=== PATIENT | female | born 1955 | race Two or more races ===

== ENCOUNTER 2020-04-24 11:12 | Outpatient (REF) | payer MEDICARE, SELFPAY | END 2020-04-24 11:13 | disposition home or self-care (01) | LOC: HO.LAB 11:12 | PROVIDERS: PCP Family Medicine; Visit Provider Internal Medicine | DX: Z20.828 Contact with and (suspected) exposure to other viral communicable diseases (principal) | CPT/HCPCS: C9803; U0003 ==

== ENCOUNTER 2020-07-29 07:20 | Outpatient (REF) | payer MEDICARE, SELFPAY ==
--- NOTE | ~2020-07-29 | MM_ITS ---
EXAMINATION: MM SCREENING DIGITAL BREAST TOMOSYNTHESIS, BILATERAL CLINICAL INFORMATION: Screening. Asymptomatic. Right breast cancer 2012. COMPARISON: Mammography: 05/08/2019, 05/05/2018, 11/03/2017, 04/26/2017, 04/09/2016 TECHNIQUE: Digital breast tomosynthesis is performed in both the craniocaudal and mediolateral oblique views along with computer-aided detection (CAD). Synthesized 2D images are generated from the tomosynthesis. FINDINGS: There are scattered areas of fibroglandular density (ACR BI-RADS breast composition Category b). There are post therapy changes on the right with stable scarring upper outer quadrant there is a benign coarse calcification at superior aspect of the scar. Some other loosely grouped calcifications posterior 12:30 o'clock are stable. The remainder of the breast is unremarkable. Left breast CC view has increased attenuation asymmetric density anteriorly just lateral to midline more prominent when compared with prior studies. There is no correlate on MLO view and this is likely to represent incompletely compressed glandular tissue and/or summation artifact. Patient will be recalled for additional imaging. MM/MM tomosynthesis screening BI IMPRESSION: 1. Left: Increased attenuation asymmetric density anterior breast on CC view, likely combination of incompletely compressed glandular tissue and summation artifact. 2. Right: No significant change from prior studies. Post therapy changes. ASSESSMENT: BI-RADS 0: Incomplete - Need Additional Imaging Evaluation RECOMMENDATION: 1. Additional views of the left (3-D rolled CC x2). 2. Targeted ultrasound if warranted after review of the additional views. 3. Radiology department staff will contact the patient for additional imaging. This patient's information was entered into a reminder system with a target due date for their next mammogram.
== END 2020-07-29 07:21 | disposition home or self-care (01) ==
LOC: HO.MAMMO 07:20
PROVIDERS: PCP Family Medicine; Visit Provider Family Medicine
DX: Z12.31 Encounter for screening mammogram for malignant neoplasm of breast (principal)
CPT/HCPCS: 77063; 77067

== ENCOUNTER 2020-08-07 07:22 | Outpatient (REF) | payer MEDICARE, SELFPAY ==
--- NOTE | ~2020-08-07 | MM_ITS ---
EXAMINATION: MM DIAGNOSTIC DIGITAL BREAST TOMOSYNTHESIS, LEFT US LEFT BREAST ULTRASOUND CLINICAL INFORMATION: Asymmetric density anterior lateral aspect of the left breast. COMPARISON: Mammography: 07/29/2020 and studies dating back to 03/23/2012. TECHNIQUE: Digital breast tomosynthesis is performed. 2D images are generated from the tomosynthesis. The following views are obtained: Left breast rolled craniocaudal views. FINDINGS: There are scattered areas of fibroglandular density (ACR BI-RADS breast composition Category b). There is some effacement of dense breast tissue. Multiple circumscribed densities appear present with no region of abnormal distal sound shadowing. Targeted ultrasound evaluation of the lateral aspect of the left breast demonstrated multiple simple cysts with no abnormal solid mass or region of abnormal distal sound shadowing. Results are provided to the patient at time of visit by the technologist. MM/MM tomosynthesis added views L IMPRESSION: No mammographic or ultrasound evidence of malignancy. ASSESSMENT: BI-RADS 2: Benign. RECOMMENDATION: Routine annual mammography screening due in 12 months. This patient's information was entered into a reminder system with a target due date for their next mammogram.
--- NOTE | ~2020-08-07 | US_ITS ---
EXAMINATION: US DIAGNOSTIC ULTRASOUND BREAST, LEFT CLINICAL INFORMATION: Dense breast parenchyma with circumscribed densities.. COMPARISON: Mammogram of same day and studies dating back to January 22, 2014. TECHNIQUE: Ultrasound of the breast is performed with real-time alfaro scale imaging and color Doppler. FINDINGS: Targeted ultrasound evaluation of the lateral aspect of the left breast demonstrated multiple simple cysts with no abnormal solid mass or region of abnormal distal sound shadowing. Results are provided to the patient at time of visit by the technologist. US/US breast LT limited IMPRESSION: No mammographic or ultrasound evidence of malignancy. ASSESSMENT: BI-RADS 2: Benign RECOMMENDATION: Routine annual mammography screening due in 12 months.
== END 2020-08-07 07:23 | disposition home or self-care (01) ==
LOC: HO.MAMMO 07:22
PROVIDERS: PCP Family Medicine; Visit Provider Family Medicine
DX: N64.89 Other specified disorders of breast (principal)
CPT/HCPCS: 76642; 77061; 77065

== ENCOUNTER 2020-09-19 12:06 | Outpatient (REF) | payer MEDICARE, SELFPAY ==
[2020-09-19 12:28] LABS: COVID-19 Test Negative (Negative)
== END 2020-09-19 12:07 | disposition home or self-care (01) ==
LOC: HO.LAB 12:06
PROVIDERS: Visit Provider Internal Medicine
DX: Z20.822 Contact with and (suspected) exposure to COVID-19 (principal)
CPT/HCPCS: 36415; 87635; C9803

== ENCOUNTER 2022-02-21 10:00 | Outpatient (REF) | payer MEDICARE, SELFPAY ==
[2022-02-21 10:19] LABS: MANUAL DIFF FLAG NO
[2022-02-21 11:16] LABS: Estimated Average Glucose 272 mg/dL; Hemoglobin A1c % 11.1 %
[2022-02-21 11:25] LABS: Basophils Absolute Auto 0.1 X10*3/uL (0.0-0.2); Basophils Percent Auto 0.6 % (0-2); Eosinophils Absolute Auto 0.1 X10*3/uL (0.0-0.4); Eosinophils Percent Auto 1.2 % (0-4); Hematocrit 43.3 % (37.0-47.0); Hemoglobin 14.6 g/dl (12.0-16.0); Imm Gran Abs Auto 0.04 X10*3/uL (0.00-0.03); Imm Gran Pct Auto 0.4 % (0.0-0.4); Lymphocytes Absolute Auto 1.7 X10*3/uL (1.2-4.9); Mean Corpuscular HGB Conc 33.7 g/dl (31.0-35.0); Mean Corpuscular Hemoglobin 29.3 pg (27.0-33.0); Mean Corpuscular Volume 86.9 fL (80.0-98.0); Mean Platelet Volume 10.6 fL (9.4-12.3); Monocytes Absolute Auto 0.6 X10*3/uL (0.1-1.2); Monocytes Percent Auto 6.9 % (2-11); Neutrophils Absolute Auto 6.5 x10*3/uL (2.0-8.3); Neutrophils Percent Auto 71.9 % (45-73); Platelet Count 225 X10*3/uL (160-400); Red Blood Count 4.98 X10*6/uL (4.20-5.50); Red Cell Distribution Width 11.8 % (11.0-16.0)
[2022-02-21 11:39] LABS: Alanine Aminotransferase 27 U/L (0-31); Albumin Level 4.3 g/dL (3.5-5.0); Alkaline Phosphatase 72 U/L (39-117); Anion Gap 18 (12-20); Aspartate Amino Transferase 22 U/L (5-31); Bilirubin Total 0.4 mg/dL (0.0-1.0); Blood Urea Nitrogen 15 mg/dL (9-16); Calcium 9.5 mg/dL (8.4-10.2); Carbon Dioxide 25 mmol/L (22-29); Chloride 97 mmol/L (96-108); Cholesterol 203 mg/dL; Estimated Glomerular Filt Rate > 60; Glucose Random 331 mg/dL (60-115); HDL Cholesterol 45 mg/dL; LDL Cholesterol Calculated 110 mg/dl; Potassium 4.6 mmol/L (3.3-5.1); Sodium 135 mmol/L (135-145); Total Protein 7.3 g/dL (6.5-8.0); Triglycerides 240 mg/dL
[2022-02-21 12:01] LABS: TSH reflex Free T4 1.21 uIU/mL (0.32-4.0); Vitamin D 25-OH Total 30.9 ng/mL (>30)
[2022-02-21 12:23] LABS: Creatinine Urine 121.92 mg/dL; Microalbum/Creatinine Ratio Ur 42.6 ug/mg cr
[2022-02-23 09:22] LABS: Vitamin B12 261 pg/mL (200-900)
== END 2022-02-21 10:01 | disposition home or self-care (01) ==
LOC: HO.LAB 10:00
PROVIDERS: PCP Family Medicine; Visit Provider Family Medicine
DX: D05.10 Intraductal carcinoma in situ of unspecified breast (principal); E11.9 Type 2 diabetes mellitus without complications; E78.5 Hyperlipidemia, unspecified; F33.0 Major depressive disorder, recurrent, mild; I10 Essential (primary) hypertension; Z95.0 Presence of cardiac pacemaker
CPT/HCPCS: 36415; 80053; 80061; 82043; 82306; 82607; 83036; 84443; 85025

== ENCOUNTER → 2022-04-13 13:47 | Outpatient (BNVA) | payer MEDICARE, SELFPAY | PROVIDERS: PCP Family Medicine; Referring Provider Family Medicine; Visit Provider Internal Medicine Cardiovascular Disease | DX: Z45.018 Encounter for adjustment and management of other part of cardiac pacemaker (principal); I10 Essential (primary) hypertension; I47.29 Other ventricular tachycardia; E78.5 Hyperlipidemia, unspecified | CPT/HCPCS: 93005; 99202 ==

== ENCOUNTER → 2022-04-27 07:29 | Outpatient (REF) | payer MEDICARE, SELFPAY | LOC: HO.CARD 07:29 | PROVIDERS: Visit Provider Internal Medicine Cardiovascular Disease | DX: I10 Essential (primary) hypertension (principal) | CPT/HCPCS: 93306 ==

== ENCOUNTER → 2022-07-30 15:29 | Outpatient (BNVA) | payer MEDICARE, SELFPAY | PROVIDERS: PCP Family Medicine; Referring Provider Family Medicine; Visit Provider Internal Medicine Cardiovascular Disease | DX: I47.29 Other ventricular tachycardia (principal); I10 Essential (primary) hypertension; E78.5 Hyperlipidemia, unspecified; G47.30 Sleep apnea, unspecified; Z95.0 Presence of cardiac pacemaker | CPT/HCPCS: 93005; 99212 ==

== ENCOUNTER 2023-01-20 15:37 | Outpatient (AMB) | payer MEDICARE, SELFPAY ==
--- NOTE | 2023-01-20 15:51 | A.OFFVIS_ITS ---
Intake Vital Signs 01/20/23 15:52 Height 5 ft 1 in Weight 238 lb 1.588 oz BMI 45.0 BP 130/72 Blood Pressure Location Lt brachial Position Sitting Pulse 64 Intake Visit Reasons: 6 month follow up Intake Note: 6 month f/u Color Sprayer Required: No Allergies No Known Allergies Allergy (Verified 01/20/23 15:55) Medication List - Last Reconciled 01/20/23 by Moisés Spence MD aspirin 81 mg PO QAM atenolol 25 mg PO DAILY atorvastatin 40 mg PO DAILY 90 days fluoxetine 40 mg PO DAILY latanoprost 0.005% 1 drp ophthalmic (eye) BEDTIME metformin ER 500 mg PO BID zolpidem 10 mg PO BEDTIME PRN HPI HPI Comments History of Present Illness Details Pleasant 67-year-old female who is here for 1st office visit. 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 She said she had syncope and had pacemaker placed after that. Denying any chest pain or shortness of breath. She was following with Dr. Whyte but has not seen him in the recent past. He wishes to change her care to our practice. Pacemaker was interrogated and it showed battery life of 5.1 year and the fact that she is V paced 99% of time. She also had 1 run of nonsustained ventricular tachycardia lasting for 4 seconds. She is saying in February she had diarrhea and was sick with viral illness and 1 episode of nonsustained VT was also in February. In any case he does not have any recurrent runs and she has not felt any palpitations or symptoms in general. She is depressed and quite tearful during the interview because her son 3 years ago. He was a [employer] and unfortunately committed suicide. Blood pressure control is good. On follow up she is denying chest pain or SOB. Blood pressure control is good. Echo showed mildly dilated RV but LV function was normal. 01/20/23: She returns for follow-up. Sh e is denying any chest discomfort shortness of breath. Taking medications regularly. EKGs showing paced rhythm as before. [facility] Surgical History History of cardiac pacemaker Family History Father Hx of coronary artery bypass graft Mother No problems noted. Social History Alcohol intake: current Alcohol intake frequency: holidays/special occasions only Patient Tobacco Use Status: Never used Tobacco Review of Systems ENT Reports dizziness Card Denies chest pain, Denies chest pain at rest, Denies chest pain with activity, Denies rapid heart rate, Denies pedal edema, Denies edema, Denies leg edema, Denies lightheadedness, Denies palpitations, Denies dyspnea, Denies dyspnea on exertion and Denies orthopnea Resp Denies cough, Denies dyspnea and Denies dyspnea on exertion GI Denies hematochezia and Denies change in stool character Musc Denies abnormal gait, Reports limited range of motion, Reports muscle cramps, Denies muscle weakness, Denies numbness, Denies radiating pain into limb, Denies stiffness and Denies tingling Neuro Denies abnormal gait, Reports dizziness, Denies numbness and Denies tingling Endo Denies palpitations Physical Exam Vital Signs: Last Vital Signs Pulse 64 01/20/23 15:52 BP 130/72 01/20/23 15:52 BMI result Body Mass Index 45.0 GENERAL APPEARANCE: in no acute distress, pleasant. NECK: no carotid bruit, no jugular venous distention. SKIN: no suspicious lesions, warm and dry. HEART: no murmurs, regular rate and rhythm. LUNGS: clear to auscultation bilaterally. ABDOMEN: soft, nontender. EXTREMITIES: no edema. PERIPHERAL PULSES: equal. NEUROLOGIC: No gross deficits, AAO X 3 Office Procedures EKG Details: Atrial sensed V paced rhythm 64 beats per minute QTC 472 milliseconds. [id number], Complete Assessment & Plan Assessment & Plan (1) Essential hypertension: Code(s): I10 - Essential (primary) hypertension Plan Pleasant 67-year-old female who is here for follow-up. She has been doing well. She has permanent pacemaker placement previously for heart block and is ventricular paced 99% time which means she is pacemaker dependent. Blood pressure control is good. Same medications for now. Follow-up with us in 6 months. Thank you for allowing me to participate in the care of your patient. Please feel free to contact me if you have any questions. Coding Level of Care Code Est Pt Level 3 (74287) Diagnoses Essential hypertension I10 CPT Codes EKG - CPT: 85233-[id number], Complete ([id number])
[2023-01-20 15:52] VITALS: BP 130/72; PULSE 64; BMI 45.0
== END 2023-01-20 16:17 | disposition home or self-care (01) ==
PROVIDERS: Visit Provider Internal Medicine Cardiovascular Disease
DX: I10 Essential (primary) hypertension (principal)
CPT/HCPCS: 93010; 99213

== ENCOUNTER → 2023-01-20 15:37 | Outpatient (BNVA) | payer MEDICARE, SELFPAY | PROVIDERS: Visit Provider Internal Medicine Cardiovascular Disease | DX: I10 Essential (primary) hypertension (principal) | CPT/HCPCS: 93005; 99212 ==

== ENCOUNTER 2023-02-25 12:53 | Outpatient (REF) | payer MEDICARE, SELFPAY ==
--- NOTE | ~2023-02-25 | XR_ITS ---
EXAMINATION: XR RIBS, LEFT CLINICAL INFORMATION: Left-sided rib pain. COMPARISON: Chest radiograph 05/22/2018. TECHNIQUE: 3 views of the left ribs were obtained. FINDINGS: Stable appearance of the cardiomediastinal silhouette. Left-sided pacer with leads projecting over the right atrium and right ventricle. No focal airspace opacity, pleural effusion or pneumothorax. No evidence of displaced rib fractures. The visualized upper abdomen is within normal limits. XR/XR ribs LT min 3V w CXR1V IMPRESSION: 1. No acute cardiopulmonary findings. 2. No evidence of displaced rib fractures.
--- NOTE | ~2023-02-25 | XR_ITS ---
EXAMINATION: XR THORACOLUMBAR SPINE CLINICAL INFORMATION: Mid back pain radiating to left posterior ribs COMPARISON: Chest x-ray of 05/22/2018 TECHNIQUE: Frontal and lateral radiographs were acquired of the dorsal spine. FINDINGS: The vertebral alignment is normal. No intrinsic bony abnormality. The disc heights and neural foramina are well maintained. The endplates and posterior elements are normal. No fracture or subluxation. The surrounding prevertebral soft tissues are unremarkable. [id number] spondylotic proliferative changes are evident in the mid and lower dorsal spine. Left subclavian pacemaker leads are incidentally noted. XR/XR thoracic spine 2V IMPRESSION: Mild spondylotic hypertrophic changes in the mid and lower dorsal spine.
--- NOTE | ~2023-02-25 | XR_ITS ---
EXAMINATION: XR LUMBOSACRAL SPINE CLINICAL INFORMATION: Pain radiating to left posterior ribs, low back pain COMPARISON: None available. TECHNIQUE: Three views of the lumbosacral spine. FINDINGS: The vertebral bodies and posterior elements are normal. The disc spaces are preserved and the vertebral alignment is normal. The paraspinal soft tissues are normal. XR/XR lumbar spine 2-3V IMPRESSION: Unremarkable plain radiographs of the lumbar spine.
== END 2023-02-25 12:54 | disposition home or self-care (01) ==
LOC: HO.HHCX 12:53
PROVIDERS: Visit Provider Family Medicine
DX: M54.9 Dorsalgia, unspecified (principal); R07.81 Pleurodynia
CPT/HCPCS: 71101; 72070; 72100

== ENCOUNTER 2023-05-06 05:14 | Emergency (ER) | payer MEDICARE, SELFPAY ==
--- NOTE | 2023-05-06 | ECG_ITS ---
Test Reason : CHEST PAIN Blood Pressure : / mmHG Vent. Rate : 070 BPM Atrial Rate : 070 BPM P-R Int : 164 ms QRS Dur : 140 ms QT Int : 482 ms P-R-T Axes : 076 102 053 degrees QTc Int : 520 ms Atrial-sensed ventricular-paced rhythm Abnormal ECG When compared with ECG of 22-MAY-2018 06:30, Vent. rate has decreased BY 9 BPM Referred By: Generic ED Physician Electronically Signed By:KEVIN LEVINE
--- NOTE | ~2023-05-06 | CT_ITS ---
EXAMINATION: CT HEAD WITHOUT CONTRAST CT CERVICAL SPINE WITHOUT CONTRAST CLINICAL INFORMATION: Fall. Pain. COMPARISON: None available. TECHNIQUE: Contiguous axial imaging was performed through the head and cervical spine without intravenous administration of contrast. This CT examination was performed using dose optimization techniques as appropriate, variously including the following: *Automated exposure control *Adjustment of mA and/or kV according to patient size (this includes techniques or standardized protocols for targeted exams where dose is matched to indication/reason for exam; i.e. extremities or head) *Use of iterative reconstruction technique DLP: 1200 mGy-cm FINDINGS: The lateral, third and fourth ventricles are normally outlined. The cortical sulci and basal cisterns are normally outlined as well. There is no acute territorial defect, hemorrhage or midline shift. The extra-axial spaces are unremarkable. Calvarium: Intact. Maxillofacial sinuses and mastoids: Clear as visualized. Cervical spine: The alignment is within normal limits. There is mild diffuse cervical disc degenerative change with mild loss of disc space, endplate change and mild osteophyte formation associated with diffuse cwui-up-qofsbjmj facet osteoarthritic degenerative change with multilevel minimal spinal canal and L2 level mild neuroforaminal narrowing. There is no fracture. The soft tissues are unremarkable. The visualized upper lung alex are clear. CT/CT cervical spine wo IV con IMPRESSION: 1. No acute intracranial process seen. 2. No acute cervical spine fracture or traumatic subluxation seen.
--- NOTE | ~2023-05-06 | CT_ITS ---
EXAMINATION: CT HEAD WITHOUT CONTRAST CT CERVICAL SPINE WITHOUT CONTRAST CLINICAL INFORMATION: Fall. Pain. COMPARISON: None available. TECHNIQUE: Contiguous axial imaging was performed through the head and cervical spine without intravenous administration of contrast. This CT examination was performed using dose optimization techniques as appropriate, variously including the following: *Automated exposure control *Adjustment of mA and/or kV according to patient size (this includes techniques or standardized protocols for targeted exams where dose is matched to indication/reason for exam; i.e. extremities or head) *Use of iterative reconstruction technique DLP: 1200 mGy-cm FINDINGS: The lateral, third and fourth ventricles are normally outlined. The cortical sulci and basal cisterns are normally outlined as well. There is no acute territorial defect, hemorrhage or midline shift. The extra-axial spaces are unremarkable. Calvarium: Intact. Maxillofacial sinuses and mastoids: Clear as visualized. Cervical spine: The alignment is within normal limits. There is mild diffuse cervical disc degenerative change with mild loss of disc space, endplate change and mild osteophyte formation associated with diffuse zcmn-sj-rsqaazlq facet osteoarthritic degenerative change with multilevel minimal spinal canal and L2 level mild neuroforaminal narrowing. There is no fracture. The soft tissues are unremarkable. The visualized upper lung alex are clear. CT/CT head/brain wo IV con IMPRESSION: 1. No acute intracranial process seen. 2. No acute cervical spine fracture or traumatic subluxation seen.
--- NOTE | ~2023-05-06 | XR_ITS ---
EXAMINATION: XR CHEST CLINICAL INFORMATION: Chest pain COMPARISON: None available. TECHNIQUE: Frontal view of the chest was obtained. FINDINGS: Rotated positioning. Left-sided pacer with leads projecting over the right atrium and right ventricle. Stable cardiomediastinal silhouette. Multiple cardiac leads overlie the chest. No focal consolidation, effusion, pulmonary edema or pneumothorax is seen. No acute osseous abnormality. XR/XR chest 1V IMPRESSION: No acute cardiopulmonary findings.
[2023-05-06 05:21] VITALS: BP 119/56; PULSE 73; O2SAT 100
[2023-05-06 05:36] VITALS: BP 120/70; PULSE 70; RESP 14; O2SAT 94; BMI 43.9
[2023-05-06 05:48] VITALS: PULSE 71
[2023-05-06 06:15] LABS: MANUAL DIFF FLAG NO
[2023-05-06 06:17] LABS: Basophils Percent Auto 0.3 % (0-2); Eosinophils Absolute Auto 0.1 X10*3/uL (0.0-0.4); Eosinophils Percent Auto 0.5 % (0-4); Hematocrit 43.3 % (37.0-47.0); Hemoglobin 14.5 g/dl (12.0-16.0); Imm Gran Abs Auto 0.04 X10*3/uL (0.00-0.03); Imm Gran Pct Auto 0.3 % (0.0-0.4); Lymphocytes Absolute Auto 1.3 X10*3/uL (1.2-4.9); Lymphocytes Percent Auto 10.3 % (20-40); Mean Corpuscular HGB Conc 33.5 g/dl (31.0-35.0); Mean Corpuscular Hemoglobin 29.4 pg (27.0-33.0); Mean Corpuscular Volume 87.8 fL (80.0-98.0); Mean Platelet Volume 10.2 fL (9.4-12.3); Monocytes Absolute Auto 0.7 X10*3/uL (0.1-1.2); Neutrophils Absolute Auto 10.1 x10*3/uL (2.0-8.3); Neutrophils Percent Auto 82.6 % (45-73); Platelet Count 199 X10*3/uL (160-400); Red Blood Count 4.93 X10*6/uL (4.20-5.50); Red Cell Distribution Width 11.9 % (11.0-16.0); White Blood Count 12.2 X10*3/uL (4.8-10.8)
[2023-05-06 06:22] LABS: INTERNATIONAL NORM RATIO 0.9 (0.9-1.1); Prothrombin Time 10.9 SEC (11.1-13.3)
[2023-05-06 06:30] LABS: Alanine Aminotransferase 24 U/L (0-31); Albumin Level 4.2 g/dL (3.5-5.0); Alkaline Phosphatase 78 U/L (39-117); Anion Gap 18 (12-20); Aspartate Amino Transferase 23 U/L (5-31); Bilirubin Total 0.6 mg/dL (0.0-1.0); Blood Urea Nitrogen 12 mg/dL (9-16); Calcium 9.2 mg/dL (8.4-10.2); Carbon Dioxide 21 mmol/L (22-29); Chloride 94 mmol/L (96-108); Creatinine Clr Calc Pharmacy 61.4; Estimated Glomerular Filt Rate 55; Glucose Random 348 mg/dL (60-115); Potassium 4.2 mmol/L (3.3-5.1); Sodium 129 mmol/L (135-145); Total Protein 7.6 g/dL (6.5-8.0)
[2023-05-06 06:36] LABS: Troponin-I High Sensitivity < 2.7 ng/L (<3.5-17.0)
--- NOTE | 2023-05-06 06:50 | ED.CHESTPAIN ---
HPI - Chest Pain General Chief Complaint: Chest Pain Stated Complaint: unwitnessed fall Time Seen by Provider: 05/06/23 06:41 Source: patient Mode of arrival: ambulatory Limitations: other (Poor historian) History of Present Illness HPI narrative: This is a 68-year-old female presenting to the emergency department status post unwitnessed fall, details of fall very unclear as patient poor historian she reports she got out of bed and she thinks her legs gave out, she fell, since then has been having some chest discomfort. No head strike, loss of consciousness, not on blood thinners. Reports substernal nonradiating chest pain at this time. Patient denies preceding symptoms of fall such as chest pain, shortness of breath, dizziness, weakness. She tells me she has fallen before. Patient also reports overall fatigue, malaise, myalgias. Denies nausea, vomiting, abdominal pain, shortness of breath, headache, vision changes, dizziness and weakness Related Data Home Medications Medication Instructions Recorded Confirmed aspirin 81 mg tablet,delayed 81 mg PO QAM 04/13/22 01/20/23 release atenolol 25 mg tablet 25 mg PO DAILY 04/13/22 01/20/23 fluoxetine 40 mg capsule 40 mg PO DAILY 04/13/22 01/20/23 latanoprost 0.005 % eye drops 1 drp ophthalmic (eye) BEDTIME 04/13/22 01/20/23 metformin 500 mg tablet,extended 500 mg PO BID 04/13/22 01/20/23 release 24 hr zolpidem 10 mg tablet 10 mg PO BEDTIME PRN 04/13/22 01/20/23 Previous Rx's Medication Instructions Recorded atorvastatin 40 mg tablet 40 mg PO DAILY 90 days #90 tabs 11/24/22 cefuroxime axetil 250 mg tablet 250 mg PO BID 7 days #14 tabs 05/06/23 Allergies Allergy/AdvReac Type Severity Reaction Status Date / Time No Known Allergies Allergy Verified 01/20/23 15:55 Review of Systems Review of Systems: Constitutional : No Weight loss, No Fever, No Chills, + Fatigue, + Malaise ENT/Mouth : No sore throat, No Rhinorrhea Eyes: No Eye Pain, No Swelling, No Redness Cardiovascular : + Chest Pain, No SOB, No Dyspnea on Exertion, No Orthopnea, No Edema, No Palpitations Respiratory : No Cough, No Sputum, No Wheezing Gastrointestinal : No Nausea, No Vomiting, No Diarrhea, No Constipation, No abdominal Pain, No Hematochezia, No Melena Genitourinary : No Dysuria, No Urinary Frequency, No Hematuria, Musculoskeletal : No joint pain, + Myalgias, No Joint Swelling Skin : No Skin Lesions, No rash Neuro : No Weakness, No Numbness, No Dizziness, No Headache Psych : No Anxiety/Panic, No Depression All other systems reviewed and are negative Yes all other systems are reviewed and are negative [facility] Past Medical History Attestation statement: The following information was validated with the patient. Source: old records reviewed and nursing notes reviewed Surgical History History of cardiac pacemaker Family History Family History Father Hx of coronary artery bypass graft Mother No problems noted. Social History Social History Alcohol intake: current Alcohol intake frequency: a few times a month Patient Tobacco Use Status: Never used Tobacco Smoked in Last 30 Days: No Use of substances other than those prescribed or required for medical reasons: No Advance Directives: No Advance Directives Information Provided: No Physical Exam Vital Signs: Vital Signs: Last Vital Signs Pulse 78 05/06/23 10:37 Resp 15 05/06/23 10:37 BP 132/65 05/06/23 10:37 Pulse Ox 97 05/06/23 10:37 O2 Del Method Room Air 05/06/23 10:37 BMI result Body Mass Index 43.9 Vital signs stable Appearance: Alert.? Oriented X3.? No acute distress.? Head: Normocephalic, atraumatic, no step-offs or deformities Eyes: Pupils equal, round and reactive to light.? ENT: Pharynx normal.? Neck: Normal inspection.? Neck supple.? CVS: Normal heart rate and rhythm.? Pulses normal.? Respiratory: No respiratory distress.? Breath sounds normal.? Abdomen: Soft and nontender.? Skin: Skin warm and dry.? Normal skin color.? Normal skin turgor.? Extremities: No lower extremity edema.? No calf ttp. Global weakness Neuro: Oriented X 3.? No motor deficit.? No sensory deficit. CN 2-12 intact Course Reevaluation(s) Reevaluation #1: No longer having chest pain. CBC with leukocytosis and left shift, chemistry with low sodium will give IV fluids, troponin negative, EKG nonischemic unlikely ACS. Urine is still pending. CT head and neck no acute findings no intracranial hemorrhage, traumatic subluxations or fractures. Due to left shift, increasing fatigue, weakness at this time infection suspected blood cultures, lactic acid an empiric antibiotics ordered. Time: 06:55 Reevaluation #2: + urine for infection patient does endore increasing weakness, faitgue and malaise. Ok to be dc w/ PO meds. CXR pending. Time: 07:24 Reevaluation #3: Initial lactic acid 4.0, patient is on metformin I suspect metformin lactic acidosis. Repeat lactic improved. Patient without systemic symptoms, not tachycardic, febrile, tachypneic. She does have a urinary tract infection however I do not suspect sepsis. Time: 10:50 Additional Reevaluation(s): Patient feeling much better, did not have chest pain, shortness of breath. Educated on finding of UTI. Patient to be discharged home with Ceftin. Patient feels well to go home vital signs stable peer Educated patient on diagnosis and treatment plan, answered all question, patient verbalizes understanding. At this time patient will be discharged home, advised to return with new or worsening symptoms. Educated on worrisome signs and symptoms and when to return. At this time I feel comfortable discharge home. Medications Administered Discontinued Medications Generic Name Dose Route Start Last Admin Trade Name Freq PRN Reason Stop Dose Admin Sodium Chloride 1,000 mls @ 999 mls/hr 05/06/23 07:00 05/06/23 09:31 Ns IV 05/06/23 08:00 999 mls/hr .Q1H1M EDMOND Administration Ceftriaxone Sodium 1 gm/ 50 mls @ 100 mls/hr 05/06/23 06:50 05/06/23 09:34 Sodium Chloride IV 05/06/23 07:19 100 mls/hr ONCE ONE Administration Sodium Chloride 1,000 mls @ 999 mls/hr 05/06/23 08:45 05/06/23 09:32 Ns IV 05/06/23 09:45 999 mls/hr .Q1H1M EDMOND Administration Insulin Human Lispro 5 unit 05/06/23 09:32 05/06/23 10:38 Insulin Lispro 100 Unit/Ml 3 Ml Vial SUBCUT 05/06/23 09:33 5 unit ONCE ONE Administration Morphine Sulfate 4 mg 05/06/23 06:50 05/06/23 09:29 Morphine Sulfate 4 Mg/Ml Cartridge IVPUSH 05/06/23 06:51 Not Given ONCE ONE Protocol Medical Decision Making Medical Decision Making [facility] Narrative: [address]50 68-year-old female presents with fatigue, malaise, myalgias, status post unwitnessed fall at home, now reporting chest pain. Physical examination benign. No evidence of trauma to head, neck, chest, abdomen or pelvis or extremities. No preceding symptoms to fall unlikely ACS, pulmonary embolism. Chest pain likely secondary to anxiety however ACS will be ruled out. All likely mechanical. Will rule out metabolic derangements, urinary tract infection. Will rule out dysrythmia Plan at this time labs, imaging, urine Differential Diagnosis Differential Diagnoses: The differential diagnosis associated with the presentation includes No evidence of trauma to head, neck, chest, abdomen or pelvis or extremities. No preceding symptoms to fall unlikely ACS, pulmonary embolism. Chest pain likely secondary to anxiety however ACS will be ruled out. All likely mechanical. Will rule out metabolic derangements, urinary tract infection. Will rule out dysrythmia Admission/Observation Consideration of admission/observation: Escalation of care including admission/observation considered unlikely Lab Data [facility] Lab Attestation statement: I reviewed the patient's lab results. 05/06/23 06:06 05/06/23 06:06 Labs: Lab Results 05/06/23 05/06/23 05/06/23 Range/Units 06:06 06:42 07:47 WBC 12.2 H (4.8-10.8) X10*3/uL RBC 4.93 (4.20-5.50) X10*6/uL Hgb 14.5 (12.0-16.0) g/dl Hct 43.3 (37.0-47.0) % MCV 87.8 (80.0-98.0) fL MCH 29.4 (27.0-33.0) pg MCHC 33.5 (31.0-35.0) g/dl RDW 11.9 (11.0-16.0) % Plt Count 199 (160-400) X10*3/uL MPV 10.2 (9.4-12.3) fL Immature Gran % (Auto) 0.3 (0.0-0.4) % Neut % (Auto) 82.6 H (45-73) % Lymph % (Auto) 10.3 L (20-40) % Turner % (Auto) 6.0 (2-11) % Eos % (Auto) 0.5 (0-4) % Baso % (Auto) 0.3 (0-2) % Lymph # (Auto) 1.3 (1.2-4.9) X10*3/uL Turner # (Auto) 0.7 (0.1-1.2) X10*3/uL Eos # (Auto) 0.1 (0.0-0.4) X10*3/uL Baso # (Auto) 0.0 (0.0-0.2) X10*3/uL Abs Immat Gran (auto) 0.04 H (0.00-0.03) X10*3/uL Absolute Neuts (auto) 10.1 H (2.0-8.3) x10*3/uL Absolute Nucleated RBC 0.000 (0.0-0.012) X10*3/uL Nucleated RBC % (auto) 0.0 (0.0-0.2) /100WBC PT 10.9 L (11.1-13.3) SEC INR 0.9 (0.9-1.1) Sodium 129 L (135-145) mmol/L Potassium 4.2 (3.3-5.1) mmol/L Chloride 94 L (96-108) mmol/L Carbon Dioxide 21 L (22-29) mmol/L Anion Gap 18 (12-20) BUN 12 (9-16) mg/dL Creatinine 0.99 (0.5-1.4) mg/dL Estim Creat Clear Calc 61.4 Estimated GFR 55 POC Glucose (60-115) mg/dL Random Glucose 348 H (60-115) mg/dL Lactic Acid (0.5-2.0) mmol/L Calcium 9.2 (8.4-10.2) mg/dL Total Bilirubin 0.6 (0.0-1.0) mg/dL AST 23 (5-31) U/L ALT 24 (0-31) U/L Alkaline Phosphatase 78 (39-117) U/L Troponin I High Sens < 2.7 < 2.7 (<3.5-17.0) ng/L Total Protein 7.6 (6.5-8.0) g/dL Albumin 4.2 (3.5-5.0) g/dL Urine Color Yellow Urine Appearance Clear Urine pH 5.5 (5.0-9.0) Ur Specific Harrison 1.010 (1.005-1.025) Urine Protein Negative (Neg-Trace) mg/dL Urine Glucose (UA) >=1000 H (Negative) mg/dL Urine Ketones Negative (Negative) mg/dL Urine Blood Trace H (Negative) Urine Nitrite Negative (Negative) Ur Leukocyte Esterase Trace H (Negative) Urine RBC 0-2 (0-2) /HPF Urine WBC 0-5 (0-5) /HPF Ur Squamous Epith Cells 0-2 (0-2) /HPF Urine Bacteria 1+ (None Seen) Hyaline Casts 0-2 (0-2) /LPF 05/06/23 05/06/23 Range/Units 08:05 10:18 WBC (4.8-10.8) X10*3/uL RBC (4.20-5.50) X10*6/uL Hgb (12.0-16.0) g/dl Hct (37.0-47.0) % MCV (80.0-98.0) fL MCH (27.0-33.0) pg MCHC (31.0-35.0) g/dl RDW (11.0-16.0) % Plt Count (160-400) X10*3/uL MPV (9.4-12.3) fL Immature Gran % (Auto) (0.0-0.4) % Neut % (Auto) (45-73) % Lymph % (Auto) (20-40) % Turner % (Auto) (2-11) % Eos % (Auto) (0-4) % Baso % (Auto) (0-2) % Lymph # (Auto) (1.2-4.9) X10*3/uL Turner # (Auto) (0.1-1.2) X10*3/uL Eos # (Auto) (0.0-0.4) X10*3/uL Baso # (Auto) (0.0-0.2) X10*3/uL Abs Immat Gran (auto) (0.00-0.03) X10*3/uL Absolute Neuts (auto) (2.0-8.3) x10*3/uL Absolute Nucleated RBC (0.0-0.012) X10*3/uL Nucleated RBC % (auto) (0.0-0.2) /100WBC PT (11.1-13.3) SEC INR (0.9-1.1) Sodium (135-145) mmol/L Potassium (3.3-5.1) mmol/L Chloride (96-108) mmol/L Carbon Dioxide (22-29) mmol/L Anion Gap (12-20) BUN (9-16) mg/dL Creatinine (0.5-1.4) mg/dL Estim Creat Clear Calc Estimated GFR POC Glucose 287 H (60-115) mg/dL Random Glucose (60-115) mg/dL Lactic Acid 4.0 H* (0.5-2.0) mmol/L Calcium (8.4-10.2) mg/dL Total Bilirubin (0.0-1.0) mg/dL AST (5-31) U/L ALT (0-31) U/L Alkaline Phosphatase (39-117) U/L Troponin I High Sens (<3.5-17.0) ng/L Total Protein (6.5-8.0) g/dL Albumin (3.5-5.0) g/dL Urine Color Urine Appearance Urine pH (5.0-9.0) Ur Specific Harrison (1.005-1.025) Urine Protein (Neg-Trace) mg/dL Urine Glucose (UA) (Negative) mg/dL Urine Ketones (Negative) mg/dL Urine Blood (Negative) Urine Nitrite (Negative) Ur Leukocyte Esterase (Negative) Urine RBC (0-2) /HPF Urine WBC (0-5) /HPF Ur Squamous Epith Cells (0-2) /HPF Urine Bacteria (None Seen) Hyaline Casts (0-2) /LPF Independent Interpretation I performed an independent interpretation of an: EKG (Ventricular rate 70, VA normal, QRS normal, QT/QTC of. Atrial sensed ventricularly paced rate rhythm abnormal ECG no ST elevations or inversions concerning for ischemia.), Plain X-Ray and CT Scan (CT/CT head/brain wo IV con IMPRESSION: 1. No acute intracranial process seen. 2. No acute cervical spine fracture or traumatic subluxation seen.) Radiology Impression Discussion of test interpretation with radiology: I have reviewed the radiologist's reading. Critical Care Time Critical Care Time Critical Care Time: No Discharge Plan Discharge Clinical Impression: Fall, Chest pain, Acute UTI Patient Disposition: Home, Self-Care Instructions: Chest Pain (ED), Urinary Tract Infection in Women (DC), Fall Prevention (ED) Additional Instructions: Take your medications as prescribed. If you were prescribed antibiotics today, it is important that you take your medication to their entirety, do not skip any doses, do not finish them early. Follow-up with your primary care provider this week. Return to the emergency department with new or worsening symptoms. Such as fevers, chills, chest pain, shortness of breath, nausea, vomiting, dizziness, headache, vision changes, lethargy In case of emergency call 911 XR/XR chest 1V IMPRESSION: No acute cardiopulmonary findings. Prescriptions: New cefuroxime axetil 250 mg tablet 250 mg PO BID 7 Days Qty: 14 0RF No Action atorvastatin 40 mg tablet 40 mg PO DAILY 90 Days Qty: 90 3RF metformin 500 mg tablet extended release 24 hr 500 mg PO BID zolpidem 10 mg tablet 10 mg PO BEDTIME PRN aspirin 81 mg tablet,delayed release (DR/EC) 81 mg PO QAM fluoxetine 40 mg capsule 40 mg PO DAILY atenolol 25 mg tablet 25 mg PO DAILY latanoprost 0.005 % drops 1 drp ophthalmic (eye) BEDTIME Referrals: Rahcel Shine MD [Primary Care Provider] - 2 days Stand Alone Forms: Work/School Release
[2023-05-06 07:16] LABS: Appearance Urine Clear; Color Urine Yellow; Glucose Urine UA >=1000 mg/dL (Negative); Leukocyte Esterase Urine Trace (Negative); Nitrite Urine Negative (Negative); PH 5.5 (5.0-9.0); UMIC TRIGGER UACC YES; Urine Blood Trace (Negative); Urine Ketones Negative (Negative); Urine Protein Negative (Neg-Trace)
[2023-05-06 07:21] LABS: Bacteria Urine 1+ (None Seen); Hyaline Casts Urine 0-2 /LPF (0-2); RBC Urine 0-2 /HPF (0-2); Squamous Epithelial Cell Urine 0-2 /HPF (0-2); WBC Urine 0-5 /HPF (0-5)
[2023-05-06 08:16] LABS: Troponin-I High Sensitivity < 2.7 ng/L (<3.5-17.0)
[2023-05-06] MEDS: 0.9 % Sodium Chloride 1,000 ML 999 ML IV ×2 (09:31→09:32)
[2023-05-06] MEDS: cefTRIAXone sodium 1 GM in 0.9 % Sodium Chloride 50 ML IV (09:34)
[2023-05-06 09:47] VITALS: BP 118/67; PULSE 78; RESP 17; O2SAT 97
[2023-05-06 10:10] LABS: Reflex Lactate? Lactic Acid Added
[2023-05-06 10:23] LABS: Glucose, Whole Blood 287 mg/dL (60-115)
[2023-05-06 10:37] VITALS: BP 132/65; PULSE 78; RESP 15; O2SAT 97
[2023-05-06] MEDS: Insulin Lispro 100 UNIT/ML 3 ML VIAL SUBCUT (10:38)
[2023-05-06 10:50] LABS: ~Lactic Acid-LAB USE ONLY 2.1 mmol/L (0.5-2.0)
[2023-05-06 11:05] LABS: Troponin-I High Sensitivity < 2.7 ng/L (<3.5-17.0)
[2023-05-06 12:22] LABS: Reflex Lactate? 2 Y
== END 2023-05-06 11:33 | disposition home or self-care (01) ==
PROVIDERS: Physician Assistant; Emergency Provider Emergency Medicine; PCP Family Medicine
DX: R07.89 Other chest pain (principal); N39.0 Urinary tract infection, site not specified; M54.2 Cervicalgia; R51.9 Headache, unspecified; Z79.899 Other long term (current) drug therapy
CPT/HCPCS: 36415; 70450; 71045; 72125; 80053; 81001; 82947; 83605; 84484; 85025; 85610; 87040; 93005; 96361; 96374; 99284; 99285; J0696

== ENCOUNTER → 2023-05-06 05:49 | Outpatient (BNV) | payer MEDICARE, SELFPAY | PROVIDERS: Emergency Provider Emergency Medicine; PCP Family Medicine; Visit Provider Internal Medicine | DX: R07.9 Chest pain, unspecified (principal) | CPT/HCPCS: 93010 ==

== ENCOUNTER 2023-08-02 09:49 | Outpatient (REF) | payer SELFPAY ==
[2023-08-02 12:44] LABS: Estimated Average Glucose 286 mg/dL; Hemoglobin A1c % 11.6 % (<6.0)
[2023-08-02 13:26] LABS: Creatinine Urine 170.45 mg/dL; Microalbum/Creatinine Ratio Ur 19.3 ug/mg cr (<30)
[2023-08-02 13:38] LABS: Alanine Aminotransferase 26 U/L (0-31); Alkaline Phosphatase 79 U/L (39-117); Anion Gap 11 (12-20); Aspartate Amino Transferase 22 U/L (5-31); Bilirubin Direct 0.2 mg/dL (0.0-0.5); Bilirubin Total 0.6 mg/dL (0.0-1.0); Blood Urea Nitrogen 12 mg/dL (9-16); Calcium 9.8 mg/dL (8.4-10.2); Carbon Dioxide 30 mmol/L (22-29); Chloride 98 mmol/L (96-108); Cholesterol 213 mg/dL (<200); Estimated Glomerular Filt Rate 57; Glucose Random 361 mg/dL (60-115); HDL Cholesterol 53 mg/dL (>40); LDL Cholesterol Calculated 131 mg/dL (<100); Sodium 135 mmol/L (135-145); Total Protein 7.4 g/dL (6.5-8.0); Triglycerides 149 mg/dL (<150)
[2023-08-03 04:31] LABS: ~HepC Num1 0.09 S/CO (0.00-0.79); ~Hepatitis C Antibody Nonreactive (Nonreactive)
== END 2023-08-02 09:50 | disposition home or self-care (01) ==
LOC: HO.HHCL 09:49
PROVIDERS: Visit Provider Family Medicine
DX: Z11.59 Encounter for screening for other viral diseases (principal); E11.65 Type 2 diabetes mellitus with hyperglycemia; E78.5 Hyperlipidemia, unspecified
CPT/HCPCS: 36415; 80048; 80061; 80076; 82043; 82570; 83036; 86803

== ENCOUNTER 2023-08-25 07:23 | Outpatient (REF) | payer MEDICARE, SELFPAY ==
--- NOTE | ~2023-08-25 | MM_ITS ---
EXAMINATION: MM SCREENING DIGITAL BREAST TOMOSYNTHESIS, BILATERAL CLINICAL INFORMATION: Screening. Asymptomatic. The patient is status post right breast cancer surgery from 2011. COMPARISON: Mammography: This study is compared with prior exams dating back to 2018. TECHNIQUE: Digital breast tomosynthesis is performed in both the craniocaudal and mediolateral oblique views along with computer-aided detection (CAD). Synthesized 2D images are generated from the tomosynthesis. FINDINGS: There are scattered areas of fibroglandular density (ACR BI-RADS breast composition Category b). There are no significant masses, abnormal calcifications, or other abnormalities. There are architectural changes in the upper outer quadrant of the right breast from prior breast cancer surgery. There a few, unchanged, benign calcifications in the right breast. There is a pacemaker in the superior aspect of the left breast. MM/MM tomosynthesis screening BI IMPRESSION: No mammographic evidence of malignancy. ASSESSMENT: BI-RADS BI-RADS 2 - Benign Findings RECOMMENDATION: Routine annual mammography screening. 1 year F/U This examination should not preclude the clinical evaluation of a suspicious palpable abnormality. This patient's information was entered into a reminder system with a target due date for their next mammogram.
== END 2023-08-25 07:24 | disposition home or self-care (01) ==
LOC: HO.MAMMO 07:23
PROVIDERS: PCP Family Medicine; Visit Provider Family Medicine
DX: Z12.31 Encounter for screening mammogram for malignant neoplasm of breast (principal)
CPT/HCPCS: 77063; 77067

== ENCOUNTER → 2023-08-25 07:30 | Outpatient (BNV) | payer MEDICARE, SELFPAY | PROVIDERS: PCP Family Medicine; Visit Provider Radiology Diagnostic Radiology | DX: Z12.31 Encounter for screening mammogram for malignant neoplasm of breast (principal) | CPT/HCPCS: 77063; 77067 ==

== ENCOUNTER 2023-11-08 10:20 | Outpatient (AMB) | payer MEDICARE, SELFPAY ==
[2023-11-08 10:35] VITALS: BP 120/64; PULSE 89; BMI 42.4
--- NOTE | 2023-11-08 10:35 | MHC.OFFVIS ---
Vital Signs 11/08/23 10:35 Height 5 ft 2 in Weight 231 lb 14.821 oz BMI 42.4 BP 120/64 Blood Pressure Location Lt brachial Position Sitting Pulse 89 Pulse Source Pulse Oximeter Intake Visit Reasons: f/up Intake Note: pt is her for her regular f/up pt state that she is doing fine. Product Safety Associate Required: No Accompanied by: Self / Same As Patient Allergies No Known Allergies Allergy (Verified 08/04/23 12:11) Medication List - Last Reconciled 11/08/23 by Moisés Spence MD aspirin 81 mg PO QAM atenolol 25 mg PO DAILY atorvastatin 40 mg PO DAILY 90 days cefuroxime axetil 250 mg PO BID 7 days dulaglutide (Trulicity) 3 mg subcut QWEEK fluoxetine 40 mg PO DAILY insulin glargine 10 units subcut DAILY latanoprost 0.005% 1 drp ophthalmic (eye) BEDTIME metformin ER 500 mg PO BID zolpidem 10 mg PO BEDTIME PRN HPI Comments Details: Pleasant 68-year-old female who is here for 1st office visit. 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 She said she had syncope and had pacemaker placed after that. Denying any chest pain or shortness of breath. She was following with Dr. Whyte but has not seen him in the recent past. He wishes to change her care to our practice. Pacemaker was interrogated and it showed battery life of 5.1 year and the fact that she is V paced 99% of time. She also had 1 run of nonsustained ventricular tachycardia lasting for 4 seconds. She is saying in February she had diarrhea and was sick with viral illness and 1 episode of nonsustained VT was also in February. In any case he does not have any recurrent runs and she has not felt any palpitations or symptoms in general. She is depressed and quite tearful during the interview because her son 3 years ago. He was a [employer] and unfortunately committed suicide. Blood pressure control is good. On follow up she is denying chest pain or SOB. Blood pressure control is good. Echo showed mildly dilated RV but LV function was normal. 01/20/23: She returns for follow-up. She is denying any chest discomfort shortness of breath. Taking medications regularly. EKGs showing paced rhythm as before. 11/08/23: She is here for follow-up. She has no complaints. She had previous permanent pacemaker and was V paced 99% of time. We have not been receiving any remote downloads for her. She is denying any symptoms in particular no chest pain, shortness of breath or dizziness. Blood pressure is well controlled. Last echocardiogram was 2 years ago when she had normal ejection fraction. [facility] Surgical History History of cardiac pacemaker Family History Father Hx of coronary artery bypass graft Mother No problems noted. Social History Alcohol intake: current Alcohol intake frequency: a few times a month Patient Tobacco Use Status: Never used Tobacco Review of Systems Const Denies chills, Denies fatigue, Denies fever(s), Denies frequent falls, Denies weakness, Denies weight gain and Denies weight loss ENT Denies dizziness Card Denies chest pain, Denies leg edema, Denies lightheadedness, Denies palpitations, Denies dyspnea and Denies dyspnea on exertion Resp Denies cough, Denies dyspnea and Denies dyspnea on exertion GI Denies hematochezia Musc Denies abnormal gait, Denies muscle weakness, Denies numbness, Denies radiating pain into limb and Denies tingling Neuro Denies abnormal gait, Denies dizziness, Denies frequent falls, Denies numbness, Denies tingling and Denies weakness Endo Denies fatigue and Denies palpitations Physical Exam Vital Signs: Last Vital Signs Pulse 89 11/08/23 10:35 BP 120/64 11/08/23 10:35 BMI result Body Mass Index 42.4 GENERAL APPEARANCE: in no acute distress, pleasant. NECK: no carotid bruit, no jugular venous distention. SKIN: no suspicious lesions, warm and dry. HEART: no murmurs, regular rate and rhythm. LUNGS: clear to auscultation bilaterally. ABDOMEN: soft, nontender. EXTREMITIES: no edema. PERIPHERAL PULSES: equal. NEUROLOGIC: No gross deficits, AAO X 3 Assessment & Plan Assessment & Plan (1) Essential hypertension: Code(s): I10 - Essential (primary) hypertension Category: Medical (2) Pacemaker: Code(s): Z95.0 - Presence of cardiac pacemaker Category: Medical Plan Pleasant 68 year female who is here for follow-up. She has background history of permanent pacemaker and hypertension. Blood pressure is well controlled. Based on previous interrogation in the office she is V paced 99% of time. We will repeat echocardiogram to assess ejection fraction because RV pacing can lead to cardiomyopathy. Clinically she has no symptoms/signs of heart failure currently. We have not been receiving any remote downloads from her pacemaker. We will look into this. She will see us back in a year. Thank you for allowing me to participate in the care of your patient. Please feel free to contact me if you have any questions. Orders: Orders CA echo transthoracic complete Today Z95.0 - Presence of cardiac pacemaker Coding Level of Care Code Est Pt Level 4 (58060) Diagnoses Essential hypertension I10 Pacemaker Z95.0
== END 2023-11-08 11:08 | disposition home or self-care (01) ==
PROVIDERS: PCP Family Medicine; Visit Provider Internal Medicine Cardiovascular Disease
DX: I10 Essential (primary) hypertension (principal); Z95.0 Presence of cardiac pacemaker
CPT/HCPCS: 99214

== ENCOUNTER → 2023-11-08 10:20 | Outpatient (BNVA) | payer MEDICARE, SELFPAY | PROVIDERS: PCP Family Medicine; Visit Provider Internal Medicine Cardiovascular Disease | DX: I10 Essential (primary) hypertension (principal); Z95.0 Presence of cardiac pacemaker | CPT/HCPCS: 99212 ==

== ENCOUNTER → 2023-11-23 14:41 | Outpatient (REF) | payer MEDICARE, SELFPAY ==
--- NOTE | 2023-11-23 14:43 | CA_ITS ---
Transthoracic Echocardiogram Patient (Last, First, Middle): Daniela Thapa, Gender: Female Date of : 1955 Age: 68 Procedure Date: 11/23/2023 Procedure Type: Transthoracic Echocardiogram Location: OP Height: 157.48 cm Weight: 104.78 kg BSA: 2.03 m2 Heart Rate: 83 bpm BP: 128 / 68 mmHg Rpg Programmer Analyst: JEROME Referring MD: Moisés Spence MD Backbreaker: Moisés Spence MD Symptoms: Z95.0 - Presence of cardiac pacemaker Study Quality: Technically Difficult ECG Rhythm: Paced Conclusions: - Normal left ventricular size and systolic function. There is mildly increased left ventricular wall thickness. The visually estimated ejection fraction is between 60-65%. - E/E prime ratio is between 8 and 15 consistent with indeterminate filling pressures. - Normal right ventricular cavity size and systolic function. There is a pacemaker wire seen in the right ventricle. - There is mild dilatation of the ascending aorta measuring 3.50 cm. Findings Procedure Information The quality of the study was technically difficult. The study quality is limited by patients body habitus. Left Ventricle Normal left ventricular size and systolic function. There is mildly increased left ventricular wall thickness. The visually estimated ejection fraction is between 60-65%. There is no evidence of regional wall motion abnormalities. Abnormal diastolic function is noted. Spectral Doppler is indicative of an impaired relaxation filling pattern. E/E prime ratio is between 8 and 15 consistent with indeterminate filling pressures. Right Ventricle Normal right ventricular cavity size and systolic function. There is a pacemaker wire seen in the right ventricle. Atria The left atrium is normal in size. The right atrium is normal in size. Aortic Valve There is a normal trileaflet aortic valve. There is no aortic valve stenosis. There is no aortic valve regurgitation. Mitral Valve The mitral valve appears normal. There is no mitral valve regurgitation. There is no mitral valve stenosis. Pulmonic Valve The pulmonic valve is normal. There is no pulmonic valve regurgitation. Tricuspid Valve Normal tricuspid valve structure. There is trace tricuspid valve regurgitation. Normal right atrial pressure. There is no evidence of pulmonary hypertension. Great Vessels There is mild dilatation of the ascending aorta measuring 3.50 cm. The visualized portions of the pulmonary artery and branches are normal. Venous The inferior vena cava is normal in size and collapses greater than 50% with inspiration. Pericardium/Pleural There is no evidence of pericardial effusion. Prior Study Comparison Changes noted compared to prior study dated: 04/27/2022. RV function appears normal. Measurements 2D Linear Measurements IVSd: 0.97 0.6-0.9/0.6-1.0 cm LVIDd: 4.23 3.9-5.3/4.2-5.9 cm LVIDd Index: 2.08 2.4-3.2/2.2-3.1 cm/m2 LVIDs: 2.47 2.0-3.6 cm LVPWd: 0.89 0.7-1.1 cm LA Diam: 3.20 2.7-3.8/3.0-4.0 cm LAIDs Index: 1.58 1.5-2.3 cm/m2 LV Mass: 155.61 67-162/88-224 g LV Mass Index: 76.65 43-95/49-115 g/m2 LVOT Diam: 1.80 3.0+(-)1.3 cm 2D Systolic Function EF 4C: 62.00 >55% EF 2C: 65.30 >55% EF BiP: 64.30 >55% Mitral Valve MV Pk E: 0.74 MV PK A: 0.75 MV Decel Time: 189.00 E/A: 1.00 E'Lateral: 7.51 E'Medial: 4.13 E/E' Med: 17.90 E/E' Lat: 9.90 PHT: 55.00 MVA PHT: 4.00 Decel [place]: 3.93 Aortic Valve AoV Pk Caesar: 1.92 AoV Mn Caesar: 1.30 AoV VTI: 0.35 AoV Pk Grad: 15.00 Aov Mn Grad: 8.00 DEEPA Cont.VTI: 1.64 LVOT LVOT Pk Caesar: 1.16 LVOT Mn Caesar: 0.86 LVOT VTI: 0.23 LVOT Pk Grad: 5.00 LVOT Mn Grad: 3.00 LVOT Diam: 1.80 LVOT Area: 2.54 Diastolic Function MV Pk E: 0.74 MV Pk A: 0.75 E/A: 1.00 E'Medial: 4.13 E/E' Med: 17.90 E' Laterial: 7.51 E/E' Lat: 9.90 Right Ventricle TAPSE (mm): 18.00 TVS' Caesar: 12.70 Tricuspid Valve TR Pk Caesar: 2.40 TR Pk Grad: 23.00 RA Press: 3.00 RVSP: 26.00 Great Vessels Aorta Sinus of Valsalva: 3.30 2.0-3.5 cm Ao Asc: 3.50 2.1-3.4 cm Pulmonary Valve PV Pk Caesar: 0.99 Peak PV Grad: 4.00 Updated in Other Vendor System with Status of Final Moisés Spence MD electronically signed on 11/23/2023 5:07:56 PM with status of Final
== END ==
LOC: HO.CARD 14:41
PROVIDERS: PCP Family Medicine; Visit Provider Internal Medicine Cardiovascular Disease
DX: Z95.0 Presence of cardiac pacemaker (principal)
CPT/HCPCS: 93306

== ENCOUNTER → 2023-11-23 14:43 | Outpatient (BNV) | payer MEDICARE, SELFPAY | PROVIDERS: PCP Family Medicine; Visit Provider Internal Medicine Cardiovascular Disease | DX: I51.89 Other ill-defined heart diseases (principal); Z95.0 Presence of cardiac pacemaker | CPT/HCPCS: 93306 ==

== ENCOUNTER 2023-12-20 10:42 | Outpatient (REF) | payer MEDICARE, SELFPAY ==
[2023-12-20 13:24] LABS: Alanine Aminotransferase 22 U/L (0-31); Albumin Level 3.9 g/dL (3.5-5.0); Alkaline Phosphatase 70 U/L (39-117); Aspartate Amino Transferase 19 U/L (5-31); Bilirubin Direct 0.2 mg/dL (0.0-0.5); Bilirubin Total 0.7 mg/dL (0.0-1.0); Cholesterol 194 mg/dL (<200); HDL Cholesterol 44 mg/dL (>40); LDL Cholesterol Calculated 125 mg/dL (<100); Total Protein 7.1 g/dL (6.5-8.0); Triglycerides 127 mg/dL (<150)
[2023-12-20 13:51] LABS: Vitamin B12 290 pg/mL (200-900)
== END 2023-12-20 10:43 | disposition home or self-care (01) ==
LOC: HO.HHCL 10:42
PROVIDERS: Visit Provider Family Medicine
DX: E11.65 Type 2 diabetes mellitus with hyperglycemia (principal)
CPT/HCPCS: 36415; 80061; 80076; 82607

== ENCOUNTER 2023-12-29 11:21 | Outpatient (AMB) | payer MEDICARE, SELFPAY ==
--- NOTE | 2023-12-29 11:45 | A.OFFVIS_ITS ---
Vital Signs 12/29/23 11:50 Height 5 ft 2 in Weight 233 lb 3.985 oz BMI 42.7 BP 130/76 Blood Pressure Location Rt brachial Position Sitting Pulse 72 Pulse Source Pulse Oximeter Pulse Oximetry (%) 99 Oxygen Delivery Method Room Air Intake Visit Reasons: Colonoscopy Screening Intake Note: Daniela presents in office today for a scheduled colo consult. CC; Pt reports that they are here for recall colo [place] [facility] [place] Pt denies any new concerns or sx at this time that would otherwise warrant a colo s/p. Service Delivery Manager Required: No Allergies No Known Allergies Allergy (Verified 12/29/23 11:46) HPI HPI Colonoscopy Screening: Details: 68 year old? female with past medical history of diabetes, hypertension, hyperlipidemia, history of breast CA status post lumpectomy in 2011, diabetes is here today for pre colonoscopy screening.? Patient was sent to us by her PCP.? Last colonoscopy in February of 2011. One hyperplastic polyp found in rectum. ? Patient denies any gastrointestinal symptoms in the past or at present.? Denies any personal or family history of gastrointestinal disease, colon polyps, or CRC.? Denies history of difficulty with sedation or anesthesia in the past.? Negative for history of sleep apnea.? Denies any history of renal, pulmonary, or hepatic disease.?? No history of infectious? diseases like hepatitis A, B, C, HIV or tuberculosis.? Patient is on low-dose aspirin. Patient is following up with Cardiology, just recently had appointment with Dr. Spence. Next visit in November of 2024 [facility] Medical History (Updated 12/29/23 @ 12:10 by Arleen Worthington, [facility]) Diabetes mellitus Hyperlipidemia HTN (hypertension) Surgical History History of cardiac pacemaker Family History Father Hx of coronary artery bypass graft Mother No problems noted. Social History Alcohol intake: current Alcohol intake frequency: a few times a month Patient Tobacco Use Status: Never used Tobacco Review of Systems Const Denies weight gain and Denies weight loss ENT Reports no additional complaints, Denies dysphagia and Denies odynophagia Card Reports no additional complaints Resp Reports no additional complaints GI Denies abdominal pain, Denies belching, Denies melena, Denies bloating, Denies change in bowel habits, Denies dysphagia, Denies excessive flatus, Denies dyspepsia, Denies heartburn, Denies diarrhea, Denies loose stools, Denies nausea, Denies odynophagia and Denies vomiting Reports no additional complaints Musc Reports no additional complaints Neuro Reports no additional complaints Psych Reports no additional complaints Endo Reports no additional complaints Physical Exam Vital Signs: Last Vital Signs Pulse 72 12/29/23 11:50 BP 130/76 12/29/23 11:50 Pulse Ox 99 12/29/23 11:50 Oxygen Delivery Method Room Air 12/29/23 11:50 BMI result Body Mass Index 42.7 Const General: healthy appearing and no acute distress Nutritional Appearance: obese Orientation/consciousness: patient oriented x3 Resp Effort & Inspection: normal respiratory effort, able to speak in complete sentences, no tracheal deviation and symmetric chest movement Auscultation: clear to auscultation bilaterally Cardio Rate: regular rate GI Inspection: Yes normal to inspection, No distended and Yes obesity Palpation (GI): Soft to palpation, not firm, nontender and No hepatosplenomegaly present Auscultation: normal bowel sounds General: Yes no CVA tenderness Back/Spine/Pelvis Back: no CVA tenderness Skin General skin exam: elasticity normal, turgor normal and dry skin Neuro General: patient oriented x3 Psych Appearance: grossly normal Mental Status: mental status grossly normal Assessment & Plan Assessment & Plan (1) Screen for colon cancer: Code(s): Z12.11 - Encounter for screening for malignant neoplasm of colon Plan Patient denies any GI, cardiac or respiratory symptoms.? Denies any issues with anesthesia in the past.? Denies any history of sleep apnea.? No history infec tious diseases in the past or present.? Patient is on low-dose aspirin. History of pacemaker. Patient sees Dr. Spence. Will ask for risk stratification before sending her for procedure. No family or personal history of colon cancer or polyps.? Patient denies melena, hematochezia, unintentional weight loss or ribbon like stools.? Discussed at length the pre-procedure,? prep, diet & medications as well as what to expect prior, during and after the procedure.?? Stressed the importance of good bowel prep.? Recommended the use of Vaseline or Calmoseptine OTC & baby wipes with bowel movements to promote comfort.? ?Patient verbalizes understanding and agrees to plan of care.? She was given the opportunity to ask questions and all questions answered.? We will see her after the procedure.? Medications: New polyethylene glycol 3350 (Miralax) As directed by gastroenterology department at [facility] 238 grams PO ONCE 238 grams 0RF Z12.11 - Encounter for screening for malignant neoplasm of colon docusate sodium 100 mg PO BEDTIME 90 caps 3RF K59.00 - Constipation, unspecified bisacodyl (Dulcolax (bisacodyl)) take 4 tabs at noon the day before your colonoscopy 20 mg (4 x 5 mg) PO ONCE 4 tabs 0RF 1 day Z12.11 - Encounter for screening for malignant neoplasm of colon Coding Level of Care Code New Pt Level 3 (38578) Diagnoses Screen for colon cancer Z12.11 Time Spent (min) 40 Comment 30 minutes spent with patient and additional 10 minutes spent reviewing her records
[2023-12-29 11:50] VITALS: BP 130/76; PULSE 72; O2SAT 99; BMI 42.7
== END 2023-12-29 13:33 | disposition home or self-care (01) ==
PROVIDERS: PCP Family Medicine; Visit Provider Nurse Practitioner Family
DX: Z12.11 Encounter for screening for malignant neoplasm of colon (principal)
CPT/HCPCS: 99024

== ENCOUNTER → 2023-12-29 11:21 | Outpatient (BNVA) | payer MEDICARE, SELFPAY | PROVIDERS: PCP Family Medicine; Visit Provider Nurse Practitioner Family | DX: Z12.11 Encounter for screening for malignant neoplasm of colon (principal) | CPT/HCPCS: 99212 ==

== ENCOUNTER 2024-05-02 11:58 | Outpatient (REF) | payer MEDICARE, SELFPAY ==
[2024-05-02 18:02] LABS: Alanine Aminotransferase 35 U/L (0-31); Albumin Level 3.9 g/dL (3.5-5.0); Alkaline Phosphatase 72 U/L (39-117); Aspartate Amino Transferase 29 U/L (5-31); Bilirubin Direct 0.3 mg/dL (0.0-0.5); Bilirubin Total 0.9 mg/dL (0.0-1.0); Cholesterol 181 mg/dL (<200); HDL Cholesterol 48 mg/dL (>40); LDL Cholesterol Calculated 108 mg/dL (<100); Total Protein 7.1 g/dL (6.5-8.0); Triglycerides 129 mg/dL (<150)
== END 2024-05-02 11:59 | disposition home or self-care (01) ==
LOC: HO.HHCL 11:58
PROVIDERS: Visit Provider Family Medicine
DX: E78.5 Hyperlipidemia, unspecified (principal)
CPT/HCPCS: 36415; 80061; 80076

== ENCOUNTER → 2024-05-09 23:59 | Outpatient (BNV) | payer MEDICARE, SELFPAY ==
--- NOTE | 2024-05-28 17:10 | MHC.OFFVIS ---
Intake Visit Reasons: Remote ICD Device Ck Allergies No Known Allergies Allergy (Verified 05/16/24 06:57) [facility] Medical History Diabetes mellitus HTN (hypertension) Hyperlipidemia Surgical History (Updated 05/16/24 @ 06:57 by Maegan Cooper, RN) Hx of colonoscopy History of cardiac pacemaker Family History Father Hx of coronary artery bypass graft Mother No problems noted. Social History Household Members Other:: son and grandson Are you a primary professional healthcare representative to a significant other at home: No Do you presently have visiting nurse or other home services: No Alcohol intake: current Alcohol intake frequency: a few times a month Patient Tobacco Use Status: Never used Tobacco Office Procedures Cardiac Device Check Cardiac Device Check Details: PPM Good battery PLUG OVERWRAP MACHINE TENDER>99% No new alerts Episodes of AMS and PMT in Mar 2024. [id number] Cardiac Device Check, pacemaker dual lead Procedure code (CPT) selection complete Assessment & Plan Assessment & Plan (1) Pacemaker: Code(s): Z95.0 - Presence of cardiac pacemaker Category: Medical Plan Coding Level of Care Code Procedure Only Diagnoses Pacemaker Z95.0 CPT Codes Cardiac Device Check - Cardiac Device 2: 99095-[id number] Cardiac Device Check, pacemaker dual lead ([id number])
== END ==
PROVIDERS: PCP Family Medicine; Visit Provider Internal Medicine Cardiovascular Disease
DX: Z45.018 Encounter for adjustment and management of other part of cardiac pacemaker (principal)
CPT/HCPCS: 93294

== ENCOUNTER 2024-05-16 06:20 | Day surgery (SDC) | payer MEDICARE, SELFPAY ==
[2024-05-12 15:33] VITALS: BMI 42.6
--- OUTSIDE RECORDS SUMMARY | 2024-05-16 06:22 | XMS_ITS | Continuity of Care Document ---
Author Organization [facility] Address [address] [facility] [address] [place] [address] Phone Care Team Providers Care Drill Press Hand Name Role Phone Savage JACINTO, JANET, Patrick [...] Providers Copied on Encounter [facility], [address] [place] [address] Dr [address], [place], [id number], [place] tel:[phone] CVR - [facility] No Information Savage JACINTO, JANET, SANDER Nguyen. [address] [facility] 302, [place], [place], [id number] , [place]. tel:[phone] [facility] MD STAUFFER, [address] [place] [address] Dr [address] [place]ak Scott [place], [id number], [place] tel:[phone] CVR - [place] [facility] [place] Varicose veins of right lower extremity with other complications 4 Maia Pavon . [address] [facility], Suite [facility], [place], [place], [id number] , [place]. tel:[phone] Referring Provider: Rachel Yanez, [address] [place] [address], [place], [address]. tel:[phone] [facility] MD STAUFFER, [address] [place] [address] Dr [address] Zak Scott [place], [id number], [place] tel:[phone] CVR - [place] Encounter for follow-up examination after completed treatment for conditions other than malignant neoplasmVarico se veins of right lower extremity with pain 4 Savage JACINTO RVT, SANDER Nguyen. [facility] [address], [place], [place], [id number] , [place]. tel:[phone] Referring Provider: Rachel Yanez, [address] [facility], [place], [address]. tel:[phone] [facility] MD STAUFFER, [address] [place] [address] [address] [place]ak Scott [place], [id number], [place] tel:[phone] CV[place] - [place] Varicose veins of right lower extremity with other complications 4 Savage JACINTO RVT, SANDER Nguyen. [address] [place] [address], [facility] 302, [place], [place], [id number] , [place]. tel:[phone] Referring Provider: Rachel Yanez, [address] [facility], [place], [address]. tel:[phone] [facility] MD STAUFFER, [address] [place] [address] [address] [place]ak [place], [id number], [place] tel:[phone] [facility] Varicose veins of right lower extremity with other complications Mar- 4 Savage JACINTO RVT, SANDER Nguyen. [address] [address], [place], [place], [id number] , [place]. tel:[phone] Referring Provider: Rachel Yanez, [address] [place] [address], [place], [address]. tel:[phone] Offic/outpt E&m Estab 5 Min Trial- Telemedicine CT & [place] [facility], [address] [place] [address] [address], [place], [id number], [place] tel:[phone] [facility] Chronic venous hypertension (idiopathic) without complications of bilateral lower extremity Oct- 4 Savage JACINTO RVT, SANDER Nguyen. [address] [place] [address], [place], [place], [id number] , [place]. [phone] Referring Provider: Rachel Yanez, [address] [place] [address], [place], [address]. tel:[phone] Office/Oupt E&M New Pt 45 Mins- CT & [place] [facility], [address] [place] [address] [address], [place], [id number], [place] tel:[phone] [facility] Chronic venous hypertension (idiopathic) with other complications of bilateral lower extremityPain in right legPain in left legType 2 diabetes mellitus without complicationsR estless legs syndromeEssent ial (primary) hypertensionVe nous insufficiency (chronic) (peripheral)Ly mphedema, not elsewhere classifiedHere ditary lymphedemaCram p and spasmLocalized edema Sep-0 4 Savage JACINTO RVT, SANDER Nguyen. [address] [facility], Suite [facility], [place], [place], [id number] , [place]. [phone] Referring Provider: Rachel Yanez, [address] [place] [address], [place], [address]. tel:[phone] [facility], [address] [facility] [address], [place], [id number], [place] tel:[phone] CVR [facility] [place] Chronic venous hypertension (idiopathic) with other complications of bilateral lower extremity Sep-0 4 Savage JACINTO, RVT, RPVI Patrick. [address] [facility], [address], [place], [place], [id number] , [place]. tel:[phone] Referring Provider: Rachel Yanez, [address] [facility], [place], [address]. tel:[phone] Family History Family Member Type Diagnosis Age At Onset No Information Payers Payer name Insurance type Covered republican ID Authoriza tion(s) [facility] AAR Medic are Complete CI [id number] Social History Type Description Quantity Date Captured Comments Sex Female Smoking Status No Information Chief Complaint And Reason For Visit No Information Reason For Referral Reason For Referral No Information Plan Of Treatment Date Type Action Status Goal Diet education completed Referral Ordered: Weight management: Referral to physician timeframe: 3 Months (related to Body mass index (BMI) 40.0-44.9, adult) ordered Appointment Daniela Thapa BOOKED Appointment Daneila Thapa BOOKED History Of Present Illness Encounter Date Complaint [...]
[2024-05-16 06:40] VITALS: BMI 44.4
--- NOTE | 2024-05-16 07:05 | HO.ANESPROP2 ---
[facility] Active Problems Active Problems: All Active Problems Sleep disorder breathing (Acute) Essential hypertension (Acute) NSVT (nonsustained ventricular tachycardia) (Acute) Pacemaker (Acute) Past Medical History Medical History Diabetes mellitus HTN (hypertension) Hyperlipidemia Family History Family History Father Hx of coronary artery bypass graft Mother No problems noted. Family history of problems with anesthesia: No Surgical History Surgical History (Updated 05/16/24 @ 06:57 by Maegan Cooper RN) Hx of colonoscopy History of cardiac pacemaker History of Problems with Anesthesia: No Social History Social History Household Members Other:: son and grandson Are you a primary elderly caregiver to a significant other at home: No Do you presently have visiting nurse or other home services: No Alcohol intake: current Alcohol intake frequency: a few times a month Patient Tobacco Use Status: Never used Tobacco Have you been hit, kicked, punched, or otherwise hurt by someone within the past year? If so, by whom?: No Are you DNR?: No Advance Directives: No Advance Directives Information Provided: Yes Recently lost weight without trying: No Nutrition Risks: No Nutritional Risk Meds Allergies Allergy/AdvReac Type Severity Reaction Status Date / Time No Known Allergies Allergy Verified 05/16/24 06:57 Home Medications ?Medication ?Instructions ?Recorded ?Confirmed ?Last Taken ?Type aspirin 81 mg tablet,delayed 81 mg PO QAM 04/13/22 11/08/23 Unknown History release atenolol 25 mg tablet 25 mg PO DAILY 04/13/22 11/08/23 Unknown History fluoxetine 40 mg capsule 40 mg PO DAILY 04/13/22 11/08/23 Unknown History latanoprost 0.005 % eye drops 1 drp ophthalmic (eye) BEDTIME 04/13/22 11/08/23 Unknown History metformin 500 mg tablet,extended 500 mg PO BID 04/13/22 11/08/23 Unknown History release 24 hr zolpidem 10 mg tablet 10 mg PO BEDTIME PRN Insomnia 04/13/22 11/08/23 Unknown History dulaglutide 3 mg/0.5 mL 3 mg subcut QWEEK 11/08/23 11/08/23 Unknown History subcutaneous pen injector (Trulicity) insulin glargine 100 unit/mL 10 unit subcut DAILY 11/08/23 11/08/23 Unknown History subcutaneous cartridge blood pressure kit-extra large #1 ea 12/29/23 Unknown History blood sugar diagnostic (FreeStyle #10 ea 12/29/23 Unknown History Precision Emilio Strips) dextrose 40 % oral gel (Glutose-15) PO DIRECTED diabetes mellitus 12/29/23 Unknown History flash glucose sensor (FreeStyle #1 ea 12/29/23 Unknown History Ronny 2 Sensor kit) pen needle, diabetic 32 gauge x #1,200 ea 12/29/23 Unknown History (Pentips Pen Needle) timolol maleate 0.5 % eye drops drp ophthalmic (eye) 12/29/23 Unknown History Exam Height,Weight and Vital Signs: Height 5 ft 2 in Weight 110.223 kg Airway Mallampati Class: III TM Dist: >3cm Neck ROM: Full Assessment and Plan Assessment Anesthesia Assessment: Anesthesia Plan Discussed and Chart Reviewed Final Anesthetic Review Family History of Problems with Anesthesia: No History of Problems with Anesthesia: No NPO: Yes ASA Class: III Final Preanesthetic Review: No Changes in Pt Med Stat, Meds/Allgs Chart Reviewed, Consent Obtained/Reviewed, Anes Risks/Benef Reviewed and DNR Form (If Appl.) Patient Risk: Intermediate Procedure Risk: Low Anesthetic Plan Anesthetic Plan: TIVA Disposition: Standard PACU
[2024-05-16] MEDS: Lactated Ringers 1,000 ML 80 ML IVCONT (07:11)
[2024-05-16 07:18] VITALS: BP 146/78; PULSE 81; RESP 18; TEMP 36.6; O2SAT 96
--- NOTE | 2024-05-16 07:25 | P.HPSUR_ITS ---
Pre-Procedural Eval Section A - 24 Hr Update-Section A only Date of Service: 05/16/24 The patient is an INPATIENT: No The patient has been examined within 24 hours of the surgical procedure. The History & Physical has been completed within 30 days and I have reviewed it.: No Section B - Complete if H&P > 30 days Chief Complaint: screening Relevant Family History (Specify if Yes): No Relevant Social History: None Present Medications: see Short Stay Collaborative assessment Medical History: Significant History (Diabetes mellitus Hyperlipidemia HTN (hype rtension)) History of Previous Operations: Relevant previous surgery/procedure and date(s) (History of cardiac pacemaker) Allergies: Allergies Allergy/AdvReac Type Severity Reaction Status Date / Time No Known Allergies Allergy Verified 05/16/24 06:57 Review of Systems Sugical H&P ROS: Negative: Constitution, Cardiovascular, Respiratory and Gastrointestinal Exam Surgical H&P Exam: Normal: Heart, Normal: Lungs, Normal: Extremities and Normal: Abdomen Plan Diagnosis/Plan: Unchanged I have reviewed the history and physical and performed a pertinent physical examination on my patient. No changes have occurred unless specified. Time Spent With Patient Time: Total time managing care of this patient today ____ minutes.
--- NOTE | 2024-05-16 07:50 | PC.NURSE ---
dr. monge updated that there was a question of bbb on 3 lead. stated ok to proceed can be due to pacemaker.
[2024-05-16 07:51] LABS: Glucose, Whole Blood 174 mg/dL (60-115)
--- NOTE | 2024-05-16 08:10 | P.OPN-COLO_ITS ---
Colonoscopy Operative Note Operative Note Date of Service: 05/16/24 Narrative: COLONOSCOPY TILL CECUM WITH SNARE POLYPECTOMY Pre-op diagnosis: Colon cancer screening. Post-op diagnosis:? Colon polyp, Diverticulosis, hemorrhoids Endoscopist:? Rose Jose MD Anesthesia:?MAC Consent: Indications for the procedure and potential complications of bleeding, perforation, reaction to medications and missed diagnosis were discussed with the patient and informed consent was obtained. Instrument: Olympus PCF H 190 L variable stiffness pediatric colonoscope Monitoring: Vital signs and clinical assessment, intermittent blood pressure monitoring, continuous EKG monitoring, Pulse oximetry and Carbon Dioxide monitoring were done throughout the procedure. Please see anesthesia flowsheet. Colon withdrawl time was 15 minutes. Procedure: The patient was placed in the left lateral decubitis position and pre-procedure medications were administered. After a digital rectal examination of the ano-rectum, the video colonoscope was inserted into the rectum and advanced through the colon to the cecum. The colonoscope was slowly withdrawn in a retrograde panoramic fashion and the colon mucosa was carefully examined including a retroflexed view of the rectum. Findings and interventions are described below. Procedure Difficulty: without difficulty Findings: Terminal Ileum: Not evaluated Cecum: Partially evaluated due to undigested vegetable matter which could not be suctioned Ascending Colon: Moderate diverticulosis scattered throughout the entire colon Transverse Colon: A 10 mm sessile polyp - removed with a cold snare Moderate diverticulosis scattered throughout the entire colon Descending Colon: Moderate diverticulosis scattered throughout the entire colon Sigmoid Colon: Severe diverticulosis with luminal narrowing Rectum: Normal Ano-rectum: Moderate internal hemorrhoids Colon preparation: Good after copious irrigation and fair in the cecum. Atkinson Bowel Preparation Scale Right colon; 1 Transverse colon: 2 Left colon; 2 (0 = Unprepared colon segment with mucosa not seen due to solid stool that cannot be cleared. 1 = Portion of mucosa of the colon segment seen, but other areas of the colon segment not well seen due to staining, residual stool and/or opaque liquid. 2 = Minor amount of residual staining, small fragments of stool and/or opaque liquid, but mucosa of colon segment seen well. 3 = Entire mucosa of colon segment seen well with no residual staining, small fragments of stool or opaque liquid) Impression and Post Procedure Diagnosis: Colonoscopy Findings: One medium sized polyp was removed Moderate diverticulosis seen in the entire colon Moderate hemorrhoids on retroflexed exam. Plan: Pt has a FU appointment on 05/31/24 with Desiree Worthington NP Repeat Colonoscopy in 3-5 years if polyps are adenomatous and 10 year if polyps are hyperplastic. (Dulcolax 10 mg daily starting 3 days prior to next colonoscopy appointment) Above findings were reviewed with the patient and relevant handouts were given and the discharge area.
[2024-05-16 08:15] VITALS: BP 119/71; PULSE 86; RESP 18; TEMP 36.1; O2SAT 96
[2024-05-16 08:30] VITALS: BP 127/73; PULSE 79; RESP 18; TEMP 36.3; O2SAT 97
== END 2024-05-16 09:01 | disposition home or self-care (01) ==
PROVIDERS: PCP Family Medicine; Visit Provider Internal Medicine Gastroenterology
PROC: 0DJD8ZZ Inspection of Lower Intestinal Tract, Via Natural or Artificial Opening Endoscopic (ICD-10-PCS; CPT 45378; principal; 2024-05-16 07:30)
DX: Z12.11 Encounter for screening for malignant neoplasm of colon (principal); D12.3 Benign neoplasm of transverse colon; K57.30 Diverticulosis of large intestine without perforation or abscess without bleeding; K64.8 Other hemorrhoids; I10 Essential (primary) hypertension; E78.5 Hyperlipidemia, unspecified; E11.9 Type 2 diabetes mellitus without complications; I47.29 Other ventricular tachycardia; Z95.0 Presence of cardiac pacemaker; Z85.3 Personal history of malignant neoplasm of breast; G47.8 Other sleep disorders; Z79.4 Long term (current) use of insulin; Z79.85 Long-term (current) use of injectable non-insulin antidiabetic drugs; Z79.84 Long term (current) use of oral hypoglycemic drugs; Z79.82 Long term (current) use of aspirin; Z79.899 Other long term (current) drug therapy
CPT/HCPCS: 45385; 82947; 88305; J2003; J2704

== ENCOUNTER → 2024-05-16 06:20 | Outpatient (BNV) | payer MEDICARE, SELFPAY | PROVIDERS: PCP Family Medicine; Visit Provider Internal Medicine Gastroenterology | DX: Z12.11 Encounter for screening for malignant neoplasm of colon (principal); Z86.0100 Personal history of colon polyps, unspecified; D12.3 Benign neoplasm of transverse colon; K57.90 Diverticulosis of intestine, part unspecified, without perforation or abscess without bleeding | CPT/HCPCS: 45385 ==

== ENCOUNTER 2024-05-25 10:53 | Outpatient (REF) | payer MEDICARE, SELFPAY ==
--- NOTE | ~2024-05-25 | XR_ITS ---
EXAMINATION: XR HIP, RIGHT CLINICAL INFORMATION: right leg and hip pain COMPARISON: 05/18/2019. TECHNIQUE: Two views of the right hip. FINDINGS: Normal bone mineralization. No fracture, dislocation, malalignment, or suspicious bone lesion. There are mild to moderate osteoarthritic changes in the right hip joint. There is only minimal joint space narrowing. Femoral head maintains normal contour without evidence of AVN. Arthritic changes noted in the right SI joint. No discrete soft tissue abnormalities. XR/XR hip RT min 2V IMPRESSION: 1. No acute findings right hip. 2. Mild to moderate osteoarthrosis. Electronically signed by: Eber Taylor MD 05/25/2024 11:30 AM ESTELITA
--- NOTE | ~2024-05-25 | XR_ITS ---
EXAMINATION: XR KNEE, RIGHT CLINICAL INFORMATION: right leg pain/hip pain COMPARISON: 08/26/2013. TECHNIQUE: Three views of the right knee. FINDINGS: Normal bone mineralization. No fracture, dislocation, malalignment, or suspicious bone lesion. Mild to moderate tricompartmental osteoarthrosis is present with mild tricompartment joint space narrowing and marginal osteophyte production. Mild spurring of the tibial spines. There is mild enthesopathy of the tibial tubercle. There appears to be a moderate suprapatellar effusion on the lateral projection. No discrete soft tissue abnormalities. XR/XR knee RT 3V IMPRESSION: 1. No acute bony abnormalities. 2. Mild to moderate tricompartmental osteoarthrosis. 3. Moderate size joint effusion in the suprapatellar bursa suspected. Electronically signed by: Eber Taylor MD 05/25/2024 11:28 AM ESTELITA
--- OUTSIDE RECORDS SUMMARY | 2024-05-25 13:40 | XMS_ITS | Continuity of Care Document ---
Author Organization [facility] Address [address] [facility] [address] [place] [address] Phone Care Team Providers Care Retail Pos Specialist Name Role Phone Savage JACINTO, JANET, Patrick [...] Providers Copied on Encounter [facility], [address] [place] [address] [address], [place], [id number], [place] tel:[phone] CVR - [facility] No Information Savage JACINTO, JANET, SANDER Nguyen. [address] [facility] [address], [place], [place], [id number] , [place]. tel:[phone] [facility] [place] ST[place], [address] [place] [address] [address] [place], [id number], [place] tel:[phone] CV[facility] - [place] Varicose veins of right lower extremity with other complications 4 Maia Pavon . [address] [facility], Suite [facility], [place], [place], [id number] , [place]. tel:[phone] Referring Provider: Rachel Yanez, [address] [place] [address], [place], [address]. tel:[phone] [facility] [place], [address] [place] [address] [address] [place], [id number], [place] tel:[phone] [facility] [place] Encounter for follow-up examination after completed treatment for conditions other than malignant neoplasmVarico se veins of right lower extremity with pain 4 Savage JACINTO RVT, SANDER Nguyen. [facility] [address], [place], [place], [id number] , [place]. tel:[phone] Referring Provider: Rachel Yanez, [address] [facility], [place], [address]. tel:[phone] [facility] [place], [address] [place] [address] [address] [place], [id number], [place] tel:[phone] [facility] [place] Varicose veins of right lower extremity with other complications 4 Savage JACINTO RVT, SANDER Nguyen. [address] [place] [address], [facility] [address], [place], [place], [id number] , [place]. tel:[phone] Referring Provider: Rachel Yanez, [address] [facility], [place], [address]. tel:[phone] [facility] [place], [address] [place] [address] [address] [place], [id number], [place] tel:[phone] [facility]icose veins of right lower extremity with other complications Mar- 4 Savage JACINTO RVT, SANDER Nguyen. [address] [address], [place], [place], [id number] , [place]. tel:[phone] Referring Provider: Rachel Yanez, [address] [place] [address], [place], [address]. tel:[phone] Offic/outpt E&m Estab 5 Min Trial- Telemedicine [place] & [place] [facility], [address] [place] [address] [address], [place], [id number], [place] tel:[phone] [facility] Chronic venous hypertension (idiopathic) without complications of bilateral lower extremity Oct- 4 Savage JACINTO RVT, SANDER Nguyen. [address] [place] [address], [place], [place], [id number] , [place]. [phone] Referring Provider: Rachel Yanez, [address] [place] [address], [place], [address]. tel:[phone] Office/Oupt E&M New Pt 45 Mins- CT & [place] [facility], [address] [place] [address] [address], [place], [id number], [place] tel:[phone] [facility] venous hypertension (idiopathic) with other complications of bilateral lower extremityPain in right legPain in left legType 2 diabetes mellitus without complicationsR estless legs syndromeEssent ial (primary) hypertensionVe nous insufficiency (chronic) (peripheral)Ly mphedema, not elsewhere classifiedHere ditary lymphedemaCram p and spasmLocalized edema Sep-0 4 Savage JACINTO RVT, SANDER Nguyen. [address] [facility], Suite [facility], [place], [place], [id number] , [place]. [phone] Referring Provider: Rachel Yanez, [address] [place] [address], [place], [address]. tel:[phone] [facility], [address], [place], [id number], [place] tel:[phone] CV[place] - [place] Chronic venous hypertension (idiopathic) with other complications of bilateral lower extremity Sep-0 4 Savage JACINTO, RVT, RPVI Patrick. [address] [facility], [address], [place], [place], [id number] , [place]. tel:[phone] Referring Provider: Rachel Yanez, [address] [facility], [place], [address]. tel:[phone] Family History Family Member Type Diagnosis Age At Onset No Information Payers Payer name Insurance type Covered republican ID Authoriza tion(s) [facility] AAR Medic are Complete CI [id number] Social History Type Description Quantity Date Captured [...] to Chrn Vns Hypertnsn w/o Compl; BILAT Giving Encouragement to exercise Related to Body mass index (BMI) 40.0-44.9, adult Lifestyle education Related to B adeel mass index (BMI) 40.0-44.9, adult Patient education booklet given Related to Chronic venous hypertension (idiopathic) with other complications of bilateral lower extremity Diet education Related to Body mass index (BMI) 40.0-44.9, adult Pre and post instruc tions reviewed and provided Related to Chronic venous hypertension (idiopathic) with other complications of bilateral lower extremity Assessments Type Assessment Date No Information Patient Care Teams Name Effective Dates (start - stop) Status Members No Information
== END 2024-05-25 10:54 | disposition home or self-care (01) ==
LOC: HO.HHCX 10:53
PROVIDERS: Visit Provider Internal Medicine
DX: M54.31 Sciatica, right side (principal); M17.11 Unilateral primary osteoarthritis, right knee
CPT/HCPCS: 73502; 73562

== ENCOUNTER → 2024-05-25 10:56 | Outpatient (BNV) | payer MEDICARE, SELFPAY | PROVIDERS: Visit Provider Radiology Diagnostic Radiology | DX: M16.11 Unilateral primary osteoarthritis, right hip (principal); M17.11 Unilateral primary osteoarthritis, right knee; M25.761 Osteophyte, right knee | CPT/HCPCS: 73502; 73562 ==

== ENCOUNTER 2024-06-27 12:37 | Outpatient (AMB) | payer MEDICARE, SELFPAY ==
[2024-06-27 12:56] VITALS: BP 110/78; PULSE 78; BMI 42.1
--- NOTE | 2024-06-27 12:56 | A.OFFVIS_ITS ---
Vital Signs 06/27/24 12:56 Height 5 ft 2 in Weight 230 lb 2.601 oz BMI 42.1 BP 110/78 Blood Pressure Location Lt brachial Position Sitting Pulse 78 Pulse Source Pulse Oximeter Intake Visit Reasons: Dx: Paroxysmal Atrial Afib Strategic Partnership Specialist Required: No Accompanied by: Self / Same As Patient Allergies No Known Allergies Allergy (Verified 05/16/24 06:57) Medication List - Last Reconciled 06/27/24 by Cisco Saenz NP aspirin 81 mg PO QAM atenolol 25 mg PO DAILY atorvastatin 40 mg PO DAILY 90 days blood pressure kit-extra large As directed blood sugar diagnostic (FreeStyle Precision Emilio Strips) As directed dextrose 40% (Glutose-15) PO DIRECTED docusate sodium 100 mg PO BEDTIME flash glucose sensor (FreeStyle Ronny 2 Sensor kit) As directed fluoxetine 40 mg PO DAILY latanoprost 0.005% 1 drp ophthalmic (eye) BEDTIME metformin ER 500 mg PO BID pen needle, diabetic (Pentips Pen Needle) As directed timolol maleate 0.5% drps ophthalmic (eye) tirzepatide (Mounjaro) 2.5 mg subcut QWEEK zolpidem 10 mg PO BEDTIME PRN HPI Comments Details: This is a 69-year-old female patient with a history of complete heart block status post permanent pacemaker placement, hypertension, hyperlipidemia, type 2 diabetes, and obesity presenting for a follow-up after recent syncopal episode. The patient reports initially experiencing dizziness while in the shower accompanied with some shortness of breath which she states improved after she came out and got dressed. However, after lying down, when she got up she experienced another episode of dizziness and shortness of breath followed by syncope. The patient is unsure of the duration of the syncopal episode and subsequently had called EMS for assistance. Following the event, patient experienced chest pain, though she is uncertain if she sustained any trauma. Additionally, she reports decreased oral intake over the preceding days, without any associated vomiting or diarrhea. It is believed that her symptoms were related to dehydration and orthostatic hypotension. At the hospital her pacemaker device was interrogated that showed very brief episodes of AMS otherwise no other arrhythmias. Since the hospital discharge, patient denies any further syncopal episodes. She reports exertional shortness of breath but denies any exertional chest pain, palpitations, dizziness, orthopnea, PND, leg edema, presyncope, or syncope. [facility] Medical History Hyperlipidemia Diabetes mellitus HTN (hypertension) Surgical History Hx of colonoscopy History of cardiac pacemaker Family History Father Hx of coronary artery bypass graft Mother No problems noted. Social History Household Members Other:: son and grandson Are you a primary care support representative to a significant other at home: No Do you presently have visiting nurse or other home services: No Alcohol intake: current Alcohol intake frequency: a few times a month Patient Tobacco Use Status: Never used Tobacco Review of Systems Const Denies chills, Reports fatigue, Denies fever(s), Denies weight gain and Denies weight loss ENT Denies dizziness Card Denies chest pain, Denies leg edema, Denies lightheadedness, Denies palpitations, Reports dyspnea on exertion, Denies orthopnea and Denies other Resp Denies cough and Reports dyspnea on exertion GI Denies hematochezia and Denies change in stool character Musc Denies abnormal gait, Denies muscle weakness, Denies numbness, Denies radiating pain into limb and Denies tingling Neuro Denies abnormal gait, Denies dizziness, Denies numbness and Denies tingling Endo Reports fatigue and Denies palpitations Physical Exam Vital Signs: Last Vital Signs Pulse 78 06/27/24 12:56 BP 110/78 06/27/24 12:56 BMI result Body Mass Index 42.1 Const General: cooperative, healthy appearing, comfortable and no acute distress Orientation/consciousness: patient oriented x3 HEENT Head: Yes normal to inspection Neck Neck: Yes normal visual inspection, Yes trachea midline and Yes supple Chest Chest palpation & inspection: normal inspection of the chest Resp Effort & Inspection: normal respiratory effort Auscultation: clear to auscultation bilaterally, no crackles, no rales, no rhonchi and no wheezes Cardio Jugular venous distension: no JVD Palpation: normal PMI Rate: regular rate Rhythm: regular rhythm Heart sounds: S1 normal heart sound present, S2 normal heart sound present, no click, no gallops, no murmurs and no rubs Peripheral pulses: Peripheral pulses 2+ throughout GI Inspection: Yes normal to inspection Palpation (GI): Soft to palpation Auscultation: normal bowel sounds Skin General skin exam: no rashes or lesions noted Neuro General: patient oriented x3 Extrem General: Yes normal to inspection, No no pedal edema and No calf tenderness Psych Appearance: grossly normal Mental Status: mental status grossly normal Speech and movement: Normal speech and movement present Assessment & Plan Assessment & Plan (1) Dyspnea: Code(s): R06.00 - Dyspnea, unspecified Category: Medical Plan: With multiple risk factors, her exertional shortness of breath concerning. We will get a myocardial perfusion study to assess for any ischemic changes. We will also get a echocardiogram to look for any wall motion as well as valvular abnormalities. (2) Pacemaker: Code(s): Z95.0 - Presence of cardiac pacemaker Category: Medical Plan: [employer] permanent pacemaker. Previously had very brief of PAF, AF burden <1%. We will continue to follow remotely. (3) Essential hypertension: Code(s): I10 - Essential (primary) hypertension Category: Medical Plan: Blood pressure today is well-controlled. No med changes at this time, ideally blood pressure less than 130/84. (4) Hyperlipidemia: Code(s): E78.5 - Hyperlipidemia, unspecified Category: Medical Plan: Most recent LDL 108, ideally we want her LDL less than 70. We will repeat labs. Continue atorvastatin. (5) Diabetes mellitus: Code(s): E11.9 - Type 2 diabetes mellitus without complications Category: Medical Plan: Patient states her blood sugars have been well-controlled. On metformin and Mounjaro. Ideally A1c less than 7 %. (6) Hospital discharge follow-up: Code(s): Z09 - Encounter for follow-up examination after completed treatment for conditions other than malignant neoplasm Plan: As above. Follow-up after completion of these tests. In the interim, patient will call us with any concerns. This note was generated using voice recognition software. While every effort has been made to ensure accuracy and proper tire adjuster, there may be occasional errors that could affect the content or meaning of the described symptoms. Orders: Orders CA echo transthoracic complete Today R06.00 - Dyspnea, unspecified CA stress test Today R06.00 - Dyspnea, unspecified NM cardiolite stress test Today R06.00 - Dyspnea, unspecified Lipid Panel 2 Months E78.5 - Hyperlipidemia, unspecified Coding Level of Care Code Est Pt Level 4 (33422) Diagnoses Dyspnea R06.00 Pacemaker Z95.0 Essential hypertension I10 Hyperlipidemia E78.5 Diabetes mellitus E11.9 Hospital discharge follow-up Z09 Time Spent (min) 32 Comment Time spent in reviewing the chart, test results, assessment, counseling and documentation.
--- OUTSIDE RECORDS SUMMARY | 2024-06-27 13:29 | XMS_ITS | Encounter Summary ---
Author Organization [employer] Address [address] [facility] [address] [place] [address] Care Team Providers Care Western Philosophy Professor Name Role Phone Rachel Shine MD Primary Care Provider + [phone] Skye Robles PharmD Unavailable [phone] Arleen Worthington Unavailable Moisés Spence Unavailable Karthik Reardon MD Unavailable [phone] Олег Skaggs MD Unavailable [phone] Reason for Visit * Reason Comments Med Refill Encounter Details Date Type Department Care Team (Late st Contact Info) Description 02/23/2024 Refill [facility] [address] [place], [place] [id number] Rachel Shine MD [address] [place] [address] Primary insomnia Social History Tobacco Use Types Packs/Day Years Used Date Smoking Tobacco: Never Passive Smoke Exposure: Never Smokeless Tobacco: Never Alcohol Use Standard Drinks/Week Comments Never 0 (1 standard drink = 0.6 oz pur e alcohol) Depression Answer Date Recorded Patient Health Questionnaire-9 Score 8 08/31/2023 Patient Health Questionnaire-9 Score 8 08/31/2023 Last PHQ-9: Questionnaire Data Not on file 0 08/31/2023 Housing Stability Answer Date Recorded What is your housing situation today? I have olinda schaffer 08/02/[address] you li ve. Do you have problems with any of the following? None of the above 08/02/2023 Food Insecurity Answer Date Recorded Within the past 12 months, y ou worried that your food would run out before you got money to buy more: Never True 08/02/2023 Within the past 12 months,th e food you bought just didn't last and you didn't have enough money to get more: Never True Transportation Answer Date Recorded In the past 12 months, has l ack of transportation kept you from medical appts, meetings, work or from getting things needed for daily living? No 08/02/2023 Utilities Answer Date Recorded In the past 12 months, has t he [employer], gas, oil or water company threatened to shut off services in your home? No 08/02/2023 Depression Answer Date Recorded Patient Health Questionnaire-2 Score 2 08/31/2023 Internet Access Answer Date Recorded Internet Access Q1 Yes 01/10/2024 Internet Access Q2 Not on file 01/10/2024 Comments Unknown Sex and Gender Information Value Date Recorded Sex Assigned at Female 03/09/2022 10:19 AM EDT Legal Sex Female 10:19 AM EDT Gender Identity Female 03/09/2022 10:19 AM EDT Sexual Orientation Choose not to disclose 2021 10:19 AM EDT documented as of this encounter Plan of Treatment Upcoming Encounters Date Type Department Care Team (Late st Contact Info) Description 07/03/2024 2:00 PM EST Office Visit [facility] [address] [place] [address] Liane England MD [address] [place] [address] 07/11/2024 1:00 PM EST Medication Management [facility] [address] [place] [address] Skye Robles PharmD [address] [place] [address] documented as of this encounter Goals Goal Patient Goal Type Associated Problems Recent Progress Patient-Stated? Author Blood Pressure < 140/90 Blood Pressure 100/62(2024 11:48 AM EST) No Skye Florence PharmD Hemoglobin A1c < 7.5 Result Component 7.5( 4 9:02 AM EST) No Skye Florence PharmD documented as of this encounter Visit Diagnoses Diagnosis Primary insomnia Persistent disorder of initiating or maintaining sleep documented in this encounter Additional Health Concerns Assessment Noted Time PHQ-9 Depression Total Score: 8 08/31/19 24 1:43 PM EDT documented as of this encounter Care Teams Western Philosophy Professor Relationship Specialty Start Date End Date Rachel Shine MD [address] [place] [address] PCP - General Family Medicine 05/10/18 Skye Robles, JosuéD [address] [place] [address] Pharmacist Internal Medicine 09/15/23 Arleen Worthington [address] [place] [address] Gastroenterology 04/24/24 Moisés Spence [address] [place] [address] 04/24/24 Karthik Reardon MD [address] [facility] [address] [place] [address] Ophthalmology 04/24/24 Олег Skaggs MD [address] [place] [address] Hematology and Oncology 04/24/24 documented as of this encounter
--- OUTSIDE RECORDS SUMMARY | 2024-06-27 13:30 | XMS_ITS | Encounter Summary ---
Author Organization [employer] Address [address] [facility] 7t [place] [address] Care Team Providers Care Review Manager Name Role Phone Rachel Shine MD Primary Care Provider + [phone] Skye Robles PharmD Unavailable [phone] Arleen Worthington Unavailable Moisés Spence Unavailable Karthik Reardon MD Unavailable [phone] Оелг Skaggs MD Unavailable [phone] Encounter Details Date Type Department Care Team (Latest Contact Info) Description 06/13/2024 Travel Social History Tobacco Use Types Packs/Day Years [...] the past 12 months, has t he electric, gas, oil or water company threatened to [...] not to disclose 2021 10:19 AM EDT 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 Not on file Not on ramiro e documented as of this encounter Plan of Treatment Upcoming Encounters Date Type Department Care Team (Late st Contact Info) Description 07/03/2024 2:00 PM EST Office Visit [facility] MEDICINE [address] [place] [address] Liane England MD [address] [place] [address] 07/11/2024 1:00 PM EST Medication Management [facility] MEDICINE [address] [place] [address] IsrealsSkye Burton, PharmD [address] [place] [address] documented as of this encounter Goals Goal Patient Goal Type Associated Problems Recent Progress Patient-Stated? Author Blood Pressure < 140/90 Blood Pressure 100/62(2024 11:48 AM EST) No Piers-Gambl e, Skye, PharmD Hemoglobin A1c < 7.5 Result Component 7.5( 9:02 AM EST) No Piers-Gambl e, Skye, PharmD documented as of this encounter Visit Diagnoses Not on filedocumented in this encounter Additional Health Concerns Assessment Noted Time PHQ-9 Depression Total Score: 8 08/31/19 24 1:43 PM EDT documented as of this encounter Care Teams Review Manager Relationship Specialty Start Date End Date Rachel Shine MD [address] [place] [address] PCP - General Family Medicine 05/10/18 Skye Robles PharmD [address] [place] [address] Pharmacist Internal Medicine 09/15/23 Arleen Worthington [address] 3rd [place] [address] Gastroenterology 04/24/24 Moisés Spence [address] [place] [address] 04/24/24 Karthik Reardon MD [address] [facility] [address] [place] [address] Ophthalmology 04/24/24 Олег Skaggs MD [address] [place] [address] Hematology and Oncology 04/24/24 documented as of this encounter
--- OUTSIDE RECORDS SUMMARY | 2024-06-27 13:30 | XMS_ITS | Continuity of Care Document ---
Author Organization [facility] Address [address] [facility] [address] [place] [address] Phone Care Team Providers Care Geomorphology Teacher Name Role Phone Savage JACINTO, JANET, Patrick [...] Providers Copied on Encounter [facility], [address] [place] [address] [address], [place], [id number], [place] tel:[phone] CVR - [facility] No Information Savage JACINTO, JANET, SANDER Nguyen. [address] [facility] [address], [place], [place], [id number] , [place]. tel:[phone] [facility] MD ST[place]FFER, [address] [place] [address] [address] [place], [id number], [place] tel:[phone] CV[place] - [place] - [place] Varicose veins of right lower extremity with other complications 4 Maia Pavon . [address] [facility] [employer], Suite [facility], [place], [place], [id number] , [place]. tel:[phone] Referring Provider: Rachel Yanez, [address] [place] [address], [place], [address]. tel:[phone] [facility] MD STAUFFER, [address] [place] [address] [address] [place], [id number], [place] tel:[phone] [facility] [place] Encounter for follow-up examination after completed treatment for conditions other than malignant neoplasmVarico se veins of right lower extremity with pain 4 Savage JACINTO RVT, SANDER Nguyen. [facility] [address], [place], [place], [id number] , [place]. tel:[phone] Referring Provider: Rachel Yanez, [address] [facility], [place], [address]. tel:[phone] [facility] MD STAUFFER, [address] [place] [address] [address] [place], [id number], [place] tel:[phone] CV[place] - [place] Varicose veins of right lower extremity with other complications 4 Savage JACINTO RVT, SANDER Nguyen. [address] [place] [address], [facility] [address], [place], [place], [id number] , [place]. tel:[phone] Referring Provider: Rachel Yanez, [address] [facility], [place], [address]. 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 [address] [address], [place], [place], [id number] , [place]. tel:[phone] Referring Provider: Rachel Yanez, [address] [place] [address], [place], [address]. tel:[phone] Offic/outpt E&m Estab 5 Min Trial- Telemedicine [place] & [place] [facility], [address] [place] [address] [address], [place], [id number], [place] tel:[phone] [facility] Chronic venous hypertension (idiopathic) without complications of bilateral lower extremity Oct- 4 Savage JACINTO RVT, SANDER Nguyen. [address] [place] [address], [place], [place], [id number] , [place]. [phone] Referring Provider: Rachel Yanez, [address] [place] [address], [place], [address]. tel:[phone] Office/Oupt E&M New Pt 45 Mins- CT & [place] [facility], [address] [place] [address] [address], [place], [id number], [place] tel:[phone] [facility] Chronic venous hypertension (idiopathic) with other complications of bilateral lower extremityPain in right legPain in left legType 2 diabetes mellitus without complicationsR estless legs syndromeEssent ial (primary) hypertensionVe nous insufficiency (chronic) (peripheral)Ly mphedema, not elsewhere classifiedHere ditary lymphedemaCram p and spasmLocalized edema Sep-0 4 Savage JACINTO RVT, SANDER Nguyen. [address] [facility] [employer], [address] [facility], [place], [place], [id number] , [place]. [phone] Referring Provider: Rachel Yanez, [address] [place] [address], [place], [address]. tel:[phone] [facility], [address] [address], [place], [id number], [place] tel:[phone] CVR - [place] Chronic venous hypertension (idiopathic) with other complications of bilateral lower extremity Sep-0 4 Savage JACINTO, RVT, RPVI Patrick. [address] [employer], [address], [place], [place], [id number] , [place]. tel:[phone] Referring Provider: Rachel Yanez, [address] [facility], [place], [address]. tel:[phone] Family History Family Member Type Diagnosis Age At Onset No Information Payers Payer name Insurance type Covered libertarian ID Authoriza tion(s) [facility] AAR Medic are Complete CI [id number] Social History Type Description Quantity Date Captured [...]
--- OUTSIDE RECORDS SUMMARY | 2024-06-27 13:30 | XMS_ITS | Encounter Summary ---
Author Organization [employer] Address [address] [facility] 7t [place] [address] Care Team Providers Care Lacrosse Player Name Role Phone Rachel Shine MD Primary Care Provider + [phone] Skye Robles PharmD Unavailable [phone] Arleen Worthington Unavailable Moisés Spence Unavailable Karthik Reardon MD Unavailable [phone] Олег Skaggs MD Unavailable [phone] Reason for Visit * Reason Comments Med Refill Encounter Details Date Type Department Care Team (Late st Contact Info) Description 05/18/2024 Refill [facility] CHC MED & PEDS [address] [place], [place] [phone] Rachel Shine MD [address] [place] [address] Primary insomnia Social History Tobacco Use Types [...] Description 07/03/2024 2:00 PM EST Office Visit [facility] MEDICINE [address] [place] [address] Liane England MD [address] [place] [address] 07/11/2024 1:00 PM EST Medication Management [facility] MEDICINE [address] [place] [address] Skye Robles, PharmD [address] [place] [address] documented as of this encounter Goals Goal [...] documented as of this encounter Care Teams Lacrosse Player Relationship Specialty Start Date End Date Rachel Shine MD [address] [place] [address] PCP - General Family Medicine 05/10/18 Skye Robles PharmD [address] [place] [address] Pharmacist Internal Medicine 09/15/23 Arleen Worthington [address] 3rd [place] [address] Gastroenterology 04/24/24 Moisés Spence [address] 3rd [place] [address] 04/24/24 Karthik Reardon MD 2 [facility] [address] [place] [address] Ophthalmology 04/24/24 Олег Skaggs MD [address] [place] [address] Hematology and Oncology 04/24/24 documented as of this encounter
--- OUTSIDE RECORDS SUMMARY | 2024-06-27 13:30 | XMS_ITS | Encounter Summary ---
Author Organization [employer] Address [address] [facility] 7t [place] [address] Care Team Providers Care Stock Order Lister Name Role Phone Rachel Shine MD Primary Care Provider + [phone] Skye Robles PharmD Unavailable [phone] Arleen Worthington Unavailable Moisés Spence Unavailable Karthik Reardon MD Unavailable [phone] Олег Skaggs MD Unavailable [phone] Encounter Details Date Type Department Care Team (Late st Contact Info) Description 06/14/[address] [facility] MEDICINE [address] [place] [address] Allegra Waddell, PETE Social History Tobacco Use Types Packs/Day Years [...] ramiro e documented as of this encounter Miscellaneous Notes * Telephone Encounter - Allegra Waddell RN - 06/14/2024 3:23 PM EST Pharmacist arrived to team nurse desk requesting assistance with scheduling HDF due to unable to get in contact with green nurses. Pharmacist reports they are on the phone with pt who was recently discharged and needs to be scheduled for an HDF. Pt was seen at [facility] on 05/31-06/01 for diagnosis of Chest pain, Syncope , Hyperlipidemia, Anxiety and depression , Type 2 diabetes mellitus, Hypertension , Insomnia, CHB (complete heart block). Pharmacist assisted with scottish translation and pt agreed to HDF appt with Dr. England on 07/03/24. Pt is to follow up with PCP for any further questions or concerns. documented in this encounter Plan of Treatment Upcoming Encounters Date Type Department Care Team ([facility] st Contact Info) Description 07/03/2024 2:[address] PM EST Office [address] [facility] MEDICINE [address] [place] [address] Liane England MD [address] [place] [id number] 07/11/2024 1:00 PM EST Medication Management [facility] [address] [facility] [place] [id number] Skye Robles PharmD [address] [facility] [place] [id number] documented as of this encounter Goals Goal Patient Goal Type Associated Problems Recent Progress Patient-Stated? Author Blood Pressure < 140/90 Blood Pressure 100/62(2024 11:48 AM EST) No Skye Florence PharmD Hemoglobin A1c < 7.5 Result Component 7.5( 9:02 AM EST) No Skye Florence PharmD documented as of this encounter Visit Diagnoses Not on filedocumented in this encounter Additional Health Concerns Assessment Noted Time PHQ-9 Depression Total Score: 8 08/31/19 24 1:43 PM EDT documented as of this encounter Care Teams Stock Order Lister Relationship Specialty Start Date End Date Rachel Shine MD [address] [facility] [place] [address] PCP - General Family Medicine 05/10/18 Skye Robles, PharmD [facility] [place] [address] Pharmacist Internal Medicine 09/15/23 Arleen Worthington [address] 3rd [place] [address] Gastroenterology 04/24/24 Moisés Spence [address] 3rd [place] [address] 04/24/24 Karthik Reardon MD [facility] [address] [place] [id number] Ophthalmology 04/24/24 Олег Skaggs MD [address] [place] [address] Hematology and Oncology 04/24/24 documented as of this encounter
--- OUTSIDE RECORDS SUMMARY | 2024-06-27 13:30 | XMS_ITS | Encounter Summary ---
Author Organization [employer] Address [address] [facility] 7t [place] [address] Care Team Providers Care Flight Software Test Engineer Name Role Phone Rachel Shine MD Primary Care Provider + [phone] Skye Robles PharmD Unavailable [phone] Arleen Worthington Unavailable Moisés Spence Unavailable Karthik Reardon MD Unavailable [phone] Олег Skaggs MD Unavailable [phone] Reason for Visit * Reason Comments Med Refill Encounter Details Date Type Department Care Team (Late st Contact Info) Description 06/19/2024 Refill [facility] CHC MED & PEDS [address] [place], [place] [phone] Rachel Shine MD [address] [place] [address] Primary hypertension Social History Tobacco Use Types Packs/Day Years [...] Description 07/03/2024 2:00 PM EST Office Visit [facility] MEDICINE [address] [place] [address] Liane England MD [address] [place] [address] 07/11/2024 1:00 PM EST Medication Management [facility] MEDICINE [address] [place] [address] Skye Robles, PharmD [address] [place] [address] documented as of this encounter Goals Goal Patient Goal Type Associated Problems Recent Progress Patient-Stated? Author Blood Pressure < 140/90 Blood Pressure 100/62(2024 11:48 AM EST) No Skye Florence PharmD Hemoglobin A1c < 7.5 Result Component 7.5( 4 9:02 AM EST) No Skye Florence PharmD documented as of this encounter Visit Diagnoses Diagnosis Primary hypertension Unspecified essential hypertension documented in this encounter Additional Health Concerns Assessment Noted Time PHQ-9 Depression Total Score: 8 08/31/19 24 1:43 PM EDT documented as of this encounter Care Teams Flight Software Test Engineer Relationship Specialty Start Date End Date Rachel Shine MD [address] [place] [address] PCP - General Family Medicine 05/10/18 Skye Robles PharmD [address] [place] [address] Pharmacist Internal Medicine 09/15/23 Arleen Worthington [address] 3rd [place] [address] Gastroenterology 04/24/24 Moisés Spence [address]rd [place] [address] 04/24/24 Karthik Reardon MD [address] [place] [address] Ophthalmology 04/24/24 Олег Skaggs MD [address] [place] [address] Hematology and Oncology 04/24/24 documented as of this encounter
--- OUTSIDE RECORDS SUMMARY | 2024-06-27 13:30 | XMS_ITS | Clinical Summary ---
Author Organization [employer] Address [address] [place] [address] Care Team Providers Care Assistant Accounting Manager Name Role Phone Rachel Shine MD Primary Care Provider [phone]- [phone] Skye Robles PharmD Unavailable [phone] Arleen Worthington Unavailable Moisés Spence Unavailable Karthik Reardon MD Unavailable [phone] Олег Skaggs MD Unavailable [phone] Allergies No known active allergies Medications * This document contains information received from the source organization and may not represent a complete record from that organization. Alcohol Swabs (SM Alcohol Prep) 70 % padsIndications: Type 2 diabetes mellitus with hyperglycemia, unspecified whether extermination inspector insulin use ([facility]) USE DIRECTED TO TEST BLOOD SUGAR TWICE DAILY 100 each 11 07/21/19 23 Active aspirin (Aspirin Adult Low Strength) 81 MG EC tabletIndication s:Coronary artery disease involving [place] heart, unspecified vessel or lesion type, unspecified whether angina present TAKE 1 TABLET BY MOUTH EVERY MORNING 90 tablet 3 08/06/19 24 Active metFORMIN XR (Glucophage-XR) 500 MG 24 hr tabletIndication s:Type 2 diabetes mellitus with hyperglycemia, without long-term current use of insulin ([facility]) TAKE 1 TABLET BY MOUTH TWICE DAILY IN THE MORNING AND IN THE EVENING 180 tablet 3 09/07/19 24 Active ibuprofen 800 MG tabletIndication s:Pain TAKE 1 TABLET BY MOUTH THREE TIMES DAILY WITH FOOD NEEDED FOR PAIN 30 tablet 1 09/10/19 24 Active atorvastatin (Lipitor) 80 MG tabletIndication s:Type 2 diabetes mellitus with hyperglycemia, without long-term current use of insulin ([facility]) Take 1 tablet (80 mg) by mouth Once per day. 90 tablet 3 09/22/19 24 Active meclizine (Antivert) 25 MG tabletIndication s:Dizziness Take 1 tablet (25 mg) by mouth if needed in the morning and at bedtime for nausea or dizziness. 30 tablet 01/25/20 24 025 Active ezetimibe (Zetia) 10 MG tabletIndication s:Dyslipidemia Take 1 tablet (10 mg) by mouth Once per day. 90 tablet 3 01/28/20 24 Active FLUoxetine (PROzac) 40 MG capsuleIndicatio ns:Depressive disorder TAKE 1 CAPSULE BY MOUTH EVERY MORNING 90 capsule 3 03/30/20 24 Active Continuous Glucose Seal Skinner (Sionic MobileStyle Ronny 2 [place]) deviceIndication s:Type 2 diabetes mellitus with hyperglycemia, without long-term current use of insulin ([facility]) Scan sensor every 8 hours 1 each 04/24/20 24 Active glucose blood (Sionic MobileStyle Precision Emilio Test) test stripIndications :Type 2 diabetes mellitus with hyperglycemia, without long-term current use of insulin ([facility]) Use to test blood sugar 2 times daily 100 each 12 04/24/20 24 025 Active glucose (Glutose) 40 % gel oral gelIndications:T ype 2 diabetes mellitus with hyperglycemia, without long-term current use of insulin ([facility]) Use as needed for low blood sugar 45 g 11 04/24/20 24 Active timolol (Timoptic) 0.5 % ophthalmic solution INSTILL 1 DROP IN EACH EYE EVERY MORNING 04/25/20 24 Active Tirzepatide (Mounjaro) 2.5 MG/0.5ML solution auto-injectorInd ications:Type 2 diabetes mellitus with hyperglycemia, without long-term current use of insulin ([facility]) Inject 2.5 mg under the skin 1 (one) time per week. 2 mL 05/05/20 24 Active zolpidem (Ambien) 10 MG tabletIndication s:Primary insomnia TAKE 1 TABLET BY MOUTH AT BEDTIME 30 tablet 2 05/23/19 25 Active atenolol (Tenormin) 25 MG tabletIndication s:Primary hypertension TAKE 1 TABLET BY MOUTH EVERY MORNING 90 tablet 3 06/20/19 25 Active Continuous Glucose Sensor (FreeStyle Ronny 2 Sensor) misc APPLY SENSOR EVERY 14 DAYS 2 each 06/22/19 25 Active atenolol (Tenormin) 25 MG tabletIndication s:Primary hypertension TAKE 1 TABLET BY MOUTH EVERY MORNING 90 tablet 3 07/14/19 24 025 Discontinued traMADol (Ultram) 50 MG tabletIndication s:Sciatic leg pain Take 1 tablet (50 mg) by mouth if needed in the morning and at bedtime for severe pain for up to 8 days. 15 tablet 05/24/19 25 025 acetaminophen (Tylenol Extra Strength) 500 MG tablet Take 1 tablet (500 mg) by mouth every 6 (six) hours if needed for mild pain. 120 tablet 05/24/19 25 025 Continuous Glucose Sensor (FreeStyle Ronny 2 Sensor) misc APPLY SENSOR EVERY 14 DAYS 05/31/19 025 Discontinued Active Problems Problem Noted Date Diagnosed Date Osteoarthritis of right knee 05/24/2024 Assessment & Plan (05/24/2024 6:42 PM EST): Advised re ambulation with cane, Advised re lower back stretching exercises at home, will refer to PT Order Xrays and fu with PCP, may need steroid injection. She declined Toradol inj today. Rx Tramadol 50mg q12h prn severe pain/ Tylenol 500mg q6h prn moderate pain, can mix with tramadol Sciatic leg pain 05/24/2024 Assessment & Plan (05/24/2024 6:44 PM EST): She probably has underlying IA spine, Xrays L-spine on 2022 are normal. Advised re ambulation with cane to prevent falls Advised re lower back stretching exercises at home, will refer to PT Order Xrays and fu with PCP, may need steroid injection. She declined Toradol inj today. Rx Tramadol 50mg q12h prn severe pain/ Tylenol 500mg q6h prn moderate pain, can mix with tramadol, advised to not take within 4h of taking Zolpidem due to risk of oversedation. Dizziness 01/25/2024 Assessment & Plan (02/02/2024 2:51 PM EDT): Pt reported dizziness on 01/25/24. Had positive Romberg's sign. No other neurological deficits. -advised using walker to avoid falls. -cannot obtain MRI due to pacemaker. -will prescribe Meclizine 25mg PRN for the dizziness and reevaluate next week. Follow-up today, 02/02/24 pt reports improved dizziness. Negative Romberg's sign. Assessment & Plan (01/25/2024 3:32 PM EDT): Pt reports dizziness with some SOB not associated. Has positive Romberg's sign. No other neurological deficits and denies any headaches, vision changes, speech problems, numbness or tingling. -advised using walker to avoid falls. -cannot obtain MRI due to pacemaker. -will prescribe Meclizine 25mg PRN for the dizziness and reevaluate next week. -made f/u appt. with me(PCP) for 02/02/24 in walk-in. -ER precautions discussed. Varicose veins of both lower extremities with pa in 01/14/2024 Overview (01/14/2024): Seen by [facility] 01/11/24. US negative for DVT b/l, positive for venous reflux Discussed management and treatment with possible thermal ablation Ambulates with cane 12/30/2023 Skin lesion 12/30/2023 Overview (12/30/2023): Left cheek skin lesion, hx freezing, now returned and changed with itchiness. -derm referral placed 12/30/23 Assessment & Plan (12/30/2023 9:57 AM EDT): Left cheek skin lesion, hx freezing, now returned and changed with itchiness. -derm referral placed 12/30/23 Abnormal stress test 10/08/2023 Overview (04/24/2024): History of abnormal nuclear stress test in 2012 that showed small to moderate size nonreversible perfusion defect involving the apex which extends into the anterior apical wall. Past cariology note from [facility] was 05/22/20. She was discharged for too many no shows 01/16/21. Referred to [facility] 01/22/2022 and . Lost to follow up with me multiple times due to exacerbation of depression. 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 Past cariology note from [facility] was 05/22/20. She was discharged for too many no shows 01/16/21. Referred to [facility] 01/22/2022 and . Lost to follow up with me multiple times due to exacerbation of depression. - Pt saw cardiology on 11/14/23 BMI 45.0-49.9, adult 09/27/2023 Overview (04/24/2024): Lifestyle modification discussed including nutrition stratgeies and phsycial activity recommendations. - Has been on a GLP 1 since July of 2023 with no weight loss. Will discuss with [facility] with our ALBERTO Castro about trail of Mounjaro 04/24/24 Assessment & Plan (04/24/2024 9:29 AM EST): Lifestyle modification discussed including nutrition stratgeies and phsycial activity recommendations. - Has been on a GLP 1 since July of 2023 with no weight loss. Will discuss with [facility] with our ALBERTO Castro about trail of Mounjaro 04/24/24 Assessment & Plan (09/27/2023 9:28 AM EDT): Lifestyle modification discussed including nutrition stratgeies and phsycial activity recommendations. Colon cancer screening 06/17/2023 Overview (04/24/2024): -rectal polyp with Dr. Spears 02/2011, pt due for retesting -referred to GI for colonoscopy 08/02/2023, number given to call for status of appointment 09/27/23, seen 12/29/23 and sent to cardiology for risk stratification Saw cardiology, got cleared and has appt. for colonoscopy on 05/16/24 Assessment & Plan (04/24/2024 12:16 PM EST): -rectal polyp with Dr. Spears 02/2011, pt due for retesting -referred to GI for colonoscopy 08/02/2023, number given to call for status of appointment 09/27/23, seen 12/29/23 and sent to cardiology for risk stratification Saw cardiology, got cleared and has appt. for colonoscopy on 05/16/24 Assessment & Plan (02/02/2024 2:53 PM EDT): -rectal polyp with Dr. Spears 02/2011, pt due for retesting -referred to GI for colonoscopy 08/02/2023, number given to call for status of appointment 09/27/23, seen 12/29/23 and sent to cardiology for risk stratification Saw cardiology, got cleared and has appt. for colonoscopy in the upcoming months. Assessment & Plan (12/30/2023 8:42 AM EDT): -rectal polyp with Dr. Spears 02/2011, pt due for retesting -referred to GI for colonoscopy 08/02/2023, number given to call for status of appointment 09/27/23, seen 12/29/23 and sent to cardiology for risk stratification Assessment & Plan (09/27/2023 9:02 AM EDT): -rectal polyp with Dr. Spears 02/2011, pt due for retesting -referred to urology for colonoscopy 08/02/2023, number given to call for status of appointment 09/27/23 Assessment & Plan (08/02/2023 9:40 AM EDT): -rectal polyp with Dr. Spears 02/2011, pt due for retesting -referred to urology for colonoscopy 08/02/2023 Other specified health status 03/18/2023 Overview (04/24/2024): -next physical exam due after August 07, 2024 -eye care facilitated by followed by Dr. Karthik Reardon of [facility] -dental home is [facility] (currently has dentures on maxillary arch) -Filed healthcare proxy on 08/02/2023 Assessment & Plan (12/30/2023 8:42 AM EDT): -next physical exam due after July 2024 -eye care facilitated by followed by Dr. Karthik Reardon of [facility] -dental home is [facility] (currently has dentures on maxillary arch) -Filed healthcare proxy on 08/02/2023 Assessment & Plan (08/02/2023 9:38 AM EDT): -next physical exam due after July 2024 -eye care facilitated by followed by Dr. Karthik Reardon of [facility] -dental home is [facility] (currently has dentures on maxillary arch) -Filed healthcare proxy on 08/02/2023 History of breast cancer 03/18/2023 Overview (12/30/2023): Hx infiltrating ductal carcinoma of the right breast, stge I. She is s/p right breast needle localized lumpectomy and sentinel node biopsy Mar 23, [address] Luisito Heller. Final pathology showed a 1.4cm infiltrating ductal carcinoma with adequate negative margins and 3 negative sentinel lymph nodes. Completed radiation therapy which she underwent from May 23, 2012 to July 13, [address] Melvin Varela. Followed by oncologist Dr. Skaggs and has been on Arimidex since May 04, 2012. . Oncotype diagnoses done and score was 15, with the risk of distant disease recurrence of about 10%. She reports she is doing well and has no concerns. -mammo 08/31/23:BI-RADS 2: Benign, ordered via Dr. Skaggs Assessment & Plan (12/30/2023 8:41 AM EDT): Hx infiltrating ductal carcinoma of the right breast, stge I. She is s/p right breast needle localized lumpectomy and sentinel node biopsy Mar 23, [address] Luisito Heller. Final pathology showed a 1.4cm infiltrating ductal carcinoma with adequate negative margins and 3 negative sentinel lymph nodes. Completed radiation therapy which she underwent from May 23, 2012 to July 13, [address] Melvin Varela. Followed by oncologist Dr. Skaggs and has been on Arimidex since May 04, 2012. . Oncotype diagnoses done and score was 15, with the risk of distant disease recurrence of about 10%. She reports she is doing well and has no concerns. -mammo 08/31/23:BI-RADS 2: Benign, ordered via Dr. Skaggs Assessment & Plan (08/02/2023 9:39 AM EDT): Hx infiltrating ductal carcinoma of the right breast, stge I. She is s/p right breast needle localized lumpectomy and sentinel node biopsy Mar 23, [address] Luisito Heller. Final pathology showed a 1.4cm infiltrating ductal carcinoma with adequate negative margins and 3 negative sentinel lymph nodes. Completed radiation therapy which she underwent from May 23, 2012 to July 13, [address] Melvin Varela. Followed by oncologist Dr. Skaggs and has been on Arimidex since May 04, 2012. . Oncotype diagnoses done and score was 15, with the risk of distant disease recurrence of about 10%. Sh reports she is doing well and has no concerns. mammo :BI-RADS 2: Benign. -mammo ordered via Dr. Skaggs -mammogram ordered on 08/02/2023 Presence of cardiac pacemaker 04/12/2014 Overview (05/30/2024): Hx [employer] Dual Chamber Pacemaker for complete heart block circa 2010 Doing well. Asymptomatic. Hx normal [place]ne MIBI Stress Test May 2010 Continue to optimize cardiac risk factors. She was discharged from cardiology for no shows after her sons . We will call to see status of pacemaker check. Cardiology [facility] -Cardiology. Clinical information/comments: Pt with [employer] pacemaker for sick sinus syndrome, lost to follow up since 2019 after the loss of her son. -seen by Dr. Moisés Spence MD 11/08/23 pacemaker interrogated and V paced 99% of the time, Seen again and note from 05/2024 reviewed Assessment & Plan (12/30/2023 8:39 AM EDT): Hx [employer] Dual Chamber Pacemaker for complete heart block circa 2010 Doing well. Asymptomatic. Hx normal Ryanne MIBI Stress Test May 2010 Continue to optimize cardiac risk factors. She was discharged from cardiology for no shows after her sons . We will call to see status of pacemaker check. Cardiology [facility] -Cardiology. Clinical information/comments: Pt with [employer] pacemaker for sick sinus syndrome, lost to follow up since 2019 after the loss of her son. -seen by Dr. Moisés Spence MD 11/08/23 pacemaker interrogated and V paced 99% of the time Assessment & Plan (08/02/2023 9:33 AM EDT): Hx [employer] Dual Chamber Pacemaker for complete heart block Doing well. Asymptomatic. Hx normal Ryanne MIBI Stress Test May 2010 Continue to optimize cardiac risk factors. She was discharged from cardiology for no shows after her sons . We will call to see status of pacemaker check. Cardiology [facility] -Cardiology. Clinical information/comments: Pt with [employer] pacemaker for sick sinus syndrome, lost to follow up since 2019 after the loss of her son. Left bundle branch block 12/15/2012 Chronic major depressive disorder, recurrent epi sode 11/12/2011 Overview (09/27/2023): -hx depression exacerbated by her son's 12/2019. But now worse. BE done 01/22/2022 pt refereed to therapy. She has been on fluoxetine 40mg daily for years and is on Ambien prn for sleep. -Referral to therapist on 08/02/2023 -BE intake done 08/06/23 -given increase in symptoms affecting concentration, sleep and activity, I recommend medical leave for a few months while she establishes with behavior health. Assessment & Plan (12/30/2023 8:40 AM EDT): -hx depression exacerbated by her son's 12/2019. But now worse. BE done 01/22/2022 pt refereed to therapy. She has been on fluoxetine 40mg daily for years and is on Ambien prn for sleep. -Referral to therapist on 08/02/2023 -BE intake done 08/06/23 -given increase in symptoms affecting concentration, sleep and activity, I recommend medical leave for a few months while she establishes with behavior health. Assessment & Plan (09/27/2023 9:18 AM EDT): -hx depression exacerbated by her son's 12/2019. But now worse. BE done 01/22/2022 pt refereed to therapy. She has been on fluoxetine 40mg daily for years and is on Ambien prn for sleep. -Referral to therapist on 08/02/2023 -BE intake done 08/06/23 -given increase in symptoms affecting concentration, sleep and activity, I recommend medical leave for a few months while she establishes with behavior health. Assessment & Plan (08/02/2023 9:31 AM EDT): -hx depression exacerbated by her son's 12/2019. BE done 01/22/2022 pt refereed to therapy. She has been on fluoxetine 40mg daily for years and is on Ambien prn for sleep. -Referral to therapist on 08/02/2023 Dyslipidemia 11/12/2011 Overview (06/19/2024): Lab Results Component Value Date CHOL 181 05/02/2024 CHOL 194 12/20/2023 CHOL 213 (H) 08/02/2023 TRIG 129 05/02/2024 TRIG 127 12/20/2023 TRIG 149 08/02/2023 HDL 48 05/02/2024 HDL 44 12/20/2023 HDL 53 08/02/2023 LDLCHOLCAL 108 (H) 05/02/2024 LDLCHOLCAL 125 (H) 12/20/2023 LDLCHOLCAL 131 (H) 08/02/2023 -continue lifestyle modifications -atorvastatin increased to 80mg once daily (from 40mg) 09/22/23 by [facility] [place] 2] -zetia 10mg once daily added 01/2024 by [facility] Assessment & Plan (04/24/2024 10:03 AM EST): Lab Results Component Value Date CHOL 194 12/20/2023 CHOL 213 (H) 08/02/2023 TRIG 127 12/20/2023 TRIG 149 08/02/2023 HDL 44 12/20/2023 HDL 53 08/02/2023 LDLCHOLCAL 125 (H) 12/20/2023 LDLCHOLCAL 131 (H) 08/02/2023 -continue lifestyle modifications -atorvastatin increased to 80mg once daily (from 40mg) 09/22/23 by CDTM with improvement in LDL Assessment & Plan (12/30/2023 8:39 AM EDT): Lab Results Component Value Date CHOL 194 12/20/2023 CHOL 213 (H) 08/02/2023 TRIG 127 12/20/2023 TRIG 149 08/02/2023 HDL 44 12/20/2023 HDL 53 08/02/2023 LDLCHOLCAL 125 (H) 12/20/2023 LDLCHOLCAL 131 (H) 08/02/2023 -continue lifestyle modifications -atorvastatin increased to 80mg once daily (from 40mg) 09/22/23 by CDTM with improvement in LDL Assessment & Plan (09/27/2023 8:59 AM EDT): Lab Results Component Value Date TRIG 149 08/02/2023 Lab Results Component Value Date TRIG 149 08/02/2023 CHOL 213 (H) 08/02/2023 LDLCHOLCAL 131 (H) 08/02/2023 HDL 53 08/02/2023 -continue lifestyle modifications -atorvastatin increased to 80mg once daily (from 40mg) 09/22/23 by CDTM Hypertension 11/12/2011 Overview (06/19/2024): -Continue lifestyle modifications -Continue current medications Assessment & Plan (04/24/2024 12:13 PM EST): -Blood pressure is not controlled 04/24/24. She had not taken her medication today. -Re-referred to [facility]agment Program with our PharmDALBERTO 04/24/24 -Continue lifestyle modifications -Continue current medications Assessment & Plan (12/30/2023 8:39 AM EDT): -Blood pressure is at goal -Continue lifestyle modifications -Continue current medications Assessment & Plan (09/27/2023 8:59 AM EDT): -Blood pressure is at goal -Continue lifestyle modifications -Continue current medications Assessment & Plan (08/02/2023 9:32 AM EDT): -Blood pressure is at goal -Continue lifestyle modifications -Continue current medications Type 2 diabetes mellitus 11/12/2011 Overview (06/19/2024): Collaborative Drug Therapy Managment Program with PharmDDr. Robles Lab Results Component Value Date HGBA1C 7.5 (A) 04/24/2024 HGBA1C 6.8 (A) 12/30/2023 HGBA1C 7.2 (A) 10/20/2023 Lab Results Component Value Date CREATININE 0.96 08/02/2023 EGFR 57 08/02/2023 MICROALBCREU 19.3 08/02/2023 LDLCHOLCAL 108 (H) 05/02/2024 -Navid/Arb: none -Statin therapy: atorvastatin increased from 40mg once daily to 80mg once daily 09/22/23 by CDTM -Diabetic eye exam: encouraged -Diabetic foot exam: 12/30/23 -Continue lifestyle modifications -Continue current medications-Blood pressure is at goal of <140/90 per JNC 8 guidelines. -Importance of low-fat, low cholesterol, ADA diet discussed. Importance of moderate physical activity discussed. -Continue Metformin ER 500mg twice daily -Lantus discontinued by CDTM 11/24/23 - Мария changed to Jovana due to inadequate response to Trulicity - Prescribed Continuous Glucose Seal Skinner (FreeStyle Ronny 2 [place]) device 04/24/24 - glucose blood (FreeStyle Precision Emilio Test) test strip 04/24/24 - glucose (Glutose) 40 % gel oral gel 04/24/24 Assessment & Plan (04/24/2024 10:27 AM EST): Significant improvement in A1C noted 10/20/23 Collaborative Drug Therapy Managment Program with PharmDDr. Robles Diabetes is controlled 04/24/24 Lab Results Component Value Date HGBA1C 7.5 (A) 04/24/2024 HGBA1C 6.8 (A) 12/30/2023 HGBA1C 7.2 (A) 10/20/2023 Lab Results Component Value Date CREATININE 0.96 08/02/2023 EGFR 57 08/02/2023 MICROALBCREU 19.3 08/02/2023 LDLCHOLCAL 125 (H) 12/20/2023 -Navid/Arb: none -Statin therapy: atorvastatin increased from 40mg once daily to 80mg once daily 09/22/23 by CD -Diabetic eye exam: encouraged -Diabetic foot exam: 12/30/23 -Continue lifestyle modifications -Continue current medications-Blood pressure is at goal of <140/90 per JNC 8 guidelines. -Importance of low-fat, low cholesterol, ADA diet discussed. Importance of moderate physical activity discussed. -Continue Metformin ER 500mg twice daily -Lantus discontinued by CDTM 11/24/23 - Trulicity further increased to 3mg once weekly by CDTM 11/24/23 - Prescribed Continuous Glucose Seal Skinner (Sionic MobileStyle Ronny 2 [place]) device 04/24/24 - glucose blood (FreeStyle Precision Emilio Test) test strip 04/24/24 - glucose (Glutose) 40 % gel oral gel 04/24/24 Assessment & Plan (12/30/2023 8:40 AM EDT): Collaborative Drug Therapy Managment Program with PharmD, Dr. Robles Lab Results Component Value Date HGBA1C 7.2 (A) 10/20/2023 HGBA1C 12.1 (A) 08/02/2023 HGBA1C 11.6 (H) 08/02/2023 Lab Results Component Value Date CREATININE 0.96 08/02/2023 EGFR 57 08/02/2023 MICROALBCREU 19.3 08/02/2023 LDLCHOLCAL 125 (H) 12/20/2023 -Navid/Arb: none -Statin therapy: atorvastatin increased from 40mg once daily to 80mg once daily 09/22/23 by [facility] [place]NOTE 2] -Diabetic eye exam: encouraged -Diabetic foot exam: 12/30/23 -Continue lifestyle modifications -Continue current medications-Blood pressure is at goal of <140/90 per JNC 8 guidelines. -Importance of low-fat, low cholesterol, ADA diet discussed. Importance of moderate physical activity discussed. -Continue Metformin ER 500mg twice daily -Lantus discontinued by CDTM 11/24/23 - Trulicity further increased to 3mg once weekly by TM 11/24/23 Assessment & Plan (09/27/2023 8:59 AM EDT): Diabetes is not controlled. Collaborative Drug Therapy Managment Program with PharmD, Dr. Robles Lab Results Component Value Date HGBA1C 12.1 (A) 08/02/2023 HGBA1C 11.6 (H) 08/02/2023 HGBA1C 12.1 (A) 08/02/2023 Lab Results Component Value Date MICROALBUR 33.0 08/02/2023 CREATININE 0.96 08/02/2023 -Navid/Arb: none -Statin therapy: atorvastatin increased from 40mg once daily to 80mg once daily 09/22/23 by [facility] [place]NOTE 2] -Diabetic eye exam: -Diabetic foot exam: -Continue lifestyle modifications -Continue current medications-Blood pressure is at goal of <140/90 per JNC 8 guidelines. -Importance of low-fat, low cholesterol, ADA diet discussed. Importance of moderate physical activity discussed. -Continue Metformin ER 500mg twice daily -Lantus solostar increased to 10 units once daily (from 6 units once daily) 09/22/23 by [facility] [place] 2[place] - Trulicity increased from 0.75mg once weekly to 1.5mg once weekly 09/22/23 by [facility] [place] Assessment & Plan (08/02/2023 9:36 AM EDT): Diabetes is controlled. -No results found for: HGBA1C -No results found for: POCA1C - Lab Results Component Value Date CREATININE 0.89 02/21/2022 CREATININE 0.89 02/21/2022 -Navid/Arb: -Statin therapy: -Diabetic eye exam: -Diabetic foot exam: -Continue lifestyle modifications -Continue current medications -continue metformin ER 500mg to bid -Blood pressure is at goal of <140/90 per JNC 8 guidelines. -Daily ASA therapy for hx MO -Importance of low-fat, low cholesterol, ADA diet discussed. Importance of moderate physical activity discussed. -Advised to not take Metformin on days of long traveling and to take Imodium in the case of loose stools. -Glucose monitor ordered 08/02/2023 -6 units daily ordered 08/02/2023 -0.25 of Trulicity stared on 08/02/2023 Resolved Problems Problem Noted Date Diagnosed Date Resolved Date Depression, recurrent 09/27/20232023 Overview (12/30/2023): Stable. Improved. Assessment & Plan (12/30/2023 9:57 AM EDT): Stable. Improved. Complicated grief 08/06/2023 04/24/2024 Assessment & Plan (08/09/2023 10:38 AM EDT): During IB Consult Daniela presenting with complex bereavement symptoms longing yearning, intense sorrow and distress, isolation, intense feeling of loneliness, impairment in social and occupational life, intense feeling of guilt, thoughts that life is meaningless, intense feeling of inability to accept her son's and anger about his ; for a period of 18+ mo, for all symptoms in the context of . Daniela's son by SI on 12/2019. Her 15 years ago, patient reports having a difficult time accepting both deaths and moving forward with her life. 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 Reports receiving positive support from family and hoahaoism community. PCP prescribed medication to help decrease symptoms (see PCP note). PLAN: (check all that apply) Behavioral Health Integration Plan Internal Follow up with [facility] Patient Self Plan Patient to utilize skills provided in intervention , Patient to reach out to [facility] team as needed, Comply with medication , and Patient to reach out to [facility] as needed. Pt agreed to follow-up with clinician. History of COVID-19 02/25/2023 03/18/20 23 Malignant tumor of breast 04/12/2012 Encounters Date Type Department Care Team Description 06/21/2024 Refill [facility] [address] [place] [phone] Rachel Shine MD 06/19/2024 Refill [facility] [address] [place], [place] [phone] Rachel Shine MD Primary hypertension 06/14/2024 Telephone [facility] [address] [place] [phone] Allegra Waddell, PETE 06/14/2024 Patient Outreach [address] [address] Rachel Shine MD Transition Of Care (Tcm) (HDF- Unscheduled LVM) 06/14/2024 Telephone [facility] [address] [place] [phone] Shelley King, JosuéD 06/13/2024 Travel 05/25/2024 Telephone [facility] [address] [place] [phone] Hanna Smith RN Plan of Care 05/24/2024 6:20 PM EST Office Visit [facility] [address] [place] [phone] Shirlene Aguila MD Osteoarthritis of right knee, unspecified osteoarthritis type (Primary Dx); Sciatic leg pain 05/22/2024 Refill [facility] [address] [place] [address] Rachel Shine MD Primary insomnia 05/18/2024 Refill [facility] [address] [place] [address] Rachel Sihne MD Primary insomnia 05/16/[address] [phone] Rachel Shine MD 05/16/2024 Refill [facility] [address] [place] [phone] Skye Robles, PharmD Type 2 diabetes mellitus with hyperglycemia, without long-term current use of insulin ([facility]) 05/16/2024 Orders Only GENERIC EXTERNAL DATA DEPARTMENT Provider, Generic External Data 05/05/[address] [address] Skye Robles, PharmD 05/02/2024 Orders Only [facility] [address] [place] [phone] Rachel Shine MD 05/02/2024 Travel 05/01/2024 Telephone [facility] [address] [place] [phone] Ariana Good RNbisque brusher 04/27/[address] [address] Rachel Shine MD 04/24/2024 9:00 AM EST Office Visit [address] [phone] Rachel Shine MD Type 2 diabetes mellitus with hyperglycemia, without long-term current use of insulin ([facility]) (Primary Dx); Dyslipidemia; Primary hypertension; BMI 45.0-49.9, adult ([facility]/HCC); Other specified health status; Abnormal stress test; Colon cancer screening 04/24/2024 Travel 04/14/2024 Patient Outreach [address] [address] Rachel Shine MD Pre-visit Planning (Pre-visit planning - LVM ) 03/29/2024 Refill [facility] [address] [place] [address] Rachel Shine MD Depressive disorder from Last 3 Months Immunizations Name Administration Dates Next Due DTaP / Hib 09/03/2004 Hep B, adult 09/27/2023,08/02/2023,2017 Influenza Quadrivalent Adjuvanted 01/18/2020 Influenza injectable quadriv alent IIV4 with preservative 02/17/2018,2017,06/13/2015 Influenza injectable quadriv alent preservative free 05/04/2019 Influenza, High Dose Seasona l, Preservative Free 02/07/2024 Influenza, IIV3, injectable 04/12/2014, 0 Influenza, Split (incl. dale fied surface antigen) 02/11/2012 Influenza, seasonal, injecta ble, preservative free 03/04/2016 Moderna Covid-19 Vaccine 12+ 06/03/2021,08/24/19 21,07/26/2020 PPD Test 08/20/2005, 5,03/20/2003,02/07 Pfizer Covid-19 Vaccine 12+ 02/07/2024, Pneumococcal Conjugate PCV 20 08/02/2023 Pneumococcal Polysaccharide PPSV23 04/12/2014,,03/18/2007 RSV Bivalent 09/22/2023 Td (adult), unspecified 09/03/2004 Tdap 08/02/2023,02/11/2012 Zoster, Recombinant 08/16/2023,06/17/2020 Zoster, live 04/12/2014 Family History Medical History Relation Name Comments Diabetes Son Relation Name Status Comments Son Social History Tobacco Use Types Packs/Day Years Used Date Smoking Tobacco: Never Passive Smoke Exposure: Never Smokeless Tobacco: Never Tobacco Cessation:Counseling Given: Not Answered Alcohol Use Standard Drinks/Week Comments Never 0 [...] Not on file Not on ramiro e Last Filed Vital Signs Vital Sign Reading Time Taken Comments Blood Pressure 100/62 06/13/2024 11:48 AM EST Pulse 76 06/13/2024 11:48 AM EST Temperature 36.8 ??C (98.3 ??F) 05/24/2024 5:59 PM ES T Respiratory Rate 18 05/24/2024 5:59 PM EST Oxygen Saturation 96% 05/24/2024 5:59 PM EST Inhaled Oxygen Concentration - - Weight 108 kg (238 lb 6 oz) 05/24/2024 5:[address] Height 154.9 cm (5' 1 ) 05/24/2024 5:59 PM EST Body Mass Index 45.04 05/24/2024 5:59 PM EST Plan of Treatment Upcoming Encounters Date Type Department Care Team (Late st Contact Info) Description 07/03/2024 2:00 PM EST Office Visit [facility] [address] [place] [phone] Liane England MD [address] [place] [phone] 07/11/2024 1:00 PM EST Medication Management [facility] [address] [place] [phone] Skye Robles, PharmD [address] [place] [address] Health Maintenance Due Date Last Done Comments CT Colonography 1955 FIT DNA/Cologuard 1955 FIT 1955 FOBT 1955 Sigmoidoscopy 1955 Diabetes: Hemoglobin A1C 07/23/202404/24/ 024, 12/30/2023, 10/20/2023, Additional history exists Diabetes: Urine Protein Screening 08/01/2024 08/02/2023, 02/21/2022 SDOH Screening 08/01/2024 08/02/2023 Depression Screening 08/30/2024 08/31/2023, 08/31/19 Diabetes: Foot Exam 12/29/2024 12/30/2023, 12/30/2023, 12/30/2023, Additional history exists Alcohol/Substance Use Screening 04/24/2025 04/24/2024 Lipid Panel 05/02/2025 05/02/2024, 12/08, 08/02/2023 Tobacco Screening 05/24/2025 05/24/2024 Mammogram 08/30/2025 08/31/2023, 08/08, 08/07/2020, Additional history exists Eye Exam 09/07/2025 09/08/2023 Colonoscopy 05/16/2029 05/16/2024, 02/17/2011 Colorectal Cancer Screening 05/16/2029 DTaP/Tdap/Td Vaccines (4 - Td or Tdap) 08/01/2033 08/02/2023, 02/11/2012, 09/03/2004, Additional history exists HIB Vaccines Aged Out 09/03/2004 No longer eligi ble based on patient's age to complete this topic Hepatitis C Screening Completed 08/02/2023 Pneumococcal Vaccine: 50+ Years Completed 08/02/2023, 04/12/2014, 05/25/2009, Additional history exists Zoster Vaccines Completed 08/16/2023, 12/2020, 04/12/2014 RSV Patients and Patients Aged 60 years or older Completed 09/22/2023 Hepatitis B Vaccines Completed 09/27/2023, 08/02/2023, 2017 COVID-19 Vaccine Completed 02/07/2024, , 06/03/2021, Additional history exists Influenza Vaccine Completed 02/07/2024, , 05/04/2019, Additional history exists HPV Vaccines Aged Out No longer eligi ble based on patient's age to complete this topic Hepatitis A Vaccines Aged Out No long er eligible based on patient's age to complete this topic IPV Vaccines Aged Out No longer eligi ble based on patient's age to complete this topic Meningococcal Vaccine Aged Out No marj delgado eligible based on patient's age to complete this topic RSV under 20 months Aged Out No longe r eligible based on patient's age to complete this topic Rotavirus Vaccines Aged Out No longer eligible based on patient's age to complete this topic Goals Goal Patient Goal Type Associated Problems Recent Progress Patient-Stated? Author Blood Pressure < 140/90 Blood Pressure 100/62(2024 11:48 AM EST) No Isreals-Gambl Skye betancourt, PharmD Hemoglobin A1c < 7.5 Result Component 7.5( 9:02 AM EST) No Piers-Gambl e, Skye, PharmD Procedures Procedure Name Priority Date/Time Associated Diagnosis Comments XR HIP 2 OR 3 VIEWS RIGHT Routine 05/25/2024 10:56 AM EST Osteoarthritis of right knee, unspecified osteoarthritis type Sciatic leg pain XR KNEE 3 VIEWS RIGHT Routine 05/25/2024 10:56 AM EST Osteoarthritis of right knee, unspecified osteoarthritis type Sciatic leg pain HEMATOXYLIN AND EOSIN STAIN Routine 05/16/2024 7:58 AM EST GLUCOSE, WHOLE BLOOD Routine 05/16/2024 7:05 AM EST COLONOSCOPY Routine 05/16/2024 LIPID PANEL, STANDARD Routine 05/02/2024 12:02 PM EST HEPATIC FUNCTION PANEL Routine 05/02/2024 12:02 PM EST POCT GLYCATED HEMOGLOBIN, TOTAL Routine 04/24/2024 9:02 AM EST Type 2 diabetes mellitus with hyperglycemia, without long-term current use of insulin ([facility]/HCC) POCT GLUCOSE Routine 04/24/2024 8:59 AM EST Type 2 diabetes mellitus with hyperglycemia, without long-term current use of insulin (CMS/HCC) DIABETES EYE EXAM Routine 09/08/2023 MAMMOGRAPHY Routine 08/31/2023 11:30 AM EDT HEPATITIS C AB W/REFL TO HCV RNA, QN, PCR Routine 08/02/2023 9:52 AM EDT Encounter for hepatitis C screening test for low risk patient ALBUMIN, RANDOM URINE W/CREATININE Routine 08/02/2023 9:52 AM EDT Type 2 diabetes mellitus with hyperglycemia, without long-term current use of insulin (CMS/HCC) from Last 3 Months or Most Recently Relevant to Health Maintenance Results * XR Knee 3 Views Right (05/25/2024 10:56 AM EST) Anatomical Region Laterality Modality Lower Extremities, Knee Right Radiogra phic Imaging 05/25/2024 10:5 6 AM EST Narrative 05/25/2024 11:31 AM EST ?[facility] ?[address] ?[place] [address] ?XRay Report ? Signed ? Patient: Daniela Thapa ?MR#: MM ?? [id number] ? : 1955 ?Acct:[id number] ? Age/Sex: 69 / F ?ADM Date: 05/25/24 ? Loc: HO.HHCX ? Attending Dr: Shirlene Aguila MD ? Ordering Physician: Shirlene Aguila MD ?? Date of Service: 05/25/24 ?? Procedure(s): XR knee RT 3V ?? Accession Number(s): [id number] ? cc: Shirlene Aguila MD ? EXAMINATION: ?? XR KNEE, RIGHT ? CLINICAL INFORMATION: ?? right leg pain/hip pain ? COMPARISON: ?? 08/26/2013. ? TECHNIQUE: ?? Three views of the right knee. ? FINDINGS: ?? Normal bone mineralization. No fracture, dislocation, malalignment, or ?? suspicious bone lesion. ?? Mild to moderate tricompartmental osteoarthrosis is present with mild ?? tricompartment joint space narrowing and marginal osteophyte ?? production. ?? Mild spurring of the tibial spines. ?? There is mild enthesopathy of the tibial tubercle. ? There appears to be a moderate suprapatellar effusion on the lateral ?? projection. ?? No discrete soft tissue abnormalities. ? XR/XR knee RT 3V ?? IMPRESSION: ?? 1. No acute bony abnormalities. ?? 2. Mild to moderate tricompartmental osteoarthrosis. ?? 3. Moderate size joint effusion in the suprapatellar bursa suspected. ? Electronically signed by: ??Eber Taylor MD ??05/25/2024 11:28 AM EST RP ? Dictated By: ?Eber Taylor MD ? Signed By: ?<Electronically signed by Eber Taylor MD in OV> ?05/25/24 1128 ? DD/ 1056 ? TD/TT: 05/25/24 1115 ? Form Grader: ? Procedure Note Zuleika, Image - 05/25/2024 [place] [address] XRay Report Signed Patient: Daniela ThapaMR#: [id number] : 1955cct:[id number] Age/Sex: 69 / FADM Date: 05/25/24 Loc: HO.HHCX Attending Dr: Shirlene Aguila MD Ordering Physician: Shirlene Aguila MD Date of Service: 05/25/24 Procedure(s): XR knee RT 3V Accession Number(s): [id number] cc: Shirlene Aguila MD EXAMINATION: XR KNEE, RIGHT CLINICAL INFORMATION: right leg pain/hip pain COMPARISON: 08/26/2013. TECHNIQUE: Three views of the right knee. FINDINGS: Normal bone mineralization. No fracture, dislocation, malalignment, or suspicious bone lesion. Mild to moderate tricompartmental osteoarthrosis is present with mild tricompartment joint space narrowing and marginal osteophyte production. Mild spurring of the tibial spines. There is mild enthesopathy of the tibial tubercle. There appears to be a moderate suprapatellar effusion on the lateral projection. No discrete soft tissue abnormalities. XR/XR knee RT 3V IMPRESSION: 1. No acute bony abnormalities. 2. Mild to moderate tricompartmental osteoarthrosis. 3. Moderate size joint effusion in the suprapatellar bursa suspected. Electronically signed by: Eber Taylor MD 05/25/2024 11:28 AM EST RP Dictated By: Eber Taylor MD Signed By: <Electronically signed by Eber Taylor MD in OV> 05/25/24 1128 DD/ 1056 TD/TT: 05/25/24 1115 Form Grader: us Shirlene Aguila MD IMG XR PROCEDURES Edited Result - Final * XR Hip 2 or 3 Views Right (05/25/2024 10:56 AM EST) Anatomical Region Laterality Modality Lower Extremities, Hip Right Radiograp hic Imaging 05/25/2024 10:5 6 AM EST Narrative 05/25/2024 11:33 AM EST ?[facility] ?[address] ?[place] [address] ?XRay Report ? Signed ? Patient: Daniela Thapa ?MR#: MM ?? [id number] ? : 1955 ?Acct:[id number] ? Age/Sex: 69 / F ?ADM Date: 05/25/24 ? Loc: HO.HHCX ? Attending Dr: Shirlene Aguila MD ? Ordering Physician: Shirlene Aguila MD ?? Date of Service: 05/25/24 ?? Procedure(s): XR hip RT min 2V ?? Accession Number(s): [id number] ? cc: Shirlene Aguila MD ? EXAMINATION: ?? XR HIP, RIGHT ? CLINICAL INFORMATION: ?? right leg and hip pain ? COMPARISON: ?? 05/18/2019. ? TECHNIQUE: ?? Two views of the right hip. ? FINDINGS: ?? Normal bone mineralization. No fracture, dislocation, malalignment, or ?? suspicious bone lesion. ?? There are mild to moderate osteoarthritic changes in the right hip ?? joint. There is only minimal joint space narrowing. ?? Femoral head maintains normal contour without evidence of AVN. ?? Arthritic changes noted in the right SI joint. ? No discrete soft tissue abnormalities. ? XR/XR hip RT min 2V ?? IMPRESSION: ?? 1. No acute findings right hip. ?? 2. Mild to moderate osteoarthrosis. ? Electronically signed by: ??Eber Taylor MD ??05/25/2024 11:30 AM EST RP ? Dictated By: ?Eber Taylor MD ? Signed By: ?<Electronically signed by Eber Taylor MD in OV> ?05/25/24 1130 ? DD/ 1056 ? TD/TT: 05/25/24 1115 ? Form Grader: ? Procedure Note Zuleika, Image - 05/25/[address] [address] XRay Report Signed Patient: Daniela ThapaMR#: [id number] : 3Acct:[id number] Age/Sex: 69 / FADM Date: 05/25/24 Loc: HO.HHCX Attending Dr: Shirlene Aguila MD Ordering Physician: Shirlene Aguila MD Date of Service: 05/25/24 Procedure(s): XR hip RT min 2V Accession Number(s): [id number] cc: Shirlene Aguila MD EXAMINATION: XR HIP, RIGHT CLINICAL INFORMATION: right leg and hip pain COMPARISON: 05/18/2019. TECHNIQUE: Two views of the right hip. FINDINGS: Normal bone mineralization. No fracture, dislocation, malalignment, or suspicious bone lesion. There are mild to moderate osteoarthritic changes in the right hip joint. There is only minimal joint space narrowing. Femoral head maintains normal contour without evidence of AVN. Arthritic changes noted in the right SI joint. No discrete soft tissue abnormalities. XR/XR hip RT min 2V IMPRESSION: 1. No acute findings right hip. 2. Mild to moderate osteoarthrosis. Electronically signed by: Eber Taylor MD 05/25/2024 11:30 AM EST Dictated By: Eber Taylor MD Signed By: <Electronically signed by Eber Taylor MD in OV> 05/25/24 1130 DD/ 1056 TD/TT: 05/25/24 1115 Form Grader: us Shirlene Aguila MD IMG XR PROCEDURES Edited Result - Final * Hematoxylin and Eosin Stain (05/16/2024 7:58 AM EST) 05/16/2024 7:58 AM EST 05/16/2024 8:27 AM EST Narrative [facility] - 05/18/2024 11:09 AM EST ----- ------- Name: Daniela Thapa ? Age/Sex: 69/F ? : 1955 Unit#: [id number] ?? Attend Dr: Rose Jose MD ?Re05/16/24 ?Status: DEP SDC ? Location: HO.SSS ?Disch: ? ----- ------- SPEC : [id number] ? RECD: 05/16/24-0827 ? STATUS: ??SOUT ? REQ NUM: [id number] ? LURDES: 05/16/24 ? SUBM DR: Rose Jose MD ? ENTERED: ??05/16/24 ?SP TYPE: Surgical ? OTHR DR: Rachel Shine MD ? ORDERED: ??HE Stain/3, Gross Micro L4 ? Diagnosis ?? Colon, transverse, polypectomy: ??Tubular adenoma; negative for high-grade dysplasia or ?? carcinoma. ?Clinical History Pre-Op Dx: ??Screening Post-Op Dx: ??Polyp, diverticulosis, hemorrhoids ?Microscopic Description Microscopic sections reviewed. ? Material Received ?? Transverse colon polyp ? Gross Description Received in formalin labeled ?transverse colon polyp? is a 1.2 cm rectangular fragment of mucosa with a 0.3 cm arvizu-pink papular focus, submitted in toto in a cassette labeled A. CEDS Copies To: ?? Rachel Shine MD ?? [facility] ?? [address] ?? [place] [address] ?? [phone] ?? Rose Jose MD ?? [facility] ?? [address] ?? [place] [address] ?? [phone] ----- ------- Signed (signature on file) Mic Orona MD 05/18/24 1109 ? ----- ------- ? END OF REPORT ? Generic External Data Provider LAB BLOOD ORDERAB LES Final Result Performing Organization Address City/[facility]/ZIP Co de Phone Number [facility] [address] [place] [address] [phone] * (ABNORMAL) Glucose, Whole Blood (05/16/2024 7:05 AM EST) Pathologist [facility] Glucose, Whole Blood 174(H) 60 - 115 mg/dL [facility] Comment:METER #: [id number] 05/16/2024 7:05 AM EST 05/16/2024 7:51 AM EST Generic External Data Provider LAB BLOOD ORDERAB LES Final Result Performing Organization Address [facility]/ZIP Co de Phone Number [facility] [address], [place] [phone] * (ABNORMAL) Hm Colonoscopy (05/16/2024) Colonoscopy Abnormal( A) Normal Comment:polyp with Dr. Jose Historical Provider HEALTH MAINTENANCE Final Result * (ABNORMAL) Hepatic Function Panel (05/02/2024 12:02 PM EST) Bilirubin, Total 0.9 0.0 - 1.0 mg/dL [facility] Bilirubin, Direct 0.3 0.0 - 0.5 mg/dL [facility] Aspartate Amino Transferase 29 5 - 31 U/L [facility] Alanine Aminotransferase 35(H) 0 - 31 U/L [facility] Total Protein 7.1 6.5 - 8.0 g/dL [facility] Albumin Level 3.9 3.5 - 5.0 g/dL [facility] Alkaline Phosphatase 72 39 - 117 U/L [facility] 05/02/2024 12:0 2 PM EST 05/02/2024 1:12 PM EST us Rachel Shine MD LAB BLOOD ORDERABLES Final Result Performing Organization Address City/State/[facility] Co de Phone Number [facility] [address] [place] [phone] * (ABNORMAL) Lipid Panel, Standard (05/02/2024 12:02 PM EST) Triglycerides 129 <150 mg/dL [facility] Comment:Desirable Triglyceri de: less than 150 mg/dLBorderline High Triglyceride 150-199 mg/dLHigh Triglyceride: 200-499 mg/dLVery High Triglyceride: greater than or equal to 5OO mg/dL Cholesterol 181 <200 mg/dL [facility] Comment:Desirable Cholestero l: less than 200 mg/dLBorderline High Cholesterol: 200-239 mg/dLHigh Cholesterol: greater than 239 mg/dL LDL Cholesterol Calculated 108(H) <100 mg/dL [facility] Comment:Desirable LDL: less than 100 mg/dLNear Optimal/Above Optimal LDL: 110- 129 mg/dLBorderline High LDL: 130-159 mg/dLHigh LDL: 160-189 mg/dLVery High LDL: greater than or equal to 190 mg/dL HDL Cholesterol 48 >40 mg/dL [facility] Comment:Desirable HDL: great er than 40 mg/dL Note: This HDL assay may give artificially low results in patients with liver disease. 05/02/2024 12:0 2 PM EST 05/02/2024 1:12 PM EST Rachel Shine MD LAB BLOOD ORDERABLES Final Result [facility] [address] [place] [phone] * (ABNORMAL) POCT HGB A1C (04/24/2024 9:02 AM EST) Hemoglobin A1C 7.5(A) 4.0 - 6.0 % QC Media Lot # [id number] Lot# Expiration Date Blood 04/24/2024 9:02 AM EST Rachel Shine MD POINT OF CARE TEST ENTER/E DIT ORDERABLES Final Result * POCT Glucose (04/24/2024 8:59 AM EST) Glucose Blood, POC 162 60 - 200 mg/dL QC Media Lot # [id number] Lot# Expiration Date [id number] Blood Capillary blood specimen / Unknown 04/24/2024 8:59 AM EST Rachel Shine MD POINT OF CARE TEST ENTER/E DIT ORDERABLES Final Result * Diabetes Eye Exam (09/08/2023) Eye Exam Normal Normal Comment:Dr. Reardon, date is aproximate Historical Provider HEALTH MAINTENANCE Final Result * Mammography (08/31/2023 11:30 AM EDT) Mammogram BIRADS 2 Normal, Abnormal, BIRADS 1 , BIRADS 2 Anatomical Region Laterality Modality Other Historical Provider HEALTH MAINTENANCE Final Result * Albumin, Random Urine W/Creatinine (08/02/2023 9:52 AM EDT) Creatinine, Urine 170.45 mg/dL [facility] Microalbumin Urine 33.0 mg/L [facility] Microalbum Creatinine Ratio Ur 19.3 <30 ug/mg cr [facility] Comment:Albumin/Creatinine R atio Reference Ranges: Normal: < 30 ug/mg creatinine Microalbuminuria: 30 - 300 ug/mg creatinineClinical Albuminuria: > 300 ug/mg creatinine Urine 08/02/2023 9:52 AM EDT 08/02/2023 11:23 AM EDT Rachel Shine MD LAB URINE ORDERABLES Final Result Performing Organization Address [facility] Co de Phone Number [facility] [address] [place] [phone] * Hepatitis C Antibody with Reflex to HCV, RNA, Quantitative, Real-Time PCR (08/02/2023 9:52 AM EDT) Hepatitis C Antibody Nonreactive Nonreactive [facility] Comment:Antibodies to HCV no t detected; does not exclude early acuteHCV infection. Blood Venous blood specimen / Unknown 08/02/2023 9:52 AM EDT 08/02/2023 11:41 AM EDT Rachel Shine MD LAB BLOOD ORDERABLES Final Result Performing Organization Address City/[facility] Co de Phone Number [facility] [address] [place] [phone] from Last 3 Months or Most Recently Relevant to Health Maintenance Insurance [facility] MEDICARE ADVANTAGE HMO Advance Directives Documents on File Type Date Recorded Patient Die Presser Expl anation Advance Directives and Livin g Will 08/02/2023 Health Care Proxy Care Teams Assistant Accounting Manager Relationship Specialty Start Date End Date Rl, MD Rachel [address] [place] [address] PCP - General Family Medicine 05/10/18 Skye Robles, Gloria [address] [place] [address] Pharmacist Internal Medicine 09/15/[address] [place] [address] Gastroenterology 04/24/24 Moisés Spence [address] [place], [place] 04/24/24 Karthik Reardon MD [address] [facility] [address] [address] [place] [address] Ophthalmology 04/24/24 Олег Skaggs MD [address] [place] [address] Hematology and Oncology 04/24/24
--- OUTSIDE RECORDS SUMMARY | 2024-06-27 13:30 | XMS_ITS | Encounter Summary ---
Author Organization [employer] Address 75 [facility] 7t [place] [address] Care Team Providers Care Panelboard Operator Name Role Phone Rachel Shine MD Primary Care Provider + [phone] Skye Robles PharmD Unavailable +[phone] Arleen Worthington Unavailable Moisés Spence Unavailable Karthik Reardon MD Unavailable [phone] Олег Skaggs MD Unavailable [phone] Reason for Visit * Reason Comments Med Refill Encounter Details Date Type Department Care Team (Late st Contact Info) Description 06/21/2024 Refill [facility] [address] [place], [place] [phone] Rachel Shine MD 230 [place], [place] [phone] Social History Tobacco Use Types Packs/Day Years [...] the past 12 months, has t he [employer], gas, oil or water company threatened to [...] Description 07/03/2024 2:00 PM EST Office Visit [facility] [address] [place] [address] Liane England MD [address] [place] [address] 07/11/2024 1:00 PM EST Medication Management [facility] [address] [place] [address] Skye Robles PharmD [address] [place] [address] documented as of this encounter Goals Goal Patient Goal Type Associated Problems Recent Progress Patient-Stated? Author Blood Pressure < 140/90 Blood Pressure 100/62(2024 11:48 AM EST) No PierSkye Mtz PharmD Hemoglobin A1c < 7.5 Result Component 7.5( 4 9:02 AM EST) No Skye Florence PharmD documented as of this encounter Visit Diagnoses Not on filedocumented in this encounter Additional Health Concerns Assessment Noted Time PHQ-9 Depression Total Score: 8 08/31/19 24 1:43 PM EDT documented as of this encounter Care Teams Panelboard Operator Relationship Specialty Start Date End Date Rachel Shine MD 230 [place] [address] PCP - General Family Medicine 05/10/18 Skye Robles PharmD 230 [place] [address] Pharmacist Internal Medicine 09/15/23 Arleen Worthington [address] 3rd [place] [address] Gastroenterology 04/24/24 Moisés Spence [address] 3rd [place] [address] 04/24/24 Karthik Reardon MD 2 [facility] [address] [place] [address] Ophthalmology 04/24/24 Олег Skaggs MD [address] [place] [address] Hematology and Oncology 04/24/24 documented as of this encounter
--- OUTSIDE RECORDS SUMMARY | 2024-06-27 13:30 | XMS_ITS | Encounter Summary ---
Author Organization [employer] Address 75 [facility] 7t [place] [address] Care Team Providers Care Hose Suspender Cutter Name Role Phone Rachel Shine MD Primary Care Provider + [phone] Skye Robles PharmD Unavailable [phone] Arleen Worthington Unavailable Moisés Spence Unavailable Karthik [place] MD Unavailable [phone] Олег Skaggs MD Unavailable [phone] Reason for Visit * Reason Comments Transition Of Care (Tcm) HDF- Unschedule d LVM Encounter Details Date Type Department Care Team (Late st Contact Info) Description 06/14/2024 Patient Outreach [facility] 230 [place] [address] Rachel Shine MD [address] [place], [place] [phone] Transition Of Care (Tcm) (HDF- Unscheduled LVM) Social History Tobacco Use Types Packs/Day Years [...] as of this encounter Miscellaneous Notes * Significant Event - Marionben Lorenzoa - 06/14/2024 9:52 AM EST 06/14/24 0946 Hospital Discharges and Admission for [facility] Type of Visit Hospital Admission Date of Admission/Visit 05/31/24 Date of Discharge 06/01/24 Facility [facility] Diagnosis Chest pain, Syncope , Hyperlipidemia, Anxiety and depression , Type 2 diabetes mellitus, Hypertension , Insomnia, CHB (complete heart block) Disposition Discharged Home Follow-Up Actions Follow-Up Needed Provider appointment Follow-Up Outcome Left Voicemail Initial Contact Date 06/14/24 KARYN Lara placed outbound call to patient for HDF outreach. KARYN placing call to offer patient with an HDF appointment with provider. No answer at this time. Patient's name and were not confirmed. CC left detailed message educating patient on importance of following up with provider followingan inpatient admission. Provided contact information requesting a call back in order to schedule the HDF appointment. Patient educated via voicemail on extended clinic hours on Mondays and Wednesdays, and Walk-In Urgent Care Located in [facility]. Patient provided with after-hours line for [facility], , which offer night time triage service and option to transfer to electrical controls designer provider if needed. CC will request Discharge summaries to scan into chart. CC will place additional outreach call within 2-5 business days. documented in this encounter Plan of Treatment Upcoming Encounters Date Type Department Care Team (Late st Contact Info) Description 07/03/2024 2:00 PM EST Office Visit [facility] [address] [place] [address] Liane England MD [address] [place] [address] 07/11/2024 1:00 PM EST Medication Management [facility] [address] [place] [address] Isreals-Skye Hayward, PharmD [address] [place] [address] documented as of this encounter Goals Goal [...] documented as of this encounter Care Teams Hose Suspender Cutter Relationship Specialty Start Date End Date Rachel Shine MD [address] [place] [address] PCP - General Family Medicine 05/10/18 Skye Robles PharmD [address] [place] [address] Pharmacist Internal Medicine 09/15/23 Arleen Worthington [address] 3rd [place] [address] Gastroenterology 04/24/24 Moisés Spence [address] [place] [address] 04/24/24 Karthik [place] MD 2 [facility] [address] [place] [address] Ophthalmology 04/24/24 Олег Skaggs MD [address] [place] [address] Hematology and Oncology 04/24/24 documented as of this encounter
--- OUTSIDE RECORDS SUMMARY | 2024-06-27 13:30 | XMS_ITS | Encounter Summary ---
Author Organization [employer] Address 75 [facility] 7t [place] [address] Care Team Providers Care Airplane Refueler Name Role Phone Rachel Shine MD Primary Care Provider + [phone] Skye Robles PharmD Unavailable [phone] Arleen Worthington Unavailable Moisés Spence Unavailable Karthik [place] MD Unavailable +[phone] Олег Skaggs MD Unavailable [phone] Encounter Details Date Type Department Care Team (Late st Contact Info) Description 04/28/2022 Orders Only [facility] [address] [place], [place] [phone] Therese Robles LPN Social History Tobacco Use Types Packs/Day Years Used Date Smoking Tobacco: Never Assessed Comments Unknown Sex and Gender Information Value Date Recorded Sex Assigned at Female 03/09/2022 10:19 AM EDT Legal Sex Female 10:19 AM EDT Gender Identity Female 03/09/2022 10:19 AM EDT Sexual Orientation Choose not to disclose 2021 10:19 AM EDT documented as of this encounter Plan of Treatment Upcoming Encounters Date Type Department Care Team (Late Contact Info) Description 07/03/2024 2:00 PM EST Office Visit [facility] 230 [place], [place] [phone] Liane England MD 230 [place], [place] [phone] 07/11/2024 1:00 PM EST Medication Management [facility] 230 [place] [address] Skye Robles, PharmD 230 [place] [address] documented as of this encounter Visit Diagnoses Not on filedocumented in this encounter Care Teams Airplane Refueler Relationship Specialty Start Date End Date Rachel Shine MD [address] [place] [address] PCP - General Family Medicine 05/10/18 Skye Robles, PharmD [address] [place] [address] Pharmacist Internal Medicine 09/15/23 Arleen Worthington [address] 3rd [place] [address] Gastroenterology 04/24/24 Moisés Spence [address] [place] [address] 04/24/24 Karthik Reardon MD 2 [facility] [address] [place] [address] Ophthalmology 04/24/24 Олег Skaggs MD [address] [place] [address] Hematology and Oncology 04/24/24 documented as of this encounter
--- OUTSIDE RECORDS SUMMARY | 2024-06-27 13:30 | XMS_ITS | Encounter Summary ---
Author Organization [employer] Address 75 [facility] 7t [place] [address] Care Team Providers Care Shanker Out Name Role Phone Rachel Shine MD Primary Care Provider + [phone] Skye Robles PharmD Unavailable [phone] Arleen Worthington Unavailable Moisés Spence Unavailable Karthik [place] MD Unavailable [phone] Олег Skaggs MD Unavailable [phone] Encounter Details Date Type Department Care Team (Late st Contact Info) Description 06/14/2024 Telephone [facility] 230 [place], [place] [phone] Shelley King PharmD 230 [place] [address] Social History Tobacco Use Types Packs/Day Years [...] encounter Miscellaneous Notes * Telephone Encounter - Shelley King PharmD - 06/14/2024 9:03 AM EST Patient discharged from [facility] 06/01/24. Please assist in outreach to schedule HDF appointment. Thank you! documented in this encounter Plan of Treatment Upcoming Encounters Date Type Department Care Team (Late st Contact Info) Description 07/03/2024 2:00 PM EST Office Visit [facility] [address] [place] [address] Liane England MD [address] [place] [address] 07/11/2024 1:00 PM EST Medication Management [facility] [address] [place] [address] Skye Robles PharmD [address] [place] [address] documented as of this encounter Goals Goal Patient Goal Type Associated Problems Recent Progress Patient-Stated? Author Blood Pressure < 140/90 Blood Pressure 100/62(2024 11:48 AM EST) No Skye Florence, PharmD Hemoglobin A1c < 7.5 Result Component 7.5( 9:02 AM EST) No Skye Florence PharmD documented as of this encounter Visit Diagnoses Not on filedocumented in this encounter Additional Health Concerns Assessment Noted Time PHQ-9 Depression Total Score: 8 08/31/19 24 1:43 PM EDT documented as of this encounter Care Teams Shanker Out Relationship Specialty Start Date End Date Rachel Shine MD [address] [place] [address] PCP - General Family Medicine 05/10/18 Skye Robles, PharmD [address] [place] [address] Pharmacist Internal Medicine 09/15/23 Arleen Worthington 11 [facility] 3rd [place] [address] Gastroenterology 04/24/24 Moisés Spence 11 [facility] 3rd [place] [address] 04/24/24 Karthik Reardon MD 2 [facility] [address] [place] [address] Ophthalmology 04/24/24 Олег Skaggs MD [address] [place] [address] Hematology and Oncology 04/24/24 documented as of this encounter
--- OUTSIDE RECORDS SUMMARY | 2024-06-27 13:30 | XMS_ITS | Encounter Summary ---
Author Organization [employer] Address 75 [facility] 7t [place] [address] Care Team Providers Care Powder Blender And Pourer Name Role Phone Rachel Shine MD Primary Care Provider + [phone] Skye Robles PharmD Unavailable [phone] Arleen Worthington Unavailable Moisés Spence Unavailable Karthik Reardon MD Unavailable [phone] Олег Skaggs MD Unavailable [phone] Encounter Details Date Type Department Care Team (Late st Contact Info) Description 05/18/2022 Orders Only [facility] & PEDS [address] [place], [place] [phone] Therese Robles LPN Social History Tobacco Use [...] 2:00 PM EST Office Visit [facility] 230 [place], [place] [phone] Liane England MD 230 [place], [place] [phone] 07/11/2024 1:00 PM EST Medication Management [facility] 230 [place] [address] Skye Robles, PharmD 230 [place] [address] documented as of this encounter Visit Diagnoses Not on filedocumented in this encounter Care Teams Powder Blender And Pourer Relationship Specialty Start Date End Date Rachel Shine MD [address] [place] [address] PCP - General Family Medicine 05/10/18 Skye Robles, PharmD [address] [place] [address] Pharmacist Internal Medicine 09/15/23 Arleen Worthington [address] 3rd [place] [address] Gastroenterology 04/24/24 Moisés Spence [address] [place] [address] 04/24/24 Karthik Reardon MD 2 [facility] [address] [place] [address] Ophthalmology 04/24/24 Олег Skaggs MD [address] [place] [address] Hematology and Oncology 04/24/24 documented as of this encounter
--- OUTSIDE RECORDS SUMMARY | 2024-06-27 13:30 | XMS_ITS | Encounter Summary ---
Author Organization [employer] Address 75 [facility] 7t [place] [address] Care Team Providers Care Advance Agent Name Role Phone Rachel Shine MD Primary Care Provider + [phone] Skye Robles PharmD Unavailable [phone] Arleen Worthington Unavailable Moisés Spence Unavailable Karthik Reardon MD Unavailable [phone] Олег Skaggs MD Unavailable [phone] Encounter Details Date Type Department Care Team (Late st Contact Info) Description 08/31/2023 Abstract [facility] 230 [place], [place] [phone] Rachel Shine MD 230 [place], [place] [phone] Social History Tobacco Use Types Packs/Day Years [...] Recorded Patient Health Questionnaire-2 Score 2 08/31/2023 Comments Unknown Sex and Gender Information Value [...] Description 07/03/2024 2:00 PM EST Office Visit [address] [address] Liane England MD [address] [place] [address] 07/11/2024 1:00 PM EST Medication Management [address] [address] Skye Robles, PharmD [address] [place] [address] documented as of this encounter Procedures Procedure Name Priority Date/Time Associated Diagnosis Comments MAMMOGRAPHY Routine 08/31/2023 11:30 AM EDT documented in this encounter Results * Mammography (08/31/2023 11:30 AM EDT) Mammogram BIRADS 2 Normal, Abnormal, BIRADS 1 , BIRADS 2 Anatomical Region Laterality Modality Other Historical Provider HEALTH MAINTENANCE Final Result documented in this encounter Visit Diagnoses Not on filedocumented in this encounter Additional Health Concerns Assessment Noted Time PHQ-9 Depression Total Score: 8 08/31/19 24 1:43 PM EDT documented as of this encounter Care Teams Advance Agent Relationship Specialty Start Date End Date Rachel Shine MD 230 [place] [address] PCP - General Family Medicine 05/10/18 Skye Robles, JosuéD 230 [place] [address] Pharmacist Internal Medicine 09/15/23 Arleen Worthington [address] 3rd [place] [address] Gastroenterology 04/24/24 Moisés Spence [address] [place] [address] 04/24/24 Karthik [place] MD 2 [facility] [address] [place] [address] Ophthalmology 04/24/24 Олег Skaggs MD [address] [place] [address] Hematology and Oncology 04/24/24 documented as of this encounter
--- OUTSIDE RECORDS SUMMARY | 2024-06-27 13:30 | XMS_ITS | Encounter Summary ---
Author Organization [employer] [facility] Address 75 [facility] 7t [place] [address] Care Team Providers Care Chief Engineer Research Name Role Phone Rachel Shine MD Primary Care Provider +[phone] Skye Robles PharmD Unavailable Arleen Worthington Unavailable Moisés Spence Unavailable Karthik [place] MD Unavailable Олег Skaggs MD Unavailable [phone] Encounter Details Date Type Department Care Team (Late st Contact Info) Description 07/06/2022 Abstract [facility] [address] [place] [address] [phone] Rachel Shine MD [address] [place] [address] [phone] Social History Tobacco Use Types Packs/Day Years [...] Description 07/03/2024 2:00 PM EST Office Visit [facility] [address] [place] [address] [phone] Liane England MD 230 [place], [place] [phone] 07/11/2024 1:00 PM EST Medication Management [facility] 230 [place] [address] Skye Robles PharmD 230 [place] [address] documented as of this encounter Procedures Procedure Name Priority Date/Time Associated Diagnosis Comments MAMMOGRAPHY Routine 08/07/2020 PAP SMEAR Routine 02/17/2018 12:00 AM EDT COLONOSCOPY Routine 02/17/2011 documented in this encounter Results * Mammography (08/07/2020) Mammogram BI RADS 2 Anatomical Region Laterality Modality Other Historical Provider HEALTH MAINTENANCE Final Result * Pap Smear (02/17/2018 12:00 AM EDT) Swab Historical Provider LAB CYTOLOGY ORDERABLES F inal Result IMAGING * Colonoscopy (02/17/2011) Colonoscopy rectal polyp Dr. Spears Historical Provider HEALTH MAINTENANCE Final Result documented in this encounter Visit Diagnoses Not on filedocumented in this encounter Care Teams Chief Engineer Research Relationship Specialty Start Date End Date Rachel Shine MD [address] [place] [address] PCP - General Family Medicine 05/10/18 Skye Robles, JosuéD [address] [place] [address] Pharmacist Internal Medicine 09/15/23 Arleen Worthington [address] 3rd [place] [address] Gastroenterology 04/24/24 Moisés Spence [address] 3rd [place] [address] 04/24/24 Karthik Reardon MD [address] [place] [address] Ophthalmology 04/24/24 Олег Skaggs MD [address] [place] [address] Hematology and Oncology 04/24/24 documented as of this encounter
--- OUTSIDE RECORDS SUMMARY | 2024-06-27 13:30 | XMS_ITS | Encounter Summary ---
Author Organization [employer] Address 75 [facility] 7t [place] [address] Care Team Providers Care Graphics Programmer Name Role Phone Rachel Shine MD Primary Care Provider + [phone] Skye Robles PharmD Unavailable [phone] Arleen Worthington Unavailable Moisés Spence Unavailable Karthik [place] MD Unavailable [phone] Олег Skaggs MD Unavailable [phone] Reason for Visit * Reason Comments Med Refill Encounter Details Date Type Department Care Team (Late st Contact Info) Description 11/24/2023 Refill [facility] MED & PEDS [address] [place], [place] [phone] Rachel Shine MD 230 [place] [address] Primary insomnia Social History Tobacco Use Types [...] the past 12 months, has t he [employer], gas, oil or water company threatened to [...] Description 07/03/2024 2:00 PM EST Office Visit [facility] [address] [place] [address] Liane England MD [address] [place] [address] 07/11/2024 1:00 PM EST Medication Management [facility] [address] [place] [address] Skye Robles PharmD [address] [place] [address] documented as of this encounter Goals Goal [...] documented as of this encounter Care Teams Graphics Programmer Relationship Specialty Start Date End Date Rachel Shine MD 230 [place] [address] PCP - General Family Medicine 05/10/18 Skye Robles PharmD 230 [place] [address] Pharmacist Internal Medicine 09/15/23 Arleen Worthington [address] 3rd [place] [address] Gastroenterology 04/24/24 Moisés Spence [address] [place] [address] 04/24/24 Karthik Reardon MD [address] [facility] [address] [place] [address] Ophthalmology 04/24/24 Олег Skaggs MD [address] [place] [address] Hematology and Oncology 04/24/24 documented as of this encounter
== END 2024-06-27 13:30 | disposition home or self-care (01) ==
DX: R06.00 Dyspnea, unspecified (principal); Z95.0 Presence of cardiac pacemaker; I10 Essential (primary) hypertension; E78.5 Hyperlipidemia, unspecified; E11.9 Type 2 diabetes mellitus without complications; Z09 Encounter for follow-up examination after completed treatment for conditions other than malignant neoplasm
CPT/HCPCS: 99214

== ENCOUNTER → 2024-06-27 12:37 | Outpatient (BNVA) | payer MEDICARE, SELFPAY | DX: R06.00 Dyspnea, unspecified (principal); I10 Essential (primary) hypertension; E11.9 Type 2 diabetes mellitus without complications; E78.5 Hyperlipidemia, unspecified; Z09 Encounter for follow-up examination after completed treatment for conditions other than malignant neoplasm; Z95.0 Presence of cardiac pacemaker | CPT/HCPCS: 99212 ==

== ENCOUNTER 2024-07-03 14:20 | Outpatient (REF) | payer MEDICARE, SELFPAY ==
--- OUTSIDE RECORDS SUMMARY | 2024-07-03 16:32 | XMS_ITS | Encounter Summary ---
Author Organization [employer] Address 75 [facility] 7t [place] [address] Care Team Providers Care Outsole Cutter Machine Name Role Phone Rachel Shine MD Primary Care Provider + [phone] Skye Robles PharmD Unavailable [phone]- [phone] Arleen Worthington Unavailable Moisés Spence Unavailable Karthik Reardon MD Unavailable +[phone] Олег Skaggs MD Unavailable [phone] Reason for Visit * Reason Comments Med Refill Encounter Details Date Type Department Care Team (Late st Contact Info) Description 02/23/2024 Refill [facility] CH[facility] MED & PEDS [address] [place], [place] [phone] Rachel Shine MD [address] [place] [address] Primary insomnia Social History Tobacco Use Types [...] the past 12 months, has t he [email or web address], gas, oil or water company threatened to [...] Care Team (Late st Contact Info) Description 07/11/2024 1:00 PM EST Medication Management [facility] 230 [place] [address] IsrealsSkye Burton, PharmD [address] [place] [address] documented as of this encounter Goals Goal Patient Goal Type Associated Problems Recent Progress Patient-Stated? Author Blood Pressure < 140/90 Blood Pressure 130/68(2024 1:52 PM EST) No Piers-Gambl e, Skye, PharmD Hemoglobin A1c < 7.5 Result Component 7.5( 9:02 AM EST) No Piers-Gambl e Skye, PharmD documented as of this encounter Visit Diagnoses Diagnosis Primary insomnia Persistent disorder of initiating or maintaining sleep documented in this encounter Additional Health Concerns Assessment Noted Time PHQ-9 Depression Total Score: 8 08/31/19 24 1:43 PM EDT documented as of this encounter Care Teams Outsole Cutter Machine Relationship Specialty Start Date End Date Rachel Shine MD [address] [place] [address] PCP - General Family Medicine 05/10/18 Skye Robles PharmD [address] [place] [address] Pharmacist Internal Medicine 09/15/23 Arleen Worthington [address] 3rd [place] [address] Gastroenterology 04/24/24 Moisés Spence [address] [place] [address] 04/24/24 Karthik Reardon MD 2 [facility] [address] [place] [address] Ophthalmology 04/24/24 Олег Skaggs MD [address] [place] [address] Hematology and Oncology 04/24/24 documented as of this encounter
--- OUTSIDE RECORDS SUMMARY | 2024-07-03 16:33 | XMS_ITS | Encounter Summary ---
Author Organization [employer] Address 75 [facility] 7t [place] [address] Care Team Providers Care Customer Account Executive Name Role Phone Rachel Shine MD Primary Care Provider + [phone] Skye Robles PharmD Unavailable +[phone] Arleen Worthington Unavailable Moisés Spence Unavailable Karthik Reardon MD Unavailable +[phone] Олег Skaggs MD Unavailable [phone] Reason for Visit * Reason Onset Date Comments Med Refill 06/30/2024 Encounter Details Date Type Department Care Team (Late st Contact Info) Description 06/30/2024 Refill [facility] [address] [place], [place] [phone] Skye Robles, PharmD 230 [place] [address] Type 2 diabetes mellitus with hyperglycemia, without long-term current use of insulin ([facility]) Social History Tobacco Use Types Packs/Day Years [...] encounter Miscellaneous Notes * Telephone Encounter - Skye Robles PharmD - 06/30/2024 11:52 AM EST Refill sent for Mounjaro 2.5mg once weekly. documented in this encounter Plan of Treatment Upcoming Encounters Date Type Department Care Team (Late st Contact Info) Description 07/11/2024 1:00 PM EST Medication Management [facility] [address] [place] [address] Skye Robles PharmD 230 [place] [address] documented as of this encounter Goals Goal Patient Goal Type Associated Problems Recent Progress Patient-Stated? Author Blood Pressure < 140/90 Blood Pressure 130/68(2024 1:52 PM EST) No Skye Florence PharmD Hemoglobin A1c < 7.5 Result Component 7.5( 9:02 AM EST) No Skye Florence PharmD documented as of this encounter Visit Diagnoses Diagnosis Type 2 diabetes mellitus with hyperglycemia, without long-term current use of insulin ([facility]) documented in this encounter Additional Health Concerns Assessment Noted Time PHQ-9 Depression Total Score: 8 08/31/19 24 1:43 PM EDT documented as of this encounter Care Teams Customer Account Executive Relationship Specialty Start Date End Date Rachel Shine MD [address] [place] [address] PCP - General Family Medicine 05/10/18 Skye Robles PharmD [address] [place] [address] Pharmacist Internal Medicine 09/15/23 Arleen Worthington [address] [facility] [address] [place] [address] Gastroenterology 04/24/24 Moisés Spence [address] [facility] [address] [place] [address] 04/24/24 Karthik Reardon MD 2 [facility] [address] [place] [address] Ophthalmology 04/24/24 Олег Skaggs MD [address] [place] [address] Hematology and Oncology 04/24/24 documented as of this encounter
--- OUTSIDE RECORDS SUMMARY | 2024-07-03 16:33 | XMS_ITS | Encounter Summary ---
Author Organization [employer] [facility] Address 75 [facility] 7t [place] [address] Care Team Providers Care As400 Analyst Name Role Phone Rachel Shine MD Primary Care Provider + [phone] Skye Robles PharmD Unavailable [phone] Arleen Worthington Unavailable Moisés Spence Unavailable Karthik Reardon MD Unavailable +[phone] Олег Skaggs MD Unavailable [phone] Encounter Details Date Type Department Care Team (Late st Contact Info) Description 05/18/2022 Orders Only [facility] MED & PEDS [address] [place], [place] [phone] Therese Robles LPN Social History Tobacco Use [...] Description 07/11/2024 1:00 PM EST Medication Management [facility] MEDICINE 230 [place], [place] [phone] Skye Robles, PharmD 230 [place], [place] [phone] documented as of this encounter Visit Diagnoses Not on filedocumented in this encounter Care Teams As400 Analyst Relationship Specialty Start Date End Date Rachel Shine MD 230 [place] [address] PCP - General Family Medicine 05/10/18 Skye Robles PharmD 230 [place] [address] Pharmacist Internal Medicine 09/15/23 Arleen Worthington [address] 3rd [place] [address] Gastroenterology 04/24/24 Moisés Spence [address] [place] [address] 04/24/24 Karthik Reardon MD 2 [facility] [address] [place] [address] Ophthalmology 04/24/24 Олег Skaggs MD [address] [place] [address] Hematology and Oncology 04/24/24 documented as of this encounter
--- OUTSIDE RECORDS SUMMARY | 2024-07-03 16:33 | XMS_ITS | Encounter Summary ---
Author Organization [employer] Address 75 [facility] 7t [place] [address] Care Team Providers Care Emergency Management Specialist Name Role Phone Rachel Shine MD Primary Care Provider + [phone] Skye Robles PharmD Unavailable [phone]- [phone] Arleen Worthington Unavailable Moisés Spence Unavailable Karthik Reardon MD Unavailable [phone] Олег Skaggs MD Unavailable [phone] Reason for Visit * Reason Comments Med Refill Encounter Details Date Type Department Care Team (Late st Contact Info) Description 06/21/2024 Refill [facility] 230 [place], [place] [phone] Rachel Shine MD 230 [place], [place] [phone] Social History Tobacco Use Types Packs/Day Years [...] the past 12 months, has t he [employer], gas, oil or water company threatened to [...] Description 07/11/2024 1:00 PM EST Medication Management [facility] 230 [place] [address] Isreals-Skye Hayward, PharmD 230 [place] [address] documented as of this encounter Goals Goal [...] documented as of this encounter Care Teams Emergency Management Specialist Relationship Specialty Start Date End Date Rachel Shine MD 230 [place] [address] PCP - General Family Medicine 05/10/18 Skye Robles PharmD 230 [place] [address] Pharmacist Internal Medicine 09/15/23 Arleen Worthington [address] 3rd [place] [address] Gastroenterology 04/24/24 Moisés Spence [address] 3rd [place] [address] 04/24/24 Karthik Reardon MD 2 [facility] [address] [place] [address] Ophthalmology 04/24/24 Олег Skaggs MD [address] [place] [address] Hematology and Oncology 04/24/24 documented as of this encounter
--- OUTSIDE RECORDS SUMMARY | 2024-07-03 16:33 | XMS_ITS | Encounter Summary ---
Author Organization [employer] Address 75 [facility] 7t [place] [address] Care Team Providers Care Pan Shaker Name Role Phone Rachel Shine MD Primary Care Provider + [phone] Skye Robles PharmD Unavailable [phone]- [phone] Arleen Worthington Unavailable Moisés Spence Unavailable Karthik Reardon MD Unavailable [phone] Олег Skaggs MD Unavailable [phone] Reason for Visit * Reason Onset Date Comments Chart Prep 06/28/2024 Encounter Details Date Type Department Care Team (Late st Contact Info) Description 06/28/2024 Telephone [facility] 230 [place], [place] [phone] Rachel Shine MD 230 [place], [place] [phone] Chart Prep Social History Tobacco Use Types Packs/Day Years [...] encounter Miscellaneous Notes * Telephone Encounter - Paige Gusman [place] - 06/28/2024 11:06 AM EST Chart Prep Labs: not applicable Images: not applicable Vaccines due: Updated Referrals: Not Applicable Screenings: Not Applicable Overdue care gaps: None documented in this encounter Plan of Treatment Upcoming Encounters Date Type Department Care Team (Late st Contact Info) Description 07/11/2024 1:00 PM EST Medication Management [facility] [address] [place] [address] Skye Robles, PharmD 230 [place] [address] documented as of this encounter Goals Goal [...] documented as of this encounter Care Teams Pan Shaker Relationship Specialty Start Date End Date Rachel Shine MD 230 [place] [address] PCP - General Family Medicine 05/10/18 Skye Robles PharmD 230 [place] [address] Pharmacist Internal Medicine 09/15/23 Arleen Worthington [address] 3rd [place] [address] Gastroenterology 04/24/24 Moisés Spence [address] 3rd [place] [address] 04/24/24 Karthik Reardon MD 2 [facility] [address] [place] [address] Ophthalmology 04/24/24 Олег Skaggs MD [address] [place] [address] Hematology and Oncology 04/24/24 documented as of this encounter
--- OUTSIDE RECORDS SUMMARY | 2024-07-03 16:33 | XMS_ITS | Encounter Summary ---
Author Organization [employer] Address 75 [facility] 7t [place] [address] Care Team Providers Care Mold Construction Supervisor Name Role Phone Rachel Shine MD Primary Care Provider + [phone] Skye Robles PharmD Unavailable [phone] Arleen Worthington Unavailable Moisés Spence Unavailable Karthik Reardon MD Unavailable [phone] Олег Skaggs MD Unavailable [phone] Reason for Visit * Reason Comments Med Refill Encounter Details Date Type Department Care Team (Late st Contact Info) Description 11/24/2023 Refill [facility] MED & PEDS [address] [place], [place] [phone] Rachel Shine MD 230 [place] [address] Primary insomnia Social History Tobacco Use Types [...] the past 12 months, has t he [employer], gas, oil or water company threatened to [...] Description 07/11/2024 1:00 PM EST Medication Management [facility]IC[facility] 230 [place] [address] Skye Robles, PharmD 230 [place] [address] documented as of this encounter Goals Goal Patient Goal Type Associated Problems Recent Progress Patient-Stated? Author Blood Pressure < 140/90 Blood Pressure 130/68(2024 1:52 PM EST) No Piers-Gambl e, Skye, PharmD Hemoglobin A1c < 7.5 Result Component 7.5( 9:02 AM EST) No Piers-Gambl e, Ksye, PharmD documented as of this encounter Visit Diagnoses Diagnosis Primary insomnia Persistent disorder of initiating or maintaining sleep documented in this encounter Additional Health Concerns Assessment Noted Time PHQ-9 Depression Total Score: 8 08/31/19 24 1:43 PM EDT documented as of this encounter Care Teams Mold Construction Supervisor Relationship Specialty Start Date End Date Rachel Shine MD 230 [place] [address] PCP - General Family Medicine 05/10/18 Skye Robles PharmD 230 [place] [address] Pharmacist Internal Medicine 09/15/23 Arleen Worthington [address] 3rd [place] [address] Gastroenterology 04/24/24 Moisés Spence [address] [place] [address] 04/24/24 Karthik Reardon MD 2 [facility] [address] [place] [address] Ophthalmology 04/24/24 Олег Skaggs MD [address] [place] [address] Hematology and Oncology 04/24/24 documented as of this encounter
--- OUTSIDE RECORDS SUMMARY | 2024-07-03 16:33 | XMS_ITS | Encounter Summary ---
Author Organization [employer] Address 75 [facility] 7t [place] [address] Care Team Providers Care Medical Imaging Director Name Role Phone Rachel Shine MD Primary Care Provider + [phone] Skye Robles PharmD Unavailable [phone] Arleen Worthington Unavailable Moisés Spence Unavailable Karthik Reardon MD Unavailable [phone] Олег Skaggs MD Unavailable [phone] Reason for Visit * Reason Comments Transition Of Care (Tcm) HDF- Unschedule d LVM Encounter Details Date Type Department Care Team (Late st Contact Info) Description 06/14/2024 Patient Outreach [facility] MEDICINE 230 [place] [address] Rachel Shine MD 230 [place], [place] [phone] Transition Of Care (Tcm) (HDF- Unscheduled LVM) [...] Admission/Visit 05/31/24 Date of Discharge 06/01/24 Facility [facility] Diagnosis Chest pain, Syncope , Hyperlipidemia, [...] Wednesdays, and Walk-In Urgent Care Located in [facility] of [facility]. Patient provided with after-hours line for [facility], , which offer night time triage service and option to transfer to marketing sales consultant provider if needed. CC will request Discharge summaries to scan into chart. CC will place additional outreach call within 2-5 business days. documented in this encounter Plan of Treatment Upcoming Encounters Date Type Department Care Team (Late st Contact Info) Description 07/11/2024 1:00 PM EST Medication Management [facility] MEDICINE [address] [place] [address] [phone] Skye Robles PharmD [address] [place] [address] documented as of this encounter Goals Goal Patient Goal Type Associated Problems Recent Progress Patient-Stated? Author Blood Pressure < 140/90 Blood Pressure 130/68(2024 1:52 PM EST) No Anh-Skye Harper, PharmD Hemoglobin A1c < 7.5 Result Component 7.5( 9:02 AM EST) No Skye Florence, PharmD documented as of this encounter Visit Diagnoses Not on filedocumented in this encounter Additional Health Concerns Assessment Noted Time PHQ-9 Depression Total Score: 8 08/31/19 24 1:43 PM EDT documented as of this encounter Care Teams Medical Imaging Director Relationship Specialty Start Date End Date Rachel Shine MD [address] [place] [address] [phone] PCP - General Family Medicine 05/10/18 Skye Robles PharmD [address] [place] [address] [phone] Pharmacist Internal Medicine 09/15/23 Arleen Worthington [address] 3rd [place] [address] Gastroenterology 04/24/24 Moisés Spence [address] 3rd [place] [address] 04/24/24 Karthik Reardon MD [address] [place] [address] Ophthalmology 04/24/24 Олег Skaggs MD [address] [place] [address] Hematology and Oncology 04/24/24 documented as of this encounter
--- OUTSIDE RECORDS SUMMARY | 2024-07-03 16:33 | XMS_ITS | Encounter Summary ---
Author Organization [employer] [facility] Address 75 [facility] 7t [place] [address] Care Team Providers Care Cancer Genetic Counselor Name Role Phone Rachel Shine MD Primary Care Provider +[phone]- [phone] Skye Robles PharmD Unavailable Arleen Worthington Unavailable Moisés Spence Unavailable Karthik Reardon MD Unavailable Олег Skaggs MD Unavailable [phone] Encounter Details Date Type Department Care Team (Late st Contact Info) Description 07/06/2022 Abstract [facility] MEDICINE [address] [place] [address] [phone] Rachel Shine MD 230 [place], [place] [phone] Social History Tobacco Use Types Packs/Day Years [...] Department Care Team (Late Contact Info) Description 07/11/2024 1:00 PM EST Medication Management [facility] MEDICINE 230 [place], [place] [phone] Skye Robles, PharmD 230 [place] [address] documented as of this encounter Procedures Procedure [...] on filedocumented in this encounter Care Teams Cancer Genetic Counselor Relationship Specialty Start Date End Date Rachel Shine MD [address] [place] [address] PCP - General Family Medicine 05/10/18 Skye Robles, JosuéD [address] [place] [address] Pharmacist Internal Medicine 09/15/23 Arleen Worthington [address] 3rd [place] [address] Gastroenterology 04/24/24 Moisés Spence [address]rd [place] [address] 04/24/24 Karthik Reardon MD [address] [place] [address] Ophthalmology 04/24/24 Олег Skaggs MD [address] [place] [address] Hematology and Oncology 04/24/24 documented as of this encounter
--- OUTSIDE RECORDS SUMMARY | 2024-07-03 16:33 | XMS_ITS | Encounter Summary ---
Author Organization [employer] Address 75 [facility] 7t [place] [address] Care Team Providers Care Staff Nuclear Weapons Officer Name Role Phone Rachel Shine MD Primary Care Provider + [phone] Skye Robles PharmD Unavailable [phone] Arleen Worthington Unavailable Moisés Spence Unavailable Karthik Reardon MD Unavailable [phone] Олег Skaggs MD Unavailable [phone] Encounter Details Date Type Department Care Team (Late st Contact Info) Description 07/03/2024 2:00 PM EST Office Visit [facility] 230 [place], [place] [phone] Liane England MD 230 [place], [place] [phone] Primary hypertension (Primary Dx); Type 2 diabetes mellitus with hyperglycemia, without long-term current use of insulin (CMS/HCC); Dietary counseling; Exercise counseling; Class 3 severe obesity due to excess calories with serious comorbidity and body mass index (BMI) of 40.0 to 44.9 in adult (CMS/HCC); Weight loss; Dizziness Social History Tobacco Use Types Packs/Day Years [...] ramiro e documented as of this encounter Last Filed Vital Signs Vital Sign Reading Time Taken Comments Blood Pressure 130/68 07/03/2024 1:52 PM EST Pulse 68 07/03/2024 1:52 PM EST Temperature 35.7 ??C (96.2 ??F) 07/03/2024 1:52 PM ES T Respiratory Rate 16 07/03/2024 1:52 PM EST Oxygen Saturation - - Inhaled Oxygen Concentration - - Weight 105 kg (231 lb 9.6 oz) 07/03/2024 1:52 PM EST Height - - Body Mass Index 43.76 05/24/2024 5:59 PM EST documented in this encounter Miscellaneous Notes * Assessment & Plan Note - Herson Rock - 07/03/2024 2:21 PM ESTAssociated Problem(s): Dizziness PCP previous note as following. Pt reported dizziness on 01/25/24. Had positive Romberg's sign. No other neurological deficits. -advised using walker to avoid falls. -cannot obtain MRI due to pacemaker. -will prescribe Meclizine 25mg PRN for the dizziness and reevaluate next week. Follow-up today, 02/02/24 pt reports improved dizziness. Negative Romberg's sign. Pt had small tremor of hands today * Assessment & Plan Note - Herson Rock - 07/03/2024 2:05 PM ESTAssociated Problem(s): Type 2 diabetes mellitus ([facility]) Significant improvement in A1C noted 10/20/23 Collaborative Drug Therapy Managment Program with PharmD, Dr. Robles Diabetes is controlled 04/24/24 -Navid/Arb: none -Statin therapy: atorvastatin increased from 40mg once daily to 80mg once daily 09/22/23 by [facility] -Diabetic eye exam: encouraged -Diabetic foot exam: 12/30/23 -Continue lifestyle modifications -Continue current medications-Blood pressure is at goal of <140/90 per JNC 8 guidelines. -Importance of low-fat, low cholesterol, ADA diet discussed. Importance of moderate physical activity discussed. -Continue Metformin ER 500mg twice daily -Lantus discontinued by [facility] 11/24/23 - Trulicity further increased to 3mg once weekly by [facility] 11/24/23 - Prescribed Continuous Glucose Perlite Grinder (FreeStyle Ronny 2 Rock) device 04/24/24 - glucose blood (FreeStyle Precision Emilio Test) test strip 04/24/24 - glucose (Glutose) 40 % gel oral gel 04/24/24 * Assessment & Plan Note - Herson Rock - 07/03/2024 2:03 PM ESTAssociated Problem(s): Hypertension -Blood pressure is not controlled 04/24/24. She had not taken her medication today. -Re-referred to Collaborative Drug Therapy Managment Program with our PharmDALBERTO 04/24/24 -Continue lifestyle modifications -Continue current medications documented in this encounter Plan of Treatment Upcoming Encounters Date Type Department Care Team (Late st Contact Info) Description 07/11/2024 1:00 PM EST Medication Management [facility] MEDICINE 230 [place] [address] Skye Robles PharmD [address] [place] [address] Scheduled Orders Name Type Priority Associated Diagnoses Orde r Schedule TSH with Reflex to Free T4 Lab Routine Weight loss Expected: 07/03/2024 (Approximate), Expires: 07/03/2025 Vitamin B12 (Cobalamin) and Folate Panel, Serum Lab Routine Weight loss Expected: 07/03/2024 (Approximate), Expires: 07/03/2025 documented as of this encounter Goals Goal Patient Goal Type Associated Problems Recent Progress Patient-Stated? Author Blood Pressure < 140/90 Blood Pressure 130/68(2024 1:52 PM EST) No Skye Florence PharmD Hemoglobin A1c < 7.5 Result Component 7.5( 4 9:02 AM EST) No Skye Florence PharmD documented as of this encounter Visit Diagnoses Diagnosis Primary hypertension- Primary Unspecified essential hypertension Type 2 diabetes mellitus with hyperglycemia, without long-term current use of insulin ([facility]) Dietary counseling Dietary surveillance and counseling Exercise counseling Class 3 severe obesity due to excess calories with serious comorbidity and body mass index (BMI) of 40.0 to 44.9 in adult ([facility]) Weight loss Loss of weight Dizziness Dizziness and giddiness documented in this encounter Additional Health Concerns Assessment Noted Time PHQ-9 Depression Total Score: 8 08/31/19 24 1:43 PM EDT documented as of this encounter Care Teams Staff Nuclear Weapons Officer Relationship Specialty Start Date End Date Rachel Shine MD [address] [place] [address] PCP - General Family Medicine 05/10/18 Skye Robles, Gloria [address] [place] [address] Pharmacist Internal Medicine 09/15/23 Arleen Worthington [address] 3rd [place] [address] Gastroenterology 04/24/24 Moisés Spence [address]rd [place] [address] 04/24/24 Karthik Reardon MD 2 [facility] [address] [place] [address] Ophthalmology 04/24/24 Олег Skaggs MD [address] [place] [address] Hematology and Oncology 04/24/24 documented as of this encounter
--- OUTSIDE RECORDS SUMMARY | 2024-07-03 16:33 | XMS_ITS | Encounter Summary ---
Author Organization [employer] Address 75 [facility] 7t [place] [address] Care Team Providers Care Nurse Chemical Dependency Name Role Phone Rachel Shine MD Primary Care Provider + [phone] Skye Robles PharmD Unavailable [phone] Arleen Worthington Unavailable Moisés Spence Unavailable Karthik Reardon MD Unavailable [phone] Олег Skaggs MD Unavailable [phone] Encounter Details Date Type Department Care Team (Late st Contact Info) Description 06/14/2024 Telephone [facility] MEDICINE [address] [place], [place] [phone] Shelley King PharmD 230 [place] [address] Social History Tobacco Use Types Packs/Day Years [...] 06/14/2024 9:03 AM EST Patient discharged from [facility] 06/01/24. Please assist in outreach to schedule HDF appointment. Thank you! documented in this encounter Plan of Treatment Upcoming Encounters Date Type Department Care Team (Late st Contact Info) Description 07/11/2024 1:00 PM EST Medication Management [facility] MED[facility]INE [address] [place] [address] Skye Robles, JosuéD 230 [place] [address] documented as of this encounter Goals Goal [...] documented as of this encounter Care Teams Nurse Chemical Dependency Relationship Specialty Start Date End Date Rachel Shine MD 230 [place] [address] PCP - General Family Medicine 05/10/18 Skye Robles PharmD [address] [place] [address] Pharmacist Internal Medicine 09/15/23 Arleen Worthington [address]rd [place] [address] Gastroenterology 04/24/24 Moisés Spence [address] 3rd [place] [address] 04/24/24 Karthik Reardon MD [address] [place] [address] Ophthalmology 04/24/24 Олег Skaggs MD [address] [place] [address] Hematology and Oncology 04/24/24 documented as of this encounter
--- OUTSIDE RECORDS SUMMARY | 2024-07-03 16:33 | XMS_ITS | Encounter Summary ---
Author Organization [employer] Address [address] [facility] 7t [place] [address] Care Team Providers Care Remittance Clerk Name Role Phone Rachel Shine MD Primary Care Provider + [phone] Skye Robles PharmD Unavailable [phone] Arleen Worthington Unavailable Moisés Spence Unavailable Karthik Reardon MD Unavailable [phone] Олег Skaggs MD Unavailable [phone] Encounter Details Date Type Department Care Team (Latest Contact Info) Description 07/03/2024 Travel Social History Tobacco Use Types Packs/Day [...] Description 07/11/2024 1:00 PM EST Medication Management [facility] [address] [place] [address] Piers-Hayward, Skye, PharmD [address] [place] [address] documented as of this encounter Goals Goal [...] documented as of this encounter Care Teams Remittance Clerk Relationship Specialty Start Date End Date Rachel Shine MD [address] [place] [address] PCP - General Family Medicine 05/10/18 Skye Robles PharmD [address] [place] [address] Pharmacist Internal Medicine 09/15/23 Arleen Worthington [address]rd [place] [address] Gastroenterology 04/24/24 Moisés Spence [address] 3rd [place] [address] 04/24/24 Karthik Reardon MD [address] [facility] [address] [place] [address] Ophthalmology 04/24/24 Олег Skaggs MD [address] [place] [address] Hematology and Oncology 04/24/24 documented as of this encounter
--- OUTSIDE RECORDS SUMMARY | 2024-07-03 16:33 | XMS_ITS | Encounter Summary ---
Author Organization [employer] Address [address] [facility] 7t [place] [address] Care Team Providers Care Industry Consultant Name Role Phone Rachel Shine MD Primary Care Provider + [phone] Skye Robles PharmD Unavailable [phone] Arleen Worthington Unavailable Moisés Spence Unavailable Karthik Reardon MD Unavailable +[phone] Олег Skaggs MD Unavailable [phone] Encounter Details Date Type Department Care [...] EST Medication Management [facility] [address] [place] [address] Piers-Hayward, Skye, PharmD [address] [place] [address] documented as of this encounter Goals Goal [...] documented as of this encounter Care Teams Industry Consultant Relationship Specialty Start Date End Date Rachel Shine MD [address] [place] [address] PCP - General Family Medicine 05/10/18 Skye Robles PharmD [address] [place] [address] Pharmacist Internal Medicine 09/15/23 Arleen Worthington [address] 3rd [place] [address] Gastroenterology 04/24/24 Moisés Spence [address]rd [place] [address] 04/24/24 Karthik Reardon MD 2 [facility] [address] [place] [address] Ophthalmology 04/24/24 Олег Skaggs MD [address] [place] [address] Hematology and Oncology 04/24/24 documented as of this encounter
--- OUTSIDE RECORDS SUMMARY | 2024-07-03 16:33 | XMS_ITS | Encounter Summary ---
Author Organization [employer] Address [address] [facility] 7t [place] [address] Care Team Providers Care Uptwister Tender Name Role Phone Rachel Shine MD Primary Care Provider + [phone] Skye Robles PharmD Unavailable [phone] Arleen Worthington Unavailable Moisés Spence Unavailable Karthik Reardon MD Unavailable [phone] Олег Skaggs MD Unavailable [phone] Encounter Details Date Type Department Care Team (Late st Contact Info) Description 08/31/2023 Abstract [facility] [address] [place], [place] [phone] Rachel Shine MD [address] [place], [place] [phone] Social History Tobacco Use Types Packs/Day Years [...] 07/11/2024 1:00 PM EST Medication Management [facility] [address] [place] [address] Skye Robles, PharmD [address] [place] [address] documented as of this encounter Procedures Procedure [...] documented as of this encounter Care Teams Uptwister Tender Relationship Specialty Start Date End Date Rachel Shine MD [address] [place] [address] PCP - General Family Medicine 05/10/18 Skye Robles PharmD [address] [place] [address] Pharmacist Internal Medicine 09/15/23 Arleen Worthington [address]rd [place] [address] Gastroenterology 04/24/24 Moisés Spence [address] [place] [address] 04/24/24 Karthik Reardon MD 2 [facility] [address] [place] [address] Ophthalmology 04/24/24 Олег Skaggs MD [address] [place] [address] Hematology and Oncology 04/24/24 documented as of this encounter
--- OUTSIDE RECORDS SUMMARY | 2024-07-03 16:33 | XMS_ITS | Encounter Summary ---
Author Organization [facility] Address [address] [facility] [address]t [place] [address] Care Team Providers Care Viscose Cellar Worker Name Role Phone Rachel Shine MD Primary Care Provider + [phone] Skye Robles PharmD Unavailable [phone] Arleen Worthington Unavailable Moisés Spence Unavailable Karthik Reardon MD Unavailable [phone] Олег Skaggs MD Unavailable [phone] Encounter Details Date Type Department Care Team (Late st Contact Info) Description 04/28/2022 Orders Only [facility] MED & PEDS [address] [place], [place] [phone] Therese Robles LPN Social History Tobacco Use [...] 07/11/2024 1:00 PM EST Medication Management [facility] [address] [place] [address] Skye Robles, PharmD [address] [place], [place] [phone] documented as of this encounter Visit Diagnoses Not on filedocumented in this encounter Care Teams Viscose Cellar Worker Relationship Specialty Start Date End Date Rachel Shine MD [address] [place] [address] PCP - General Family Medicine 05/10/18 Skye Robles PharmD [address] [place] [address] Pharmacist Internal Medicine 09/15/23 Arleen Worthington [address]rd [place] [address] Gastroenterology 04/24/24 Moisés Spence [address] [place] [address] 04/24/24 Karthik Reardon MD 2 [facility] [address] [place] [address] Ophthalmology 04/24/24 Олег Skaggs MD [address] [place] [address] Hematology and Oncology 04/24/24 documented as of this encounter
--- OUTSIDE RECORDS SUMMARY | 2024-07-03 16:33 | XMS_ITS | Encounter Summary ---
Author Organization [employer] Address [address] [facility] 7t [place] [address] Care Team Providers Care Camera Control Operator Name Role Phone Rachel Shine MD Primary Care Provider + [phone] Skye Robles PharmD Unavailable [phone] Arleen Worthington Unavailable Moisés Spence Unavailable Karthik Reardon MD Unavailable [phone] Олег Skaggs MD Unavailable [phone] Reason for Visit * Reason Comments Med Refill Encounter Details Date Type Department Care Team (Late st Contact Info) Description 05/18/[address] [facility] MED & PEDS [address] [place], [place] [phone] Rachel Shine MD [address] [place] [address] Primary insomnia Social History Tobacco Use Types [...] the past 12 months, has t he [employer], gas, oil or water company threatened to [...] 1:00 PM EST Medication Management [facility]INE [address] [place] [address] Skye Robles PharmD [address] [place] [address] documented as of this encounter Goals Goal Patient Goal Type Associated Problems Recent Progress Patient-Stated? Author Blood Pressure < 140/90 Blood Pressure 130/68(2024 1:52 PM EST) No IsrealsRuthy Lausa, PharmD Hemoglobin A1c < 7.5 Result Component 7.5( 9:02 AM EST) No Skye Florence, PharmD documented as of this encounter Visit Diagnoses Diagnosis Primary insomnia Persistent disorder of initiating or maintaining sleep documented in this encounter Additional Health Concerns Assessment Noted Time PHQ-9 Depression Total Score: 8 08/31/19 24 1:43 PM EDT documented as of this encounter Care Teams Camera Control Operator Relationship Specialty Start Date End Date Rachel Shine MD [address] [place] [address] PCP - General Family Medicine 05/10/18 Skye Robles, JosuéD [address] [place] [address] Pharmacist Internal Medicine 09/15/23 Arleen Worthington [address]rd [place] [address] Gastroenterology 04/24/24 Moisés Spence [address] [place] [address] 04/24/24 Karthik Reardon MD [address] [place] [address] Ophthalmology 04/24/24 Олег Skaggs MD [address] [place] [address] Hematology and Oncology 04/24/24 documented as of this encounter
--- OUTSIDE RECORDS SUMMARY | 2024-07-03 16:33 | XMS_ITS | Encounter Summary ---
Author Organization [employer] Address [address] [facility] 7t [place] [address] Care Team Providers Care Machine Silk Screen Printer Name Role Phone Rachel Shine MD Primary Care Provider + [phone] Skye Robles PharmD Unavailable [phone] Arleen Worthington Unavailable Moisés Spence Unavailable Karthik Reardon MD Unavailable [phone] Олег Skaggs MD Unavailable [phone] Reason for Visit * Reason Comments Med Refill Encounter Details Date Type Department Care Team (Late st Contact Info) Description 06/19/2024 Refill [facility] [address] [place], [place] [phone] Rachel Shine MD [address] [place] [address] Primary hypertension Social History Tobacco Use Types [...] Description 07/11/2024 1:00 PM EST Medication Management [facility] [address] [place] [address] Skye Robles PharmD [address] [place] [address] documented as of this encounter Goals Goal Patient Goal Type Associated Problems Recent Progress Patient-Stated? Author Blood Pressure < 140/90 Blood Pressure 130/68(2024 1:52 PM EST) No Ruthy Florencesa, PharmD Hemoglobin A1c < 7.5 Result Component 7.5( 9:02 AM EST) No Skye Florence, PharmD documented as of this encounter Visit Diagnoses Diagnosis Primary hypertension Unspecified essential hypertension documented in this encounter Additional Health Concerns Assessment Noted Time PHQ-9 Depression Total Score: 8 08/31/19 24 1:43 PM EDT documented as of this encounter Care Teams Machine Silk Screen Printer Relationship Specialty Start Date End Date Rachel Shine MD [address] [place] [address] PCP - General Family Medicine 05/10/18 Skye Robles, Gloria [address] [place] [address] Pharmacist Internal Medicine 09/15/23 Arleen Worthington [address]rd [place] [address] Gastroenterology 04/24/24 Moisés Spence [address]rd [place] [address] 04/24/24 Karthik Reardon MD 2 [facility] [address] [place] [address] Ophthalmology 04/24/24 Олег Skaggs MD [address] [place] [address] Hematology and Oncology 04/24/24 documented as of this encounter
--- OUTSIDE RECORDS SUMMARY | 2024-07-03 16:33 | XMS_ITS | Clinical Summary ---
Author Organization [employer] Address [address] [place] [address] Care Team Providers Care Rotary Operator Name Role Phone Rachel Shine MD Primary Care Provider + [phone] Skye Robles PharmD Unavailable [phone] Arleen Worthington Unavailable Moisés Spence Unavailable Karthik Reardon MD Unavailable [phone] Олег Skaggs MD Unavailable [phone] Allergies No known active allergies Medications * This document contains information received from the source organization and may not represent a complete record from that organization. Alcohol Swabs (SM Alcohol Prep) 70 % padsIndications: Type 2 diabetes mellitus with hyperglycemia, unspecified whether long term care social worker insulin use ([facility]) USE DIRECTED TO TEST BLOOD SUGAR TWICE DAILY 100 each 11 07/21/19 23 Active aspirin (Aspirin Adult Low Strength) 81 MG EC tabletIndication s:Coronary artery disease involving [place] heart, unspecified vessel or lesion type, unspecified whether angina present TAKE 1 TABLET BY MOUTH EVERY MORNING 90 tablet 3 08/06/19 24 Active metFORMIN XR (Glucophage-XR) 500 MG 24 hr tabletIndication s:Type 2 diabetes mellitus with hyperglycemia, without long-term current use of insulin ([facility]) TAKE 1 TABLET BY MOUTH TWICE DAILY IN THE MORNING AND IN THE EVENING 180 tablet 3 09/07/19 24 Active ibuprofen 800 MG tabletIndication s:Pain TAKE 1 TABLET BY MOUTH THREE TIMES DAILY WITH FOOD NEEDED FOR PAIN 30 tablet 1 09/10/19 24 Active atorvastatin (Lipitor) 80 MG tabletIndication s:Type 2 diabetes mellitus with hyperglycemia, without long-term current use of insulin ([facility]) Take 1 tablet (80 mg) [...] capsule 3 03/30/20 24 Active Continuous Glucose Internist Medical Doctor Md (FreeStyle Ronny 2 Theresa) deviceIndication s:Type 2 diabetes mellitus with hyperglycemia, without long-term current use of insulin ([facility]) Scan sensor every 8 hours 1 each 04/24/20 24 Active glucose blood (FreeStyle Precision Emilio Test) test stripIndications :Type 2 diabetes mellitus with hyperglycemia, without long-term current use of insulin ([facility]) Use to test blood sugar 2 times daily 100 each 12 04/24/20 24 025 Active glucose (Glutose) 40 % gel oral gelIndications:T ype 2 diabetes mellitus with hyperglycemia, without long-term current use of insulin ([facility]) Use as needed for low blood sugar 45 g 11 04/24/20 24 Active timolol (Timoptic) 0.5 % ophthalmic solution INSTILL 1 DROP IN EACH EYE EVERY MORNING 04/25/20 24 Active zolpidem (Ambien) 10 MG tabletIndication s:Primary insomnia TAKE 1 TABLET BY MOUTH AT BEDTIME 30 tablet 2 05/23/19 25 Active atenolol (Tenormin) 25 MG tabletIndication s:Primary hypertension TAKE 1 TABLET BY MOUTH EVERY MORNING 90 tablet 3 06/20/19 25 Active Continuous Glucose Sensor (FreeStyle Ronny 2 Sensor) misc APPLY SENSOR EVERY 14 DAYS 2 each 06/22/19 25 Active Tirzepatide (Mounjaro) 2.5 MG/0.5ML solution auto-injectorInd ications:Type 2 diabetes mellitus with hyperglycemia, without long-term current use of insulin ([facility]) Inject 2.5 mg under the skin 1 (one) time per week. 2 mL 3 06/30/19 25 Active atenolol (Tenormin) 25 MG tabletIndication s:Primary hypertension TAKE 1 TABLET BY MOUTH EVERY MORNING 90 tablet 3 07/14/19 24 025 Discontinued Tirzepatide (Mounjaro) 2.5 MG/0.5ML solution auto-injectorInd ications:Type 2 diabetes mellitus with hyperglycemia, without long-term current use of insulin ([facility]) Inject 2.5 mg under the skin 1 (one) time per week. 2 mL 05/05/20 24 025 Discontinued(Re order (will not trigger notification to Pharmacy)) acetaminophen (Tylenol Extra Strength) 500 MG tablet Take 1 tablet (500 mg) by mouth every 6 (six) hours if needed for mild pain. 120 tablet 05/24/19 25 025 Continuous Glucose Sensor (FreeStyle Ronny 2 Sensor) [facility] [place] SENSOR EVERY 14 DAYS 05/31/19 25 025 Discontinued Active Problems Problem Noted Date [...] of oversedation. Dizziness 01/25/2024 Assessment & Plan (07/03/2024 2:22 PM EST): PCP previous note as following. Pt reported dizziness on 01/25/24. Had positive Romberg's sign. No other neurological deficits. -advised using walker to avoid falls. -cannot obtain MRI due to pacemaker. -will prescribe Meclizine 25mg PRN for the dizziness and reevaluate next week. Follow-up today, 02/02/24 pt reports improved dizziness. Negative Romberg's sign. Pt had small tremor of hands today Assessment & Plan (02/02/2024 2:51 PM EDT): [...] Overview (01/14/2024): Seen by [facility] 01/11/24. US negative for DVT b/l, positive [...] anterior apical wall. Past cariology note from [facility] was 05/22/20. She was discharged for too many no shows 01/16/21. Referred to [facility] 01/22/2022 and . Lost to follow up with me multiple times due to exacerbation of depression. 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 Past cariology note from [facility] was 05/22/20. She was discharged for too many no shows 01/16/21. Referred to [facility] 01/22/2022 and . Lost to follow [...] Collaborative Drug Therapy Managment Program with our JosuéD, ALBERTO about Nahed 04/24/24 Assessment & Plan (04/24/2024 9:29 AM EST): Lifestyle modification discussed including nutrition stratgeies and phsycial activity recommendations. - Has been on a GLP 1 since July of 2023 with no weight loss. Will discuss with Collaborative Drug Therapy Managment Program with our PharmDALBERTO about miguel angel kayleen Jovana 04/24/24 Assessment & Plan (09/27/2023 9:28 AM [...] by followed by Dr. Karthik Reardon of [facility] -dental home is [facility] [place] (currently has dentures on maxillary arch) -Filed healthcare proxy on 08/02/2023 Assessment & Plan (12/30/2023 8:42 AM EDT): -next physical exam due after July 2024 -eye care facilitated by followed by Dr. Karthik Reardon of [facility] -dental home is [facility] [place] (currently has dentures on maxillary arch) -Filed healthcare proxy on 08/02/2023 Assessment & Plan (08/02/2023 9:38 AM EDT): -next physical exam due after July 2024 -eye care facilitated by followed by Dr. Karthik Reardon of 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 Asymptomatic. Hx normal Ryanne MIBI Stress Test May 2010 Continue to optimize cardiac risk factors. She was discharged from cardiology for no shows after her sons . We will call to see status of pacemaker check. Cardiology [facility] -Cardiology. Clinical information/comments: Pt with [employer] pacemaker for sick sinus syndrome, lost to follow up since 2018 after the loss of her son. -seen by Dr. Moisés Spence MD 11/08/23 pacemaker interrogated and V paced 99% of the time, Seen again and note from 05/2024 reviewed Assessment & Plan (12/30/2023 8:39 AM EDT): Hx 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 Asymptomatic. Hx normal Ryanne MIBI Stress Test May 2010 Continue to optimize cardiac risk factors. She was discharged from cardiology for no shows after her sons . We will call to see status of pacemaker check. Cardiology [facility] -Cardiology. Clinical information/comments: Pt with [employer] pacemaker for sick sinus syndrome, lost to follow up since 2018 after the loss of her son. -seen [...] to see status of pacemaker check. Cardiology [facility] -Cardiology. Clinical information/comments: Pt with [employer] pacemaker for sick sinus syndrome, lost to follow up since 2018 after the loss of her son. Left [...] once daily (from 40mg) 09/22/23 by CDTM -zetia 10mg once daily added 01/2024 by CDTM H Assessment & Plan (04/24/2024 10:03 AM EST): [...] modifications -Continue current medications Assessment & Plan (07/03/2024 2:03 PM EST): -Blood pressure is not controlled 04/24/24. She had not taken her medication today. -Re-referred to Collaborative Drug Therapy Managment Program with our PharmALBERTO Doty 04/24/24 -Continue lifestyle modifications -Continue current medications Assessment & Plan (04/24/2024 12:13 PM EST): -Blood pressure is not controlled 04/24/24. She had not taken her medication today. -Re-referred to Collaborative Drug Therapy Managment Program with our PharmALBERTO Doty 04/24/24 -Continue lifestyle modifications -Continue current medications [...] (06/19/2024): Collaborative Drug Therapy Managment Program with PharmDr. Margaret Doty Lab Results Component Value Date HGBA1C 7.5 (A) 04/24/2024 HGBA1C 6.8 (A) 12/30/2023 HGBA1C 7.2 (A) 10/20/2023 Lab Results Component Value Date CREATININE 0.96 08/02/2023 EGFR 57 08/02/2023 MICROALBCREU 19.3 08/02/2023 LDLCHOLCAL 108 (H) 05/02/2024 -Navid/Arb: none -Statin therapy: atorvastatin increased from 40mg once daily to 80mg once daily 09/22/23 by [facility] -Diabetic eye exam: encouraged -Diabetic foot exam: 12/30/23 -Continue lifestyle modifications -Continue current medications-Blood pressure is at goal of <140/90 per JNC 8 guidelines. -Importance of low-fat, low cholesterol, ADA diet discussed. Importance of moderate physical activity discussed. -Continue Metformin ER 500mg twice daily -Lantus discontinued by [facility] 11/24/23 - Trulicity changed to Mounjaro due to inadequate response to Trulicity - Prescribed Continuous Glucose Internist Medical Doctor Md (FreeStyle Ronny 2 Theresa) device 04/24/24 - glucose blood (FreeStyle Precision Emilio Test) test strip 04/24/24 - glucose (Glutose) 40 % gel oral gel 04/24/24 Assessment & Plan (07/03/2024 2:05 PM EST): Significant improvement in A1C noted 10/20/23 Collaborative Drug Therapy Managment Program with PharmDDr. Robles Diabetes is controlled 04/24/24 -Navid/Arb: none -Statin therapy: atorvastatin increased from 40mg once daily to 80mg once daily 09/22/23 by [facility] -Diabetic eye exam: encouraged -Diabetic foot exam: 12/30/23 -Continue lifestyle modifications -Continue current medications-Blood pressure is at goal of <140/90 per JNC 8 guidelines. -Importance of low-fat, low cholesterol, ADA diet discussed. Importance of moderate physical activity discussed. -Continue Metformin ER 500mg twice daily -Lantus discontinued by [facility] 11/24/23 - Trulicity further increased to 3mg once weekly by [facility] 11/24/23 - Prescribed Continuous Glucose Internist Medical Doctor Md (FreeStyle Ronny 2 Theresa) device 04/24/24 - glucose blood (FreeStyle Precision Emilio Test) test strip 04/24/24 - glucose (Glutose) 40 % gel oral gel 04/24/24 Assessment & Plan (04/24/2024 10:27 AM EST): Significant improvement in A1C noted 10/20/23 Collaborative Drug Therapy Managment Program with PharmDr. Margaret Doty Diabetes is controlled 04/24/24 Lab Results Component Value Date HGBA1C 7.5 (A) 04/24/2024 HGBA1C 6.8 (A) 12/30/2023 HGBA1C 7.2 (A) 10/20/2023 Lab Results Component Value Date CREATININE 0.96 08/02/2023 EGFR 57 08/02/2023 MICROALBCREU 19.3 08/02/2023 LDLCHOLCAL 125 (H) 12/20/2023 -Navid/Arb: none -Statin therapy: atorvastatin increased from 40mg once daily to 80mg once daily 09/22/23 by [facility] -Diabetic eye exam: encouraged -Diabetic foot exam: [...] by CDTM 11/24/23 - Prescribed Continuous Glucose Internist Medical Doctor Md (COGEONStyle Ronny 2 Theresa) device 04/24/24 - glucose blood (FreeStyle Precision [...] daily to 80mg once daily 09/22/23 by [facility] -Diabetic eye exam: encouraged -Diabetic foot exam: 12/30/23 -Continue lifestyle modifications -Continue current medications-Blood pressure is at goal of <140/90 per JNC 8 guidelines. -Importance of low-fat, low cholesterol, ADA diet discussed. Importance of moderate physical activity discussed. -Continue Metformin ER 500mg twice daily -Lantus discontinued by TM 11/24/23 - Trulicity further increased to 3mg once weekly by [facility] 11/24/23 Assessment & Plan (09/27/2023 8:59 AM [...] daily to 80mg once daily 09/22/23 by [facility] -Diabetic eye exam: -Diabetic foot exam: -Continue lifestyle modifications -Continue current medications-Blood pressure is at goal of <140/90 per JNC 8 guidelines. -Importance of low-fat, low cholesterol, ADA diet discussed. Importance of moderate physical activity discussed. -Continue Metformin ER 500mg twice daily -Lantus solostar increased to 10 units once daily (from 6 units once daily) 09/22/23 by [facility] - Trulicity increased from 0.75mg once weekly to 1.5mg once weekly 09/22/23 by [facility] Assessment & Plan (08/02/2023 9:36 AM EDT): [...] 8 guidelines. -Daily ASA therapy for hx [place] -Importance of low-fat, low cholesterol, ADA diet [...] Reports receiving positive support from family and gnosticism community. PCP prescribed medication to help decrease symptoms (see PCP note). PLAN: (check all that apply) Behavioral Health Integration Plan Internal Follow up with [facility] Patient Self Plan Patient to utilize skills provided in intervention , Patient to reach out to [facility] team as needed, Comply with medication , and Patient to reach out to [facility] as needed. Pt agreed to follow-up with clinician. History of COVID-19 02/25/2023 03/18/20 23 Malignant tumor of breast 04/12/2012 Encounters Date Type Department Care Team Description 07/03/2024 2:00 PM EST Office Visit [facility] [address] [place] [phone] Liane England MD Primary hypertension (Primary Dx); Type 2 diabetes mellitus with hyperglycemia, without long-term current use of insulin ([facility]); Dietary counseling; Exercise counseling; Class 3 severe obesity due to excess calories with serious comorbidity and body mass index (BMI) of 40.0 to 44.9 in adult ([facility]); Weight loss; Dizziness 07/03/2024 Travel 06/30/2024 Refill [facility] [address] [place] [phone] Skye Robles, PharmD Type 2 diabetes mellitus with hyperglycemia, without long-term current use of insulin ([facility]) 06/28/2024 Telephone [facility] [address] [place] [phone] Rachel Shine MD Chart Prep 06/21/2024 Refill [facility] [address] [place] [address] Rachel Shine MD 06/19/2024 Refill [facility] [address] [place] [address] Rachel Shine MD Primary hypertension 06/14/2024 Telephone [facility] [address] [place] [address] Allegra Waddell, PETE 06/14/2024 Patient Outreach [facility] [address] [place] [phone] Rachel Shine MD Transition Of Care (Tcm) (HDF- Unscheduled LVM) 06/14/2024 Telephone [facility] [address] [place] [address] Shelley King, PharmD 06/13/2024 Travel 05/25/2024 Telephone [facility] [address] [place] [phone] Hanna Smith RN Plan of Care 05/24/2024 6:20 PM EST Office Visit [facility] [address] [place] [phone] Shirlene Aguila MD Osteoarthritis of right knee, unspecified osteoarthritis type (Primary Dx); Sciatic leg pain 05/22/2024 Refill [facility] [address] [place] [address] Rachel Shine MD Primary insomnia 05/18/2024 Refill [facility] [address] [place] [address] Rachel Shine MD Primary insomnia 05/16/[address] [address] Rachel Shine MD 05/16/[address] [address] Skye Robles, PharmSoren Type 2 diabetes mellitus with hyperglycemia, without long-term current use of insulin ([facility]) 05/16/2024 Orders Only GENERIC EXTERNAL DATA DEPARTMENT Provider, Generic External Data 05/05/[address] [address] Skye Robles, Gloria 05/02/2024 Orders Only [address] [address] Rachel Shine MD 05/02/2024 Travel 05/01/[address] [address] 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 04/27/[address] [address] Rachel Shine MD 04/24/2024 9:00 AM EST Office Visit [address] [address] Rachel Shine MD Type 2 diabetes mellitus with hyperglycemia, without long-term current use of insulin ([facility]) (Primary Dx); Dyslipidemia; Primary hypertension; BMI 45.0-49.9, adult ([facility]); Other specified health status; Abnormal stress test; Colon cancer screening 04/24/2024 Travel 04/14/2024 Patient Outreach [address] [address] Rachel Shine MD Pre-visit Planning (Pre-visit planning - LVM ) from Last 3 Months Immunizations Name Administration [...] 16 07/03/2024 1:52 PM EST Oxygen Saturation 96% 05/24/2024 5:59 PM EST Inhaled Oxygen Concentration - - Weight 105 kg (231 lb 9.6 oz) 07/03/2024 1:52 PM EST Height 154.9 cm (5' 1 ) 05/24/2024 5:59 PM EST Body Mass Index 43.76 05/24/2024 5:59 PM EST Plan of Treatment Upcoming Encounters Date Type Department Care Team (Late st Contact Info) Description 07/11/2024 1:00 PM EST Medication Management [facility] [address] [place] [address] Skye Robles, PharmD [address] [place], [place] [phone] Health Maintenance Due Date Last Done Comments CT Colonography 1955 FIT DNA/Cologuard 1955 FIT 1955 FOBT 1955 Sigmoidoscopy 1955 Diabetes: Hemoglobin A1C 07/23/2024 024, 12/30/2023, 10/20/2023, Additional history exists Diabetes: Urine Protein Screening 08/01/2024 08/02/2023, 02/21/2022 SDOH Screening 08/01/2024 08/02/2023 Depression Screening 08/30/2024 08/31/2023, 08/31/19 Diabetes: Foot Exam 12/29/2024 12/30/2023, 12/30/2023, 12/30/2023, Additional history exists Alcohol/Substance Use Screening 04/24/2025 04/24/2024 Lipid Panel 05/02/2025 05/02/2024, 12/08, 08/02/2023 Tobacco Screening 07/03/2025 07/03/2024 Mammogram 08/30/2025 08/31/2023, 08/08, 08/07/2020, Additional history [...] Result Component 7.5( 9:02 AM EST) No Anh-Skye Harper PharmD Procedures Procedure Name Priority Date/Time Associated [...] WHOLE BLOOD Routine 05/16/2024 7:05 AM EST HM COLONOSCOPY Routine 05/16/2024 LIPID PANEL, STANDARD Routine 05/02/2024 12:02 PM EST HEPATIC FUNCTION PANEL Routine 05/02/2024 12:02 PM EST POCT GLYCATED HEMOGLOBIN, TOTAL Routine 04/24/2024 9:02 AM EST Type 2 diabetes mellitus with hyperglycemia, without long-term current use of insulin ([facility]) POCT GLUCOSE Routine 04/24/2024 8:59 AM EST [...] AM EST Narrative 05/25/2024 11:31 AM EST ?[facility] ?[address] ?[place] [address] ?XRay Report ? Signed ? Patient: Daniela Thapa ?MR#: MM ?? [id number] ? : 1955 ?Acct:[id number] ? Age/Sex: 69 / F ?ADM Date: 05/25/ ? Loc: HO.HHCX ? Attending Dr: Shirlene Aguila MD ? Ordering Physician: Shirlene Aguila MD ?? Date of Service: 05/25/24 ?? Procedure(s): XR knee RT 3V ?? Accession Number(s): [id number] ? cc: Shirlene Aguila MD ? EXAMINATION: [...] DD/ 1056 ? TD/TT: 05/25/24 1115 ? Network Support Manager: ? Procedure Note Eduardo To - 05/25/2024 [place] [address] XRay Report Signed Patient: Catie Thapa#: [id number] : 3Acct:[id number] Age/Sex: 69 / FADM Date: 05/25/24 Loc: HO.HHCX Attending Dr: Shirlene Aguila MD Ordering Physician: Shirlene Aguila MD Date of Service: 05/25/24 Procedure(s): XR knee RT 3V Accession Number(s): [id number] cc: Shirlene Aguila MD EXAMINATION: XR KNEE, [...] Eber Taylor MD 05/25/2024 11:28 AM EST Dictated By: Eber Taylor MD Signed By: <Electronically signed by Eber Taylor MD in OV> 05/25/24 1128 DD/ 1056 TD/TT: 05/25/24 1115 Network Support Manager: Shirlene Aguila MD IMG XR PROCEDURES Edited Result - Final * XR Hip 2 or 3 Views Right (05/25/2024 10:56 AM EST) Anatomical Region Laterality Modality Lower Extremities, Hip Right Radiograp hic Imaging 05/25/2024 10:5 6 AM EST Narrative 05/25/2024 11:33 AM EST ?[facility] ?[address] ?[place] [address] ?XRay Report ? Signed ? Patient: Daniela Thapa ?MR#: MM ?? [id number] ? : 1955 ?Acct:[id number] ? Age/Sex: 69 / F ?ADM Date: 01/16/25 ? Loc: HO.HHCX ? Attending Dr: Shirlene Aguila MD ? Ordering Physician: Shirlene Aguila MD ?? Date of Service: 05/25/24 ?? Procedure(s): XR hip RT min 2V ?? Accession Number(s): [id number] ? cc: Shirlene Aguila MD ? EXAMINATION: [...] DD/ 1056 ? TD/TT: 05/25/24 1115 ? Network Support Manager: ? Procedure Note Eduardo To - 05/25/[address] [address] XRay Report Signed Patient: Daniela Thapa#: [id number] : 3Acct:[id number] Age/Sex: 69 / FADM Date: 05/25/24 Loc: HO.HHCX Attending Dr: Shirlene Aguila MD Ordering Physician: Shirlene Aguila MD Date of Service: 05/25/24 Procedure(s): XR hip RT min 2V Accession Number(s): [id number] cc: Shirlene Aguila MD EXAMINATION: XR HIP, [...] 05/25/24 1130 DD/ 1056 TD/TT: 05/25/24 1115 Network Support Manager: us Shirlene Aguila MD IMG XR PROCEDURES Edited Result - Final * Hematoxylin and Eosin Stain (05/16/2024 7:58 AM EST) 05/16/2024 7:58 AM EST 05/16/2024 8:27 AM EST [facility] - 05/18/2024 11:09 AM EST ----- ------- Name: Daniela Thapa ? Age/Sex: 69/F ? : 1955 Unit#: [id number] ?? Attend Dr: Rose Jose MD ?Re05/16/24 ?Status: DEP SDC ? Location: HO.SSS ?Disch: ? ----- ------- SPEC : [id number] ? RECD: 05/16/24 ? STATUS: ??SOUT ? REQ NUM: [id number] ? LURDES: 05/16/24 ? SUBM DR: Rose [...] Copies To: ?? Rachel Shine MD ?? [facility] ?? [address] ?? [place] [address] ?? [phone] ?? Rose Jose MD ?? [facility] ?? [address] ?? [place] [address] ?? [phone] ----- ------- Signed (signature on file) Mic Orona MD 05/18/24 1549 ? ----- ------- ? END OF REPORT ? us Generic External Data Provider LAB BLOOD ORDERAB LES Final Result Performing Organization Address City/[facility]/ZIP Co de Phone Number [facility] [address] [place] [address] [phone] * (ABNORMAL) Glucose, Whole Blood (05/16/2024 7:05 AM EST) Glucose, Whole Blood 174(H) 60 - 115 mg/dL [facility] Comment:METER #: [id number] 05/16/2024 7:05 AM EST 05/16/2024 7:51 AM EST us Generic External Data Provider LAB BLOOD ORDERAB LES Final Result Performing Organization Address City/[facility]/ZIP Co de Phone Number [facility] [address] [place] [address] [phone] * (ABNORMAL) Hm Colonoscopy (05/16/2024) Colonoscopy Abnormal( A) Normal Comment:polyp with Dr. Jose Historical Provider HEALTH MAINTENANCE Final Result * (ABNORMAL) Hepatic Function Panel (05/02/2024 12:02 PM EST) Bilirubin, Total 0.9 0.0 - 1.0 mg/dL [facility] Bilirubin, Direct 0.3 0.0 - 0.5 mg/dL [facility] Aspartate Amino Transferase 29 5 - 31 U/L [facility] Alanine Aminotransferase 35(H) 0 - 31 U/L [facility] Total Protein 7.1 6.5 - 8.0 g/dL [facility] Albumin Level 3.9 3.5 - 5.0 g/dL [facility] Alkaline Phosphatase 72 39 - 117 U/L [facility] 05/02/2024 12:0 2 PM EST 05/02/2024 1:12 PM EST Rachel Shine MD LAB BLOOD ORDERABLES Final Result [facility] LABS [address] [place] [address] [phone] * (ABNORMAL) Lipid Panel, Standard (05/02/2024 12:02 PM EST) Triglycerides 129 <150 mg/dL [facility] Comment:Desirable Triglyceri de: less than 150 mg/dLBorderline High Triglyceride 150-199 mg/dLHigh Triglyceride: 200-499 mg/dLVery High Triglyceride: greater than or equal to 5OO mg/dL Cholesterol 181 <200 mg/dL [facility] Comment:Desirable Cholestero l: less than 200 mg/dLBorderline High Cholesterol: 200-239 mg/dLHigh Cholesterol: greater than 239 mg/dL LDL Cholesterol Calculated 108(H) <100 mg/dL [facility] Comment:Desirable LDL: less than 100 mg/dLNear Optimal/Above Optimal LDL: 110- 129 mg/dLBorderline High LDL: 130-159 mg/dLHigh LDL: 160-189 mg/dLVery High LDL: greater than or equal to 190 mg/dL HDL Cholesterol 48 >40 mg/dL [facility] Comment:Desirable HDL: great er than 40 mg/dL Note: This HDL assay may give artificially low results in patients with liver disease. 05/02/2024 12:0 2 PM EST 05/02/2024 1:12 PM EST Rachel Shine MD LAB BLOOD ORDERABLES Final Result Performing Organization Address City/State/[facility] Co de Phone Number [facility] [address] [place] [phone] * (ABNORMAL) POCT HGB A1C (04/24/2024 9:02 AM EST) Hemoglobin A1C 7.5(A) 4.0 - 6.0 % QC Media Lot # [id number] Lot# Expiration Date ,[id number] Blood 04/24/2024 9:02 AM EST Rachel Shine MD POINT OF CARE TEST ENTER/E DIT ORDERABLES Final Result * POCT Glucose (04/24/2024 8:59 AM EST) Glucose Blood, POC 162 60 - 200 mg/dL QC Media Lot # [id number] Lot# Expiration Date [id number] Blood Capillary blood specimen / Unknown 04/24/2024 8:59 AM EST Rachel Shine MD POINT OF CARE TEST ENTER/E DIT ORDERABLES Final Result * Hm Diabetes Eye Exam (09/08/2023) Eye Exam Normal Normal Comment:Dr. Reardon, date is aproximate Denver Cuba MD HEALTH MAINTENANCE Final Result * Mammography (08/31/2023 11:30 AM EDT) Mammogram BIRADS 2 Normal, Abnormal, BIRADS 1 , BIRADS 2 Anatomical Region Laterality Modality Other Historical Provider HEALTH MAINTENANCE Final Result * Albumin, Random Urine W/Creatinine (08/02/2023 9:52 AM EDT) Creatinine, Urine 170.45 mg/dL [facility] Microalbumin Urine 33.0 mg/L [facility] Microalbum Creatinine Ratio Ur 19.3 <30 ug/mg cr [facility] Comment:Albumin/Creatinine R atio Reference Ranges: Normal: < 30 ug/mg creatinine Microalbuminuria: 30 - 300 ug/mg creatinineClinical Albuminuria: > 300 ug/mg creatinine Urine 08/02/2023 9:52 AM EDT 08/02/2023 11:23 AM EDT Rachel Shine MD LAB URINE ORDERABLES Final Result Performing Organization Address [facility]/ZIP Co de Phone Number [facility] [address] [place] [phone] * Hepatitis C Antibody with Reflex to HCV, RNA, Quantitative, Real-Time PCR (08/02/2023 9:52 AM EDT) Hepatitis C Antibody Nonreactive Nonreactive [facility] Comment:Antibodies to HCV no t detected; does not exclude early acuteHCV infection. Blood Venous blood specimen / Unknown 08/02/2023 9:52 AM EDT 08/02/2023 11:41 AM EDT Rachel Shine MD LAB BLOOD ORDERABLES Final Result [facility] [address] [place] [phone] from Last 3 Months or Most Recently Relevant to Health Maintenance Insurance [facility] MEDICARE ADVANTAGE HMO Advance Directives Documents on File Type Date Recorded Patient Lead Dental Assistant Expl anation Advance Directives and Livin g Will 08/02/2023 Health Care Proxy Care Teams Rotary Operator Relationship Specialty Start Date End Date Doña Ana, MD Rachel [address] [place] [address] PCP - General Family Medicine 05/10/18 Skye Robles, JosuéD [address] [place] [address] Pharmacist Internal Medicine 09/15/23 Arleen Worthington [address] [place] [address] Gastroenterology 04/24/24 Moisés Spence [address] [place] [address] 04/24/24 Karthik Reardon MD [address] [place] [address] [address] [place] [address] Ophthalmology 04/24/24 Олег Skaggs MD [address] [place] [address] Hematology and Oncology 04/24/24
--- OUTSIDE RECORDS SUMMARY | 2024-07-03 16:33 | XMS_ITS | Encounter Summary ---
Author Organization [employer] Address 75 [facility] 7t [place] [address] Care Team Providers Care Studio Sales Associate Name Role Phone Rachel Shine MD Primary Care Provider + [phone] Skye Robles PharmD Unavailable [phone] Arleen Worthington Unavailable Moisés Spence Unavailable Karthik Reardon MD Unavailable +[phone] Олег Skaggs MD Unavailable [phone] Encounter Details Date Type Department Care Team (Late st Contact Info) Description 06/14/2024 Telephone [facility] MEDICINE [address] [place] [address] Allegra Waddell, PETE Social History Tobacco Use [...] for an HDF. Pt was seen at [facility] [place] [place] on 05/31-06/01 for diagnosis of Chest pain, Syncope , Hyperlipidemia, Anxiety and depression , Type 2 diabetes mellitus, Hypertension , Insomnia, CHB (complete heart block). Pharmacist assisted with georgian translation and pt agreed to HDF appt with Dr. England on 07/03/24. Pt is to follow up with PCP for any further questions or concerns. documented in this encounter Plan of Treatment Upcoming Encounters Date Type Department Care Team ([facility] st Contact Info) Description 07/11/2024 1:00 PM EST Medication Management [facility] MEDICINE [address] [place] [address] Skye Robles, PharmD [address] [place] [address] documented as of this encounter Goals Goal Patient Goal Type Associated Problems Recent Progress Patient-Stated? Author Blood Pressure < 140/90 Blood Pressure 130/68(2024 1:52 PM EST) No Skye Florence, PharmD Hemoglobin A1c < 7.5 Result Component 7.5( 9:02 AM EST) No Skye Florence PharmD documented as of this encounter Visit Diagnoses Not on filedocumented in this encounter Additional Health Concerns Assessment Noted Time PHQ-9 Depression Total Score: 8 08/31/19 24 1:43 PM EDT documented as of this encounter Care Teams Studio Sales Associate Relationship Specialty Start Date End Date Rachel Shine MD [address] [place] [address] PCP - General Family Medicine 05/10/18 Skye Robles, PharmD [address] [place] [address] Pharmacist Internal Medicine 09/15/23 Arleen Worthington [facility] [address]rd [place] [address] Gastroenterology 04/24/24 Moisés Spence [facility] [address] [place] [address] 04/24/24 Karthik Reardon MD 2 [facility] [address] [place] [address] Ophthalmology 04/24/24 Олег Skaggs MD [address] [place] [address] Hematology and Oncology 04/24/24 documented as of this encounter
[2024-07-03 17:01] LABS: Folate 13.6 ng/mL (> or = 4.0); Vitamin B12 410 pg/mL (200-900)
[2024-07-03 17:28] LABS: TSH reflex Free T4 0.59 uIU/mL (0.32-4.0)
== END 2024-07-03 14:21 | disposition home or self-care (01) ==
LOC: HO.HHCL 14:20
PROVIDERS: Visit Provider Family Medicine
DX: R42 Dizziness and giddiness (principal); R63.4 Abnormal weight loss
CPT/HCPCS: 36415; 82607; 82746; 84443

== ENCOUNTER → 2024-07-11 12:22 | Outpatient (REF) | payer MEDICARE, SELFPAY ==
--- NOTE | 2024-07-11 12:24 | CA_ITS ---
Transthoracic Echocardiogram Patient (Last, First, Middle): Daniela Bennett S Gender: Female Date of : 1955 Age: 69 Procedure Date: 07/11/2024 Procedure Type: Transthoracic Echocardiogram Location: OP Height: 165.1 cm Weight: 104.33 kg BSA: 2.10 m2 Heart Rate: bpm BP: 130 / 70 mmHg Four Roll Calender Operator: SHALINI Referring MD: Cisco Saenz NP Bilingual Teacher: Froilan Olivares MD Symptoms: R06.00 - Dyspnea, unspecified Study Quality: Good ECG Rhythm: Sinus Conclusions: - 1. Mildly reduced LV ejection fraction of 45-50% with impaired relaxation filling pattern 2. Normal cardiac valvular Dopplers 3. Normal RV systolic pressure 4. Upper limits of normal ascending aortic size 5. No gross pericardial effusion Findings Left Ventricle Normal left ventricular cavity size. There is normal left ventricular wall thickness. The left ventricular systolic function is mildly decreased. The visually estimated ejection fraction is between 45-50%. Spectral Doppler is indicative of an impaired relaxation filling pattern. E/E prime ratio is between 8 and 15 consistent with indeterminate filling pressures. Right Ventricle Normal right ventricular cavity size and systolic function. There is a pacemaker wire seen in the right ventricle. Atria Both atria are normal in size. Interatrial shunt cannot be excluded. Aortic Valve Normal aortic valve structure and function. There is no aortic valve stenosis. There is no aortic valve regurgitation. Mitral Valve There is mild anterior and posterior mitral leaflet thickening. There is trace mitral valve regurgitation. There is no mitral valve stenosis. Pulmonic Valve The pulmonic valve was not well visualized. Tricuspid Valve Likely normal tricuspid valve structure and function. There is trace tricuspid valve regurgitation. The right ventricular systolic pressure is normal. The right ventricular systolic pressure is 25 mmHg. Normal right atrial pressure. There is no evidence of pulmonary hypertension. Great Vessels All visible segments of the aorta are normal in size. The pulmonary artery was not well visualized. Venous The inferior vena cava is normal in size and collapses greater than 50% with inspiration. Pericardium/Pleural There is no evidence of pericardial effusion. Prior Study Comparison Changes noted compared to prior study dated: 11/23/2023. LV systolic function is reduced Measurements 2D Linear Measurements IVSd: 0.96 0.6-0.9/0.6-1.0 cm LVIDd: 4.57 3.9-5.3/4.2-5.9 cm LVIDd Index: 2.18 2.4-3.2/2.2-3.1 cm/m2 LVIDs: 2.98 2.0-3.6 cm LVPWd: 0.98 0.7-1.1 cm Ao Root: 2.80 2.1-3.5 cm LA Diam: 3.30 2.7-3.8/3.0-4.0 cm LAIDs Index: 1.57 1.5-2.3 cm/m2 LV Mass: 188.33 67-162/88-224 g LV Mass Index: 89.68 43-95/49-115 g/m2 LVOT Diam: 2.00 3.0+(-)1.3 cm 2D Systolic Function EF 4C: 47.80 >55% EF 2C: 46.40 >55% EF BiP: 47.80 >55% Mitral Valve MV VTI: 0.25 MV Pk Caesar: 0.76 MV Mn Caesar: 0.50 MV Pk Grad: 2.00 MV Mn Grad: 1.00 MV Pk E: 0.66 MV PK A: 0.70 MV Decel Time: 210.00 E/A: 0.90 E'Lateral: 7.94 E'Medial: 4.24 E/E' Med: 15.50 E/E' Lat: 8.30 PHT: 62.00 MVA PHT: 3.55 MVA Continuity: 2.20 Decel [place]: 3.11 Aortic Valve AoV Pk Caesar: 1.72 AoV Mn Caesar: 1.09 AoV VTI: 0.36 AoV Pk Grad: 12.00 Aov Mn Grad: 6.00 DEEPA Cont.VTI: 1.50 LVOT LVOT Pk Caesar: 0.78 LVOT Mn Caesar: 0.58 LVOT VTI: 0.17 LVOT Pk Grad: 2.00 LVOT Mn Grad: 1.00 LVOT Diam: 2.00 LVOT Area: 3.14 Diastolic Function MV Pk E: 0.66 MV Pk A: 0.70 E/A: 0.90 E'Medial: 4.24 E/E' Med: 15.50 E' Laterial: 7.94 E/E' Lat: 8.30 Right Ventricle TAPSE (mm): 23.00 TVS' Caesar: 10.00 Tricuspid Valve TR Pk Caesar: 2.33 TR Pk Grad: 22.00 RA Press: 3.00 RVSP: 25.00 Great Vessels Aorta Ao Root-2D: 2.80 2.0-3.7 cm Ao Asc: 3.60 2.1-3.4 cm Pulmonary Valve PV Pk Caesar: 0.97 Peak PV Grad: 4.00 Updated in Other Vendor System with Status of Final Froilan Olivares MD electronically signed on 07/12/2024 6:14:10 PM with status of Final
--- OUTSIDE RECORDS SUMMARY | 2024-07-11 15:24 | XMS_ITS | Encounter Summary ---
Author Organization [employer] Address 75 [facility] 7t [place] [address] Care Team Providers Care Service Center Appraiser Name Role Phone Rachel Shine MD Primary Care Provider + [phone] Skye Robles PharmD Unavailable [phone] Arleen Worthington Unavailable Moisés Spence Unavailable Karthik Reardon MD Unavailable [phone] Олег Skaggs MD Unavailable [phone] Reason for Visit * Reason Comments Med Refill Encounter Details Date Type Department Care Team (Late st Contact Info) Description 02/23/2024 Refill [facility] CHC MED & PEDS [address] [place], [place] [phone] Rachel Shine MD 230 [place] [address] Primary insomnia Social History Tobacco Use Types [...] the past 12 months, has t he [employer], gas, oil or water company threatened to [...] Care Team (Late st Contact Info) Description 07/14/2024 11:00 AM EST Medication Management [facility] MEDICINE 230 [place] [address] IsrealsSkye Burton, PharmD 230 [place] [address] documented as of this encounter Goals Goal Patient Goal Type Associated Problems Recent Progress Patient-Stated? Author Blood Pressure < 140/90 Blood Pressure 130/68(2024 1:52 PM EST) No Piers-Gambl e, Skye, PharmD Hemoglobin A1c < 7.5 Result Component 7.5( 9:02 AM EST) No Piers-Gambl eRuthysa, PharmD documented as of this encounter Visit Diagnoses Diagnosis Primary insomnia Persistent disorder of initiating or maintaining sleep documented in this encounter Additional Health Concerns Assessment Noted Time PHQ-9 Depression Total Score: 8 08/31/19 24 1:43 PM EDT documented as of this encounter Care Teams Service Center Appraiser Relationship Specialty Start Date End Date Rachel Shine MD [address] [place] [address] PCP - General Family Medicine 05/10/18 Skye Robles PharmD [address] [place] [address] Pharmacist Internal Medicine 09/15/23 Arleen Worthington [address] 3rd [place] [address] Gastroenterology 04/24/24 Moisés Spence [address] [place] [address] 04/24/24 Karthik Reardon MD 2 [facility] [address] [place] [address] Ophthalmology 04/24/24 Олег Skaggs MD [address] [place] [address] Hematology and Oncology 04/24/24 documented as of this encounter
--- OUTSIDE RECORDS SUMMARY | 2024-07-11 15:25 | XMS_ITS | Encounter Summary ---
Author Organization [employer] Address 75 [facility] 7t [place] [address] Care Team Providers Care Plant Engineering Manager Name Role Phone Rachel Shine MD Primary Care Provider + [phone] Skye Robles PharmD Unavailable [phone] Arleen Worthington Unavailable Moisés Spence Unavailable Karthik Reardon MD Unavailable [phone] Олег Skaggs MD Unavailable [phone] Reason for Visit * Reason Comments Med Refill Encounter Details Date Type Department Care Team (Late st Contact Info) Description 11/24/2023 Refill [facility] CHC MED & PEDS [address] [place], [place] [phone] Rachel Shine MD [address] [place] [address] Primary insomnia Social History Tobacco Use Types [...] the past 12 months, has t he [employer], gas, oil or water company threatened to [...] Description 07/14/2024 11:00 AM EST Medication Management [facility] MEDICINE 230 [place] [address] Skye Robles, PharmD [address] [place] [address] documented as of this encounter Goals Goal [...] documented as of this encounter Care Teams Plant Engineering Manager Relationship Specialty Start Date End Date Rachel Shine MD [address] [place] [address] PCP - General Family Medicine 05/10/18 Skye Robles PharmD [address] [place] [address] Pharmacist Internal Medicine 09/15/23 Arleen Worthington [address] 3rd [place] [address] Gastroenterology 04/24/24 Moisés Spence [address] [place] [address] 04/24/24 Karthik Reardon MD 2 [facility] [address] [place] [address] Ophthalmology 04/24/24 Олег Skaggs MD [address] [place] [address] Hematology and Oncology 04/24/24 documented as of this encounter
--- OUTSIDE RECORDS SUMMARY | 2024-07-11 15:25 | XMS_ITS | Encounter Summary ---
Author Organization [employer] Address 75 [facility] 7t [place] [address] Care Team Providers Care Muffler Tender Name Role Phone Rachel Shine MD Primary Care Provider + [phone] Skye Robles PharmD Unavailable [phone] Arleen Worthington Unavailable Moisés Spence Unavailable Karthik Reardon MD Unavailable [phone] Олег Skaggs MD Unavailable [phone] Reason for Visit * Reason Onset Date Comments Chart Prep 06/28/2024 Encounter Details Date Type Department Care Team (Late st Contact Info) Description 06/28/2024 Telephone [facility] MEDICINE 230 [place], [place] [phone] Rachel Shine MD [address] [place], [place] [phone] Chart Prep Social History Tobacco Use Types [...] Description 07/14/2024 11:00 AM EST Medication Management [facility] MEDICINE 230 [place] [address] Skye Robles, PharmD 230 [place] [address] documented as of this encounter Goals Goal [...] documented as of this encounter Care Teams Muffler Tender Relationship Specialty Start Date End Date Rachel Shine MD [address] [place] [address] PCP - General Family Medicine 05/10/18 Skye Robles PharmD [address] [place] [address] Pharmacist Internal Medicine 09/15/23 Arleen Worthington [address] 3rd [place] [address] Gastroenterology 04/24/24 Moisés Spence [address] 3rd [place] [address] 04/24/24 Karthik Reardon MD 2 [facility] [address] [place] [address] Ophthalmology 04/24/24 Олег Skaggs MD [address] [place] [address] Hematology and Oncology 04/24/24 documented as of this encounter
--- OUTSIDE RECORDS SUMMARY | 2024-07-11 15:25 | XMS_ITS | Encounter Summary ---
Author Organization [employer] Address 75 [facility] 7t [place] [address] Care Team Providers Care Garbage Truck Driver Name Role Phone Rachel Shine MD Primary Care Provider + [phone] Skye Robles PharmD Unavailable [phone] Arleen Worthington Unavailable Moisés Spence Unavailable Karthik Reardon MD Unavailable [phone] Олег Skaggs MD Unavailable [phone] Encounter Details Date Type Department Care Team (Late st Contact Info) Description 08/31/2023 Abstract [facility] MEDICINE 230 [place], [place] [phone] Rachel Shine MD [address] [place], [place] [phone] Social History Tobacco Use Types Packs/Day Years [...] Description 07/14/2024 11:00 AM EST Medication Management [facility] MEDICINE [address] [place] [address] Skye Robles, PharmD [address] [place] [address] documented as of this encounter Procedures Procedure [...] documented as of this encounter Care Teams Garbage Truck Driver Relationship Specialty Start Date End Date Rachel Shine MD [address] [place] [address] PCP - General Family Medicine 05/10/18 Skye Robles PharmD 230 [place] [address] Pharmacist Internal Medicine 09/15/23 Arleen Worthington [address] 3rd [place] [address] Gastroenterology 04/24/24 Moisés Spence [address] [place] [address] 04/24/24 Karthik Reardon MD 2 [facility] [address] [place] [address] Ophthalmology 04/24/24 Олег Skaggs MD [address] [place] [address] Hematology and Oncology 04/24/24 documented as of this encounter
--- OUTSIDE RECORDS SUMMARY | 2024-07-11 15:25 | XMS_ITS | Encounter Summary ---
Author Organization [facility] [facility] Address 75 [facility] 7t [place] [address] Care Team Providers Care Grain Commodity Manager Name Role Phone Rachel Shine MD Primary Care Provider + [phone] Skye Robles PharmD Unavailable [phone] Arleen Worthington Unavailable Moisés Spence Unavailable Karthik Reardon MD Unavailable [phone] Олег Skaggs MD Unavailable [phone] Encounter Details Date Type Department Care Team (Late st Contact Info) Description 04/28/2022 Orders Only [facility] CHC MED & PEDS [address] [place], [place] [phone] Therese Robles LPN Social History Tobacco Use [...] Description 07/14/2024 11:00 AM EST Medication Management [facility] MEDICINE [address] [place] [address] Skye Robles, PharmD 230 [place], [place] [phone] documented as of this encounter Visit Diagnoses Not on filedocumented in this encounter Care Teams Grain Commodity Manager Relationship Specialty Start Date End Date Rachel Shine MD 230 [place] [address] PCP - General Family Medicine 05/10/18 Skye Robles PharmD 230 [place] [address] Pharmacist Internal Medicine 09/15/23 Arleen Worthington [address] 3rd [place] [address] Gastroenterology 04/24/24 Moisés Spence [address] [place] [address] 04/24/24 Karthik Reardon MD 2 [facility] [address] [place] [address] Ophthalmology 04/24/24 Олег Skaggs MD [address] [place] [address] Hematology and Oncology 04/24/24 documented as of this encounter
--- OUTSIDE RECORDS SUMMARY | 2024-07-11 15:25 | XMS_ITS | Encounter Summary ---
Author Organization [employer] Address 75 [facility] 7t [place] [address] Care Team Providers Care Ground Control Approach Technician Name Role Phone Rachel Shine MD Primary Care Provider + [phone] Skye Robles PharmD Unavailable [phone] Arleen Worthington Unavailable Moisés Spence Unavailable Karthik Reardon MD Unavailable [phone] Олег Skaggs MD Unavailable [phone] Encounter Details Date Type Department Care [...] Description 07/14/2024 11:00 AM EST Medication Management [facility] MEDICINE 230 [place] [address] Piers-Hayward, Skye, PharmD 230 [place] [address] documented as of this encounter Goals Goal [...] documented as of this encounter Care Teams Ground Control Approach Technician Relationship Specialty Start Date End Date Rachel Shine MD 230 [place] [address] PCP - General Family Medicine 05/10/18 Skye Robles PharmD 230 [place] [address] Pharmacist Internal Medicine 09/15/23 Arleen Worthington [address] 3rd [place] [address] Gastroenterology 04/24/24 Moisés Spence [address] 3rd [place] [address] 04/24/24 Karthik Reardon MD [address] [facility] [facility] [address] [place] [address] Ophthalmology 04/24/24 Олег Skaggs MD [address] [place] [address] Hematology and Oncology 04/24/24 documented as of this encounter
--- OUTSIDE RECORDS SUMMARY | 2024-07-11 15:25 | XMS_ITS | Encounter Summary ---
Author Organization [email or web address] [facility] Address 75 [facility] 7t [place] [address] Care Team Providers Care Fish And Game Warden Name Role Phone Rachel Shine MD Primary Care Provider [phone] Skye Robles PharmD Unavailable [phone] Arleen Worthington Unavailable Moisés Spence Unavailable Karthik Reardon MD Unavailable Олег Skaggs MD Unavailable [phone] Encounter Details Date Type Department Care Team (Late st Contact Info) Description 07/06/2022 Abstract [facility] MEDICINE [address] [place] [phone] Rachel Shine MD 230 [place], [place] [phone] Social History Tobacco Use Types Packs/Day Years [...] Department Care Team (Late Contact Info) Description 07/14/2024 11:00 AM EST Medication Management [facility] MEDICINE 230 [place], [place] [phone] Skye Robles, PharmD 230 [place] [address] documented as of this encounter Procedures Procedure [...] on filedocumented in this encounter Care Teams Fish And Game Warden Relationship Specialty Start Date End Date Rachel Shine MD [address] [place] [address] PCP - General Family Medicine 05/10/18 Skye Robles, JosuéD [address] [place] [address] Pharmacist Internal Medicine 09/15/23 Arleen Worthington [address] 3rd [place] [address] Gastroenterology 04/24/24 Moisés Spence [address] [place] [address] 04/24/24 Karthik Reardon MD [address] [place] [address] Ophthalmology 04/24/24 Олег Skaggs MD [address] [place] [address] Hematology and Oncology 04/24/24 documented as of this encounter
--- OUTSIDE RECORDS SUMMARY | 2024-07-11 15:25 | XMS_ITS | Clinical Summary ---
Author Organization [employer] Address [address] [facility] [address] [place] [address] Care Team Providers Care Paint Roller Cover Machine Setter Name Role Phone Rachel Shine MD Primary Care Provider + [phone] Skye Robles PharmD Unavailable [phone] Arleen Worthington Unavailable Moisés Spence Unavailable Karthik Reardon MD Unavailable [phone] Олег Skaggs MD Unavailable [phone] Allergies No known active allergies Medications * This document contains information received from the source organization and may not represent a complete record from that organization. Alcohol Swabs (SM Alcohol Prep) 70 % padsIndications: Type 2 diabetes mellitus with hyperglycemia, unspecified whether terminologist insulin use ([facility]) USE DIRECTED TO TEST BLOOD SUGAR TWICE DAILY 100 each 11 07/21/19 23 Active aspirin (Aspirin Adult Low Strength) 81 MG EC tabletIndication s:Coronary artery disease involving port lions heart, unspecified vessel or lesion type, unspecified whether angina present TAKE 1 TABLET BY MOUTH EVERY MORNING 90 tablet 3 08/06/19 24 Active metFORMIN XR (Glucophage-XR) 500 MG 24 hr tabletIndication s:Type 2 diabetes mellitus with hyperglycemia, without long-term current use of insulin ([facility]) TAKE 1 TABLET BY MOUTH TWICE DAILY IN THE MORNING AND IN THE EVENING 180 tablet 3 09/07/19 24 Active ibuprofen 800 MG tabletIndication s:Pain TAKE 1 TABLET BY MOUTH THREE TIMES DAILY WITH FOOD NEEDED FOR PAIN 30 tablet 1 09/10/19 24 Active atorvastatin (Lipitor) 80 MG tabletIndication s:Type 2 diabetes mellitus with hyperglycemia, without long-term current use of insulin ([facility]) Take 1 tablet (80 mg) [...] capsule 3 03/30/20 24 Active Continuous Glucose Compliance Nurse (FreeStyle Ronny 2 [place]) deviceIndication s:Type 2 diabetes mellitus with hyperglycemia, without long-term current use of insulin ([facility]) Scan sensor every 8 hours 1 each 04/24/20 24 Active glucose blood (FreeStyle Precision Emilio Test) test stripIndications :Type 2 diabetes mellitus with hyperglycemia, without long-term current use of insulin ([facility]) Use to test blood sugar 2 times daily 100 each 12 04/24/20 24 025 Active glucose (Glutose) 40 % gel oral gelIndications:T ype 2 diabetes mellitus with hyperglycemia, without long-term current use of insulin ([facility]) Use as needed for low [...] hyperglycemia, without long-term current use of insulin ([facility]) Inject 2.5 mg under the skin 1 (one) time per week. 2 mL 3 06/30/19 25 Active atenolol (Tenormin) 25 MG tabletIndication s:Primary hypertension TAKE 1 TABLET BY MOUTH EVERY MORNING 90 tablet 3 07/14/19 24 025 Discontinued Tirzepatide (Mounjaro) 2.5 MG/0.5ML solution auto-injectorInd ications:Type 2 diabetes mellitus with hyperglycemia, without long-term current use of insulin ([facility]) Inject 2.5 mg under the skin 1 (one) time per week. 2 mL 05/05/20 24 025 Discontinued(Re order (will not trigger notification to Pharmacy)) acetaminophen (Tylenol Extra Strength) 500 MG tablet Take 1 tablet (500 mg) by mouth every 6 (six) hours if needed for mild pain. 120 tablet 05/24/19 25 025 Continuous Glucose Sensor (FreeStyle Ronny 2 Sensor) [facility] APPLY SENSOR EVERY 14 DAYS 05/31/19 25 [...] Overview (01/14/2024): Seen by [facility]/11/24. US negative for DVT b/l, positive [...] anterior apical wall. Past cariology note from [facility] was 05/22/20. She was discharged for too many no shows 01/16/21. Referred to [facility] 01/22/2022 and . Lost to follow up with me multiple times due to exacerbation of depression. 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 Past cariology note from [facility] was 05/22/20. She was discharged for too many no shows 01/16/21. Referred to [facility] 01/22/2022 and . Lost to [...] by followed by Dr. Karthik Reardon of [facility] -dental home is [facility] (currently has dentures on maxillary arch) -Filed healthcare proxy on 08/02/2023 Assessment & Plan (12/30/2023 8:42 AM EDT): -next physical exam due after July 2024 -eye care facilitated by followed by Dr. Karthik Reardon of [facility] -dental home is [facility] (currently has dentures on maxillary arch) -Filed healthcare proxy on 08/02/2023 Assessment & Plan (08/02/2023 9:38 AM EDT): -next physical exam due after July 2024 -eye care facilitated by followed by Dr. Karthik Reardon of [facility] -dental home is [facility] (currently has dentures on maxillary arch) -Filed [...] to July 13, [address] Melvin Vareal. Followed by oncologist Dr. Skaggs and has [...] to see status of pacemaker check. Cardiology [facility] -Cardiology. Clinical information/comments: Pt with St. [...] to see status of pacemaker check. Cardiology [facility] -Cardiology. Clinical information/comments: Pt with St. [...] to see status of pacemaker check. Cardiology [facility] -Cardiology. Clinical information/comments: Pt with St. [...] daily to 80mg once daily 09/22/23 by [facility] -Diabetic eye exam: encouraged -Diabetic foot exam: 12/30/23 -Continue lifestyle modifications -Continue current medications-Blood pressure is at goal of <140/90 per JNC 8 guidelines. -Importance of low-fat, low cholesterol, ADA diet discussed. Importance of moderate physical activity discussed. -Continue Metformin ER 500mg twice daily -Lantus discontinued by [facility] 11/24/23 - Trulicity changed to Mounjaro due to inadequate response to Trulicity - Prescribed Continuous Glucose Compliance Nurse (FreeStyle Ronny 2 [place]) device 04/24/24 - glucose blood (FreeStyle Precision Emilio Test) test strip 04/24/24 - glucose (Glutose) 40 % gel oral gel 04/24/24 Assessment & Plan (07/03/2024 2:05 PM EST): Significant improvement in A1C noted 10/20/23 Collaborative Drug Therapy Managment Program with PharmDDr. Robles Diabetes is controlled 04/24/24 -Navid/Arb: none -Statin therapy: atorvastatin increased from 40mg once daily to 80mg once daily 09/22/23 by [facility] -Diabetic eye exam: encouraged -Diabetic foot exam: 12/30/23 -Continue lifestyle modifications -Continue current medications-Blood pressure is at goal of <140/90 per JNC 8 guidelines. -Importance of low-fat, low cholesterol, ADA diet discussed. Importance of moderate physical activity discussed. -Continue Metformin ER 500mg twice daily -Lantus discontinued by [facility] 11/24/23 - Trulicity further increased to 3mg once weekly by [facility] 11/24/23 - Prescribed Continuous Glucose Compliance Nurse (FreeStyle Ronny 2 [place]) device 04/24/24 - glucose blood (FreeStyle Precision [...] daily to 80mg once daily 09/22/23 by [facility] -Diabetic eye exam: encouraged -Diabetic foot [...] by [facility] 11/24/23 - Prescribed Continuous Glucose Compliance Nurse (BG MedicineStyle Ronny 2 [place]) device 04/24/24 - glucose blood (FreeStyle Precision [...] daily to 80mg once daily 09/22/23 by [facility] -Diabetic eye exam: encouraged -Diabetic foot exam: 12/30/23 -Continue lifestyle modifications -Continue current medications-Blood pressure is at goal of <140/90 per JNC 8 guidelines. -Importance of low-fat, low cholesterol, ADA diet discussed. Importance of moderate physical activity discussed. -Continue Metformin ER 500mg twice daily -Lantus discontinued by TM 11/24/23 - Trulicity further increased to 3mg once weekly by [facility] 11/24/23 Assessment & Plan (09/27/2023 8:59 [...] daily to 80mg once daily 09/22/23 by [facility] -Diabetic eye exam: -Diabetic foot exam: -Continue lifestyle modifications -Continue current medications-Blood pressure is at goal of <140/90 per JNC 8 guidelines. -Importance of low-fat, low cholesterol, ADA diet discussed. Importance of moderate physical activity discussed. -Continue Metformin ER 500mg twice daily -Lantus solostar increased to 10 units once daily (from 6 units once daily) 09/22/23 by [facility] - Trulicity increased from 0.75mg once weekly to 1.5mg once weekly 09/22/23 by [facility] Assessment & Plan (08/02/2023 9:36 AM [...] Reports receiving positive support from family and faith community. PCP prescribed medication to help decrease symptoms (see PCP note). PLAN: (check all that apply) Behavioral Health Integration Plan Internal Follow up with [facility] Patient Self Plan Patient to utilize skills provided in intervention , Patient to reach out to [facility] team as needed, Comply with medication , and Patient to reach out to [facility] as needed. Pt agreed to follow-up with clinician. History of COVID-19 02/25/2023 03/18/20 23 Malignant tumor of breast 04/12/2012 Encounters Date Type Department Care Team Description 07/03/2024 2:00 PM EST Office Visit [facility] [address] [place] [phone] Liane England MD Primary hypertension (Primary Dx); Type 2 diabetes mellitus with hyperglycemia, without long-term current use of insulin ([facility]); Dietary counseling; Exercise counseling; Class 3 severe obesity due to excess calories with serious comorbidity and body mass index (BMI) of 40.0 to 44.9 in adult ([facility]); Weight loss; Dizziness 07/03/2024 Travel 06/30/2024 Refill [facility] [address] [place] [phone] Skye Robles, PharmD Type 2 diabetes mellitus with hyperglycemia, without long-term current use of insulin ([facility]) 06/28/2024 Telephone [facility] [address] [place] [address] Rachel Shine MD Chart Prep 06/21/2024 Refill [facility] [address] [place] [address] Rachel Shine MD 06/19/2024 Refill [facility] [address] [place] [address] Rachel Shine MD Primary hypertension 06/14/2024 Telephone [facility] [address] [place] [address] Allegra Waddell, PETE 06/14/2024 Patient Outreach [facility] [address] [place] [address] [phone] Rachel Shine MD Transition Of Care (Tcm) (HDF- Unscheduled LVM) 06/14/2024 Telephone [facility] [address] [place] [phone] Shelley King, PharmD 06/13/2024 Travel 05/25/2024 Telephone [facility] [address] [place] [phone] Hanna Smith RN Plan of Care 05/24/2024 6:20 PM EST Office Visit [facility] [address] [place] [phone] Shirlene Aguila MD Osteoarthritis of right knee, unspecified osteoarthritis type (Primary Dx); Sciatic leg pain 05/22/2024 Refill [facility] [address] [place] [address] Rachel Shine MD Primary insomnia 05/18/2024 Refill [facility] [address] [place] [address] Rachel Shine MD Primary insomnia 05/16/[address] [address] Rachel Shine MD 05/16/[address] [address] Skye Robles, PharmSoren Type 2 diabetes mellitus with hyperglycemia, without long-term current use of insulin ([facility]) 05/16/2024 Orders Only GENERIC EXTERNAL DATA DEPARTMENT Provider, Generic External Data 05/05/[address] [address] Skye Robles, Gloria 05/02/2024 Orders Only [address] [address] Rachel Shine MD 05/02/2024 Travel 05/01/[address] [address] Ariana Good RNsewing line baler 04/27/[address] [address] Rachel Shine MD 04/24/2024 9:00 AM EST Office Visit [address] [address] Rachel Shine MD Type 2 diabetes mellitus with hyperglycemia, without long-term current use of insulin ([facility]) (Primary Dx); Dyslipidemia; Primary hypertension; BMI 45.0-49.9, adult ([facility]); Other specified health status; Abnormal stress test; Colon cancer screening 04/24/2024 Travel 04/14/2024 Patient Outreach [address] [address] Rachel Shine MD Pre-visit Planning (Pre-visit planning [...] Description 07/14/2024 11:00 AM EST Medication Management [facility] [address] [place] [address] Skye Robles, PharmD [address] [place] [address] Health Maintenance Due Date Last Done Comments [...] 9:02 AM EST) No Skye Florence PharmD Procedures Procedure Name Priority Date/Time Associated Diagnosis Comments VITAMIN B12/FOLATE, SERUM PANEL Routine 07/03/2024 2:24 PM EST Weight loss TSH W/REFLEX TO FT4 Routine 07/03/2024 2 :24 PM EST Weight loss XR HIP 2 OR 3 VIEWS RIGHT [...] without long-term current use of insulin (CMS/HCC) POCT GLUCOSE Routine 04/24/2024 8:59 AM EST [...] Recently Relevant to Health Maintenance Results * Vitamin B12 (Cobalamin) and Folate Panel, Serum (07/03/2024 2:24 PM EST) Vitamin B12 410 200 - 900 pg/mL [facility] Comment:NORMAL 200-900 PG/ML INDETERMINATE 160-199 PG/ML DEFICIENT < 160 PG/ML Folate 13.6 > or = 4.0 ng/mL [facility] Comment:Reference Values:> o r = 4.0 ng/mL< 4.0 ng/mL suggests folate deficiency Methotrexate, aminopterin and folinic acid(leucovorin) are chemotherapeutic agents whose molecularstructures are similar to folate; therefore, the Architectfolate assay cannot be used for patients using these drugs. Blood 07/03/2024 2:24 PM EST 07/03/2024 4:01 PM EST us Liane England MD LAB BLOOD ORDERABLES Final Resul t Performing Organization Address [facility] Co de Phone Number [facility] [address] [place] [address] [phone] * TSH with Reflex to Free T4 (07/03/2024 2:24 PM EST) TSH reflex Free T4 0.59 0.32 - 4.0 uIU/mL [facility] Blood 07/03/2024 2:24 PM EST 07/03/2024 4:01 PM EST Liane England MD LAB BLOOD ORDERABLES Final Resul t Performing Organization Address [facility] Co de Phone Number [facility] [address] [place] [address] [phone] * XR Knee 3 Views Right (05/25/2024 10:56 AM EST) Anatomical Region Laterality Modality Lower Extremities, Knee Right Radiogra phic Imaging 05/25/2024 10:5 6 AM EST Narrative 05/25/2024 11:31 AM EST ?[facility] ?[address] ?[place] [address] ?XRay Report ? Signed ? Patient: Daniela Thapa ?MR#: MM ?? [id number] ? : 1955 ?Acct:[id number] ? Age/Sex: 69 / F ?ADM Date: 05/25/24 ? Loc: HO.HHCX ? Attending Dr: Shirlene Aguila MD ? Ordering Physician: Shirlene Aguila MD ?? Date of Service: 05/25/24 ?? Procedure(s): XR knee RT 3V ?? Accession Number(s): [id number] ? cc: Shirlene Aguila MD ? EXAMINATION: [...] DD/ 1056 ? TD/TT: 05/25/24 1115 ? Basket Turner: ? Procedure Note Donjuvencio, Image - 05/25/2024 [place] [address] XRay Report Signed Patient: Catie Thapa#: [id number] : 3Acct:[id number] Age/Sex: 69 / FADM Date: 05/25/24 Loc: HO.HHCX Attending Dr: Shirlene Aguila MD Ordering Physician: Shirlene Aguila MD Date of Service: 05/25/24 Procedure(s): XR knee RT 3V Accession Number(s): [id number] cc: Shirlene Aguila MD EXAMINATION: XR KNEE, [...] 05/25/24 1128 DD/ 1056 TD/TT: 05/25/24 1115 Basket Turner: Shirlene Aguila MD IMG XR PROCEDURES Edited Result - Final * XR Hip 2 or 3 Views Right (05/25/2024 10:56 AM EST) Anatomical Region Laterality Modality Lower Extremities, Hip Right Radiograp hic Imaging 05/25/2024 10:5 6 AM EST Narrative 05/25/2024 11:33 AM EST ?[facility] ?[address] ?[place] [address] ?XRay Report ? Signed ? Patient: Daniela Thapa ?MR#: MM ?? [id number] ? : 1955 ?Acct:[id number] ? Age/Sex: 69 / F ?ADM Date: 05/25/24 ? Loc: HO.HHCX ? Attending Dr: Shirlene Aguila MD ? Ordering Physician: Shirlene Aguila MD ?? Date of Service: 01/16/25 ?? Procedure(s): XR hip RT min 2V ?? Accession Number(s): [id number] ? cc: Shirlene Aguila MD ? EXAMINATION: [...] DD/ 1056 ? TD/TT: 05/25/24 1115 ? Basket Turner: ? Procedure Note Zuleika, Eduardo - 05/25/[address] [address] XRay Report Signed Patient: Daniela ThapaMR#: [id number] : 1955cct:[id number] Age/Sex: 69 / FADM Date: 05/25/24 Loc: HO.HHCX Attending Dr: Shirlene Aguila MD Ordering Physician: Shirlene Aguila MD Date of Service: 05/25/24 Procedure(s): XR hip RT min 2V Accession Number(s): [id number] cc: Shirlene Aguila MD EXAMINATION: XR HIP, [...] 05/25/24 1130 DD/ 1056 TD/TT: 05/25/24 1115 Basket Turner: us Shirlene Aguila MD IMG XR PROCEDURES Edited Result - Final * Hematoxylin and Eosin Stain (05/16/2024 7:58 AM EST) 05/16/2024 7:58 AM EST 05/16/2024 8:27 AM EST [facility] - 05/18/2024 11:09 AM EST ----- ------- Name: Daniela Thapa ? Age/Sex: 69/F ? : 1955 Unit#: [id number] ?? Attend Dr: Rose Jose MD ?Re05/16/24 ?Status: DEP SDC ? Location: HO.SSS ?Disch: ? ----- ------- SPEC : [id number] ? RECD: 05/16/24 ? STATUS: ??SOUT ? REQ NUM: [id number] ? LURDES: 05/16/24 ? SUBM DR: Rose [...] Copies To: ?? Rachel Shine MD ?? [facility] ?? [address] ?? [place] [address] ?? [phone] ?? Rose Jose MD ?? [facility] ?? [address] ?? [place] ?? [phone] ----- ------- Signed (signature on file) Mic Orona MD 05/18/24 1109 ? ----- ------- ? END OF REPORT ? us Generic External Data Provider LAB BLOOD ORDERAB LES Final Result Performing Organization Address [facility]/ZIP Co de Phone Number [facility] [address] [place] [address] [phone] * (ABNORMAL) Glucose, Whole Blood (05/16/2024 7:05 AM EST) Pathologist [facility] Glucose, Whole Blood 174(H) 60 - 115 mg/dL [facility] Comment:METER #: [id number] 05/16/2024 7:05 AM EST 05/16/2024 7:51 AM EST us Generic External Data Provider LAB BLOOD ORDERAB LES Final Result Performing Organization Address [facility] Co de Phone Number [facility] [address] [place] [address] [phone] * (ABNORMAL) Colonoscopy (05/16/2024) Colonoscopy Abnormal( A) Normal Comment:polyp with Dr. Jose [place] Provider HEALTH MAINTENANCE Final Result * (ABNORMAL) Hepatic Function Panel (05/02/2024 12:02 PM EST) Pathologist [facility] Bilirubin, Total 0.9 0.0 - 1.0 mg/dL [facility] Bilirubin, Direct 0.3 0.0 - 0.5 mg/dL [facility] Aspartate Amino Transferase 29 5 - 31 U/L [facility] Alanine Aminotransferase 35(H) 0 - 31 U/L [facility] Total Protein 7.1 6.5 - 8.0 g/dL [facility] Albumin Level 3.9 3.5 - 5.0 g/dL [facility] Alkaline Phosphatase 72 39 - 117 U/L [facility] 05/02/2024 12:0 2 PM EST 05/02/2024 1:12 PM EST Rachel Shine MD LAB BLOOD ORDERABLES Final Result [facility] [address] [place] [address] [phone] * (ABNORMAL) Lipid Panel, Standard (05/02/2024 12:02 PM EST) Triglycerides 129 <150 mg/dL [facility] Comment:Desirable Triglyceri de: less than 150 mg/dLBorderline High Triglyceride 150-199 mg/dLHigh Triglyceride: 200-499 mg/dLVery High Triglyceride: greater than or equal to 5OO mg/dL Cholesterol 181 <200 mg/dL [facility] Comment:Desirable Cholestero l: less than 200 mg/dLBorderline High Cholesterol: 200-239 mg/dLHigh Cholesterol: greater than 239 mg/dL LDL Cholesterol Calculated 108(H) <100 mg/dL [facility] Comment:Desirable LDL: less than 100 mg/dLNear Optimal/Above Optimal LDL: 110- 129 mg/dLBorderline High LDL: 130-159 mg/dLHigh LDL: 160-189 mg/dLVery High LDL: greater than or equal to 190 mg/dL HDL Cholesterol 48 >40 mg/dL [facility] Comment:Desirable HDL: great er than 40 mg/dL Note: This HDL assay may give artificially low results in patients with liver disease. 05/02/2024 12:0 2 PM EST 05/02/2024 1:12 PM EST Rachel Shine MD LAB BLOOD ORDERABLES Final Result [facility] [address] [place] [address] [phone] * (ABNORMAL) POCT HGB A1C (04/24/2024 9:02 AM EST) Hemoglobin A1C 7.5(A) 4.0 - 6.0 % QC Media Lot # [id number] Lot# Expiration Date [id number] Blood 04/24/2024 9:02 AM EST Rachel Shine MD POINT OF CARE TEST ENTER/E DIT ORDERABLES Final Result * POCT Glucose (04/24/2024 8:59 AM EST) Glucose Blood, POC 162 60 - 200 mg/dL QC Media Lot # [id number] Lot# Expiration Date [id number] Blood Capillary blood specimen / Unknown 04/24/2024 8:59 AM EST Rachel Shine MD POINT OF CARE TEST ENTER/E DIT ORDERABLES Final Result * Diabetes Eye Exam (09/08/2023) Eye Exam Normal Normal Comment:Dr. Reardon, date is aproximate [place] MD HEALTH MAINTENANCE Final Result * Mammography (08/31/2023 11:30 AM EDT) HM Mammogram BIRADS 2 Normal, Abnormal, BIRADS 1 , BIRADS 2 Anatomical Region Laterality Modality Other [place] Provider HEALTH MAINTENANCE Final Result * Albumin, Random Urine W/Creatinine (08/02/2023 9:52 AM EDT) Pathologist [facility] Creatinine, Urine 170.45 mg/dL [facility] Microalbumin Urine 33.0 mg/L [facility] Microalbum Creatinine Ratio Ur 19.3 <30 ug/mg cr [facility] Comment:Albumin/Creatinine R atio Reference Ranges: Normal: < 30 ug/mg creatinine Microalbuminuria: 30 - 300 ug/mg creatinineClinical Albuminuria: > 300 ug/mg creatinine Urine 08/02/2023 9:52 AM EDT 08/02/2023 11:23 AM EDT Rachel Shine MD LAB URINE ORDERABLES Final Result Performing Organization Address [facility] Co de Phone Number [facility] [address] [place] [phone] * Hepatitis C Antibody with Reflex to HCV, RNA, Quantitative, Real-Time PCR (08/02/2023 9:52 AM EDT) Pathologist [facility] Hepatitis C Antibody Nonreactive Nonreactive [facility] Comment:Antibodies to HCV no t detected; does not exclude early acuteHCV infection. Blood Venous blood specimen / Unknown 08/02/2023 9:52 AM EDT 08/02/2023 11:41 AM EDT Rachel Shine MD LAB BLOOD ORDERABLES Final Result Performing Organization Address [facility] Co de Phone Number [facility] [facility] [address] [place] [address] [phone] from Last 3 Months or Most Recently Relevant to Health Maintenance Insurance [facility] MEDICARE ADVANTAGE HMO Advance Directives Documents on File Type Date Recorded Patient Head Paper Tester Expl anation Advance Directives and Livin g Will 08/02/2023 Health Care Proxy Care Teams Paint Roller Cover Machine Setter Relationship Specialty Start Date End Date Trigg, MD Rachel [address] [place] [address] PCP - General Family Medicine 05/10/18 Skye Robles, JosuéD [address] [place] [address] Pharmacist Internal Medicine 09/15/23 Arleen Worthington [address] 3rd [place] [address] Gastroenterology 04/24/24 Moisés Spence [address] 3rd [place] [address] 04/24/24 Karthik Reardon MD [address] [place] [address] Ophthalmology 04/24/24 Олег Skaggs MD [address] [place] [address] Hematology and Oncology 04/24/24
--- OUTSIDE RECORDS SUMMARY | 2024-07-11 15:25 | XMS_ITS | Encounter Summary ---
Author Organization [employer] Address 75 [facility] 7t [place] [address] Care Team Providers Care Accounts Receivable Accountant Name Role Phone Rachel Shine MD Primary Care Provider + [phone] Skye Robles PharmD Unavailable [phone] Arleen Worthington Unavailable Moisés Spence Unavailable Karthik Reardon MD Unavailable +[phone] Олег Skaggs MD Unavailable [phone] Encounter Details Date Type Department Care Team (Late st Contact Info) Description 07/03/2024 2:00 PM EST Office Visit [facility] MEDICINE [address] [place], [place] [phone] Liane England MD [address] [place], [place] [phone] Primary hypertension (Primary Dx); Type 2 diabetes [...] 5:59 PM EST documented in this encounter Progress Notes * Liane England MD - 07/03/2024 2:00 PM EST Subjective Daniela Wilson is a 69 y.o. female who has hypertension, pacemaker, diabetes mellitus type 2,and dyslipidemia, and patient presents for hospital discharge follow-up. Background: Last seen by PCP on 04/24/24. Anticipating colonoscopy on 05/16/24. Addressed hx abnormal stress test. Colonoscopy on 05/16/24. Remote pacemaker / ICD device check on 05/28/24. Closely followed by [facility] pharmacist for CDTM. Last seen on 06/19/24 Hospitalized in [facility] from 05/31 to 06/01/24 for chest pain and syncopal episodes. Dx dehydration. No medication change. Seen by her croze cutter helper on 06/27/24. Continue current medications. Ordered transthoracic echocardiogram, nuclear stress test / MPI, and lipid panel. Today: She reports that her chest feels fine. She reports a fall she had recently that began before her chest pain. She explains that she went black and fell over. She reports feeling dizzy and tired sometimes. She has lost some weight. She says she doesn't feel like eating a lot and doesn't eat much. She eats a lot of fruit. She reports diarrhea and constipation every once in a while. She saw her croze cutter helper last week. He says that everything was fine but she will need to get an echocardiogram. Review of Systems Constitutional: Negative for activity change, appetite change and fever. Respiratory: Negative for shortness of breath. Cardiovascular: Negative for chest pain. Gastrointestinal: Positive for constipation and diarrhea. Neurological: Positive for dizziness. Objective Vitals: 07/03/24 1352 BP: 130/68 Pulse: 68 Resp: 16 Temp: 96.2 ??F (35.7 ??C) TempSrc: Temporal Weight: 231 lb 9.6 oz (105 kg) Physical Exam Constitutional: General: She is not in acute distress. Appearance: Normal appearance. She is not ill-appearing. HENT: Head: Normocephalic and atraumatic. Mouth/Throat: Mouth: Mucous membranes are moist. Eyes: Extraocular Movements: Extraocular movements intact. Pupils: Pupils are equal, round, and reactive to light. Cardiovascular: Rate and Rhythm: Normal rate and regular rhythm. Heart sounds: No murmur heard. Pulmonary: Effort: Pulmonary effort is normal. No respiratory distress. Breath sounds: Normal breath sounds. No wheezing or rhonchi. Skin: General: Skin is warm. Neurological: Mental Status: She is alert and oriented to person, place, and time. Mental status is at baseline. Cranial Nerves: Cranial nerves 2-12 are intact. No cranial nerve deficit, dysarthria or facial asymmetry. Motor: Tremor present. Coordination: Cexjux-Uvyv-Sylnvw Test normal. Psychiatric: Mood and Affect: Mood normal. Results: Lab Results Component Value Date NA 135 08/02/2023 K 4.0 08/02/2023 CL 98 08/02/2023 CO2 30 (H) 08/02/2023 BUN 12 08/02/2023 CREATININE 0.96 08/02/2023 EGFR 57 08/02/2023 GLUCOSE 174 (H) 05/16/2024 TOTALBILIRUB 0.9 05/02/2024 AST 29 05/02/2024 ALT 35 (H) 05/02/2024 TOTPROTEIN 7.1 05/02/2024 ALB 3.9 05/02/2024 ALP 72 05/02/2024 Lab Results Component Value Date TRIG 129 05/02/2024 CHOL 181 05/02/2024 LDLCHOLCAL 108 (H) 05/02/2024 HDL 48 05/02/2024 Lab Results Component Value Date HGBA1C 7.5 (A) 04/24/2024 MICROALBUR 33.0 08/02/2023 CREATUR 170.45 08/02/2023 MICROALBCREU 19.3 08/02/2023 No results found for: WBC , HGB , HCT , PLT , MCV The 10-year ASCVD risk score (Alia HITCHCOCK, et al., 2019) is: 25.9% Values used to calculate the score: Age: 69 years Sex: Female Is Non- : No Diabetic: Yes Tobacco smoker: No Systolic Blood Pressure: 130 mmHg Is BP treated: Yes HDL Cholesterol: 48 mg/dL Total Cholesterol: 181 mg/dL Assessment/Plan Problem List Items Addressed This Visit Circulatory Hypertension - Primary -Blood pressure is within acceptable range today. -co-managed with PCP, cardiology, and pharmacist -Continue lifestyle modifications -Continue current medications Endocrine/Metabolic Type 2 diabetes mellitus (CMS/HCC) Continue current Tx plan per PCP Last PCP note as following: Significant improvement in A1C noted 10/20/23 Collaborative [...] by CDTM 11/24/23 - Prescribed Continuous Glucose Finisher Denture (FreeStyle Ronny 2 Nemo) device 04/24/24 - glucose blood (FreeStyle Precision Emilio Test) test strip 04/24/24 - glucose (Glutose) 40 % gel oral gel 04/24/24 Other Dizziness PCP previous note as following. Pt reported dizziness on 01/25/24. Had positive Romberg's sign. No other neurological deficits. -advised using walker to avoid falls. -cannot obtain MRI due to pacemaker. -will prescribe Meclizine 25mg PRN for the dizziness and reevaluate next week. Follow-up today, 02/02/24 pt reports improved dizziness. Negative Romberg's sign. Pt had small tremor of hands today Other Visit Diagnoses Dietary counseling Exercise counseling Class 3 severe obesity due to excess calories with serious comorbidity and body mass index (BMI) of40.0 to 44.9 in adult ([facility]) Weight loss Relevant Orders TSH with Reflex to Free T4 Vitamin B12 (Cobalamin) and Folate Panel, Serum No Known Allergies Current Outpatient Medications Medication Instructions Alcohol Swabs (SM Alcohol Prep) 70 % pads USE DIRECTED TO TEST BLOOD SUGAR TWICE DAILY aspirin (Aspirin Adult Low Strength) 81 MG EC tablet TAKE 1 TABLET BY MOUTH EVERY MORNING atenolol (Tenormin) 25 MG tablet TAKE 1 TABLET BY MOUTH EVERY MORNING atorvastatin (LIPITOR) 80 mg, Oral, Daily Continuous Glucose Finisher Denture (FreeStyle Ronny 2 Nemo) device Scan sensor every 8 hours Continuous Glucose Sensor (FreeStyle Ronny 2 Sensor) misc APPLY SENSOR EVERY 14 DAYS ezetimibe (ZETIA) 10 mg, Oral, Daily FLUoxetine (PROZAC) 40 mg, Oral, Every morning glucose (Glutose) 40 % gel oral gel Use as needed for low blood sugar glucose blood (FreeStyle Precision Emilio Test) test strip Use to test blood sugar 2 times daily ibuprofen 800 MG tablet TAKE 1 TABLET BY MOUTH THREE TIMES DAILY WITH FOOD NEEDED FOR PAIN meclizine (ANTIVERT) 25 mg, Oral, 2 times daily PRN metFORMIN XR (Glucophage-XR) 500 MG 24 hr tablet TAKE 1 TABLET BY MOUTH TWICE DAILY IN THE MORNING AND IN THE EVENING Mounjaro 2.5 mg, Subcutaneous, Weekly timolol (Timoptic) 0.5 % ophthalmic solution INSTILL 1 DROP IN EACH EYE EVERY MORNING zolpidem (AMBIEN) 10 mg, Oral, Nightly Follow-up: with PCP as scheduled or sooner if any problem arises. Scribe Attestation: Herson Champagne, am serving as a scribe to document services personally performed by Liane England MD,based on the patient's response to questions by provider and provides statements to me. Physicians Attestation: Liane Champagne, have reviewed the information by the scribe, Matteo Tesfaye, for accuracy and agree with its content. documented in this encounter Miscellaneous Notes * [...] PM ESTAssociated Problem(s): Type 2 diabetes mellitus ([facility]) Significant improvement in A1C noted 10/20/23 Collaborative Drug Therapy Managment Program with PharmDr. Margaret Doty Diabetes is controlled 04/24/24 -Navid/Arb: none -Statin [...] by CDTM 11/24/23 - Prescribed Continuous Glucose Finisher Denture (YumDotsStyle Ronny 2 Nemo) device 04/24/24 - glucose blood (FreeStyle Precision [...] Description 07/14/2024 11:00 AM EST Medication Management [facility] MEDICINE [address] [place] [address] Skye Robles, JosuéD [address] [place] [address] documented as of this encounter Goals Goal Patient Goal Type Associated Problems Recent Progress Patient-Stated? Author Blood Pressure < 140/90 Blood Pressure 130/68(2024 1:52 PM EST) No Skye Florence PharmD Hemoglobin A1c < 7.5 Result Component 7.5( 9:02 AM EST) No Skye Florence PharmD documented as of this encounter Procedures Procedure Name Priority Date/Time Associated Diagnosis Comments VITAMIN B12/FOLATE, SERUM PANEL Routine 07/03/2024 2:24 PM EST Weight loss TSH W/REFLEX TO FT4 Routine 07/03/2024 2 :24 PM EST Weight loss documented in this encounter Results * Vitamin B12 (Cobalamin) and Folate Panel, Serum (07/03/2024 2:24 PM EST) Vitamin B12 410 200 - 900 pg/mL [facility] Comment:NORMAL 200-900 PG/ML INDETERMINATE 160-199 PG/ML DEFICIENT < 160 PG/ML Folate 13.6 > or = 4.0 ng/mL [facility] Comment:Reference Values:> o r = 4.0 ng/mL< 4.0 ng/mL suggests folate deficiency Methotrexate, aminopterin and folinic acid(leucovorin) are chemotherapeutic agents whose molecularstructures are similar to folate; therefore, the Architectfolate assay cannot be used for patients using these drugs. Blood 07/03/2024 2:24 PM EST 07/03/2024 4:01 PM EST us Liane England MD LAB BLOOD ORDERABLES Final Resul t [facility] [address] [place] [address] [phone] * TSH with Reflex to Free T4 (07/03/2024 2:24 PM EST) TSH reflex Free T4 0.59 0.32 - 4.0 uIU/mL [facility] Blood 07/03/2024 2:24 PM EST 07/03/2024 4:01 PM EST us Liane England MD LAB BLOOD ORDERABLES Final Resul t [facility] [address] [place] [address] [phone] documented in this encounter Visit Diagnoses Diagnosis Primary hypertension- Primary Unspecified essential hypertension Type 2 diabetes mellitus with hyperglycemia, without long-term current use of insulin ([facility]) Dietary counseling Dietary surveillance and counseling Exercise counseling Class 3 severe obesity due to excess calories with serious comorbidity and body mass index (BMI) of 40.0 to 44.9 in adult ([facility]) Weight loss Loss of weight Dizziness Dizziness and giddiness documented in this encounter Additional Health Concerns Assessment Noted Time PHQ-9 Depression Total Score: 8 08/31/19 24 1:43 PM EDT documented as of this encounter Care Teams Accounts Receivable Accountant Relationship Specialty Start Date End Date Rachel Shine MD [address] [place] [address] PCP - General Family Medicine 05/10/18 Skye Robles, JosuéD [address] [place] [address] Pharmacist Internal Medicine 09/15/23 Arleen Worthington [address] 3rd [place] [address] Gastroenterology 04/24/24 Moisés Spence [address] 3rd [place] [address] 04/24/24 Karthik Reardon MD 2 [facility] [address] [place] [address] Ophthalmology 04/24/24 Олег Skaggs MD [address] [place] [address] Hematology and Oncology 04/24/24 documented as of this encounter
--- OUTSIDE RECORDS SUMMARY | 2024-07-11 15:25 | XMS_ITS | Encounter Summary ---
Author Organization [employer] Address 75 [facility] 7t [place] [address] Care Team Providers Care Sleeve Baster Name Role Phone Rachel Shine MD Primary Care Provider + [phone] Skye Robles PharmD Unavailable [phone] Arleen Worthington Unavailable Moisés Spence Unavailable Karthik Reardon MD Unavailable [phone] Олег Skaggs MD Unavailable [phone] Reason for Visit * Reason Onset Date Comments Med Refill 06/30/2024 Encounter Details Date Type Department Care Team (Late st Contact Info) Description 06/30/2024 Refill [facility] MEDICINE [address] [place], [place] [phone] Skye Robles, PharmD [address] [place] [address] Type 2 diabetes mellitus with hyperglycemia, without long-term current use of insulin ([facility]) Social History Tobacco Use Types Packs/Day [...] [facility] [address] [place] [address] Skye Robles PharmD [address] [place] [address] documented as of this encounter Goals Goal [...] of insulin ([facility]) documented in this encounter Additional Health Concerns Assessment Noted Time PHQ-9 Depression Total Score: 8 08/31/19 24 1:43 PM EDT documented as of this encounter Care Teams Sleeve Baster Relationship Specialty Start Date End Date Rachel Shine MD [address] [place] [address] PCP - General Family Medicine 05/10/18 Skye Robles PharmD [address] [place] [address] Pharmacist Internal Medicine 09/15/23 Arleen Worthington 11 [facility] 3rd [place] [address] Gastroenterology 04/24/24 Moisés Spence 11 [facility] 3rd [place] [address] 04/24/24 Karthik Reardon MD 2 [facility] [address] [place] [address] Ophthalmology 04/24/24 Олег Skaggs MD [address] [place] [address] Hematology and Oncology 04/24/24 documented as of this encounter
--- OUTSIDE RECORDS SUMMARY | 2024-07-11 15:25 | XMS_ITS | Encounter Summary ---
Author Organization [facility] [facility] Address 75 [facility] 7t [place] [address] Care Team Providers Care Tumbling And Rolling Supervisor Name Role Phone Rachel Shine MD Primary Care Provider + [phone] Skye Robles PharmD Unavailable [phone] Arleen Worthington Unavailable Moisés Spence Unavailable Karthik Reardon MD Unavailable [phone] Олег Skaggs MD Unavailable [phone] Encounter Details Date Type Department Care Team (Late st Contact Info) Description 05/18/2022 Orders Only [facility] MED & PEDS [address] [place], [place] [phone] Therese Robles LPN Social History Tobacco Use [...] Description 07/14/2024 11:00 AM EST Medication Management [facility] MEDICINE [address] [place], [place] [phone] Skye Robles, PharmD [address] [place], [place] [phone] documented as of this encounter Visit Diagnoses Not on filedocumented in this encounter Care Teams Tumbling And Rolling Supervisor Relationship Specialty Start Date End Date Rachel Shine MD [address] [place] [address] PCP - General Family Medicine 05/10/18 Skye Robles PharmD [address] [place] [address] Pharmacist Internal Medicine 09/15/23 Arleen Worthington [address] 3rd [place] [address] Gastroenterology 04/24/24 Moisés Spence [address] [place] [address] 04/24/24 Karthik Reardon MD 2 [facility] [address] [place] [address] Ophthalmology 04/24/24 Олег Skaggs MD [address] [place] [address] Hematology and Oncology 04/24/24 documented as of this encounter
--- OUTSIDE RECORDS SUMMARY | 2024-07-11 15:25 | XMS_ITS | Encounter Summary ---
Author Organization [employer] Address 75 [facility] 7t [place] [address] Care Team Providers Care Starch Factory Laborer Name Role Phone Rachel Shine MD Primary Care Provider + [phone] Skye Robles PharmD Unavailable [phone] Arleen Worthington Unavailable Moisés Spence Unavailable Karthik Reardon MD Unavailable [phone] Олег Skaggs MD Unavailable [phone] Reason for Visit * Reason Comments Med Refill Encounter Details Date Type Department Care Team (Late st Contact Info) Description 06/19/2024 Refill [facility] MED & PEDS [address] [place], [place] [phone] Rachel Shine MD [address] [place] [address] Primary hypertension Social History Tobacco Use Types [...] 11:00 AM EST Medication Management [facility] MEDICINE [address] [place] [address] Skye Robles PharmD [address] [place] [address] documented as of this encounter Goals Goal [...] documented as of this encounter Care Teams Starch Factory Laborer Relationship Specialty Start Date End Date Rachel Shine MD [address] [place] [address] PCP - General Family Medicine 05/10/18 Skye Robles, Gloria [address] [place] [address] Pharmacist Internal Medicine 09/15/23 Arleen Worthington [address] 3rd [place] [address] Gastroenterology 04/24/24 Moisés Spence [address] 3rd [place] [address] 04/24/24 Karthik Reardon MD 2 [facility] [address] [place] [address] Ophthalmology 04/24/24 Олег Skaggs MD [address] [place] [address] Hematology and Oncology 04/24/24 documented as of this encounter
--- OUTSIDE RECORDS SUMMARY | 2024-07-11 15:25 | XMS_ITS | Encounter Summary ---
Author Organization [employer] Address 75 [facility] 7t [place] [address] Care Team Providers Care Bulk Station Operator Name Role Phone Rachel Shine MD Primary Care Provider + [phone] Skye Robles PharmD Unavailable [phone] Arleen Worthington Unavailable Moisés Spence Unavailable Karthik Reardon MD Unavailable [phone] Олег Skaggs MD Unavailable [phone] Reason for Visit * Reason Comments Med Refill Encounter Details Date Type Department Care Team (Late st Contact Info) Description 06/21/2024 Refill [facility] MEDICINE [address] [place], [place] [phone] Rachel Shine MD [address] [place], [place] [phone] Social History Tobacco Use Types Packs/Day Years [...] the past 12 months, has t he [employer], gas, oil or water company threatened to [...] Description 07/14/2024 11:00 AM EST Medication Management [facility] MEDICINE [address] [place] [address] Isreals-Skye Hayward, PharmD [address] [place] [address] documented as of this encounter Goals Goal [...] documented as of this encounter Care Teams Bulk Station Operator Relationship Specialty Start Date End Date Rachel Shine MD [address] [place] [address] PCP - General Family Medicine 05/10/18 Skye Robles PharmD [address] [place] [address] Pharmacist Internal Medicine 09/15/23 Arleen Worthington [address] 3rd [place] [address] Gastroenterology 04/24/24 Moisés Spence [address] 3rd [place] [address] 04/24/24 Karthik Reardon MD 2 [facility] [address] [place] [address] Ophthalmology 04/24/24 Олег Skaggs MD [address] [place] [address] Hematology and Oncology 04/24/24 documented as of this encounter
--- OUTSIDE RECORDS SUMMARY | 2024-07-11 15:25 | XMS_ITS | Encounter Summary ---
Author Organization [employer] Address 75 [facility] 7t [place] [address] Care Team Providers Care Note Specialist Name Role Phone Rachel Shine MD Primary Care Provider + [phone] Skye Robles PharmD Unavailable [phone] Arleen Worthington Unavailable Moisés Spence Unavailable Karthik Reardon MD Unavailable [phone] Олег Skaggs MD Unavailable [phone] Encounter Details Date Type Department Care Team (Late st Contact Info) Description 06/14/2024 Telephone [facility] MEDICINE [address] [place] [address] Allegra Waddell, PETE Social History Tobacco Use [...] for an HDF. Pt was seen at [facility] on 05/31-06/01 for diagnosis of Chest pain, Syncope , Hyperlipidemia, Anxiety and depression , Type 2 diabetes mellitus, Hypertension , Insomnia, CHB (complete heart block). Pharmacist assisted with taiwanese translation and pt agreed to HDF appt with Dr. England on 07/03/24. Pt is to follow up with PCP for any further questions or concerns. documented in this encounter Plan of Treatment Upcoming Encounters Date Type Department Care Team ([facility] st Contact Info) Description 07/14/2024 11:00 AM EST Medication Management [facility] MEDICINE [address] [place] [address] Skye Robles, PharmD [address] [place] [address] documented as of this encounter Goals Goal [...] documented as of this encounter Care Teams Note Specialist Relationship Specialty Start Date End Date Rachel Shine MD [address] [place] [address] PCP - General Family Medicine 05/10/18 Skye Robles, PharmD [address] [place] [address] Pharmacist Internal Medicine 09/15/23 Arleen Worthington 11 [facility] [address]rd [place] [address] Gastroenterology 04/24/24 Moisés Spence 11 [facility] [address]rd [place] [address] 04/24/24 Karthik Reardon MD 2 [facility] [address] [place] [address] Ophthalmology 04/24/24 Олег Skaggs MD [address] [place] [address] Hematology and Oncology 04/24/24 documented as of this encounter
--- OUTSIDE RECORDS SUMMARY | 2024-07-11 15:25 | XMS_ITS | Encounter Summary ---
Author Organization [employer] Address 75 [facility] 7t [place] [address] Care Team Providers Care Landscaping And Groundskeeping Laborer Name Role Phone Rachel Shine MD Primary Care Provider + [phone] Skye Robles PharmD Unavailable [phone] Arleen Worthington Unavailable Moisés Spence Unavailable Karthik Reardon MD Unavailable [phone] Олег Skaggs MD Unavailable [phone] Encounter Details Date Type Department Care [...] Description 07/14/2024 11:00 AM EST Medication Management [facility] MEDICINE [address] [place] [address] Piers-Hayward, Skye, PharmD [address] [place] [address] documented as of this encounter Goals Goal [...] documented as of this encounter Care Teams Landscaping And Groundskeeping Laborer Relationship Specialty Start Date End Date Rachel Shine MD [address] [place] [address] PCP - General Family Medicine 05/10/18 Skye Robles PharmD [address] [place] [address] Pharmacist Internal Medicine 09/15/23 Arleen Worthington [address]rd [place] [address] Gastroenterology 04/24/24 Moisés Spence [address] 3rd [place] [address] 04/24/24 Karthik Reardon MD 2 [facility] [address] [place] [address] Ophthalmology 04/24/24 Олег Skaggs MD [address] [place] [address] Hematology and Oncology 04/24/24 documented as of this encounter
--- OUTSIDE RECORDS SUMMARY | 2024-07-11 15:25 | XMS_ITS | Encounter Summary ---
Author Organization [employer] Address 75 [facility] 7t [place] [address] Care Team Providers Care Rib Knitter Name Role Phone Rachel Shine MD Primary Care Provider + [phone] Skye Robles PharmD Unavailable [phone] Arleen Worthington Unavailable Moisés Spence Unavailable Karthik Reardon MD Unavailable [phone] Олег Skaggs MD Unavailable [phone] Reason for Visit * Reason Comments Transition Of Care (Tcm) HDF- Unschedule d LVM Encounter Details Date Type Department Care Team (Late st Contact Info) Description 06/14/2024 Patient Outreach [facility] [address] [place] [address] Rachel Shine MD [address] [place], [place] [phone] Transition Of Care (Tcm) (HDF- Unscheduled LVM) [...] Admission/Visit 05/31/24 Date of Discharge 06/01/24 Facility [facility] Diagnosis Chest pain, Syncope , Hyperlipidemia, [...] Wednesdays, and Walk-In Urgent Care Located in [facility] of [facility]. Patient provided with after-hours line for [facility], , which offer night time triage service and option to transfer to access control officer provider if needed. CC will request Discharge summaries to scan into chart. CC will place additional outreach call within 2-5 business days. documented in this encounter Plan of Treatment Upcoming Encounters Date Type Department Care Team (Late st Contact Info) Description 07/14/2024 11:00 AM EST Medication Management [facility] [address] [place] [address] [phone] Skye Robles PharmD [address] [place] [address] documented as of this encounter Goals Goal [...] documented as of this encounter Care Teams Rib Knitter Relationship Specialty Start Date End Date Rachel Shine MD [address] [place] [address] [phone] PCP - General Family Medicine 05/10/18 Skye Robles PharmD [address] [place] [address] [phone] Pharmacist Internal Medicine 09/15/23 Arleen Worthington [address]rd [place] [address] Gastroenterology 04/24/24 Moisés Spence [address]rd [place] [address] 04/24/24 Karthik Reardon MD [address] [place] [address] Ophthalmology 04/24/24 Олег Skaggs MD [address] [place] [address] Hematology and Oncology 04/24/24 documented as of this encounter
--- OUTSIDE RECORDS SUMMARY | 2024-07-11 15:25 | XMS_ITS | Encounter Summary ---
Author Organization [employer] Address 75 [facility] 7t [place] [address] Care Team Providers Care Ripening Room Operator Name Role Phone Rachel Shine MD Primary Care Provider + [phone] Skye Rolbes PharmD Unavailable [phone] Arleen Worthington Unavailable Moisés Spence Unavailable Karthik Reardon MD Unavailable [phone] Олег Skaggs MD Unavailable [phone] Encounter Details Date Type Department Care Team (Late st Contact Info) Description 06/14/2024 Telephone [facility] [address] [place], [place] [phone] Shelley King PharmD [address] [place] [address] Social History Tobacco Use Types Packs/Day Years [...] 06/14/2024 9:03 AM EST Patient discharged from [facility] 06/01/24. Please assist in outreach to schedule HDF appointment. Thank you! documented in this encounter Plan of Treatment Upcoming Encounters Date Type Department Care Team (Late st Contact Info) Description 07/14/2024 11:00 AM EST Medication Management [facility] [address] [place] [address] Skye Robles, JosuéD [address] [place] [address] documented as of this encounter Goals Goal [...] documented as of this encounter Care Teams Ripening Room Operator Relationship Specialty Start Date End Date Rachel Shine MD [address] [place] [address] PCP - General Family Medicine 05/10/18 Skye Robles PharmD [address] [place] [address] Pharmacist Internal Medicine 09/15/23 Arleen Worthington [address]rd [place] [address] Gastroenterology 04/24/24 Moisés Spence [address] 3rd [place] [address] 04/24/24 Karthik Reardon MD [address] [place] [address] Ophthalmology 04/24/24 Олег Skaggs MD [address] [place] [phone] Hematology and Oncology 04/24/24 documented as of this encounter
--- OUTSIDE RECORDS SUMMARY | 2024-07-11 15:25 | XMS_ITS | Encounter Summary ---
Author Organization [employer] Address 75 [facility] 7t [place] [address] Care Team Providers Care Energy Director Name Role Phone Rachel Shine MD Primary Care Provider + [phone] Skye Robles PharmD Unavailable [phone] Arleen Worthington Unavailable Moisés Spence Unavailable Karthik Reardon MD Unavailable [phone] Олег Skaggs MD Unavailable [phone] Reason for Visit * Reason Comments Med Refill Encounter Details Date Type Department Care Team (Late st Contact Info) Description 05/18/2024 Refill [facility] [address] [place], [place] [phone] Rachel Shine MD [address] [place] [address] Primary insomnia Social History Tobacco Use Types [...] the past 12 months, has t he re3[employer], gas, oil or water company threatened to [...] Description 07/14/2024 11:00 AM EST Medication Management [facility] [address] [place] [address] Skye Robles PharmD [address] [place] [address] documented as of this encounter Goals Goal [...] documented as of this encounter Care Teams Energy Director Relationship Specialty Start Date End Date Rachel Shine MD [address] [place] [address] PCP - General Family Medicine 05/10/18 Skye Robles, JosuéD [address] [place] [address] Pharmacist Internal Medicine 09/15/23 Arleen Worthington [address] 3rd [place] [address] Gastroenterology 04/24/24 Moisés Spence [address] [place] [address] 04/24/24 Karthik Reardon MD [address] [place] [address] Ophthalmology 04/24/24 Олег Skaggs MD [address] [place] [address] Hematology and Oncology 04/24/24 documented as of this encounter
== END ==
LOC: HO.CARD 12:22
DX: R06.00 Dyspnea, unspecified (principal)
CPT/HCPCS: 93306

== ENCOUNTER → 2024-07-11 12:24 | Outpatient (BNV) | payer MEDICARE, SELFPAY | PROVIDERS: Visit Provider Internal Medicine Cardiovascular Disease | DX: I42.8 Other cardiomyopathies (principal) | CPT/HCPCS: 93306 ==

== ENCOUNTER 2024-07-25 12:08 | Outpatient (REF) | payer MEDICARE, SELFPAY ==
[2024-07-25 13:49] LABS: Alanine Aminotransferase 26 U/L (0-31); Albumin Level 4.1 g/dL (3.5-5.0); Alkaline Phosphatase 75 U/L (39-117); Anion Gap 12 (12-20); Aspartate Amino Transferase 27 U/L (5-31); Bilirubin Direct 0.3 mg/dL (0.0-0.5); Blood Urea Nitrogen 12 mg/dL (9-16); Calcium 9.3 mg/dL (8.4-10.2); Carbon Dioxide 26 mmol/L (22-29); Chloride 104 mmol/L (96-108); Cholesterol 118 mg/dL (<200); Estimated Glomerular Filt Rate > 60; Glucose Random 142 mg/dL (60-115); HDL Cholesterol 40 mg/dL (>40); LDL Cholesterol Calculated 55 mg/dL (<100); Sodium 138 mmol/L (135-145); Total Protein 7.7 g/dL (6.5-8.0); Triglycerides 117 mg/dL (<150)
== END 2024-07-25 12:09 | disposition home or self-care (01) ==
LOC: HO.HHCL 12:08
PROVIDERS: Visit Provider Family Medicine
DX: E78.5 Hyperlipidemia, unspecified (principal); E11.65 Type 2 diabetes mellitus with hyperglycemia
CPT/HCPCS: 36415; 80048; 80061; 80076

== ENCOUNTER 2024-07-28 11:25 | Outpatient (REF) | payer MEDICARE, SELFPAY ==
[2024-07-28 14:25] LABS: Creatinine Urine 101.51 mg/dL; Microalbum/Creatinine Ratio Ur 9.8 ug/mg cr (<30)
== END 2024-07-28 11:26 | disposition home or self-care (01) ==
LOC: HO.HHCL 11:25
PROVIDERS: Visit Provider Family Medicine
DX: E11.65 Type 2 diabetes mellitus with hyperglycemia (principal)
CPT/HCPCS: 82043; 82570

== ENCOUNTER → 2024-08-07 23:59 | Outpatient (BNV) | payer MEDICARE, SELFPAY ==
--- NOTE | 2024-08-15 12:40 | A.OFFVIS_ITS ---
Intake Visit Reasons: Remote device check- [facility] Allergies No Known Allergies Allergy (Verified 05/16/24 06:57) PFSH Medical History Hyperlipidemia Diabetes mellitus HTN (hypertension) Surgical History Hx of colonoscopy History of cardiac pacemaker Family History Father Hx of coronary artery bypass graft Mother No problems noted. Social History Household Members Other:: son and grandson Are you a primary clinical care coordinator to a significant other at home: No Do you presently have visiting nurse or other home services: No Alcohol intake: current Alcohol intake frequency: a few times a month Patient Tobacco Use Status: Never used Tobacco Office Procedures Cardiac Device Check Cardiac Device Check Details: Verduzco permanent pacemaker. Battery life 2.6 years. V paced more than 99%. Fourteen acute mode switch episodes. Episodes of pacemaker mediated tachycardia recorded. [id number] Cardiac Device Interrogation, pacemaker Procedure code (CPT) selection complete Assessment & Plan Assessment & Plan (1) Pacemaker: Code(s): Z95.0 - Presence of cardiac pacemaker Category: Medical Plan Coding Level of Care Code Procedure Only Diagnoses Pacemaker Z95.0 CPT Codes Cardiac Device Check - Cardiac Device 12: [id number] Cardiac Device Interrogation, pacemaker ([id number])
== END ==
PROVIDERS: Visit Provider Internal Medicine Cardiovascular Disease
DX: R00.0 Tachycardia, unspecified (principal); Z95.0 Presence of cardiac pacemaker
CPT/HCPCS: 93294

== ENCOUNTER 2024-09-05 07:13 | Outpatient (REF) | payer MEDICARE, SELFPAY | END 2024-09-05 07:14 | disposition home or self-care (01) | LOC: HO.MAMMO 07:13 | PROVIDERS: PCP Family Medicine; Visit Provider Family Medicine | DX: Z12.31 Encounter for screening mammogram for malignant neoplasm of breast (principal) | CPT/HCPCS: 77063; 77067 ==

== ENCOUNTER → 2024-09-05 07:30 | Outpatient (BNV) | payer MEDICARE, SELFPAY | PROVIDERS: PCP Family Medicine; Visit Provider Internal Medicine | DX: Z12.31 Encounter for screening mammogram for malignant neoplasm of breast (principal) | CPT/HCPCS: 77063; 77067 ==

== ENCOUNTER → 2024-11-06 23:59 | Outpatient (BNV) | payer MEDICARE, SELFPAY ==
--- NOTE | 2024-12-05 16:33 | A.OFFVIS_ITS ---
Intake Visit Reasons: Remote device check- [facility] Allergies No Known Allergies Allergy (Verified 05/16/24 06:57) PFS Medical History (Updated 12/01/24 @ 09:47 by Anahy Wan RN) Sciatica Osteoarthritis Dizziness Varicose veins of both lower extremities with pain Ambulates with cane Abnormal stress test HX: breast cancer Depression LBBB (left bundle branch block) Hyperlipidemia Diabetes mellitus HTN (hypertension) Surgical History (Updated 12/01/24 @ 09:47 by Anahy Wan RN) Hx of colonoscopy History of cardiac pacemaker Family History Father Hx of coronary artery bypass graft Mother No problems noted. Social History Household Members Other:: son and grandson Are you a primary progressive care unit registered nurse to a significant other at home: No Do you presently have visiting nurse or other home services: No Alcohol intake: current Alcohol intake frequency: a few times a month Patient Tobacco Use Status: Never used Tobacco Use of substances other than those prescribed or required for medical reasons: No Have you been hit, kicked, punched, or otherwise hurt by someone within the past year? If so, by whom?: No Are you DNR?: No Advance Directives: No Advance Directives Information Provided: No Advance Directives on File: No Patient : No : No Poor oral hygiene: Yes Office Procedures Cardiac Device Check Cardiac Device Check Details: PPM Battery life > 2 years Episodes of atria arrhythmia and PMT noted. [id number] Cardiac Device Interrogation, pacemaker Procedure code (CPT) selection complete Assessment & Plan Assessment & Plan (1) Pacemaker: Code(s): Z95.0 - Presence of cardiac pacemaker Category: Medical Plan Coding Level of Care Code Procedure Only Diagnoses Pacemaker Z95.0 CPT Codes Cardiac Device Check - Cardiac Device 12: [id number] Cardiac Device Interrogation, pacemaker ([id number])
== END ==
PROVIDERS: PCP Family Medicine; Visit Provider Internal Medicine Cardiovascular Disease
DX: I49.9 Cardiac arrhythmia, unspecified (principal); Z95.0 Presence of cardiac pacemaker
CPT/HCPCS: 93294

== ENCOUNTER 2024-12-11 08:51 | Day surgery (SDC) | payer MEDICARE, SELFPAY ==
--- OUTSIDE RECORDS SUMMARY | 2024-04-03 04:40 | XMS_ITS | Continuity of Care Document ---
Author Organization [facility] Address [address] [place] [address] Phone Care Team Providers Care Trap Operator Name Role Phone Savage JACINTO, JANET, Patrick BOUCHER Unavailable U navailable Allergies, Adverse Reactions, Alerts Substance Reaction Status Criticality No Known Allergies Active No Inform ation Procedures Procedure Date Inj Scleros Solut; Mx Veins 1- CT & MA N Ultrason Guidan Needle Bx-rad- CT & [place] N Duplex Scan-extrem Veins; Uni/ CT & [place] N Endovenous Laser, 1st Vein- CT & [place] Endovenous Rf, 1st Vein- CT & [place] 2023 Offic/outpt E&m Estab 5 Min Trial- Telem edicine CT & [place] Office/Oupt E&M New Pt 45 Mins- CT & [place] Surgical Stockings CVR Reveal Knee High 20-30 Duplex Scan-extrem Veins; Comp- CT & [place] Advance Directives Directive Yes / No Effective Date File Name No Information Encounters Encounter Description Practice Location Reason(s) For Visit Diagnoses Date Provider Providers Copied on Encounter [facility], [address] [place] [address] Dr [address], [place], [id number], [place] tel:[phone] CVR - [facility] No Information Savage JACINTO, JANET, SANDER Nguyen. [address] [facility] [address], [place], [place], [id number] , [place]. tel:[phone] [facility] MD STAUFFER, [address] [place] [address] Dr [address]Suite [place] Scott [place], [id number], [place] tel:[phone] CVR - MD - [place] Varicose veins of right lower extremity with other complications 4 Maia Pavon . [address] [facility], Suite [facility], [place], [place], [id number] , [place]. tel:[phone] Referring Provider: Rachel Yanez, [address] [place] [address], [place], [address]. tel:[phone] [facility] MD STAUFFER, [address] [place] [address] Dr [address] Zak [place], [id number], [place] tel:[phone] CVR - MD - [place] Encounter for follow-up examination after completed treatment for conditions other than malignant neoplasmVarico se veins of right lower extremity with pain 4 Savage JACINTO RVT, SANDER Nguyen. [facility] [address], [place], [place], [id number] , [place]. tel:[phone] Referring Provider: Rachel Yanez, [address] [facility], [place], [address]. tel:[phone] [facility] MD STAUFFER, [address] [place] [address] Dr [address] [place]ak [place], [id number], [place] tel:[phone] CVR - [place] - [place] Varicose veins of right lower extremity with other complications 4 Savage JACINTO RVT, SANDER Nguyen. [address] [place] [address], [facility] [address], [place], [place], [id number] , [place]. tel:[phone] Referring Provider: Rachel Yanez, [address] [facility], [place], [address]. tel:[phone] [facility] MD STAUFFER, [address] [place] [address] Dr [address] [place]ak Scott [place], [id number], [place] tel:[phone] [facility]icose [facility] of right lower extremity with other complications Mar- 4 Savage JACINTO RVT, SANDER Nguyen. [address] [address], [place], [place], [id number] , [place]. tel:[phone] Referring Provider: Rachel Yanez, [address] [place] [address], [place], [address]. tel:[phone] Offic/outpt E&m Estab 5 Min Trial- Telemedicine CT & [place] [facility], [address] [place] [address] Dr [address], [place], [id number], [place] tel:[phone] [facility] Chronic venous hypertension (idiopathic) without complications of bilateral lower extremity Oct- 4 Savage JACINTO RVT, SANDER Nguyen. [address] [place] [address], [place], [place], [id number] , [place]. [phone] Referring Provider: Rachel Yanez, [address] [place] [address], [place], [address]. tel:[phone] Office/Oupt E&M New Pt 45 Mins- CT & [place] [facility], [address] [place] [address] Dr [address], [place], [id number], [place] tel:[phone] [facility] Chronic venous hypertension (idiopathic) with other complications of bilateral lower extremityPain in right legPain in left legType 2 diabetes mellitus without complicationsR estless legs syndromeEssent ial (primary) hypertensionVe nous insufficiency (chronic) (peripheral)Ly mphedema, not elsewhere classifiedHere ditary lymphedemaCram p and spasmLocalized edema Sep-0 4 Savage JACINTO RVT, SANDER Nguyen. [address] [facility], Suite [facility], [place], [place], [id number] , [place]. [phone] Referring Provider: Rachel Yanez, [address] [place] [address], [place], [address]. tel:[phone] [facility], [address], [place], [id number], [place] tel:[phone] CVR - MD - [place] Chronic venous hypertension (idiopathic) with other complications of bilateral lower extremity Sep-0 4 Savage JACINTO, RVT, RPVI Patrick. [address] [facility], [address], [place], [place], [id number] , [place]. tel:[phone] Referring Provider: Rachel Yanez, [address] [facility], [place], [address]. tel:[phone] Family History Family Member Type Diagnosis Age At Onset No Information Payers Payer name Insurance type Covered constitution party ID Authoriza tion(s) [facility] AAR Medic are Complete CI [id number] Social History Type Description Quantity Date Captured Comments Sex Female Smoking Status No Information Chief Complaint And Reason For Visit No Information Reason For Referral Reason For Referral No Information Plan Of Treatment Date Type Action Status Goal Diet education completed Referral Ordered: Weight management: Referral to physician timeframe: 3 Months (related to Body mass index (BMI) 40.0-44.9, adult) ordered History Of Present Illness Encounter Date Complaint History Of Prese nt Illness No Information Functional Status Date Functional Assessmen t No Information Instructions Date Instruction Additional Infor mation Patient education booklet given Related to Chrn Vns Hypertnsn w/o Compl; BILAT Pre and post instruc tions reviewed and provided Related to Chronic venous hypertension (idiopathic) with other complications of bilateral lower extremity Diet education Related to Body mass index (BMI) 40.0-44.9, adult Patient education booklet given Related to Chronic venous hypertension (idiopathic) with other complications of bilateral lower extremity Lifestyle education Related to B adeel mass index (BMI) 40.0-44.9, adult Giving Encouragement to exercise Related to Body mass index (BMI) 40.0-44.9, adult Assessments Type Assessment Date No Information Patient Care Teams Name Effective Dates (start - stop) Status Members No Information
[2024-12-01 11:39] VITALS: BMI 40.1
--- NOTE | 2024-12-08 11:57 | HO.ANESPROP2 ---
Documented by User: Carlota Hoover NP 12/08/24 12:48 HPI - Anesthesia Eval Consult details Narrative: 69yo F for Right Cataract Extraction IOL Insertion No previous cataract on record Medically optimized per outside PCP Follows [facility] Cardiology for pacer/CHB. Last office visit 06/2024 after syncopal episode and SOB. Echo ok. Stress test pending. Confirmed with Cardiology provider that patient can proceed with cataract. Last pacer interrogation 11/2024: Episodes of atria arrhythmia and PMT noted. Cardiology aware. Anesthesia Pre-Procedure Meds Is the patient on any of the following meds?: GLP1/DPP4 and SGLT2 Inhib PMFSH Active Problems Active Problems: All Active Problems Dyspnea (Acute) Sleep disorder breathing (Acute) Essential hypertension (Acute) NSVT (nonsustained ventricular tachycardia) (Acute) Pacemaker (Acute) HTN (hypertension) (Acute) Diabetes mellitus (Acute) Hyperlipidemia (Acute) Past Medical History Medical History Sciatica Osteoarthritis Dizziness Varicose veins of both lower extremities with pain Ambulates with cane Abnormal stress test HX: breast cancer Depression LBBB (left bundle branch block) Hyperlipidemia Diabetes mellitus HTN (hypertension) Family History Family History Father Hx of coronary artery bypass graft Mother No problems noted. Family history of problems with anesthesia: No Surgical History Surgical History Hx of colonoscopy History of cardiac pacemaker History of Problems with Anesthesia: No Social History Social History Household Members Other:: son and grandson Are you a primary care trainer to a significant other at home: No Do you presently have visiting nurse or other home services: No Alcohol intake: current Alcohol intake frequency: a few times a month Patient Tobacco Use Status: Never used Tobacco Use of substances other than those prescribed or required for medical reasons: No Have you been hit, kicked, punched, or otherwise hurt by someone within the past year? If so, by whom?: No Are you DNR?: No Advance Directives: No Advance Directives Information Provided: Yes Advance Directives on File: No Patient : No : No Poor oral hygiene: Yes Meds Allergies Allergy/AdvReac Type Severity Reaction Status Date / Time No Known Allergies Allergy Verified 05/16/24 06:57 Home Medications ?Medication ?Instructions ?Recorded ?Confirmed ?Last Taken ?Type aspirin 81 mg tablet,delayed 81 mg PO QAM 04/13/22 12/01/24 04/15/24 History release fluoxetine 40 mg capsule 40 mg PO DAILY 04/13/22 12/01/24 Unknown History metformin 500 mg tablet,extended 500 mg PO BID 04/13/22 12/01/24 Unknown History release 24 hr zolpidem 10 mg tablet 10 mg PO BEDTIME PRN Insomnia 04/13/22 12/01/24 Unknown History blood pressure kit-extra large #1 ea 12/29/23 06/27/24 Unknown History blood sugar diagnostic (FreeStyle #10 ea 12/29/23 06/27/24 Unknown History Precision Emilio Strips) dextrose 40 % oral gel (Glutose-15) PO DIRECTED diabetes mellitus 12/29/23 06/27/24 Unknown History flash glucose sensor (FreeStyle #1 ea 12/29/23 06/27/24 Unknown History Ronny 2 Sensor kit) pen needle, diabetic 32 gauge x #1,200 ea 12/29/23 06/27/24 Unknown History (Pentips Pen Needle) timolol maleate 0.5 % eye drops 2 drp ophthalmic (eye) [facility] 12/29/23 12/01/24 Unknown History tirzepatide 2.5 mg/0.5 mL 7.5 mg subcut QWEEK 06/27/24 12/01/24 11/27/24 History subcutaneous pen injector (Jovana) atorvastatin 40 mg tablet 80 mg PO DAILY 12/01/24 12/01/24 Unknown History ezetimibe 10 mg tablet 10 mg PO QAM 12/01/24 12/01/24 Unknown History Exam Height,Weight and Vital Signs: Height 5 ft 1 in Weight 96.162 kg Pertinent Lab Results Pertinent Lab Results: Laboratory Tests 05/06/23 07/25/24 06:06 12:10 WBC 12.2 H Hgb 14.5 Hct 43.3 Plt Count 199 Sodium 138 Potassium 4.0 Chloride 104 Carbon Dioxide 26 BUN 12 Creatinine 0.81 Narrative Narrative: Cardiac Device Check 11/2024 Details: PPM Battery life > 2 years Episodes of atria arrhythmia and PMT noted. ECHO 07/2024 Conclusions: - 1. Mildly reduced LV ejection fraction of 45-50% with impaired relaxation filling pattern 2. Normal cardiac valvular Dopplers 3. Normal RV systolic pressure 4. Upper limits of normal ascending aortic size 5. No gross pericardial effusion Assessment and Plan Assessment Anesthesia Assessment: Chart Reviewed Final Anesthetic Review Family History of Problems with Anesthesia: No History of Problems with Anesthesia: No Documented by User: Norma Morton MD 12/11/24 10:39 PMF Past Medical History Medical History Sciatica Osteoarthritis Dizziness Varicose veins of both lower extremities with pain Ambulates with cane Abnormal stress test HX: breast cancer Depression LBBB (left bundle branch block) Hyperlipidemia Diabetes mellitus HTN (hypertension) Family History Family History Father Hx of coronary artery bypass graft Mother No problems noted. Surgical History Surgical History Hx of colonoscopy History of cardiac pacemaker Social History Social History Household Members Other:: son and grandson Are you a primary care trainer to a significant other at home: No Do you presently have visiting nurse or other home services: No Alcohol intake: current Alcohol intake frequency: a few times a month Patient Tobacco Use Status: Never used Tobacco Use of substances other than those prescribed or required for medical reasons: No Have you been hit, kicked, punched, or otherwise hurt by someone within the past year? If so, by whom?: No Are you DNR?: No Advance Directives: No Advance Directives Information Provided: Yes Advance Directives on File: No Patient : No : No Poor oral hygiene: Yes Meds Allergies Allergy/AdvReac Type Severity Reaction Status Date / Time No Known Allergies Allergy Verified 05/16/24 06:57 Home Medications ?Medication ?Instructions ?Recorded ?Confirmed ?Last Taken ?Type aspirin 81 mg tablet,delayed 81 mg PO QAM 04/13/22 12/01/24 04/15/24 History release fluoxetine 40 mg capsule 40 mg PO DAILY 04/13/22 12/01/24 Unknown History metformin 500 mg tablet,extended 500 mg PO BID 04/13/22 12/01/24 Unknown History release 24 hr zolpidem 10 mg tablet 10 mg PO BEDTIME PRN Insomnia 04/13/22 12/01/24 Unknown History blood pressure kit-extra large #1 ea 12/29/23 06/27/24 Unknown History blood sugar diagnostic (FreeStyle #10 ea 12/29/23 06/27/24 Unknown History Precision Emilio Strips) dextrose 40 % oral gel (Glutose-15) PO DIRECTED diabetes mellitus 12/29/23 06/27/24 Unknown History flash glucose sensor (FreeStyle #1 ea 12/29/23 06/27/24 Unknown History Ronny 2 Sensor kit) pen needle, diabetic 32 gauge x #1,200 12/29/23 06/27/24 Unknown History (Pentips Pen Needle) timolol maleate 0.5 % eye drops 2 drp ophthalmic (eye) QA 12/29/23 12/01/24 Unknown History tirzepatide 2.5 mg/0.5 mL 7.5 mg subcut QWEEK 06/27/24 12/01/24 11/27/24 History subcutaneous pen injector (Jovana) atorvastatin 40 mg tablet 80 mg PO DAILY 12/01/24 12/01/24 Unknown History ezetimibe 10 mg tablet 10 mg PO QAM 12/01/24 12/01/24 Unknown History Exam Airway Mallampati Class: II TM Dist: >3cm Neck ROM: Full Heart: rrr Lungs: cta Assessment and Plan Assessment Anesthesia Assessment: Anesthesia Plan Discussed Final Anesthetic Review NPO: Yes ASA Class: III Final Preanesthetic Review: No Changes in Pt Med Stat, Meds/Allgs Chart Reviewed and Consent Obtained/Reviewed Patient Risk: Low Procedure Risk: Low Anesthetic Plan Anesthetic Plan: MAC: Disposition: Standard PACU
[2024-12-11 10:23] VITALS: BP 123/71; PULSE 76; RESP 16; TEMP 36.9; O2SAT 96
[2024-12-11] MEDS: Tetracaine HCl/PF 0.5% Oph Sol 4 ML DROPS 1 DROP EYE-RIGHT (10:36)
[2024-12-11 10:37] LABS: Glucose, Whole Blood 120 mg/dL (60-115)
[2024-12-11] MEDS: Cyclopentolate 1 % Ophth Sol 2 ML DRPBTL 1 DROP EYE-RIGHT ×3 (10:38→10:51)
[2024-12-11] MEDS: Tropicamide 1 % Ophth Sol 3 ML BTL 1 DROP EYE-RIGHT ×3 (10:39→10:52)
[2024-12-11] MEDS: Ketorolac Tromethamine 0.5% Op 5 ML DROPS 1 DROP EYE-RIGHT ×3 (10:40→10:53)
[2024-12-11] MEDS: Phenylephrine HCL 2.5% Oph SoL 2 ML BOTTLE 1 DROP EYE-RIGHT ×3 (10:42→10:54)
[2024-12-11] MEDS: Lactated Ringers 500 ML 50 ML IV (10:50)
--- NOTE | 2024-12-11 11:25 | P.PCNO_ITS ---
Ophthalmology Procedure Procedure Date of Service: 12/11/24 Ophthalmology Viscoelastic: Healon Duet Dual Pack Pro Ophthalmology Lenses: IOL Acrysof MP - MA60AC (20) Procedure Notes: PREOPERATIVE DIAGNOSIS: Decreased visual acuity right eye secondary to cataract POSTOPERATIVE DIAGNOSIS: Same PROCEDURE: Right cataract extraction with intraocular lens insertion SURGEON: Karthik Reardon M.D. ANESTHESIA: Topical/MAC ESTIMATED BLOOD LOSS: None COMPLICATIONS: None After obtaining informed consent, the patient was brought to the operating room suite and placed in the supine position. After adequate sedation per anesthesia, topical drops of Tetracaine were given to the right eye. The eye was then prepped and draped in the usual sterile fashion. The operating room microscope was then positioned over the operative eye and a lid speculum placed. A paracentesis was created. Viscoelastic was then instilled into the anterior chamber. A three plane incision was then created temporally, utilizing a 2.85 mm keratome. Capsulotomy forceps were then utilized to create a circular tear capsulotomy. Hydrodissection and hydrodelineation were carried out until adequate mobilization of the nucleus occurred. Phacoemulsification was then utilized to remove the dense central nucl eus followed by removal of the cortical material utilizing the automated aspiration irrigation unit. Viscoelastic was instilled into the posterior capsular bag followed by placement of a posterior chamber intraocular lens without difficulty. The residual Viscoelastic was then removed utilizing the automated IA machine. The wound was checked and found to be watertight. The patient tolerated the procedure well and the lid speculum was removed. Intracameral injection of Vigamox 0.1 mL followed by a subtenon injection of Kenalog-40 0.2 mL were administered. The patient will be seen in the a.m.
--- NOTE | 2024-12-11 11:25 | MHC.SHP ---
Pre-Procedural Eval Section A - 24 Hr Update-Section A only Date of Service: 12/11/24 The patient is an INPATIENT: No Changes since office visit: No Cold of Flu in the past 2 weeks, No New Medical Problems, No Changes in Medication and No Patient answered all questions The patient has been examined within 24 hours of the surgical procedure. The History & Physical has been completed within 30 days and I have reviewed it.: Yes Section B - Complete if H&P > 30 days Chief Complaint: Age-related nuclear cataract, right eye Allergies: Allergies Allergy/AdvReac Type Severity Reaction Status Date / Time No Known Allergies Allergy Verified 12/11/24 10:56 Plan Diagnosis/Plan: Unchanged I have reviewed the history and physical and performed a pertinent physical examination on my patient. No changes have occurred unless specified. Time Spent With Patient Time: Total time managing care of this patient today ____ minutes.
[2024-12-11 11:51] VITALS: BP 133/76; PULSE 68; RESP 12; TEMP 36.6; O2SAT 98
== END 2024-12-11 12:01 | disposition home or self-care (01) ==
PROVIDERS: PCP Family Medicine; Visit Provider Ophthalmology
PROC: (CPT 66985; principal; 2024-12-11 12:00)
DX: H25.11 Age-related nuclear cataract, right eye (principal); H52.4 Presbyopia; H40.1132 Primary open-angle glaucoma, bilateral, moderate stage; H11.153 Pinguecula, bilateral; I10 Essential (primary) hypertension; E11.9 Type 2 diabetes mellitus without complications; E78.00 Pure hypercholesterolemia, unspecified; I44.7 Left bundle-branch block, unspecified; Z95.0 Presence of cardiac pacemaker; Z85.3 Personal history of malignant neoplasm of breast; Z79.811 Long term (current) use of aromatase inhibitors; Z79.4 Long term (current) use of insulin; Z79.84 Long term (current) use of oral hypoglycemic drugs; Z79.85 Long-term (current) use of injectable non-insulin antidiabetic drugs; Z79.899 Other long term (current) drug therapy; Z79.82 Long term (current) use of aspirin
CPT/HCPCS: 66984; 82947; J2250; J3301; V2630

== ENCOUNTER 2024-12-25 06:51 | Day surgery (SDC) | payer MEDICARE, SELFPAY ==
[2024-12-01 11:55] VITALS: BMI 40.1
--- NOTE | 2024-12-22 08:52 | HO.ANESPROP2 ---
HPI - Anesthesia Eval Consult details Narrative: 69yo F for Left Cataract Extraction IOL Insertion Right eye 12/11/24: Midaz 1 Follows [facility] for pacer/CHB. Last office visit 06/2024 after syncopal episode and SOB. Echo ok. Stress test pending. Confirmed with Cardiology provider that patient can proceed with cataract. Last pacer interrogation 11/2024: Episodes of atria arrhythmia and PMT noted. Cardiology aware. Anesthesia Pre-Procedure Meds Is the patient on any of the following meds?: GLP1/DPP4 and SGLT2 Inhib PMFSH Active Problems Active Problems: All Active Problems Dyspnea (Acute) Sleep disorder breathing (Acute) Essential hypertension (Acute) NSVT (nonsustained ventricular tachycardia) (Acute) Pacemaker (Acute) HTN (hypertension) (Acute) Diabetes mellitus (Acute) Hyperlipidemia (Acute) Past Medical History Medical History Sciatica Osteoarthritis Dizziness Varicose veins of both lower extremities with pain Ambulates with cane Abnormal stress test HX: breast cancer Depression LBBB (left bundle branch block) Hyperlipidemia Diabetes mellitus HTN (hypertension) Family History Family History Father Hx of coronary artery bypass graft Mother No problems noted. Family history of problems with anesthesia: No Surgical History Surgical History Hx of colonoscopy History of cardiac pacemaker History of Problems with Anesthesia: No Social History Social History Household Members Other:: son and grandson Are you a primary healthcare management consultant to a significant other at home: No Do you presently have visiting nurse or other home services: No Alcohol intake: current Alcohol intake frequency: a few times a month Patient Tobacco Use Status: Never used Tobacco Use of substances other than those prescribed or required for medical reasons: No Have you been hit, kicked, punched, or otherwise hurt by someone within the past year? If so, by whom?: No Are you DNR?: No Advance Directives: No Advance Directives Information Provided: Yes Advance Directives on File: No Patient : No : No Poor oral hygiene: Yes Meds Allergies Allergy/AdvReac Type Severity Reaction Status Date / Time No Known Allergies Allergy Verified 12/25/24 07:56 Home Medications ?Medication ?Instructions ?Recorded ?Confirmed ?Last Taken ?Type aspirin 81 mg tablet,delayed 81 mg PO QAM 04/13/22 12/01/24 04/15/24 History release fluoxetine 40 mg capsule 40 mg PO DAILY 04/13/22 12/01/24 Unknown History metformin 500 mg tablet,extended 500 mg PO BID 04/13/22 12/01/24 Unknown History release 24 hr zolpidem 10 mg tablet 10 mg PO BEDTIME PRN Insomnia 04/13/22 12/01/24 Unknown History blood pressure kit-extra large #1 ea 12/29/23 06/27/24 Unknown History blood sugar diagnostic (FreeStyle #10 ea 12/29/23 06/27/24 Unknown History Precision Emilio Strips) dextrose 40 % oral gel (Glutose-15) PO DIRECTED diabetes mellitus 12/29/23 06/27/24 Unknown History flash glucose sensor (FreeStyle #1 ea 12/29/23 06/27/24 Unknown History Ronny 2 Sensor kit) pen needle, diabetic 32 gauge x #1,200 12/29/23 06/27/24 Unknown History (Pentips Pen Needle) timolol maleate 0.5 % eye drops 2 drp ophthalmic (eye) [facility] 12/29/23 12/01/24 Unknown History tirzepatide 2.5 mg/0.5 mL 7.5 mg subcut QWEEK 06/27/24 12/25/24 12/11/24 History subcutaneous pen injector (Jovana) atorvastatin 40 mg tablet 80 mg PO DAILY 12/01/24 12/01/24 Unknown History ezetimibe 10 mg tablet 10 mg PO QAM 12/01/24 12/01/24 Unknown History Exam Height,Weight and Vital Signs: Height 5 ft 1 in Weight 96.162 kg Assessment and Plan Assessment Anesthesia Assessment: Chart Reviewed Final Anesthetic Review Family History of Problems with Anesthesia: No History of Problems with Anesthesia: No
[2024-12-25 07:50] VITALS: BP 109/65; PULSE 74; RESP 14; TEMP 36.6; O2SAT 96
[2024-12-25] MEDS: Lactated Ringers 500 ML 50 ML IV (08:02)
[2024-12-25] MEDS: Tetracaine HCl/PF 0.5% Oph Sol 4 ML DROPS 1 DROP EYE-LEFT (08:02)
--- NOTE | 2024-12-25 08:02 | HO.ANESPROP2 ---
[facility] Active Problems Active Problems: All Active Problems (Updated 12/01/24 @ 09:47 by Anahy Wan RN) Dyspnea (Acute) Sleep disorder breathing (Acute) Essential hypertension (Acute) NSVT (nonsustained ventricular tachycardia) (Acute) Pacemaker (Acute) HTN (hypertension) (Acute) Diabetes mellitus (Acute) Hyperlipidemia (Acute) Past Medical History Medical History Sciatica Osteoarthritis Dizziness Varicose veins of both lower extremities with pain Ambulates with cane Abnormal stress test HX: breast cancer Depression LBBB (left bundle branch block) Hyperlipidemia Diabetes mellitus HTN (hypertension) Functional capacity: independent ambulation Patient : No Family History Family History Father Hx of coronary artery bypass graft Mother No problems noted. Family history of problems with anesthesia: No Surgical History Surgical History Hx of colonoscopy History of cardiac pacemaker History of Problems with Anesthesia: No Social History Social History Household Members Other:: son and grandson Are you a primary transitional care nurse to a significant other at home: No Do you presently have visiting nurse or other home services: No Alcohol intake: current Alcohol intake frequency: a few times a month Patient Tobacco Use Status: Never used Tobacco Meds Allergies Allergy/AdvReac Type Severity Reaction Status Date / Time No Known Allergies Allergy Verified 12/25/24 07:56 Active Medications: Current Medications Lactated Ringer's (Lr) 500 mls @ 50 mls/hr IV .Q10H EDMOND Stop: 12/25/24 17:44 Povidone Iodine (Povidone Iodine 5 % Ophth Soln 30 Ml Bottle) 1 appl EYE-LEFT PREOP PRN PRN Reason: Pre-Op Surgical Implant Prophy Home Medications ?Medication ?Instructions ?Recorded ?Confirmed ?Last Taken ?Type aspirin 81 mg tablet,delayed 81 mg PO QAM 04/13/22 12/01/24 04/15/24 History release fluoxetine 40 mg capsule 40 mg PO DAILY 04/13/22 12/01/24 Unknown History metformin 500 mg tablet,extended 500 mg PO BID 04/13/22 12/01/24 Unknown History release 24 hr zolpidem 10 mg tablet 10 mg PO BEDTIME PRN Insomnia 04/13/22 12/01/24 Unknown History blood pressure kit-extra large #1 ea 12/29/23 06/27/24 Unknown History blood sugar diagnostic (FreeStyle #10 ea 12/29/23 06/27/24 Unknown History Precision Emilio Strips) dextrose 40 % oral gel (Glutose-15) PO DIRECTED diabetes mellitus 12/29/23 06/27/24 Unknown History flash glucose sensor (FreeStyle #1 ea 12/29/23 06/27/24 Unknown History Ronny 2 Sensor kit) pen needle, diabetic 32 gauge x #1,200 ea 12/29/23 06/27/24 Unknown History (Pentips Pen Needle) timolol maleate 0.5 % eye drops 2 drp ophthalmic (eye) QA 12/29/23 12/01/24 Unknown History tirzepatide 2.5 mg/0.5 mL 7.5 mg subcut QWEEK 06/27/24 12/25/24 12/11/24 History subcutaneous pen injector (Jovana) atorvastatin 40 mg tablet 80 mg PO DAILY 12/01/24 12/01/24 Unknown History ezetimibe 10 mg tablet 10 mg PO QAM 12/01/24 12/01/24 Unknown History Exam Height,Weight and Vital Signs: Height 5 ft 1 in Weight 96.162 kg Last Vital Signs Temp 97.8 F 12/25/24 07:50 Pulse 74 12/25/24 07:50 Resp 14 12/25/24 07:50 BP 109/65 12/25/24 07:50 Pulse Ox 96 12/25/24 07:50 O2 Del Method Room Air 12/25/24 07:50 Airway Mallampati Class: III TM Dist: >3cm Neck ROM: Full Heart: RRR Lungs: CTA Assessment and Plan Assessment Anesthesia Assessment: Anesthesia Plan Discussed Final Anesthetic Review Family History of Problems with Anesthesia: No History of Problems with Anesthesia: No NPO: Yes ASA Class: III Final Preanesthetic Review: Meds/Allgs Chart Reviewed, Consent Obtained/Reviewed and Anes Risks/Benef Reviewed Patient Risk: Intermediate Procedure Risk: Low Anesthetic Plan Anesthetic Plan: MAC: Disposition: Standard PACU
[2024-12-25] MEDS: Cyclopentolate 1 % Ophth Sol 2 ML DRPBTL 1 DROP EYE-LEFT ×3 (08:04→08:13)
[2024-12-25] MEDS: Phenylephrine HCL 2.5% Oph SoL 2 ML BOTTLE 1 DROP EYE-LEFT ×3 (08:05→08:14)
[2024-12-25] MEDS: Tropicamide 1 % Ophth Sol 3 ML BTL 1 DROP EYE-LEFT ×3 (08:06→08:15)
[2024-12-25] MEDS: Ketorolac Tromethamine 0.5% Op 5 ML DROPS 1 DROP EYE-LEFT ×3 (08:07→08:16)
[2024-12-25 08:11] LABS: Glucose, Whole Blood 110 mg/dL (60-115)
--- NOTE | 2024-12-25 08:46 | MHC.SHP ---
Pre-Procedural Eval Section A - 24 Hr Update-Section A only Date of Service: 12/25/24 The patient is an INPATIENT: No Changes since office visit: No Cold of Flu in the past 2 weeks, No New Medical Problems, No Changes in Medication and No Patient answered all questions The patient has been examined within 24 hours of the surgical procedure. The History & Physical has been completed within 30 days and I have reviewed it.: Yes Section B - Complete if H&P > 30 days Chief Complaint: Age-related nuclear cataract, left eye Allergies: Allergies Allergy/AdvReac Type Severity Reaction Status Date / Time No Known Allergies Allergy Verified 12/25/24 07:56 Plan Diagnosis/Plan: Unchanged I have reviewed the history and physical and performed a pertinent physical examination on my patient. No changes have occurred unless specified. Time Spent With Patient Time: Total time managing care of this patient today ____ minutes.
--- NOTE | 2024-12-25 08:47 | HO.PNOPHT ---
Ophthalmology Procedure Procedure Date of Service: 12/25/24 Ophthalmology Viscoelastic: Healon Duet Dual Pack Pro Ophthalmology Lenses: IOL Acrysof MP - MA60AC (20) Procedure Notes: PREOPERATIVE DIAGNOSIS: Decreased visual acuity left eye secondary to cataract POSTOPERATIVE DIAGNOSIS: Same PROCEDURE: Left cataract extraction with intraocular lens insertion SURGEON: Karthik Reardon M.D. ANESTHESIA: Topical/MAC ESTIMATED BLOOD LOSS: None COMPLICATIONS: None After obtaining informed consent, the patient was brought to the operation room suite and placed in the supine position. After adequate sedation per anesthesia, topical drops of Tetracaine were given to the left eye. The eye was then prepped and draped in the usual sterile fashion. The operating room microscope was then positioned over the operative eye and a lid speculum placed. A paracentesis was created. Viscoelastic was then instilled into the anterior chamber. A three plane incision was then created temporally, utilizing a 2.85 mm keratome. Capsulotomy forceps were then utilized to create a circular tear capsulotomy. Hydrodissection and hydrodelineation were carried out until adequate mobilization of the nucleus occurred. Phacoemulsification was then utilized to remove the dense central nucleus followed by removal of the cortical material utilizing the automated aspiration irrigation unit. Viscoat elastic was instilled into the posterior capsular bag followed by placement of a posterior chamber intraocular lens without difficulty. The residual Viscoat elastic was then removed utilizing the automated IA machine. The wound was check and found to be watertight. The patient tolerated the procedure well and the lid speculum was removed. Intracameral injection of Vigamox 0.1 mL followed by a subtenon injection of Kenalog-40 0.2 mL were administered. The patient will be seen in the a.m.
[2024-12-25 09:13] VITALS: BP 127/72; PULSE 66; RESP 16; TEMP 37.1; O2SAT 98
[2024-12-25 09:23] VITALS: BP 118/65; PULSE 67; RESP 16; TEMP 36.8; O2SAT 95
--- NOTE | 2024-12-25 14:38 | HO.POSTANES ---
Post Anesthesia Evaluation Post Anesthesia Evaluation Date of Service: 12/25/24 Vital Signs: Vital Signs Temp Pulse Resp BP Pulse Ox O2 Del Method 12/25/24 09:23 98.3 F 67 16 118/65 95 Room Air 12/25/24 09:13 98.7 F 66 16 127/72 98 Room Air 12/25/24 07:50 97.8 F 74 14 109/65 96 Room Air Anesthesia: Monitored Mental Status: Awake Pain Control: Satisfactory Nausea/Vomiting: None Anesthesia-Related Issues: No Anes. Related Issues
== END 2024-12-25 09:29 | disposition home or self-care (01) ==
PROVIDERS: PCP Family Medicine; Visit Provider Ophthalmology
PROC: (CPT 66985; principal; 2024-12-25 09:00)
DX: H25.12 Age-related nuclear cataract, left eye (principal); H52.4 Presbyopia; H40.1132 Primary open-angle glaucoma, bilateral, moderate stage; H11.153 Pinguecula, bilateral; I10 Essential (primary) hypertension; E78.00 Pure hypercholesterolemia, unspecified; E11.9 Type 2 diabetes mellitus without complications; I44.7 Left bundle-branch block, unspecified; Z95.0 Presence of cardiac pacemaker; Z85.3 Personal history of malignant neoplasm of breast; Z79.84 Long term (current) use of oral hypoglycemic drugs; Z79.85 Long-term (current) use of injectable non-insulin antidiabetic drugs; Z79.82 Long term (current) use of aspirin; Z79.899 Other long term (current) drug therapy; Z99.89 Dependence on other enabling machines and devices
CPT/HCPCS: 66984; 82947; J2250; J3301; V2630

== ENCOUNTER 2025-01-09 13:18 | Outpatient (AMB) | payer MEDICARE, SELFPAY ==
--- OUTSIDE RECORDS SUMMARY | 2024-04-03 04:40 | XMS_ITS | Continuity of Care Document ---
Author Organization [facility] Address [address] [place] [address] Phone Care Team Providers Care Associate Professor Of Geology Name Role Phone Savage JACINTO, JANET, Patrick [...] Providers Copied on Encounter [facility], [address] [place] [address] [address], [place], [id number], [place] tel:[phone] CVR - [facility] No Information Savage JACINTO, JANET, SANDER Nguyen. [address] [facility] [address], [place], [place], [id number] , [place]. tel:[phone] [facility] MD STAUFFER, [address] [place] [address] Dr [address] [place]ak Scott MD, [id number], [place] tel:[phone] CVR - [place] Varicose veins of right lower extremity with other complications 4 Maia Pavon . [address] [facility], Suite [facility], [place], [place], [id number] , [place]. tel:[phone] Referring Provider: Rachel Yanez, [address] [place] [address], [place], [address]. tel:[phone] [facility] MD STAUFFER, [address] [place] [address] Dr [address] 1000[facility] [place], [id number], [place] tel:[phone] CVR - [place] Encounter for follow-up examination after completed treatment for conditions other than malignant neoplasmVarico se veins of right lower extremity with pain 4 Savage JACINTO RVT, SANDER Nguyen. [facility] [address], [place], [place], [id number] , [place]. tel:[phone] Referring Provider: Rachel Yanez, [address] [facility], [place], [address]. tel:[phone] [facility] MD STAUFFER, [address] [place] [address] Dr [address] [place]ak Scott [place], [id number], [place] tel:[phone] CVR - [place] Varicose veins of right lower extremity with other complications 4 Savage JACINTO RVT, SANDER Nguyen. [address] [place] [address], [facility] [address], [place], [place], [id number] , [place]. tel:[phone] Referring Provider: Rachel Yanez, [address] [facility], [place], [address]. tel:[phone] [facility] MD STAUFFER, [address] [place] [address] Dr [address]Suite [place]ak Scott [place], [id number], [place] tel:[phone] [facility] Varicose veins of right lower extremity with other complications Mar- 4 Savage JACINTO RVT, SANDER Nguyen. [address] [address], [place], [place], [id number] , [place]. tel:[phone] Referring Provider: Rachel Yanez, [address] [place] [address], [place], [address]. tel:[phone] Offic/outpt E&m Estab 5 Min Trial- Telemedicine CT & [place] [facility], [address] [place] [address] Dr [address], [place], [id number], [place] tel:[phone] [facility] Chronic venous hypertension (idiopathic) without complications of bilateral lower extremity Oct- 4 Savage JACINTO RVT, SANDER Nguyen. [address] [place] [address], [place], [place], [id number] , [place]. [phone] Referring Provider: Rachel Yanez, [address] [place] [address], [place], [address]. tel:[phone] Office/Oupt E&M New Pt 45 Mins- CT & [place] [facility], [address] [place] [address] Dr [address], [place], [id number], [place] tel:[phone] [facility] Chronic venous hypertension (idiopathic) with other complications of bilateral lower extremityPain in right legPain in left legType 2 diabetes mellitus without complicationsR estless legs syndromeEssent ial (primary) hypertensionVe nous insufficiency (chronic) (peripheral)Ly mphedema, not elsewhere classifiedHere ditary lymphedemaCram p and spasmLocalized edema Sep-0 4 Savage JACINTO RVT, SANDER Nguyen. [address] [facility], Suite [facility], [place], [place], [id number] , [place]. [phone] Referring Provider: Rachel Yanez, [address] [place] [address], [place], [address]. tel:[phone] [facility], [address] [facility] [address] [facility] [address], [place], [id number], [place] tel:[phone] CVR - [place] [facility] [place] Chronic venous hypertension (idiopathic) with other complications of bilateral lower extremity Sep-0 4 Savage JACINTO, RVT, RPVI Patrick. [address] [facility], [address], [place], [place], [id number] , [place]. tel:[phone] Referring Provider: Rachel Yanez, [address] [facility], [place], [address]. tel:[phone] Family History Family Member Type Diagnosis Age At Onset No Information Payers Payer name Insurance type Covered alliance party ID Authoriza tion(s) [facility] AAR Medic are Complete CI [id number] Social History Type Description Quantity Date Captured [...]
[2025-01-09 13:45] VITALS: BP 110/62; PULSE 73; BMI 40.5
--- NOTE | 2025-01-09 13:45 | A.OFFVIS_ITS ---
Vital Signs 01/09/25 13:45 Height 5 ft 1 in Weight 214 lb 4.629 oz BMI 40.5 BP 110/62 Blood Pressure Location Lt brachial Position Sitting Pulse 73 Pulse Source Monitor Intake Visit Reasons: 6 month f/up [facility] linda pt Allergies No Known Allergies Allergy (Verified 01/09/25 13:48) Medication List - Last Reconciled 01/09/25 by Yoko Cast [facility]OCK [facility]-C aspirin 81 mg PO QAM atorvastatin 80 mg PO DAILY blood pressure kit-extra large As directed blood sugar diagnostic (FreeStyle Precision Emilio Strips) As directed dextrose 40% (Glutose-15) PO DIRECTED empagliflozin (Jardiance) 10 mg PO QAM ezetimibe 10 mg PO QAM flash glucose sensor (FreeStyle Ronny 2 Sensor kit) As directed fluoxetine 40 mg PO DAILY metformin ER 500 mg PO BID metoprolol succinate ER 12.5 mg (1/2 x 25 mg) PO QAM pen needle, diabetic (Pentips Pen Needle) As directed spironolactone 25 mg PO QAM tirzepatide (Mounjaro) 7.5 mg subcut QWEEK zolpidem 10 mg PO BEDTIME PRN HPI HPI 6 month f/up [facility] linda pt: Details: Daniela is a 69-year-old female past medical history of hypertension, hyperlipidemia, diabetes, complete heart block status post pacemaker, syncope, who presents for follow-up after recent echocardiogram. A nuclear stress test was ordered however not completed prior to this visit. Today she reports she has been doing well since her last visit in June. She has not had any recurrent presyncope or syncope. She does get brief lightheadedness at times with no falls. No chest discomfort at rest or with activity. No concerning shortness of breath, PND, orthopnea or edema. She reports being active throughout each day and takes all her meds as directed. [facility] Medical History Sciatica Osteoarthritis Dizziness Varicose veins of both lower extremities with pain Ambulates with cane Abnormal stress test HX: breast cancer Depression LBBB (left bundle branch block) Hyperlipidemia Diabetes mellitus HTN (hypertension) Surgical History Hx of colonoscopy History of cardiac pacemaker Family History Father Hx of coronary artery bypass graft Mother No problems noted. Social History Household Members Other:: son and grandson Are you a primary rn primary care to a significant other at home: No Do you presently have visiting nurse or other home services: No Alcohol intake: current Alcohol intake frequency: a few times a month Patient Tobacco Use Status: Never used Tobacco Review of Systems Const All systems reviewed & are unremarkable except as noted in HPI and below Denies daytime sleepiness, Denies difficulty sleeping, Denies snoring, Denies stops breathing during sleep and Denies weakness Card Denies chest pain, Denies rapid heart rate, Denies irregular heart rhythm, Denies claudication, Denies leg edema, Denies lightheadedness, Denies palpitations, Denies dyspnea, Denies dyspnea on exertion, Denies orthopnea, Denies paroxysmal nocturnal dyspnea and Denies slow heart rate Resp Denies cough, Denies dyspnea, Denies dyspnea on exertion and Denies snoring GI Reports no additional complaints, Denies hematochezia, Denies change in stool character and Denies dyspepsia Musc Denies abnormal gait, Denies muscle weakness and Denies numbness Neuro Denies abnormal gait, Denies numbness and Denies weakness Endo Denies palpitations Physical Exam Vital Signs: Last Vital Signs Pulse 73 01/09/25 13:45 BP 110/62 01/09/25 13:45 BMI result Body Mass Index 40.5 Const General: cooperative, healthy appearing, comfortable and no acute distress Orientation/consciousness: patient oriented x3 HEENT Head: Yes normal to inspection Neck Neck: Yes normal visual inspection, Yes trachea midline and Yes supple Chest Chest palpation & inspection: normal inspection of the chest Resp Effort & Inspection: normal respiratory effort Auscultation: clear to auscultation bilaterally, no crackles, no rales, no rhonchi and no wheezes Cardio Jugular venous distension: no JVD Palpation: normal PMI Rate: regular rate Rhythm: regular rhythm Heart sounds: S1 normal heart sound present, S2 normal heart sound present, no click, no gallops, no murmurs and no rubs Neuro General: patient oriented x3 Extrem General: Yes normal to inspection, No no pedal edema and No calf tenderness Psych Appearance: grossly normal Mental Status: mental status grossly normal Speech and movement: Normal speech and movement present Office Procedures Cardiac Device Check Cardiac Device Check Details: [employer] dual chamber pacemaker, battery 2.1 years, Atrial threshold 0.375v at 0.5ms, Ventricular threshold 0.625v at 0.5ms, DDD mode low rate 60, AP 3.7%, V pace > 99%, mode switch 4 since 11/06/24, very brief atrial tachcyardia, AT/ AF < 1%, extended PVARP to 300, PVAB to 100 for PMT and atrial tach. 18679-NP Cardiac Device Check, pacemaker dual lead Procedure code (CPT) selection complete EKG Details: Today, read by me, atrial sensed, ventricular paced rhythm rate 73, Qtc 475ms [id number], Complete Assessment & Plan Assessment & Plan (1) Abnormal echocardiogram: Code(s): R93.1 - Abnormal findings on diagnostic imaging of heart and coronary circulation Category: Medical Plan: Prior syncopal event which was thought to be related to dehydration and orthostatic hypotension. No recurrent events in the last several months. Echocardiogram done 07/11/2024 showed EF 45-50%, impaired relaxation, no valve abnormalities. EF noted to be lower than prior echo. Nuclear stress test was previously ordered however not completed yet. I gave her the number for centralized scheduling and instructed her to call them to set up this test to evaluate for ischemia. Plan to call her with test results. Continue on metoprolol, Aldactone and Jardiance. Continue aspirin and high-dose atorvastatin, Zetia. Cardiology follow-up 6 months, sooner if needed. (2) Pacemaker: Code(s): Z95.0 - Presence of cardiac pacemaker Category: Medical Plan: [employer] dual-chamber pacemaker in place, functioning normally on interrogation today. Very brief episodes of atrial tach noted, no atrial fibrillation. She has remote monitoring in use. Next office interrogation due in 6 months. (3) Essential hypertension: Code(s): I10 - Essential (primary) hypertension Category: Medical Plan: Blood pressure goal less than 130/80. Well controlled at this time. No medication changes made. Plan Time spent on chart review, documentation, interview and assessment. Coding Level of Care Code Est Pt Level 4 (72460) Complex EM visit Add On G2211 Diagnoses Abnormal echocardiogram R93.1 Pacemaker Z95.0 Essential hypertension I10 CPT Codes Cardiac Device Check - Cardiac Device 2: 76283-QN Cardiac Device Check, pacemaker dual lead ([id number]) EKG - CPT: 18085-[id number], Complete ([id number]) Time Spent (min) 30
--- OUTSIDE RECORDS SUMMARY | 2025-01-09 14:34 | XMS_ITS | Encounter Summary ---
Author Organization [employer] Address [address] [facility] 7t [place] [address] Care Team Providers Care Advisory Intern Name Role Phone Rachel Shine MD Primary Care Provider + [phone] Skye Robles PharmD Unavailable [phone] Arleen Worthington Unavailable Moisés Spence Unavailable Karthik Reardon MD Unavailable [phone] Олег Skaggs MD Unavailable [phone] Karthik Reardon MD Unavailable [phone] Reason for Visit * Reason Comments Med Refill Encounter Details Date Type Department Care Team (Late st Contact Info) Description 02/23/2024 Refill [facility] MED & PEDS [address] [place] [address] Rachel Shine MD [address] [place] [address] Primary insomnia Social History Tobacco Use Types [...] Care Team (Late st Contact Info) Description 01/10/2025 10:30 AM EDT Medication Management [facility] MEDICINE [address] [place] [address] Skye Robles PharmD [address] [place] [address] documented as of this encounter Goals Goal Patient Goal Type Associated Problems Recent Progress Patient-Stated? Author Blood Pressure < 140/90 Blood Pressure 98/70( 025 11:10 AM EDT) No Skye Florence, PharmSoren Hemoglobin A1c < 7.5 Result Component 6.7( 11:04 AM EDT) No Skye Florence PharmD documented as of this encounter Visit Diagnoses Diagnosis Primary insomnia Persistent disorder of initiating or maintaining sleep documented in this encounter Additional Health Concerns Assessment Noted Time PHQ-9 Depression Total Score: 8 08/31/19 24 1:43 PM EDT documented as of this encounter Care Teams Advisory Intern Relationship Specialty Start Date End Date Rachel Shine MD [address] [place] [address] PCP - General Family Medicine 05/10/18 Skye Robles, JosuéD [address] [place] [address] Pharmacist Internal Medicine 09/15/23 Arleen Worthington [address] 3rd [place] [address] Gastroenterology 04/24/24 Moisés Spence [address] [facility] [address]rd [place] [address] 04/24/24 Karthik Reardon MD [address] [facility] [address] [place] [address] Ophthalmology 04/24/24 Олег Skaggs MD [address] [place] [address] Hematology and Oncology 04/24/24 Karthik Reardon MD [address] [place] [address] Ophthalmology 12/19/24 documented as of this encounter
--- OUTSIDE RECORDS SUMMARY | 2025-01-09 14:35 | XMS_ITS | Encounter Summary ---
Author Organization [email or web address] Address [address] [facility] 7t [place] [address] Care Team Providers Care Bag Machine Operator Name Role Phone Rachel Shine MD Primary Care Provider + [phone] Skye Robles PharmD Unavailable [phone] Arleen Worthington Unavailable Moisés Spence Unavailable Karthik Reardon MD Unavailable [phone] Олег Skaggs MD Unavailable [phone] Karthik Reardon MD Unavailable [phone] Reason for Visit * Reason Comments Med Refill Encounter Details Date Type Department Care Team (Late st Contact Info) Description 10/26/2024 Refill [facility] MED & PEDS [address] [place] [address] Rachel Shine MD [address] [place] [address] Primary insomnia Social History Tobacco Use Types [...] Description 01/10/2025 10:30 AM EDT Medication Management [facility] MEDICINE [address] [place] [address] Skye Robles PharmD [address] [place] [address] documented as of this encounter Goals Goal Patient Goal Type Associated Problems Recent Progress Patient-Stated? Author Blood Pressure < 140/90 Blood Pressure 98/70( 025 11:10 AM EDT) No Skye Florence, PharmD Hemoglobin A1c < 7.5 Result Component 6.7( 11:04 AM EDT) No Piers-Gambl e, Skye, PharmD documented as of this encounter Visit Diagnoses Diagnosis Primary insomnia Persistent disorder of initiating or maintaining sleep documented in this encounter Additional Health Concerns Assessment Noted Time PHQ-9 Depression Total Score: 8 08/31/19 24 1:43 PM EDT documented as of this encounter Care Teams Bag Machine Operator Relationship Specialty Start Date End Date Rachel Shine MD [address] [place] [address] PCP - General Family Medicine 05/10/18 Skye oRbles PharmD [address] [place] [address] Pharmacist Internal Medicine 09/15/23 Arleen Worthington [address] [place] [address] Gastroenterology 04/24/24 Moisés Spence [address] [place] [address] 04/24/24 Karthik Reardon MD [address] [facility] [address] [place] [address] Ophthalmology 04/24/24 Олег Skaggs MD [address] [place] [address] Hematology and Oncology 04/24/24 Karthik Reardon MD [address] [place] [address] Ophthalmology 12/19/24 documented as of this encounter
--- OUTSIDE RECORDS SUMMARY | 2025-01-09 14:35 | XMS_ITS | Encounter Summary ---
Author Organization [employer] Address [address] [facility] 7t [place] [address] Care Team Providers Care Peoplesoft Fscm Developer Name Role Phone Rachel Shine MD Primary Care Provider + [phone] Skye Robles PharmD Unavailable [phone] Arleen Worthington Unavailable Moisés Spence Unavailable Karthik Reardon MD Unavailable [phone] Олег Skaggs MD Unavailable [phone] Karthik Reardon MD Unavailable [phone] Reason for Visit * Reason Comments Med Refill Encounter Details Date Type Department Care Team (Late st Contact Info) Description 11/07/2024 Refill [facility] CH[facility] MED & PEDS [address] [place] [address] Rachel Shine MD [address] [place] [address] Primary insomnia Social History Tobacco Use Types [...] Description 01/10/2025 10:30 AM EDT Medication Management [facility] MEDICINE [address] [place] [address] Skye Robles PharmD [address] [place] [address] documented as of this encounter Goals Goal [...] documented as of this encounter Care Teams Peoples[employer] Fscm Developer Relationship Specialty Start Date End Date Rachel Shine MD [address] [place] [address] PCP - General Family Medicine 05/10/18 Skye Robles PharmD [address] [place] [address] Pharmacist Internal Medicine 09/15/23 Arleen Worthington [address] [place] [address] Gastroenterology 04/24/24 Moisés Spence [address] [place] [address] 04/24/24 Karthik Reardon MD [address] [facility] [address] [place] [address] Ophthalmology 04/24/24 Олег Skaggs MD [address] [place] [address] Hematology and Oncology 04/24/24 Karthik Reardon MD [address] [place] [address] Ophthalmology 12/19/24 documented as of this encounter
--- OUTSIDE RECORDS SUMMARY | 2025-01-09 14:35 | XMS_ITS | Encounter Summary ---
Author Organization [employer] Address [address] [facility] 7t [place] [address] Care Team Providers Care Boat Builder Name Role Phone Rachel Shine MD Primary Care Provider + [phone] Skye Robles PharmD Unavailable [phone] Arleen Worthington Unavailable Moisés Spence Unavailable Karthik Reardon MD Unavailable [phone] Олег Skaggs MD Unavailable [phone] Karthik Reardon MD Unavailable [phone] Reason for Visit * Reason Comments Med Refill Encounter Details Date Type Department Care Team (Late st Contact Info) Description 11/24/2023 Refill [facility] MED & PEDS [address] [place] [address] Rachel Shine MD [address] [place] [address] Primary insomnia Social History Tobacco Use Types [...] Description 01/10/2025 10:30 AM EDT Medication Management [facility] MEDICINE [address] [place] [address] IsrealsSkye Burton, PharmD [address] [place] [address] documented as of this encounter Goals Goal Patient Goal Type Associated Problems Recent Progress Patient-Stated? Author Blood Pressure < 140/90 Blood Pressure 98/70( 025 11:10 AM EDT) No Piers-Gambnadir betancourt, Skye, PharmD Hemoglobin A1c < 7.5 Result Component 6.7( 11:04 AM EDT) No Piers-Gambl eRuthysa, PharmD documented as of this encounter Visit Diagnoses Diagnosis Primary insomnia Persistent disorder of initiating or maintaining sleep documented in this encounter Additional Health Concerns Assessment Noted Time PHQ-9 Depression Total Score: 8 08/31/19 24 1:43 PM EDT documented as of this encounter Care Teams Boat Builder Relationship Specialty Start Date End Date Rachel Shine MD [address] [place] [address] PCP - General Family Medicine 05/10/18 Skye Robles PharmD [address] [place] [address] Pharmacist Internal Medicine 09/15/23 Arleen Worthington [address]rd [place] [address] Gastroenterology 04/24/24 Moisés Spence [address] [facility] 3rd [place] [address] 04/24/24 Karthik Reardon MD [address] [facility] [address] [place] [address] Ophthalmology 04/24/24 Олег Skaggs MD [address] [place] [address] Hematology and Oncology 04/24/24 Karthik Reardon MD [address] [place] [address] Ophthalmology 12/19/24 documented as of this encounter
--- OUTSIDE RECORDS SUMMARY | 2025-01-09 14:35 | XMS_ITS | Encounter Summary ---
Author Organization [email or web address] Address [address] [facility] 7t [place] [address] Care Team Providers Care Transplant Surgeon Name Role Phone Rl Rachel JACINTO Primary Care Provider +- [phone] Skye Robles PharmD Unavailable [phone] Arleen Worthington Unavailable Moisés Spence Unavailable Karthik Reardon MD Unavailable [phone] Олег Skaggs MD Unavailable [phone] Karthik Reardon MD Unavailable [phone] Encounter Details Date Type Department Care Team (Late st Contact Info) Description 05/18/2022 Orders Only [facility] MED [facility] PEDS [address] [place] [address] Therese Robles LPN Social History Tobacco Use [...] Description 01/10/2025 10:30 AM EDT Medication Management [facility] MEDICINE [address] [place] [address] Skye Robles, PharmD [address] [place] [address] documented as of this encounter Visit Diagnoses Not on filedocumented in this encounter Care Teams Transplant Surgeon Relationship Specialty Start Date End Date Rachel Shine MD [address] [place] [address] PCP - General Family Medicine 05/10/18 Skye Robles, JosuéD [address] [place] [address] Pharmacist Internal Medicine 09/15/23 Arleen Worthington [address] 3rd [place] [address] Gastroenterology 04/24/24 Moisés Spence [address] [facility] 3rd [place] [address] 04/24/24 Karthik Reardon MD [address] [facility] [address] [place] [address] Ophthalmology 04/24/24 Олег Skaggs MD [address] [place] [address] Hematology and Oncology 04/24/24 Karthik Reardon MD [address] [place] [address] Ophthalmology 12/19/24 documented as of this encounter
--- OUTSIDE RECORDS SUMMARY | 2025-01-09 14:35 | XMS_ITS | Encounter Summary ---
Author Organization [employer] Address [address] [facility] 7t [place] [address] Care Team Providers Care Blower Installer Name Role Phone Rachel Shine MD Primary Care Provider + [phone] Skye Robles PharmD Unavailable [phone] Arleen Worthington Unavailable Moisés Spence Unavailable Karthik Reardon MD Unavailable [phone] Олег Skaggs MD Unavailable [phone] Karthik Reardon MD Unavailable [phone] Reason for Visit * Reason Comments Med Refill Encounter Details Date Type Department Care Team (Late st Contact Info) Description 11/02/[address] [facility] MED & PEDS [address] [place] [address] Rachel Shine MD [address] [place] [address] Primary insomnia Social History Tobacco Use Types [...] Description 01/10/2025 10:30 AM EDT Medication Management [facility] MEDICINE [address] [place] [address] Skye Robles PharmD [address] [place] [address] documented as of this encounter Goals Goal [...] documented as of this encounter Care Teams Blower Installer Relationship Specialty Start Date End Date Rachel Shine MD [address] [place] [address] PCP - General Family Medicine 05/10/18 Skye Robles PharmD [address] [place] [address] Pharmacist Internal Medicine 09/15/23 Arleen Worthington [address] [place] [address] Gastroenterology 04/24/24 Moisés Spence [address] [place] [address] 04/24/24 Karthik Reardon MD [address] [facility] [address] [place] [address] Ophthalmology 04/24/24 Олег Skaggs MD [address] [place] [address] Hematology and Oncology 04/24/24 Karthik Reardon MD [address] [place] [address] Ophthalmology 12/19/24 documented as of this encounter
--- OUTSIDE RECORDS SUMMARY | 2025-01-09 14:35 | XMS_ITS | Encounter Summary ---
Author Organization [employer] Address [address] [facility] 7t [place] [address] Care Team Providers Care Furniture Designer Name Role Phone Rachel Shine MD Primary Care Provider + [phone] Skye Robles PharmD Unavailable [phone] Arleen Worthington Unavailable Moisés Spence Unavailable Karthik Reardon MD Unavailable [phone] Олег Skaggs MD Unavailable Karthik Reardon MD Unavailable [phone] Reason for Visit * Reason Comments Med Refill Encounter Details Date Type Department Care Team (Late st Contact Info) Description 05/18/2024 Refill [facility] MED & PEDS [address] [place] [address] Rachel Shine MD [address] [place] [address] Primary insomnia Social History Tobacco Use Types [...] Description 01/10/2025 10:30 AM EDT Medication Management [facility] MED[facility] [address] [place] [address] Skye Robles PharmD [address] [place] [address] documented as of this encounter Goals Goal [...] documented as of this encounter Care Teams Furniture Designer Relationship Specialty Start Date End Date Rachel Shine MD [address] [place] [address] PCP - General Family Medicine 05/10/18 Skye Robles PharmD [address] [place] [address] Pharmacist Internal Medicine 09/15/23 Arleen Worthington [address] [place] [address] Gastroenterology 04/24/24 Moisés Spence [address] [place] [address] 04/24/24 Karthik Reardon MD [address] [facility] [address] [place] [address] Ophthalmology 04/24/24 Олег Skaggs MD [address] [place] [address] Hematology and Oncology 04/24/24 Karthik Reardon MD [address] [place] [address] Ophthalmology 12/19/24 documented as of this encounter
--- OUTSIDE RECORDS SUMMARY | 2025-01-09 14:35 | XMS_ITS | Encounter Summary ---
Author Organization [employer] Address [address] [facility] 7t [place] [address] Care Team Providers Care Diaper Folder Name Role Phone Rachel Shine MD Primary Care Provider [phone] Skye Robles PharmD Unavailable [phone] Arleen Worthington Unavailable Moisés Spence Unavailable Karthik Reardon MD Unavailable [phone] Олег Skaggs MD Unavailable [phone] Karthik Reardon MD Unavailable Encounter Details Date Type Department Care Team (Late Contact Info) Description 07/06/2022 Abstract [facility] MEDICINE [address] [place] [address] Rachel Shine MD [address] [place], [place] [phone] Social History Tobacco Use Types Packs/Day Years [...] Department Care Team (Late Contact Info) Description 01/10/2025 10:30 AM EDT Medication Management [facility] MEDICINE [address] [place], [place] [phone] Skye Robles, PharmD [address] [place] [address] documented as of this encounter Procedures Procedure [...] Colonoscopy (02/17/2011) Colonoscopy rectal polyp Dr. Spears us Historical Provider HEALTH MAINTENANCE Final Result documented in this encounter Visit Diagnoses Not on filedocumented in this encounter Care Teams Diaper Folder Relationship Specialty Start Date End Date Rachel Shine MD [address] [place] [address] PCP - General Family Medicine 05/10/18 Skye Robles, PharmD [address] [place] [address] Pharmacist Internal Medicine 09/15/[address] [place] [address] Gastroenterology 04/24/24 Moisés Spence [address] [place] [address] 04/24/24 Karthik Reardon MD [address] [facility] [address] [place] [address] Ophthalmology 04/24/24 Олег Skaggs MD [address] [place] [address] Hematology and Oncology 04/24/24 Karthik Reardon MD [address] [place] [address] Ophthalmology 12/19/24 documented as of this encounter
--- OUTSIDE RECORDS SUMMARY | 2025-01-09 14:35 | XMS_ITS | Clinical Summary ---
Author Organization [employer] Address [address] [facility] [address] [place] [address] Care Team Providers Care Tab Card Press Operator Name Role Phone Rachel Shine MD Primary Care Provider + [phone] Skye Robles PharmD Unavailable [phone] Arleen Worthington Unavailable Moisés Spence Unavailable Karthik Reardon MD Unavailable [phone] Олег Skaggs MD Unavailable [phone] Karthik Reardon MD Unavailable [phone] Allergies No known active allergies Medications * This document contains information received from the source organization and may not represent a complete record from that organization. ibuprofen 800 MG tabletIndication s:Pain TAKE 1 TABLET BY MOUTH THREE TIMES DAILY WITH FOOD NEEDED FOR PAIN 30 tablet 1 09/10/19 24 Active meclizine (Antivert) 25 MG tabletIndication s:Dizziness Take 1 tablet (25 mg) by mouth if needed in the morning and at bedtime for nausea or dizziness. 30 tablet 01/25/20 24 025 Active FLUoxetine (PROzac) 40 MG capsuleIndicatio ns:Depressive disorder TAKE 1 CAPSULE BY MOUTH EVERY MORNING 90 capsule 3 03/30/20 24 Active glucose (Glutose) 40 % gel oral gelIndications:T ype 2 diabetes mellitus with hyperglycemia, without long-term current use of insulin ([facility]) Use as needed for low blood sugar 45 g 11 04/24/20 24 Active timolol (Timoptic) 0.5 % ophthalmic solution INSTILL 1 DROP IN EACH EYE EVERY MORNING 04/25/20 24 Active Continuous Glucose Gandy Dancer (FreeStyle Ronny 3 Columbia) deviceIndication s:Type 2 diabetes mellitus with hyperglycemia, without long-term current use of insulin ([facility]) 1 each Once per day. Use as directed for CGM 1 each 07/16/19 25 Active Continuous Glucose Sensor (FreeStyle Ronny 3 Plus Sensor) miscIndications: Type 2 diabetes mellitus with hyperglycemia, without long-term current use of insulin (CMS/HCC) 1 each every 15 days. Apply 1 every 15 days as directed for CGM 2 each 07/16/19 25 Active metFORMIN XR (Glucophage-XR) 500 MG 24 hr tabletIndication s:Type 2 diabetes mellitus with hyperglycemia, without long-term current use of insulin (CMS/[facility]) TAKE 1 TABLET BY MOUTH TWICE DAILY IN THE MORNING AND IN THE EVENING 180 tablet 3 08/15/19 25 Active zolpidem (Ambien) 10 MG tabletIndication s:Primary insomnia TAKE 1 TABLET BY MOUTH AT BEDTIME 30 tablet 2 11/09/19 25 Active empagliflozin (Jardiance) 10 MGIndications:Ty pe 2 diabetes mellitus with hyperglycemia, without long-term current use of insulin (CMS/[facility]) Take 10 mg by mouth Once per day. Active metoprolol succinate XL (Toprol-XL) 25 MG 24 hr tabletIndication s:Primary hypertension Take one half tablet by mouth once daily. Do not crush or chew. Active spironolactone (Aldactone) 25 MG tabletIndication s:Primary hypertension Take 25 mg by mouth Once per day. Active atorvastatin (Lipitor) 80 MG tabletIndication s:Dyslipidemia Take 1 tablet (80 mg) by mouth at bedtime. 90 tablet 3 11/23/19 25 Active FreeStyle lancetsIndicatio ns:Type 2 diabetes mellitus with hyperglycemia, without long-term current use of insulin ([facility]) 1 each by Other route 3 times daily. 100 each 12/05/19 25 026 Active glucose blood (FreeStyle Precision Emilio Test) test stripIndications :Type 2 diabetes mellitus with hyperglycemia, without long-term current use of insulin (CMS/[facility]) Use to test blood sugar 3 times daily in case of CGM sensor failure 100 each 12/09/19 25 026 Active ezetimibe (Zetia) 10 MG tabletIndication s:Dyslipidemia TAKE 1 TABLET BY MOUTH EVERY MORNING 90 tablet 3 12/26/19 25 Active Aspirin Low Dose 81 MG EC tabletIndication s:Coronary artery disease involving [place] heart, unspecified vessel or lesion type, unspecified whether angina present TAKE 1 TABLET BY MOUTH EVERY MORNING 90 tablet 1 12/28/19 25 Active ezetimibe (Zetia) 10 MG tabletIndication s:Dyslipidemia Take 1 tablet (10 mg) by mouth Once per day. 90 tablet 3 01/28/20 24 025 Discontinued Aspirin EC Adult Low Dose 81 MG EC tabletIndication s:Coronary artery disease involving [place] heart, unspecified vessel or lesion type, unspecified whether angina present TAKE 1 TABLET BY MOUTH EVERY MORNING 90 tablet 1 07/19/19 25 025 Discontinued Tirzepatide (Mounjaro) 7.5 MG/0.5ML solution auto-injectorInd ications:Type 2 diabetes mellitus with hyperglycemia, without long-term current use of insulin ([facility]) Inject 7.5 mg under the skin 1 (one) time per week. 2 mL 11/23/19 025 Active Problems Problem Noted Date Diagnosed Date Anxiety 12/12/2024 Osteoarthritis of right knee 05/24/2024 Overview (11/22/2024): Ambulates with cane, has disability [place] Assessment & Plan (11/22/2024 11:33 AM EDT): Ambulates with cane. Assessment & Plan (05/24/2024 6:42 PM EST): [...] Overview (01/14/2024): Seen by [facility] 01/11/24. US negative for DVT b/l, positive [...] anterior apical wall. Past cariology note from [facility] was 05/22/20. She was discharged for too many no shows 01/16/21. Referred [facility] 01/22/2022 and . Lost to follow up with me multiple times due to exacerbation of depression. 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 Past cariology note from [facility] was 05/22/20. She was discharged for too many no shows 01/16/21. Referred to [facility] 01/22/2022 and . Lost to follow up with me multiple times due to exacerbation of depression. - Pt saw cardiology on 11/14/23 BMI 45.0-49.9, adult 09/27/2023 Overview (11/22/2024): Lifestyle modification discussed including nutrition stratgeies and phsycial activity recommendations. - Has been on a GLP 1 since July of 2023 -down 20 labs as of 11/22/24 BMI Readings from Last 3 Encounters: 11/22/24 41.19 kg/m 07/03/24 43.76 kg/m 05/24/24 45.04 kg/m Wt Readings from Last 3 Encounters: 11/22/24 218 lb (98.9 kg) 07/03/24 231 lb 9.6 oz (105 kg) 05/24/24 238 lb 6 oz (108 kg) Assessment & Plan (11/22/2024 11:33 AM EDT): Assessment & Plan (04/24/2024 9:29 AM EST): Lifestyle modification discussed including nutrition stratgeies and phsycial activity recommendations. - Has been on a GLP 1 since July of 2023 with no weight loss. Will discuss with [facility]agment Program with our PharmD, ALBERTO about Nahed 04/24/24 Assessment & Plan (09/27/2023 9:28 AM [...] 08/02/2023 Other specified health status 03/18/2023 Overview (11/22/2024): -next physical exam due after 11/22/2025 -eye care facilitated by followed by Dr. Karthik Reardon of [facility] -dental home is [facility] (currently has dentures on maxillary arch) -Filed healthcare proxy on 08/02/2023 Assessment & Plan (11/22/2024 11:33 AM EDT): Orders: POCT Glucose POCT HGB A1C Assessment & Plan (12/30/2023 8:42 AM EDT): -next physical exam due after July 2024 -eye care facilitated by followed by Dr. Karthik Reardon of [facility] -dental home is [facility] (currently has dentures on maxillary arch) -Filed healthcare proxy on 08/02/2023 Assessment & Plan (08/02/2023 9:38 AM EDT): -next physical exam due after July 2024 -eye care facilitated by followed by Dr. Karthik Reardon of [facility] -dental home is [facility] (currently has dentures on maxillary arch) -Filed healthcare proxy on 08/02/2023 History of breast cancer 03/18/2023 Overview (09/11/2024): Hx infiltrating ductal carcinoma of the right [...] 08/31/23:BI-RADS 2: Benign, ordered via Dr. Skaggs -mammo 09/10/24 :BI-RADS 2: Benign, ordered via Dr. Skaggs Assessment [...] 08/02/2023 Presence of cardiac pacemaker 04/12/2014 Overview (12/07/2024): Hx [employer] Dual Chamber Pacemaker for complete heart block circa 2010 Doing well. Asymptomatic. Hx normal Ryanne MIBI Stress Test May 2010 Continue to optimize cardiac risk factors. She was discharged from cardiology for no shows after her sons . We will call to see status of pacemaker check. Cardiology [facility] -[facility]iology. Clinical information/comments: Pt with [employer] pacemaker for sick sinus syndrome, lost to follow up since 2019 after the loss of her son. -seen by Dr. Moisés Spence MD 12/05/24 pacemaker interrogated and V paced 99% of the time, Seen again and note from 05/2024 reviewed Assessment & Plan (11/22/2024 11:33 AM EDT): Hx [employer] Dual Chamber Pacemaker for complete heart block circa 2010 Doing well. Asymptomatic. Hx normal Ryanne MIBI Stress Test May 2010 Continue to optimize cardiac risk factors. She was discharged from cardiology for no shows after her sons . We will call to see status of pacemaker check. Cardiology [facility] -Cardiology. Clinical information/comments: Pt with St. [...] to see status of pacemaker check. Cardiology [facility] -Cardiology. Clinical information/comments: Pt with St. [...] to see status of pacemaker check. Cardiology [facility] -Cardiology. Clinical information/comments: Pt with [employer] pacemaker for sick sinus syndrome, lost to follow up since 2019 after the loss of her son. Left bundle branch block 12/15/2012 Chronic major depressive disorder, recurrent epi sode 11/12/2011 Overview (11/22/2024): -hx depression exacerbated by her son's 12/2019. [...] months while she establishes with behavior health. -referral to behavior health 11/21/24 Assessment & Plan (11/22/2024 11:33 AM EDT): -hx depression exacerbated by her [...] months while she establishes with behavior health. -referral to behavior health 11/21/24 Assessment & Plan (12/30/2023 8:40 AM EDT): [...] to therapist on 08/02/2023 Dyslipidemia 11/12/2011 Overview (11/22/2024): Lab Results Component Value Date CHOL 118 07/25/2024 CHOL 181 05/02/2024 CHOL 194 12/20/2023 TRIG 117 07/25/2024 TRIG 129 05/02/2024 TRIG 127 12/20/2023 HDL 40 (L) 07/25/2024 HDL 48 05/02/2024 HDL 44 12/20/2023 LDLCHOLCAL 55 07/25/2024 LDLCHOLCAL 108 (H) 05/02/2024 LDLCHOLCAL 125 (H) 12/20/2023 -continue lifestyle modifications -atorvastatin increased to 80mg once daily (from 40mg) 09/22/23 by [facility] -zetia 10mg once daily added 01/2024 by [facility] Assessment & Plan (11/22/2024 11:33 AM EDT): Lab Results Component Value Date CHOL 118 07/25/2024 CHOL 181 05/02/2024 CHOL 194 12/20/2023 TRIG 117 07/25/2024 TRIG 129 05/02/2024 TRIG 127 12/20/2023 HDL 40 (L) 07/25/2024 HDL 48 05/02/2024 HDL 44 12/20/2023 LDLCHOLCAL 55 07/25/2024 LDLCHOLCAL 108 (H) 05/02/2024 LDLCHOLCAL 125 (H) 12/20/2023 -continue lifestyle modifications -atorvastatin increased to 80mg once daily (from 40mg) 09/22/23 by [facility] -zetia 10mg once daily added 01/2024 by [facility] Orders: atorvastatin (Lipitor) 80 MG tablet; Take 1 tablet (80 mg) by mouth at bedtime. Assessment & Plan (04/24/2024 10:03 AM EST): [...] modifications -Continue current medications Assessment & Plan (11/22/2024 11:33 AM EDT): -Continue lifestyle modifications -Continue current medications Assessment & Plan (07/03/2024 2:03 PM EST): -Blood pressure is not controlled 04/24/24. She had not taken her medication today. -Re-referred to [facility] Drug Therapy Managment Program with our ALBERTO Castro 04/24/24 -Continue lifestyle modifications -Continue current medications Assessment & Plan (04/24/2024 12:13 PM EST): -Blood pressure is not controlled 04/24/24. She had not taken her medication today. -Re-referred to [facility] Therapy Managment Program with our ALBERTO Castro 04/24/24 -Continue lifestyle modifications -Continue current medications [...] medications Type 2 diabetes mellitus 11/12/2011 Overview (12/19/2024): Collaborative Drug Therapy Managment Program with PharmD, Dr. Robles Lab Results Component Value Date HGBA1C 6.7 (A) 11/22/2024 HGBA1C 7.0 (A) 07/14/2024 HGBA1C 7.5 (A) 04/24/2024 Lab Results Component Value Date CREATININE 0.81 07/25/2024 EGFR >60 07/25/2024 MICROALBCREU 9.8 07/28/2024 MICROALBCREU 19.3 08/02/2023 LDLCHOLCAL 55 07/25/2024 -Navid/Arb: none -Statin therapy: atorvastatin increased from 40mg once daily to 80mg once daily 09/22/23 by [facility] - Zetia 10mg once daily added by [facility] -Diabetic eye exam: with Dr. Reardon 10/25/24 -Diabetic foot exam: 12/19/24 -Continue lifestyle modifications -Continue current medications-Blood pressure is at goal of <140/90 per JNC 8 guidelines. -Importance of low-fat, low cholesterol, ADA diet discussed. Importance of moderate physical activity discussed. -Continue Metformin ER 500mg twice daily -Lantus discontinued by [facility] 11/24/23 - Trulicity changed to Mounjaro due to inadequate response to Trulicity -Munjaro incased to 7.5mg 11/22/24 - Jardiance 10mg added by [facility] 07/13/24 -Currently using Freestyle Ronny CGM - glucose (Glutose) 40 % gel oral gel 04/24/24 Assessment & Plan (11/22/2024 11:33 AM EDT): Collaborative Drug Therapy Managment Program with PharmD, Dr. Robles Lab Results Component Value Date HGBA1C 6.7 (A) 11/22/2024 HGBA1C 7.0 (A) 07/14/2024 HGBA1C 7.5 (A) 04/24/2024 Lab Results Component Value Date CREATININE 0.81 07/25/2024 EGFR >60 07/25/2024 MICROALBCREU 9.8 07/28/2024 MICROALBCREU 19.3 08/02/2023 LDLCHOLCAL 55 07/25/2024 -Navid/Arb: none -Statin therapy: atorvastatin increased from 40mg once daily to 80mg once daily 09/22/23 by [facility] - Zetia 10mg once daily added by [facility] -Diabetic eye exam: with Dr. Reardon 10/25/24 -Diabetic foot exam: 12/30/23 -Continue lifestyle modifications -Continue current medications-Blood pressure is at goal of <140/90 per JNC 8 guidelines. -Importance of low-fat, low cholesterol, ADA diet discussed. Importance of moderate physical activity discussed. -Continue Metformin ER 500mg twice daily -Lantus discontinued by [facility] 11/24/23 - Trulicity changed to Mounjaro due to inadequate response to Trulicity -Munjaro incased to 7.5mg 11/22/24 - Jardiance 10mg added by [facility] 07/13/24 -Currently using Freestyle Ronny CGM - glucose (Glutose) 40 % gel oral gel 04/24/24 Orders: Tirzepatide (Mounjaro) 7.5 MG/0.5ML solution auto-injector; Inject 7.5 mg under the skin 1 (one) time per week. Assessment & Plan (07/03/2024 2:05 PM EST): Significant improvement in A1C noted 10/20/23 Collaborative Drug Therapy Managment Program with PharmDr. Margaret Doty Diabetes is controlled 04/24/24 -Navid/Arb: none -Statin therapy: atorvastatin increased from 40mg once daily to 80mg once daily 09/22/23 by [facility] -Diabetic eye exam: encouraged -Diabetic foot exam: 12/30/23 -Continue lifestyle modifications -Continue current medications-Blood pressure is at goal of <140/90 per JNC 8 guidelines. -Importance of low-fat, low cholesterol, ADA diet discussed. Importance of moderate physical activity discussed. -Continue Metformin ER 500mg twice daily -Lantus discontinued by [facility] 11/24/23 - Trulicity further increased to 3mg once weekly by [facility] 11/24/23 - Prescribed Continuous Glucose Gandy Dancer (FreeStyle Ronny 2 [place]) device 04/24/24 - glucose blood (FreeStyle Precision Emilio Test) test strip 04/24/24 - glucose (Glutose) 40 % gel oral gel 04/24/24 Assessment & Plan (04/24/2024 10:27 AM EST): Significant improvement in A1C noted 10/20/23 Collaborative Drug Therapy Managment Program with PharmD, Dr. Robles Diabetes is controlled 04/24/24 Lab Results Component Value Date HGBA1C 7.5 (A) 04/24/2024 HGBA1C 6.8 (A) 12/30/2023 HGBA1C 7.2 (A) 10/20/2023 Lab Results Component Value Date CREATININE 0.96 08/02/2023 EGFR 57 08/02/2023 MICROALBCREU 19.3 08/02/2023 LDLCHOLCAL 125 (H) 12/20/2023 -Navid/Arb: none -Statin therapy: atorvastatin increased from 40mg once daily to 80mg once daily 09/22/23 by [facility] -Diabetic eye exam: encouraged -Diabetic foot exam: 12/30/23 -Continue lifestyle modifications -Continue current medications-Blood pressure is at goal of <140/90 per JNC 8 guidelines. -Importance of low-fat, low cholesterol, ADA diet discussed. Importance of moderate physical activity discussed. -Continue Metformin ER 500mg twice daily -Lantus discontinued by [facility] 11/24/23 - Trulicity further increased to 3mg once weekly by [facility] 11/24/23 - Prescribed Continuous Glucose Gandy Dancer (FreeStyle Ronny 2 Columbia) device 04/24/24 - glucose blood (FreeStyle Precision Emilio Test) test strip 04/24/24 - glucose (Glutose) 40 % gel oral gel 04/24/24 Assessment & Plan (12/30/2023 8:40 AM EDT): Collaborative Drug Therapy Managment Program with PharmDDr. [...] to 3mg once weekly by [facility] 11/24/23 Assessment & Plan (09/27/2023 8:59 AM [...] daily 09/22/23 by [facility] -Diabetic eye exam: -Diabetic foot exam: -Continue lifestyle modifications -Continue current medications-Blood pressure is at goal of <140/90 per JNC 8 guidelines. -Importance of low-fat, low cholesterol, ADA diet discussed. Importance of moderate physical activity discussed. -Continue Metformin ER 500mg twice daily -Lantus solostar increased to 10 units once daily (from 6 units once daily) 09/22/23 by [facility] - Trulicity increased from 0.75mg once weekly to 1.5mg once weekly 09/22/23 by [facility] Assessment & Plan (08/02/2023 9:36 AM EDT): [...] 8 guidelines. -Daily ASA therapy for hx DC -Importance of low-fat, low cholesterol, ADA diet [...] & Plan (08/09/2023 10:38 AM EDT): During IBH Consult Daniela presenting with complex bereavement symptoms [...] Reports receiving positive support from family and muslim community. PCP prescribed medication to help decrease symptoms (see PCP note). PLAN: (check all that apply) Behavioral Health Integration Plan Internal Follow up with [facility] Patient Self Plan Patient to utilize skills provided in intervention , Patient to reach out to [facility] team as needed, Comply with medication , and Patient to reach out to [facility] as needed. Pt agreed to follow-up with clinician. History of COVID-19 02/25/2023 03/18/20 23 Malignant tumor of breast 04/12/2012 Encounters * This document contains information received from the source organization and may not represent a complete record from that organization. Date Type Department Care Team Description 12/25/2024 Orders Only GENERIC EXTERNAL DATA DEPARTMENT Provider, Generic External Data 12/25/[address] [address] Rachel Shine MD Coronary artery disease involving [place] heart, unspecified vessel or lesion type, unspecified whether angina present 12/25/[address] [address] Skye Robles PharmD Dyslipidemia 12/11/2024 Orders Only GENERIC EXTERNAL DATA DEPARTMENT Provider, Generic External Data 12/04/2024 Travel 11/29/2024 2:00 PM EDT Office Visit [address] [address] Stacy Wynne CNP Type 2 diabetes mellitus with hyperglycemia, without long-term current use of insulin ([facility]) (Primary Dx); Primary hypertension; Dyslipidemia; Pre-op evaluation; Presence of cardiac pacemaker 11/29/2024 Travel 11/28/[address] [address] Rigoberto Dukes [place] CHARTPREP 11/22/2024 10:30 AM EDT Office Visit [address] [address] Rachel Shine MD Type 2 diabetes mellitus with hyperglycemia, without long-term current use of insulin ([facility]) (Primary Dx); Dyslipidemia; Other specified health status; Positive depression screening; Primary hypertension; BMI 45.0-49.9, adult ([facility]); Chronic major depressive disorder, recurrent episode ([facility]); Primary osteoarthritis of right knee; Presence of cardiac pacemaker 11/22/2024 Travel 11/21/2024 Telephone [facility] [address] [place] [phone] Rachel Shine MD CHART PREP 11/15/2024 Patient Outreach [facility] [address] [place] [phone] Rachel Shine MD Pre-visit Planning (LVM ) 11/08/2024 Refill [facility] [address] [place] [address] Rachel Shine MD Primary insomnia 11/08/2024 Refill [facility] [address] [place] [address] Rachel Shine MD Primary insomnia 11/07/2024 Telephone [facility] [address] [place] [address] Rachel Shine MD 11/07/2024 Refill [facility] [address] [place] [address] Rachel Shine MD Primary insomnia 11/02/2024 Refill [facility] [address] [place] [address] Rachel Shine MD Primary insomnia 11/01/2024 Telephone [facility] [address] [place] [phone] Rachel Shine MD pre op 11/01/2024 Refill [facility] [address] [place] [address] Rachel Shine MD Primary insomnia 10/26/2024 Refill [facility] [address] [place] [address] Rachel Shine MD Primary insomnia 10/25/2024 Orders Only [facility] [address] [place] [address] Rachel Shine MD Type 2 diabetes mellitus with hyperglycemia, without long-term current use of insulin ([facility]) (Primary Dx) 10/25/2024 Telephone [facility] [address] [place] [address] Skye Robles, PharmD 10/25/2024 Travel from Last 3 Months Immunizations Immunization Administration Dates Next Due DTaP / Hib [...] Answer Date Recorded Patient Health Questionnaire-9 Score 9 12/08/2024 Patient Health Questionnaire-9 Score 9 12/08/2024 Last PHQ-9: Questionnaire Data Not on file 0 12/08/2024 Housing Stability Answer Date Recorded What is your housing situation today? I have olinda schaffer 11/29/[address] you li ve. Do you have problems with any of the following? None of the above 11/29/2024 Food Insecurity Answer Date Recorded Within the past 12 months, y ou worried that your food would run out before you got money to buy more: Sometimes True 2024 Within the past 12 months,th e food you bought just didn't last and you didn't have enough money to get more: Sometimes True 11/29/2024 Transportation Answer Date Recorded In the past 12 months, has l ack of transportation kept you from medical appts, meetings, work or from getting things needed for daily living? No 11/29/2024 Utilities Answer Date Recorded In the past 12 months, has t he electric, gas, oil or water company threatened to shut off services in your home? No 11/29/2024 Depression Answer Date Recorded Patient Health Questionnaire-2 Score 4 12/08/2024 Internet Access Answer Date Recorded Internet Access [...] Sign Reading Time Taken Comments Blood Pressure 98/70 12/04/2024 11:10 AM EDT Pulse 87 12/04/2024 11:10 AM EDT Temperature 35.6 C (96 F) 11/29/2024 2:04 PM EDT Respiratory Rate 16 11/29/2024 2:04 PM EDT Oxygen Saturation 99% 11/29/2024 2:04 PM EDT Inhaled Oxygen Concentration - - Weight 99 kg (218 lb 3.2 oz) 11/29/2024 2:04 PM EDT Height 154.9 cm (5' 1 ) 11/29/2024 2:04 PM EDT Body Mass Index 41.23 11/29/2024 2:04 PM EDT Plan of Treatment Upcoming Encounters Date Type Department Care Team (Late st Contact Info) Description 01/10/2025 10:30 AM EDT Medication Management [facility] [address] [place] [address] Skye Robles, PharmD [address] [place] [address] Health Maintenance Due Date Last Done Comments CT Colonography 1953 FIT DNA/Cologuard 1953 FIT 1953 FOBT 1955 Sigmoidoscopy 1955 COVID-19 Vaccine ( season) 2024 02/07/2024, 08/02/2023, 06/03/2021, Additional history exists Influenza Vaccine (#1) 2025 , 01/18/2020, 05/04/2019, Additional history exists Alcohol/Substance Use Screening 04/24/2025 04/24/2024 Diabetes: Hemoglobin A1C 05/25/2025 025, 07/14/2024, 04/24/2024, Additional history exists Depression Monitoring 06/10/2025 12/08/2024, 025 Lipid Panel 07/25/2025 07/25/2024, 04/10, 12/20/2023, Additional history exists Diabetes: Urine Protein Screening 07/28/2025 07/28/2024, 08/02/2023, 02/21/2022 Diabetes: Foot Exam 11/22/2025 11/22/2024, 11/22/2024, 11/22/2024, Additional history exists SDOH Screening 11/29/2025 11/29/2024 Tobacco Screening 11/29/2025 11/29/2024 Eye Exam 07/19/2026 07/19/2024, 09/08/2023 Mammogram 09/05/2026 09/05/2024, 08/09, 08/25/2023, Additional history exists Colonoscopy 05/16/2029 05/16/2024, 02/17/2011 Colorectal Cancer Screening [...] Hepatitis B Vaccines Completed 09/27/2023, 08/02/2023, 2017 HPV Vaccines Aged Out No longer eligi ble based on patient's age to complete this topic Hepatitis A Vaccines Aged Out No long er eligible based on patient's age to complete this topic IPV Vaccines Aged Out No longer eligi ble based on patient's age to complete this topic Meningococcal B Vaccine Aged Out No l onger eligible based on patient's age to complete [...] 98/70( 025 11:10 AM EDT) No Skye Florence PharmD Hemoglobin A1c < 7.5 Result Component 6.7( 11:04 AM EDT) No Skye Florence PharmD Procedures Procedure Name Priority Date/Time Associated Diagnosis Comments GLUCOSE, WHOLE BLOOD Routine 12/25/2024 8:08 AM EDT GLUCOSE, WHOLE BLOOD Routine 12/11/2024 10:34 AM EDT POCT GLYCATED HEMOGLOBIN, TOTAL Routine 11/22/2024 11:04 AM EDT Other specified health status POCT GLUCOSE Routine 11/22/2024 10:59 AM EDT Other specified health status BI MAMMOGRAM SCREENING TOMOSYNTHESIS BILATERAL Routine 09/05/2024 7:30 AM EDT ALBUMIN, RANDOM URINE W/CREATININE Routine 07/28/2024 10:30 AM EDT LIPID PANEL, STANDARD Routine 07/25/2024 12:10 PM EDT HM DIABETES EYE EXAM Routine 07/19/2024 COLONOSCOPY Routine 05/16/2024 HEPATITIS C AB W/REFL TO HCV RNA, QN, PCR Routine 08/02/2023 9:52 AM EDT Encounter for hepatitis C screening test for low risk patient from Last 3 Months or Most Recently Relevant to Health Maintenance Results * Glucose, Whole Blood (12/25/2024 8:08 AM EDT) Only the most recent of2 resultswithin the time period is included. Glucose, Whole Blood 110 60 - 115 mg/dL [facility] Comment:METER #: [id number] 12/25/2024 8:08 AM EDT 12/25/2024 8:10 AM EDT us Generic External Data Provider LAB BLOOD ORDERAB LES Final Result [facility] [address] [place] [phone] * (ABNORMAL) POCT HGB A1C (11/22/2024 11:04 AM EDT) Hemoglobin A1C 6.7(A) 4.0 - 5.7 % QC Media Lot # [id number] Lot# Expiration Date 3, Blood 11/22/2024 11:0 4 AM EDT Rachel Shine MD POINT OF CARE TEST ENTER/E DIT ORDERABLES Final Result * POCT Glucose (11/22/2024 10:59 AM EDT) Glucose Blood, POC 113 60 - 200 mg/dL QC Media Lot # [id number] Lot# Expiration Date [id number] Blood Capillary blood specimen / Unknown 11/22/2024 10:59 AM EDT Rachel Shine MD POINT OF CARE TEST ENTER/E DIT ORDERABLES Final Result * BI Mammogram Screening Tomosynthesis Bilateral (09/05/2024 7:30 AM EDT) Anatomical Region Laterality Modality Breast Bilateral Mammography 09/05/2024 7:30 AM EDT Narrative 09/10/2024 6:48 PM EDT [facility] [address] [place] [address] Mammography Report Signed Patient: Daniela Bennett MR#: [id number] 4 : 1955 Acct:[id number] Age/Sex: 69 / F ADM Date: 09/05/24 Loc: HO.MAMMO Attending Dr: Rachel Shine MD Ordering Physician: Rachel Shine MD Results: 2B enign Findings Date of Service: 09/05/24 Follow Up: 1 Year From Orig inal Mammogram Procedure(s): MM tomosynthesis screening BI Accession Number(s): [id number] cc: Rachel Shine MD EXAMINATION: MM SCREENING DIGITAL BREAST TOMOSYNTHESIS, BILATERAL CLINICAL INFORMATION: Screening. Asymptomatic. Right breast cancer status post lumpectomy 2011. COMPARISON: Mammography: Comparison is made with available priors TECHNIQUE: Digital breast mammography with tomosynthesis is performed in both the craniocaudal and mediolateral oblique views along with computer-aided detection (CAD). FINDINGS: The breasts are heterogeneously dense, which may obscure small masses (ACR BI-RADS breast composition Category c). Right lumpectomy changes are stable. Left pacemaker overlies and obscures the superior posterior left breast on MLO view. There are no significant masses, abnormal calcifications, or other abnormalities. MM/MM tomosynthesis screening BI IMPRESSION: No mammographic evidence of malignancy. ASSESSMENT: BI-RADS BI-RADS 2 - Benign Findings RECOMMENDATION: Routine annual mammography screening. 1 year F/U This examination should not preclude the clinical evaluation of a suspicious palpable abnormality. This patient's information was entered into a reminder system with a target due date for their next mammogram. Electronically signed by: Alejandra Garland DO 09/10/2024 06:45 PM EDT RP Dictated By: Alejandra Garland DO Signed By: <Electronically signed by Alejandra Garland DO in OV> 09/10/24 1845 DD/ 0730 TD/TT: 09/05/24 0735 Medical Appliance Maker: Procedure Note Donotuseinterpreter, Image - 09/10/2024 [facility] [address] [place] [address] Mammography Report Signed Patient: Daniela Bennett [facility]#: [id number] 4 : 1955cct:[id number] Age/Sex: 69 / FADM Date: 09/05/24 Loc: HO.MAMMO Attending Dr: Rachel Shine MD Ordering Physician: Rachel Shine MDResults: 2B enign Findings Date of Service: 09/05/24Follow Up: 1 Year From Orig inal Mammogram Procedure(s): MM tomosynthesis screening BI Accession Number(s): [id number] cc: Rachel Shine MD EXAMINATION: MM SCREENING DIGITAL BREAST TOMOSYNTHESIS, BILATERAL CLINICAL INFORMATION: Screening. Asymptomatic. Right breast cancer status post lumpectomy 2011. COMPARISON: Mammography: Comparison is made with available priors TECHNIQUE: Digital breast mammography with tomosynthesis is performed in both the craniocaudal and mediolateral oblique views along with computer-aided detection (CAD). FINDINGS: The breasts are heterogeneously dense, which may obscure small masses (ACR BI-RADS breast composition Category c). Right lumpectomy changes are stable. Left pacemaker overlies and obscures the superior posterior left breast on MLO view. There are no significant masses, abnormal calcifications, or other abnormalities. MM/MM tomosynthesis screening BI IMPRESSION: No mammographic evidence of malignancy. ASSESSMENT: BI-RADS BI-RADS 2 - Benign Findings RECOMMENDATION: Routine annual mammography screening. 1 year F/U This examination should not preclude the clinical evaluation of a suspicious palpable abnormality. This patient's information was entered into a reminder system with a target due date for their next mammogram. Electronically signed by: Alejandra Garland DO 09/10/2024 06:45 PM EDT Dictated By: Alejandra Garland DO Signed By: <Electronically signed by Alejandra Garland DO in OV> 09/10/24 1845 DD/ 0730 TD/TT: 09/05/24 0735 Medical Appliance Maker: Rachel Shine MD IMG BI PROCEDURES Edited R esult - Final * Albumin, Random Urine W/Creatinine (07/28/2024 10:30 AM EDT) Creatinine, Urine 101.51 mg/dL [facility] Microalbumin Urine 10.0 mg/L [facility] Microalbum Creatinine Ratio Ur 9.8 <30 ug/mg cr [facility] Comment:Albumin/Creatinine R atio Reference Ranges: Normal: < 30 ug/mg creatinine Microalbuminuria: 30 - 300 ug/mg creatinineClinical Albuminuria: > 300 ug/mg creatinine 07/28/2024 10:3 0 AM EDT 07/28/2024 1:10 PM EDT Rachel Shine MD LAB URINE ORDERABLES Final Result [facility] [address] [place] [address] [phone] * (ABNORMAL) Lipid Panel, Standard (07/25/2024 12:10 PM EDT) Triglycerides 117 <150 mg/dL [facility] Comment:Desirable Triglyceri de: less than 150 mg/dLBorderline High Triglyceride 150-199 mg/dLHigh Triglyceride: 200-499 mg/dLVery High Triglyceride: greater than or equal to 5OO mg/dL Cholesterol 118 <200 mg/dL [facility] Comment:Desirable Cholestero l: less than 200 mg/dLBorderline High Cholesterol: 200-239 mg/dLHigh Cholesterol: greater than 239 mg/dL LDL Cholesterol Calculated 55 <100 mg/dL [facility] Comment:Desirable LDL: less than 100 mg/dLNear Optimal/Above Optimal LDL: 110- 129 mg/dLBorderline High LDL: 130-159 mg/dLHigh LDL: 160-189 mg/dLVery High LDL: greater than or equal to 190 mg/dL HDL Cholesterol 40(L) >40 mg/dL [facility] Comment:Desirable HDL: great er than 40 mg/dL Note: This HDL assay may give artificially low results in patients with liver disease. 07/25/2024 12:1 0 PM EDT 07/25/2024 1:08 PM EDT Rachel Shine MD LAB BLOOD ORDERABLES Final Result [facility] [address] [place] [address] [phone] * Diabetes Eye Exam (07/19/2024) Eye Exam Normal Normal Historical Provider HEALTH MAINTENANCE Final Result * (ABNORMAL) Colonoscopy (05/16/2024) Colonoscopy Abnormal( A) Normal Comment:polyp with Dr. Jose Historical Bereket JACINTO HEALTH MAINTENANCE Final Result * Hepatitis C Antibody with Reflex to HCV, RNA, Quantitative, Real-Time PCR (08/02/2023 9:52 AM EDT) Hepatitis C Antibody Nonreactive Nonreactive [facility] Comment:Antibodies to HCV no t detected; does not exclude early acuteHCV infection. Blood Venous blood specimen / Unknown 08/02/2023 9:52 AM EDT 08/02/2023 11:41 AM EDT Rachel Shine MD LAB BLOOD ORDERABLES Final Result [facility] [address] [place] [address] [phone] from Last 3 Months or Most Recently Relevant to Health Maintenance Insurance [facility] MEDICARE ADVANTAGE HMO Advance Directives Documents on File Type Date Recorded Patient Messenger Floorperson Expl anation Advance Directives and Livin g Will 08/02/2023 Health Care Proxy Care Teams Tab Card Press Operator Relationship Specialty Start Date End Date Rachel Shine MD [address] [place] [address] PCP - General Family Medicine 05/10/18 Skye Robles, JosuéD [address] [place] [address] Pharmacist Internal Medicine 09/15/23 Arleen Wor[address]ton [address] 3rd [place] [address] Gastroenterology 04/24/24 Moisés Spence [address] [place] [address] 04/24/24 Karthik Reardon MD [address] [facility] [address] [place] [address] Ophthalmology 04/24/24 Олег Skaggs MD [address] [place] [address] Hematology and Oncology 04/24/24 Karthik Reardon MD [address] [facility] [address] [place] [address] Ophthalmology 12/19/24
--- OUTSIDE RECORDS SUMMARY | 2025-01-09 14:35 | XMS_ITS | Encounter Summary ---
Author Organization [employer] Address [address] [facility] 7t [place] [address] Care Team Providers Care Division Service Manager Name Role Phone Rachel Shine MD Primary Care Provider + [phone] Skye Robles PharmD Unavailable [phone] Arleen Worthington Unavailable Moisés Spence Unavailable Karthik Reardon MD Unavailable [phone] Олег Skaggs MD Unavailable [phone] Karthik Reardon MD Unavailable [phone] Reason for Visit * Reason Comments Med Refill Encounter Details Date Type Department Care Team (Late st Contact Info) Description 11/01/2024 Refill [facility] PEDS [address] [place] [address] Rachel Shine MD [address] [place] [address] Primary insomnia Social History Tobacco Use Types [...] Description 01/10/2025 10:30 AM EDT Medication Management [facility] MEDICINE [address] [place] [address] Skye Robles PharmD [address] [place] [address] documented as of this encounter Goals Goal [...] documented as of this encounter Care Teams Division Service Manager Relationship Specialty Start Date End Date Rachel Shine MD [address] [place] [address] PCP - General Family Medicine 05/10/18 Skye Robles PharmD [address] [place] [address] Pharmacist Internal Medicine 09/15/23 Arleen Worthington [address] [place] [address] Gastroenterology 04/24/24 Moisés Spence [address] [place] [address] 04/24/24 Karthik Reardon MD [address] [facility] [address] [place] [address] Ophthalmology 04/24/24 Олег Skaggs MD [address] [place] [address] Hematology and Oncology 04/24/24 Karthik Reardon MD [address] [place] [address] Ophthalmology 12/19/24 documented as of this encounter
--- OUTSIDE RECORDS SUMMARY | 2025-01-09 14:35 | XMS_ITS | Encounter Summary ---
Author Organization [employer] Address [address] [facility] [address] 7t [place] [address] Care Team Providers Care Distribution Field Engineer Name Role Phone Rachel Shine MD Primary Care Provider + [phone] Skye Robles PharmD Unavailable [phone] Arleen Worthington Unavailable Moisés Spence Unavailable Karthik Reardon MD Unavailable [phone] Олег Skaggs MD Unavailable [phone] Karthik Reardon MD Unavailable [phone] Encounter Details Date Type Department Care Team (Late st Contact Info) Description 11/07/2024 Telephone C [facility] [address] [place] [address] Rachel Shine MD [address] [place] [address] Social History Tobacco Use Types Packs/Day Years [...] Description 01/10/2025 10:30 AM EDT Medication Management [facility] MEDICINE [address] [place] [address] Skye Robles PharmD [address] [place] [address] documented as of this encounter Goals Goal [...] documented as of this encounter Care Teams Distribution Field Engineer Relationship Specialty Start Date End Date Rachel Shine MD [address] [place] [address] PCP - General Family Medicine 05/10/18 Skye Robles, JosuéD [address] [place] [address] Pharmacist Internal Medicine 09/15/23 Arleen Worhtington [address] 3rd [place] [address] Gastroenterology 04/24/24 Moisés Spence [address] [place] [address] 04/24/24 Karthik Reardon MD [address] [facility] [address] [place] [address] Ophthalmology 04/24/24 Олег Skaggs MD [address] [place] [address] Hematology and Oncology 04/24/24 Karthik Reardon MD [address] [facility] [address] [place] [address] Ophthalmology 12/19/24 documented as of this encounter
--- OUTSIDE RECORDS SUMMARY | 2025-01-09 14:35 | XMS_ITS | Encounter Summary ---
Author Organization [employer] Address 75 [facility] 7t [place] [address] Care Team Providers Care Drop Board Man Name Role Phone Rl Rachel JACINTO Primary Care Provider +- [phone] Skye Robles PharmD Unavailable [phone] Arleen Worthington Unavailable Moisés Spence Unavailable Karthik Reardon MD Unavailable [phone] Олег Skaggs MD Unavailable [phone] Karthik Reardon MD Unavailable [phone] Encounter Details Date Type Department Care Team (Late st Contact Info) Description 04/28/2022 Orders Only [facility] MED & PEDS [address] [place] [address] Therese Robles LPN Social History Tobacco Use [...] 10:30 AM EDT Medication Management [facility] MEDICINE [address] [place] [address] Skye Robles, PharmD [address] [place] [address] documented as of this encounter Visit Diagnoses Not on filedocumented in this encounter Care Teams Drop Board Man Relationship Specialty Start Date End Date Rachel Shine MD [address] [place] [address] PCP - General Family Medicine 05/10/18 Skye Robles, JosuéD [address] [place] [address] Pharmacist Internal Medicine 09/15/23 Arleen Worthington [address] 3rd [place] [address] Gastroenterology 04/24/24 Moisés Spence [address] [facility] 3rd [place] [address] 04/24/24 Karthik Reardon MD [address] [facility] [address] [place] [address] Ophthalmology 04/24/24 Олег Skaggs MD [address] [place] [address] Hematology and Oncology 04/24/24 Karthik Reardon MD [address] [place] [address] Ophthalmology 12/19/24 documented as of this encounter
--- OUTSIDE RECORDS SUMMARY | 2025-01-09 14:35 | XMS_ITS | Encounter Summary ---
Author Organization [email or web address] Address [address] [facility] 7t [place] [address] Care Team Providers Care Tubing Oiler Name Role Phone Rachel Shine MD Primary Care Provider + [phone] Skye Robles PharmD Unavailable [phone] Arleen Worthington Unavailable Moisés Spence Unavailable Karthik Reardon MD Unavailable [phone] Олег Skaggs MD Unavailable [phone] Karthik Reardon MD Unavailable [phone] Reason for Visit * Reason Onset Date Comments Med Refill 11/08/2024 Encounter Details Date Type Department Care Team (Late st Contact Info) Description 11/08/2024 Refill [facility] MEDICINE [address] [place] [address] Rachel Shine MD [address] [place], [place] [id number] Primary insomnia Social History Tobacco Use Types [...] Description 01/10/2025 10:30 AM EDT Medication Management [facility] MEDICINE [address] [place] [address] Skye Robles, PharmD [address] [place] [address] documented as of this encounter Goals Goal Patient Goal Type Associated Problems Recent Progress Patient-Stated? Author Blood Pressure < 140/90 Blood Pressure 98/70( 025 11:10 AM EDT) No Ruthy Florencesa, PharmD Hemoglobin A1c < 7.5 Result Component 6.7( 11:04 AM EDT) No Skye Florence, PharmD documented as of this encounter Visit Diagnoses Diagnosis Primary insomnia Persistent disorder of initiating or maintaining sleep documented in this encounter Additional Health Concerns Assessment Noted Time PHQ-9 Depression Total Score: 8 08/31/19 24 1:43 PM EDT documented as of this encounter Care Teams Tubing Oiler Relationship Specialty Start Date End Date Rachel Shine MD [address] [place] [address] PCP - General Family Medicine 05/10/18 Skye Robles PharmD [address] [place] [address] Pharmacist Internal Medicine 09/15/23 Arleen Worthington [address] [place] [address] Gastroenterology 04/24/24 Moisés Spence [address] [place] [address] 04/24/24 Karthik Reardon MD [address] [facility] [address] [place] [address] Ophthalmology 04/24/24 Олег Skaggs MD [address] [place] [address] Hematology and Oncology 04/24/24 Karthik Reardon MD [address] [place] [address] Ophthalmology 12/19/24 documented as of this encounter
--- OUTSIDE RECORDS SUMMARY | 2025-01-09 14:35 | XMS_ITS | Encounter Summary ---
Author Organization [employer] Address [address] [facility] 7t [place] [address] Care Team Providers Care Industrial Nurse Name Role Phone Rachel Shine MD Primary Care Provider + [phone] Skye Robles PharmD Unavailable [phone] Arleen Worthington Unavailable Moisés Spence Unavailable Karthik Reardon MD Unavailable [phone] Олег Skaggs MD Unavailable [phone] Karthik Reardon MD Unavailable [phone] Encounter Details Date Type Department Care Team (Late st Contact Info) Description 08/31/2023 Abstract [facility] MEDICINE [address] [place], [place] [phone] Rachel Shine MD [address] [place], [place] [phone] Social History Tobacco Use Types Packs/Day Years [...] the past 12 months, has t he [employer] gas, oil or water company threatened to [...] AM EDT documented as of this encounter Functional Status * Over the past 2 weeks, how often have you been bothered by any of the following problems? Question Answer Date of Assessment Author Patient Health Questionnaire -2 Score 2 08/31/2023 1:43 PM EDT Maria De Jesus Schmidt * If you checked off any problems on this questionnaire so far, Question Answer Date of Assessment Author How difficult have these problems made it for you to do your work, take care of things at home, or get along with other people? Somewhat difficult 08/31/2023 1:43 PM EDT Valerie Schmidt * Over the past 2 weeks, how often have you been bothered by any of the following problems? Question Answer Date of Assessment Author Little interest or pleasure in doing things Several days 08/31/2023 1:43 PM Valerie Troncoso Feeling down, depressed, or hopeless Several days 08/31/2023 1:43 PM GREGORYT Valerie Schmidt Trouble falling or staying asleep, or sleeping too much Several days 08/31/2023 1:43 PM GREGORYT Valerie Schmidt Feeling tired or having little energy Several days 08/31/2023 1:43 PM EDT Valerie Schmidt Poor appetite or overeating Several days 08/31/2023 1:43 PM EDT Valerie Schmidt Feeling bad about yourself - or that you are a failure or have let yourself or your family down More than half the days 08/31/2023 1:43 PM EDT Valerie Schmidt Trouble concentrating on things, such as reading the newspaper or watching television Several days 08/31/2023 1:43 PM EDT Valerie Schmidt Moving or speaking so slowly that other people could have noticed? Or the opposite - being so fidgety or restless that you have been moving around a lot more than usual. Not at all 08/31/2023 1:43 PM EDT Valerie Schmidt Thoughts that you would be better off or hurting yourself in some way Not at all 08/31/2023 1:43 PM EDT Valerie Schmidt Patient Health Questionnaire-9 Score 8 08/31/2023 1:43 PM EDT Valerie Schmidt documented as of this encounter Plan of Treatment Upcoming Encounters Date Type Department Care Team (Late st Contact Info) Description 01/10/2025 10:30 AM EDT Medication Management [facility] MEDICINE [address] [place] [address] Skye Robles, PharmD [address] [place] [address] documented as of this encounter Procedures Procedure Name Priority Date/Time Associated Diagnosis Comments MAMMOGRAPHY Routine 08/31/2023 11:30 AM EDT documented in this encounter Results * Mammography (08/31/2023 11:30 AM EDT) Mammogram BIRADS 2 Normal, Abnormal, BIRADS 1 , BIRADS 2 Anatomical Region Laterality Modality Other us Historical Provider MD HEALTH MAINTENANCE Final Result documented in this encounter Visit Diagnoses Not on filedocumented in this encounter Additional Health Concerns Assessment Noted Time PHQ-9 Depression Total Score: 8 08/31/19 24 1:43 PM EDT documented as of this encounter Care Teams Industrial Nurse Relationship Specialty Start Date End Date Rachel Shine MD [address] [place] [address] PCP - General Family Medicine 05/10/18 Skye Robles, JosuéD [address] [place] [address] Pharmacist Internal Medicine 09/15/23 Arleen Worthington [address] [facility] 3rd [place] [address] Gastroenterology 04/24/24 oMisés Spence 11 [facility] 3rd [place] [address] 04/24/24 Karthik Reardon MD [address] [facility] [address] [place] [address] Ophthalmology 04/24/24 Олег Skaggs MD [address] [place] [address] Hematology and Oncology 04/24/24 Karthik Reardon MD [address] [place] [address] Ophthalmology 12/19/24 documented as of this encounter
== END 2025-01-09 14:27 | disposition home or self-care (01) ==
LOC: HO.HCS 13:18
PROVIDERS: PCP Family Medicine; Visit Provider Nurse Practitioner Family
DX: R93.1 Abnormal findings on diagnostic imaging of heart and coronary circulation (principal); Z95.0 Presence of cardiac pacemaker; I10 Essential (primary) hypertension
CPT/HCPCS: 93010; 93280; 99214; G2211

== ENCOUNTER → 2025-01-09 13:18 | Outpatient (BNVA) | payer MEDICARE, SELFPAY | PROVIDERS: PCP Family Medicine; Visit Provider Nurse Practitioner Family | DX: Z45.018 Encounter for adjustment and management of other part of cardiac pacemaker (principal); R93.1 Abnormal findings on diagnostic imaging of heart and coronary circulation; I10 Essential (primary) hypertension | CPT/HCPCS: 93005; 93280; 99212 ==

== ENCOUNTER → 2025-02-05 23:59 | Outpatient (BNV) | payer MEDICARE, SELFPAY ==
--- NOTE | 2025-03-05 20:45 | A.OFFVIS_ITS ---
Intake Visit Reasons: Remote device check- [facility] Allergies No Known Allergies Allergy (Verified 01/09/25 13:48) PFSH Medical History Sciatica Osteoarthritis Dizziness Varicose veins of both lower extremities with pain Ambulates with cane Abnormal stress test HX: breast cancer Depression LBBB (left bundle branch block) Hyperlipidemia Diabetes mellitus HTN (hypertension) Surgical History Hx of colonoscopy History of cardiac pacemaker Family History Father Hx of coronary artery bypass graft Mother No problems noted. Social History Household Members Other:: son and grandson Are you a primary day care home provider to a significant other at home: No Do you presently have visiting nurse or other home services: No Alcohol intake: current Alcohol intake frequency: a few times a month Patient Tobacco Use Status: Never used Tobacco Office Procedures Cardiac Device Check Cardiac Device Check Details: BiV AICD Battery 2 years INTAKE CLERK >99% Episodes of PMT recorded. [id number] Cardiac Device Interrogation, pacemaker Procedure code (CPT) selection complete Assessment & Plan Assessment & Plan (1) Pacemaker: Code(s): Z95.0 - Presence of cardiac pacemaker Category: Medical Plan Coding Level of Care Code Procedure Only Diagnoses Pacemaker Z95.0 CPT Codes Cardiac Device Check - Cardiac Device 12: [id number] Cardiac Device Interrogation, pacemaker ([id number])
== END ==
PROVIDERS: PCP Family Medicine; Visit Provider Internal Medicine Cardiovascular Disease
DX: Z45.018 Encounter for adjustment and management of other part of cardiac pacemaker (principal)
CPT/HCPCS: 93294

== ENCOUNTER → 2025-02-27 09:23 | Outpatient (REF) | payer MEDICARE, SELFPAY ==
--- NOTE | ~2025-02-27 | NM_ITS ---
Lexiscan Myocardial perfusion study Indication: Shortness of breath to evaluate for myocardial ischemia Technique: The patient was brought in for a Lexiscan perfusion study on 02/27/2025 and was injected 0.4 mg of Lexiscan intravenously. Within a minute of this injection 30 mCi of sestamibi was given intravenously. Images were obtained using the SPECT gamma camera interlaced with the gating device. Images were obtained in supine position. Resting perfusion study was performed on 02/26/2025. Patient was administered 30 mCi of sestamibi intravenously at rest. Images were then obtained in supine position. Images obtained without without CT attenuation. Total DLP 75 mGy-cm. Images were processed with the software and compared side to side in short axis, horizontal long axis and vertical long axis views. Findings: The stress perfusion study showed nonattenuated images show some thinning of the distal lateral wall of the LV myocardium. Remainder of the LV myocardium is normally perfused. Attenuated corrected images show mildly to moderately reduced uptake in the apex of the LV myocardium.. The gated study shows normal LV systolic function with calculated LVEF of 70%. LV cavity is normal in size. The gated study shows normal systolic wall thickening and contraction of segments. Resting study shows no change in perfusion pattern compared to stress perfusion study. Gating at rest reveals normal systolic wall motion with ejection fraction at 76%. The findings are consistent with normal myocardial perfusion. NM/NM cardiolite stress test Impression: 1. Myocardial perfusion imaging study shows normal myocardial perfusion 2. Gated LVEF is 70% 3. Transient ischemic dilatation not present Nondiagnostic changes on EKG. Electronically signed by: Froilan Olivares MD 02/28/2025 03:46 PM EDT
--- NOTE | 2025-02-27 09:25 | CA_ITS ---
Acquisition Time: 2025-02-27 10:19:09 Total Exercise Time: 00:02:00 Test Indications: Dyspnea Medications: ASA ATORVASTAIN Protocol: LEXISCAN Max HR: 121 BPM 81% of Pred: 149 BPM Max BP: 116/78 mmHG Max Work Load: 1.0 METS Pharmacological stress test with Lexiscan while pt swings her legs in chair, with reports of SOB, with isolated PVCs, with normotensive response to injection. Nondiagnostic EKG for ischemia. In recovery, pt treated with IVP Aminophylline 75 mg to reverse Lexiscan after which pt slowly feeling back to baseline. Nuclear images pending. Test reviewed with Dr. Olivares. Referred By: Cisco Saenz Electronically Signed By: Cisco Saenz
== END ==
LOC: HO.CARD 09:23
PROVIDERS: PCP Family Medicine
DX: R06.00 Dyspnea, unspecified (principal)
CPT/HCPCS: 78452; 93017; A9500; J0280; J2785

== ENCOUNTER → 2025-02-27 09:25 | Outpatient (BNV) | payer MEDICARE, SELFPAY | PROVIDERS: PCP Family Medicine | DX: R06.02 Shortness of breath (principal) | CPT/HCPCS: 78452 ==